=== PATIENT | female | born 1935 | race African-American/Black ===

== ENCOUNTER → 2017-01-04 | Outpatient (CLI) | payer OTHER, MEDICAID ==
[2016-11-17 16:02] VITALS: BP 180/97
--- NOTE | 2017-01-04 16:57 | VAS ---
HISTORY: Bilateral ulcers, peripheral vascular disease Study: Arterial ultrasound of the bilateral lower extremities Comparison: 03/27/2014 Technique: Multiple gaines scale and color flow Doppler images of the right and left lower extremity a rterial system were obtained. Interrogation of the common femoral artery, superficial femoral arter y, popliteal artery, and tibial arteries was performed. Findings: Biphasic waveforms are seen throughout the right and left lower extremity from the common femoral ar terial system to the calf vessels. There is diffuse calcified plaque throughout the femoral, poplite al, and tibial arteries. There is no evidence of acute vascular occlusion. Ankle-brachial indices we re not calculated. IMPRESSION: 1. Diffuse calcified plaque throughout the bilateral lower extremity arterial circulation. All vess els remain patent without evidence of occlusion. Reported By:
== END | disposition home or self-care (01) ==
LOC: RAD 13:54
PROVIDERS: ATTEND Internal Medicine
DX: L97.529 Non-pressure chronic ulcer of other part of left foot with unspecified severity (principal); L97.519 Non-pressure chronic ulcer of other part of right foot with unspecified severity; I73.89 Other specified peripheral vascular diseases
CPT/HCPCS: 93925

== ENCOUNTER → 2017-01-26 | Outpatient (CLI) | payer OTHER, MEDICAID ==
[2016-11-17 16:02] VITALS: BP 180/97
--- NOTE | 2017-01-26 13:22 | RAD ---
HISTORY: Cough Study: Single-view of the chest Comparison: 07/23/2016 Findings: Stable right subclavian port catheter terminating in the region of the distal SVC. Lung volumes are reduced. No gross airspace disease, pneumothorax or pleural effusion identified. Stable cardiac and mediastinal contours with mild cardiomegaly noted. There are chronic degenerative changes of the bon y thorax. IMPRESSION: 1. Stable chest without acute abnormality. Reported By:
== END ==
LOC: RAD 12:31
PROVIDERS: ATTEND Internal Medicine
DX: R05 Cough (principal)
CPT/HCPCS: 71010

== ENCOUNTER 2017-09-24 14:23 | Observation (INO) | payer OTHER, MEDICAID ==
[2017-09-24 16:10] LABS: BASOPHILS # (AUTO) 0.1 X10^3/uL (0.0-0.1); BASOPHILS % (AUTO) 0.7 % (0.2-1.0); EOSINOPHILS # (AUTO) 0.2 x10^3/uL (0.0-0.2); EOSINOPHILS % (AUTO) 2.8 % (0.9-2.9); HEMATOCRIT 44.2 % (36.0-47.0); HEMOGLOBIN 15.3 g/dL (12.0-16.0); LYMPHOCYTES % (AUTO) 42.3 % (21.0-51.0); MEAN CORPUSCULAR HEMOGLOBIN 31.5 pg (27.0-34.0); MEAN CORPUSCULAR HGB CONC 34.5 g/dL (33.0-35.0); MEAN CORPUSCULAR VOLUME 91.4 fL (80.0-100.0); MEAN PLATELET VOLUME 8.4 fL (7.4-11.0); MONOCYTES # (AUTO) 0.7 x10^3/uL (0.3-0.8); MONOCYTES % (AUTO) 10.3 % (0.0-13.0); NEUTROPHILS # (AUTO) 3.1 x10^3/uL (2.2-4.8); NEUTROPHILS % (AUTO) 43.9 % (42.0-75.0); PLATELET COUNT 206 X10^3/uL (150.0-450.0); RED BLOOD COUNT 4.84 X10^6/uL (3.5-5.4); RED CELL DISTRIBUTION WIDTH 14.4 % (11.6-16.5); WHITE BLOOD COUNT 7.1 X10^3/uL (3.6-10.0)
[2017-09-24 16:26] LABS: ALANINE AMINOTRANSFERASE 18 Units/L (12-78); ALBUMIN 2.8 g/dL (3.4-5.0); ALKALINE PHOSPHATASE 100 Units/L (46-116); ASPARTATE AMINO TRANSFERASE 18 Units/L (15-37); BLOOD UREA NITROGEN 20 mg/dL (7-18); CALCIUM 9.5 mg/dL (8.5-10.1); CARBON DIOXIDE 23.5 mmol/L (21-32); CHLORIDE 104 mmol/L (98-107); COR CA(FOR HYPOALB) 10.5 mg/dL (8.5-10.1); CREATININE 0.65 mg/dL (0.55-1.02); SODIUM 138 mmol/L (136-145); eGFR BLACK RACES > 60 (>60); eGFR NON BLACK RACES > 60 (>60)
[2017-09-24] MEDS: PROTONIX INJ 40 MG VIAL IVP SCH ×2 (16:29→22:55)
--- NOTE | 2017-09-24 16:57 | RAD ---
Examination: Abdomen series with AP chest History: Vomiting blood AP chest: The heart is normal in size, the aortic arch atheromatous and the lungs clear. A right subc lavian injection port terminates in the right atrium. There is no evidence for free air under the mariah phragm although there is no marker on this image to indicate that it was obtained with the patient er ect. In the abdomen, frontal views demonstrate mild fecal distention of the colon. The appearance does not suggest distal obstruction. There is no evidence for mass, urinary calcification or ascites. There i s evidence for previous L1 vertebroplasty. Impression: No acute chest or abdominal process identified. Correlate clinically for constipation. Reported By:
[2017-09-24 17:04] LABS: APPEARANCE,URINE HAZY (CLEAR); BLOOD/HEMOGLOBIN,URINE NEGATIVE (NEGATIVE); COLOR,URINE YELLOW (YELLOW); GLUCOSE, URINE NEGATIVE (NEGATIVE); KETONES,URINE NEGATIVE (NEGATIVE); NITRITES,URINE POSITIVE (NEGATIVE); PROTEIN,URINE NEGATIVE (NEGATIVE)
[2017-09-24 17:05] LABS: BACTERIA,URINE 3+ /HPF (NEGATIVE); BILIRUBIN,URINE NEGATIVE (NEGATIVE); LEUKOCYTE ESTERASE ,URINE NEGATIVE (NEGATIVE); RBC,URINE 0-2 /HPF (NEGATIVE); SQUAMOUS EPITHELIAL CELL,UR NEGATIVE /HPF (NEGATIVE); UROBILINOGEN,URINE NORMAL (NORMAL)
[2017-09-24 17:32] VITALS: BMI 27.1
[2017-09-24] MEDS ORDERED: ROCEPHIN VIAL 1 GM ONE (18:40)
[2017-09-24] MEDS ORDERED: NS 1000 ML 1,000 ML ONE (18:40)
[2017-09-24] MEDS ORDERED: NS 50 ML IV 50 ML IV ONE (18:41)
[2017-09-24] MEDS: ROCEPHIN VIAL 1 GM 1 GM in NS 50 ML IV + SPIKE MINIBAG* 50 ML IV SCH (18:49)
[2017-09-24] MEDS ORDERED: DIPRIVAN VIAL 20 ML ONE (19:12)
[2017-09-25 05:59] LABS: BASOPHILS % (AUTO) 0.5 % (0.2-1.0); EOSINOPHILS # (AUTO) 0.1 x10^3/uL (0.0-0.2); EOSINOPHILS % (AUTO) 2.5 % (0.9-2.9); HEMATOCRIT 40.4 % (36.0-47.0); LYMPHOCYTES # (AUTO) 2.4 X10^3/uL (1.3-2.9); LYMPHOCYTES % (AUTO) 42.6 % (21.0-51.0); MEAN CORPUSCULAR HEMOGLOBIN 31.7 pg (27.0-34.0); MEAN CORPUSCULAR HGB CONC 34.6 g/dL (33.0-35.0); MEAN CORPUSCULAR VOLUME 91.5 fL (80.0-100.0); MEAN PLATELET VOLUME 8.5 fL (7.4-11.0); MONOCYTES # (AUTO) 0.5 x10^3/uL (0.3-0.8); MONOCYTES % (AUTO) 9.6 % (0.0-13.0); NEUTROPHILS # (AUTO) 2.5 x10^3/uL (2.2-4.8); NEUTROPHILS % (AUTO) 44.8 % (42.0-75.0); PLATELET COUNT 189 X10^3/uL (150.0-450.0); RED BLOOD COUNT 4.42 X10^6/uL (3.5-5.4); RED CELL DISTRIBUTION WIDTH 14.1 % (11.6-16.5); WHITE BLOOD COUNT 5.7 X10^3/uL (3.6-10.0)
[2017-09-25 06:42] LABS: ALANINE AMINOTRANSFERASE 17 Units/L (12-78); ALBUMIN 2.7 g/dL (3.4-5.0); ALKALINE PHOSPHATASE 95 Units/L (46-116); ASPARTATE AMINO TRANSFERASE 15 Units/L (15-37); BLOOD UREA NITROGEN 19 mg/dL (7-18); CALCIUM 9.3 mg/dL (8.5-10.1); CARBON DIOXIDE 24.9 mmol/L (21-32); CHLORIDE 104 mmol/L (98-107); COR CA(FOR HYPOALB) 10.3 mg/dL (8.5-10.1); CREATININE 0.66 mg/dL (0.55-1.02); SODIUM 143 mmol/L (136-145); TOTAL PROTEIN 6.7 g/dL (6.4-8.2); eGFR BLACK RACES > 60 (>60); eGFR NON BLACK RACES > 60 (>60)
[2017-09-25] MEDS ORDERED: POTASSIUM CHL 60 MEQ/NS 0.45% 500 ML IV PRN (07:24)
[2017-09-25] MEDS ORDERED: POTASSIUM CHL 40 MEQ/NS 0.45% 500 ML IV PRN (07:24)
[2017-09-25] MEDS ORDERED: POTASSIUM CHLORIDE LIQ 20 MEQ UDC PO PRN (07:24)
[2017-09-25] MEDS ORDERED: MAG-OX TAB PO PRN (07:24)
[2017-09-25] MEDS ORDERED: K-RIDER 10 MEQ/NS 100 ML 10 MEQ/100 ML BAG IV PRN (07:24)
[2017-09-25] MEDS ORDERED: K-LYTE EFFERVESCENT PO PRN (07:24)
--- NOTE | 2017-09-25 08:20 | DR.H&P ---
H&P - History & Physical for Day of: H&P Date: 09/24/17 - Chief Complaint Chief Complaint: GI BLEED - Allergies Allergies/Adverse Reactions: Allergies Allergy/AdvReac Type Severity Reaction Status Date / Time No Known Drug Allergies Allergy Verified 09/24/17 15:23 - Past Medical History Past Medical History: Anemia, Angina, Anxiety, Arthritis, Coronary Artery Disease, CVA, Dementia, Depression, Dyslipidemia, GERD, Hypertension, Hypothyroidism Additional Medical History: Constipation, Tinnitus, Spinal Cord Infarction, Restless Leg Syndrome, Peripheral Vascular Disease, Paraplegic, Right-sided paralysis, Gastrointestinal Ulcer, UTI's, Muscle Weakness, Osteoarthritis, Previous Blood Transfusion - Past Surgical History Surgical History: Abdominal Surgery, Hysterectomy, Other - Family History Family Medical History: Diabetes Mellitus - Social History Does patient currently use any type of tobacco product: No Have you used tobacco products in the last 12 months: No Type of Tobacco Use: None Does any household member use tobacco: No Alcohol Use: None Drug Use: None - Medications Home Medications: Atorvastatin Calcium [LIPITOR Tab 40 mg *] 1 tab PO HS 09/24/17 [History Confirmed 09/24/17] - Physical Exam Vital Signs: Temperature 98.0 F Pulse Rate [Left Brachial] 80 Respiratory Rate 24 Blood Pressure [Left Arm] 127/76 Blood Pressure [Right Arm] 110/60 Blood Pressure 180/97 O2 Sat by Pulse Oximetry 100
[2017-09-25] MEDS ORDERED: ROCEPHIN VIAL 1 GM ONE (09:26)
[2017-09-25] MEDS ORDERED: NS 50 ML IV 50 ML IV ONE (09:27)
[2017-09-25] MEDS: ROCEPHIN VIAL 1 GM 1 GM in NS 50 ML IV + SPIKE MINIBAG* 50 ML IV SCH (09:43)
[2017-09-25] MEDS: PROTONIX INJ 40 MG VIAL IVP SCH ×2 (09:43→21:09)
[2017-09-25] MEDS: HALDOL INJ IVP PRN ×2 (10:06→14:57)
[2017-09-25] MEDS: MAGNESIUM SULFATE 1 GM/100 mL PREMIX 1 GM/100 ML BAG IV PRN ×2 (10:21→11:59)
[2017-09-25] MEDS ORDERED: METHENAMINE HIPPURATE PO SCH (10:45)
[2017-09-25] MEDS ORDERED: PATIENT'S HOME MEDICATION (Hydrocodone-Acetaminophen [Norco] 1 TAB) PO SCH (10:45)
[2017-09-25] MEDS ORDERED: NUTRITIONAL SUPPLEMENTS PO SCH (10:45)
[2017-09-25] MEDS ORDERED: PATIENT'S HOME MEDICATION PO SCH (11:00)
--- NOTE | 2017-09-25 11:10 | PCM.PROG ---
Progress Note - Progress Note for Day of Date: 09/25/17 - Subjective Subjective: WAS ADMITTED FOR AN UPPER GI BLEED. SHE WAS TAKEN DOWN FOR AN EGD BY YESTERDAY. FINDINGS FROM EGD INCLUDE A HIATAL HERNIA, DISTAL ESOPHAGEAL STRICTURES, DISTAL ESOPHAGITIS, DIFFUSE EROSIVE GASTRITIS, MULTIPLE GASTRIC ULCERS, AND DUODENITIS. SHE WAS STARTED ON PROTONIX 40MG IV Q12H. TODAY, SHE IS LYING IN BED WITH EYES OPEN ON MORNING ROUNDS. PATIENT RESPONDS BY MUMBLING WHEN SPOKEN TO. SHE APPEARS TO BE ANXIOUS AND AGITATED THIS MORNING. PATIENTS DAUGHTER IS AT BEDSIDE. ON EXAMINATION, HEARTRATE IS RAPID. LUNGS ARE CLEAR TO AUSCULTATION. ABDOMEN IS ROUND, SOFT, AND NOTED WITH DIFFUSE TENDERNESS TO PALPATION. NORMAL BOWEL SOUNDS ARE NOTED IN ALL QUADRANTS. SHE HAS FULL RANGE OF MOTION IN ALL EXTREMITIES. SHE IS NOTED TO BE ON THE INSTRUCTOR BALLROOM DANCING. HEART RATE IS NOTED TO BE IN THE 130S ON THE MONITOR. SINUS TACHYCARDIA NOTED. RESPIRATIONS ARE IN THE 30S. PATIENT IS CURRENTLY UTILIZING OXYGEN VIA NASAL CANNULA AT 2L/MIN. HER VITAL SIGNS THIS MORNING ARE 98.6-293-04-100%-110/60. ABNORMAL LAB VALUES INCLUDE THE FOLLOWING: POTASSIUM 3.3, BUN 19, ALBUMIN 2.7. A URINE CULTURE IS PENDING. PRELIMINARY RESULTS REPORT GROWTH OF GRAM NEGATIVE RODS. SHE IS CURRENTLY RECEIVING ROCEPHIN 1GM DAILY FOR A UTI. TODAY, WE WILL OBTAIN AN EKG. WE WILL START HALDOL 1-2MG IV Q4H PRN FOR AGITATION. OTHERWISE, WE PLAN TO FOLLOW UP WITH AM LABS AND CONTINUE TO MONITOR PATIENT. WE WILL CONTINUE TO MONITOR H&H Q6H. - Past Medical Family Social History Past Med/Fam/Surg Hx: No changes since H&P Allergies: Allergies No Known Drug Allergies Allergy (Verified 09/24/17 15:23) - Review of Systems ROS: No change since H&P - Vital Signs and I&O's Vital Signs: Temperature 98.9 F Pulse Rate [Left Brachial] 133 Respiratory Rate 56 Blood Pressure [Left Arm] 127/76 Blood Pressure [Right Arm] 100/75 Blood Pressure 180/97 O2 Sat by Pulse Oximetry 98 Intake and Output: Intake & Output 09/22/17 09/23/17 09/24/17 09/25/17 11:59 11:59 11:59 11:59 Intake Total 30 Balance 30 - Physical Exam Oriented: Person, Place Eyes: Normal. negative: Blurred Vision, Diplopia, Discharge, Pain, Redness, Photophobia, Other Ear: Normal. negative: Right, Left, Swelling, Ecchymosis, Hemotypanum, Abrasion , Laceration Nose: Normal. negative: Injected, Discharge, Blood, Other Throat: Normal. negative: Tonsillar Hypertrophy, Red, Exudate, Dry, Other Respiratory: Normal. negative: Right, Left, Generalized, Superior, Inferior, Diminished, Wheezes, Rales, Rhonchi, OTHER Cardiovascular: Tachycardia. negative: Murmur, Edema : Normal Auscultation: Bowel Sounds: Normal Palpation: Normal Tenderness: Diffuse. negative: Rebound, Guarding, Rigidity Skin: Normal Musculoskeletal: Normal Psychiatric: Anxiety, Agitation Mood Description: Anxious Affect: Anxious Speech Pattern: Unclear, Inappropriate - Laboratory and Diagnostics Result Diagrams: 09/25/17 05:26 09/25/17 05:26 Labs: 09/24/17 16:45 Urine,Catheterized Urine Culture - Preliminary Laboratory WBC 5.7 X10^3/uL (3.6-10.0) 09/25/17 05:26 RBC 4.42 X10^6/uL (3.5-5.4) 09/25/17 05:26 Hgb 14.0 g/dL (12.0-16.0) 09/25/17 05:26 Hct 40.4 % (36.0-47.0) 09/25/17 05:26 MCV 91.5 fL (80.0-100.0) 09/25/17 05:26 MCH 31.7 pg (27.0-34.0) 09/25/17 05:26 MCHC 34.6 g/dL (33.0-35.0) 09/25/17 05:26 RDW 14.1 % (11.6-16.5) 09/25/17 05:26 Plt Count 189 X10^3/uL (150.0-450.0) 09/25/17 05:26 MPV 8.5 fL (7.4-11.0) 09/25/17 05:26 Neut % 44.8 % (42.0-75.0) 09/25/17 05:26 Lymph % 42.6 % (21.0-51.0) 09/25/17 05:26 [place]man % 9.6 % (0.0-13.0) 09/25/17 05:26 Eos % 2.5 % (0.9-2.9) 09/25/17 05:26 Baso % 0.5 % (0.2-1.0) 09/25/17 05:26 Neut # 2.5 x10^3/uL (2.2-4.8) 09/25/17 05:26 Lymph # 2.4 X10^3/uL (1.3-2.9) 09/25/17 05:26 [place] # 0.5 x10^3/uL (0.3-0.8) 09/25/17 05:26 Eos # 0.1 x10^3/uL (0.0-0.2) 09/25/17 05:26 Baso # 0.0 X10^3/uL (0.0-0.1) 09/25/17 05:26 Absolute Nucleated RBC 0.1 /100WBC 09/25/17 05:26 Sodium 143 mmol/L (136-145) 09/25/17 05:26 Corrected Sodium TNP 09/25/17 05:26 Potassium 3.3 mmol/L (3.5-5.1) L 09/25/17 05:26 Chloride 104 mmol/L (98-107) 09/25/17 05:26 Carbon Dioxide 24.9 mmol/L (21-32) 09/25/17 05:26 BUN 19 mg/dL (7-18) H 09/25/17 05:26 Creatinine 0.66 mg/dL (0.55-1.02) 09/25/17 05:26 Est GFR (MDRD) Af Amer > 60 (>60) 09/25/17 05:26 Est GFR (MDRD) Non-Af > 60 (>60) 09/25/17 05:26 Glucose 85 mg/dL (65-99) 09/25/17 05:26 Calcium 9.3 mg/dL (8.5-10.1) 09/25/17 05:26 Corrected Calcium 10.3 mg/dL (8.5-10.1) H 09/25/17 05:26 Magnesium 1.7 mg/dL (1.7-2.9) 09/25/17 05:26 Total Bilirubin 0.50 mg/dL (0.2-1.0) 09/25/17 05:26 AST 15 Units/L (15-37) 09/25/17 05:26 ALT 17 Units/L (12-78) 09/25/17 05:26 Alkaline Phosphatase 95 Units/L (46-116) 09/25/17 05:26 Total Protein 6.7 g/dL (6.4-8.2) 09/25/17 05:26 Albumin 2.7 g/dL (3.4-5.0) L 09/25/17 05:26 Globulin 4.0 g/dL (2.5-4.5) 09/25/17 05:26 Albumin/Globulin Ratio 0.7 Ratio (1.1-2.1) L 09/25/17 05:26 Specimen Type Catherized urine 09/24/17 16:45 Urine Color Yellow (YELLOW) 09/24/17 16:45 Urine Appearance Hazy (CLEAR) 09/24/17 16:45 Urine pH 5.0 (5.0 - 8.0) 09/24/17 16:45 Ur Specific [place] 1.010 (1.000-1.030) 09/24/17 16:45 Urine Protein Negative (NEGATIVE) 09/24/17 16:45 Urine Glucose (UA) Negative (NEGATIVE) 09/24/17 16:45 Urine Ketones Negative (NEGATIVE) 09/24/17 16:45 Urine Occult Blood Negative (NEGATIVE) 09/24/17 16:45 Urine Nitrite Positive (NEGATIVE) 09/24/17 16:45 Urine Bilirubin Negative (NEGATIVE) 09/24/17 16:45 Urine Urobilinogen Normal (NORMAL) 09/24/17 16:45 Ur Leukocyte Esterase Negative (NEGATIVE) 09/24/17 16:45 Urine RBC 0-2 /HPF (NEGATIVE) 09/24/17 16:45 Urine WBC 3-5 /HPF (NEGATIVE) 09/24/17 16:45 Ur Squamous Epith Cells Negative /HPF (NEGATIVE) 09/24/17 16:45 Urine Bacteria 3+ /HPF (NEGATIVE) 09/24/17 16:45 Ur Culture Indicated? Yes/culture set up 09/24/17 16:45 - Plan (1) Upper gastrointestinal bleed Status: Acute Plan: PROTONIX 40MG IV BID, MONITOR H&H Q6H, CONTINUE TO MONITOR PATIENT.
[2017-09-25] MEDS: TAB-A-VITE PO SCH (11:45)
[2017-09-25] MEDS: ZINC SULFATE PO SCH (11:45)
[2017-09-25] MEDS: VITAMIN C PO SCH ×2 (11:45→21:24)
[2017-09-25] MEDS: EFFEXOR XR 75 MG CAP PO SCH (11:45)
[2017-09-25] MEDS: COLACE CAP 100 MG PO SCH ×2 (11:45→21:23)
[2017-09-25 12:41] LABS: HEMATOCRIT 44.4 % (36.0-47.0); HEMOGLOBIN 15.1 g/dL (12.0-16.0)
[2017-09-25 18:11] LABS: HEMATOCRIT 42.6 % (36.0-47.0); HEMOGLOBIN 14.7 g/dL (12.0-16.0)
[2017-09-25] MEDS ORDERED: REQUIP PO SCH (21:00)
[2017-09-25] MEDS ORDERED: LIPITOR TAB 40 MG PO SCH (21:00)
[2017-09-25] MEDS: HIPREX PO SCH (21:23)
[2017-09-25] MEDS: NORCO 5/325 MG TAB PO SCH (21:23)
[2017-09-26 00:35] LABS: HEMATOCRIT 40.2 % (36.0-47.0); HEMOGLOBIN 13.9 g/dL (12.0-16.0)
[2017-09-26 05:49] LABS: BASOPHILS % (AUTO) 0.6 % (0.2-1.0); EOSINOPHILS # (AUTO) 0.2 x10^3/uL (0.0-0.2); EOSINOPHILS % (AUTO) 3.1 % (0.9-2.9); HEMATOCRIT 42.2 % (36.0-47.0); HEMOGLOBIN 14.3 g/dL (12.0-16.0); LYMPHOCYTES # (AUTO) 2.2 X10^3/uL (1.3-2.9); LYMPHOCYTES % (AUTO) 38.6 % (21.0-51.0); MEAN CORPUSCULAR HEMOGLOBIN 31.1 pg (27.0-34.0); MEAN CORPUSCULAR HGB CONC 33.9 g/dL (33.0-35.0); MEAN CORPUSCULAR VOLUME 91.7 fL (80.0-100.0); MEAN PLATELET VOLUME 8.7 fL (7.4-11.0); MONOCYTES # (AUTO) 0.6 x10^3/uL (0.3-0.8); MONOCYTES % (AUTO) 11.3 % (0.0-13.0); NEUTROPHILS # (AUTO) 2.6 x10^3/uL (2.2-4.8); NEUTROPHILS % (AUTO) 46.4 % (42.0-75.0); PLATELET COUNT 191 X10^3/uL (150.0-450.0); RED CELL DISTRIBUTION WIDTH 14.5 % (11.6-16.5); WHITE BLOOD COUNT 5.6 X10^3/uL (3.6-10.0)
[2017-09-26 05:57] LABS: ALANINE AMINOTRANSFERASE 21 Units/L (12-78); ALBUMIN 2.6 g/dL (3.4-5.0); ALKALINE PHOSPHATASE 93 Units/L (46-116); ASPARTATE AMINO TRANSFERASE 19 Units/L (15-37); BLOOD UREA NITROGEN 15 mg/dL (7-18); CALCIUM 9.2 mg/dL (8.5-10.1); CARBON DIOXIDE 23.3 mmol/L (21-32); CHLORIDE 108 mmol/L (98-107); COR CA(FOR HYPOALB) 10.3 mg/dL (8.5-10.1); SODIUM 140 mmol/L (136-145); TOTAL PROTEIN 6.5 g/dL (6.4-8.2); eGFR BLACK RACES > 60 (>60); eGFR NON BLACK RACES > 60 (>60)
[2017-09-26] MEDS: POTASSIUM CHLORIDE LIQ 20 MEQ UDC PO SCH ×2 (07:49→09:49)
[2017-09-26] MEDS ORDERED: ROCEPHIN VIAL 1 GM 1 GM in D5W 50 ML IV 50 ML IV SCH (09:00)
[2017-09-26] MEDS: ZINC SULFATE PO SCH (09:46)
[2017-09-26] MEDS: PROTONIX INJ 40 MG VIAL IVP SCH (09:46)
[2017-09-26] MEDS: TAB-A-VITE PO SCH (09:46)
[2017-09-26] MEDS: COLACE CAP 100 MG PO SCH (09:47)
[2017-09-26] MEDS: NORCO 5/325 MG TAB PO SCH (09:47)
[2017-09-26] MEDS: EFFEXOR XR 75 MG CAP PO SCH (09:47)
[2017-09-26] MEDS: VITAMIN C PO SCH (09:47)
[2017-09-26] MEDS: HIPREX PO SCH (09:48)
[2017-09-26 15:26] VITALS: BP 129/77
[2017-09-26] MEDS ORDERED: LEVSIN/MAALOX/LIDOC VISC ONE (22:20)
[2017-09-26] MEDS ORDERED: CIPRO TAB 500 MG PO ONE (22:29)
== END 2017-09-26 13:00 | DRG 378 ==
LOC: OBS 14:23 → UNDOADMOB 14:23 → OBS 15:44 → ICU 20:17
PROVIDERS: ADMIT Internal Medicine; ATTEND Internal Medicine
PROC: 0DJ08ZZ Inspection of Upper Intestinal Tract, Via Natural or Artificial Opening Endoscopic (ICD-10-PCS; principal; 2017-09-24 19:00)
DX: K92.0 Hematemesis (principal); N39.0 Urinary tract infection, site not specified; K29.80 Duodenitis without bleeding; K44.9 Diaphragmatic hernia without obstruction or gangrene; L89.152 Pressure ulcer of sacral region, stage 2; K22.2 Esophageal obstruction; K25.9 Gastric ulcer, unspecified as acute or chronic, without hemorrhage or perforation; B96.29 Other Escherichia coli [E. coli] as the cause of diseases classified elsewhere; I25.10 Atherosclerotic heart disease of native coronary artery without angina pectoris; E78.2 Mixed hyperlipidemia; K21.9 Gastro-esophageal reflux disease without esophagitis; I10 Essential (primary) hypertension; E03.8 Other specified hypothyroidism; E11.65 Type 2 diabetes mellitus with hyperglycemia; F41.8 Other specified anxiety disorders; R00.0 Tachycardia, unspecified
CPT/HCPCS: 36415; 74022; 80053; 81001; 83735; 84132; 85014; 85018; 85025; 87086; 87088; 87186; 93005; 99100; A4222; C9113; A4217; G0378; J0696; J1630; J3490

== ENCOUNTER 2017-10-27 16:48 | Inpatient (IN) | payer OTHER, MEDICAID ==
[2017-10-27] MEDS: D5W 1000 ML IV 1,000 ML IV SCH (21:28)
[2017-10-28 05:22] LABS: BASOPHILS % (AUTO) 0.4 % (0.2-1.0); EOSINOPHILS # (AUTO) 0.1 x10^3/uL (0.0-0.2); EOSINOPHILS % (AUTO) 2.3 % (0.9-2.9); HEMATOCRIT 35.9 % (36.0-47.0); HEMOGLOBIN 11.7 g/dL (12.0-16.0); LYMPHOCYTES % (AUTO) 48.2 % (21.0-51.0); MEAN CORPUSCULAR HEMOGLOBIN 30.8 pg (27.0-34.0); MEAN CORPUSCULAR HGB CONC 32.7 g/dL (33.0-35.0); MEAN PLATELET VOLUME 8.9 fL (7.4-11.0); MONOCYTES # (AUTO) 0.6 x10^3/uL (0.3-0.8); MONOCYTES % (AUTO) 10.2 % (0.0-13.0); NEUTROPHILS # (AUTO) 2.4 x10^3/uL (2.2-4.8); NEUTROPHILS % (AUTO) 38.9 % (42.0-75.0); PLATELET COUNT 190 X10^3/uL (150.0-450.0); RED BLOOD COUNT 3.82 X10^6/uL (3.5-5.4); RED CELL DISTRIBUTION WIDTH 15.3 % (11.6-16.5); WHITE BLOOD COUNT 6.1 X10^3/uL (3.6-10.0)
[2017-10-28 05:35] LABS: ALANINE AMINOTRANSFERASE 60 Units/L (12-78); ALBUMIN 1.6 g/dL (3.4-5.0); ALKALINE PHOSPHATASE 83 Units/L (46-116); ASPARTATE AMINO TRANSFERASE 42 Units/L (15-37); BLOOD UREA NITROGEN 35 mg/dL (7-18); CALCIUM 9.1 mg/dL (8.5-10.1); CARBON DIOXIDE 30.4 mmol/L (21-32); COR NA(FOR HYPERGLY) 159 mmol/L (136-145); CREATININE 0.93 mg/dL (0.55-1.02); TOTAL PROTEIN 6.9 g/dL (6.4-8.2); eGFR BLACK RACES > 60 (>60); eGFR NON BLACK RACES > 60 (>60)
[2017-10-28 05:38] LABS: BAND NEUTROPHILS % 2 % (0-10); PLATELET MORPHOLOGY COMMENT NORMAL (NORMAL)
[2017-10-28 05:44] LABS: CHLORIDE 119 mmol/L (98-107); SODIUM 158 mmol/L (136-145)
[2017-10-28] MEDS ORDERED: K-LYTE EFFERVESCENT PO PRN (05:50)
[2017-10-28] MEDS ORDERED: MAGNESIUM SULFATE 1 GM/100 mL PREMIX 1 GM/100 ML BAG IV PRN (05:50)
[2017-10-28] MEDS ORDERED: MAG-OX TAB PO PRN (05:50)
[2017-10-28] MEDS ORDERED: K-RIDER 10 MEQ/NS 100 ML 10 MEQ/100 ML BAG IV PRN (05:50)
[2017-10-28] MEDS ORDERED: POTASSIUM CHLORIDE LIQ 20 MEQ UDC PO PRN (05:50)
[2017-10-28] MEDS ORDERED: POTASSIUM CHL 40 MEQ/NS 0.45% 500 ML IV PRN (05:50)
[2017-10-28] MEDS: POTASSIUM CHL 60 MEQ/NS 0.45% 500 ML IV PRN (06:27)
[2017-10-28] MEDS ORDERED: PHARMACY CONSULT - TPN XX SCH (10:00)
[2017-10-28] MEDS: D5W 1000 ML IV 1,000 ML IV SCH ×2 (10:15→22:14)
[2017-10-28] MEDS: LEVAQUIN PREMIX IV 500 MG 500 MG/100 ML BAG IV SCH (10:15)
[2017-10-28] MEDS: CLINIMIX 4.25 %/10 % 1,000 ML with MVI INJ (ADULT) 10 ML, POTASSIUM CHLORIDE INJ 20 MEQ... IV SCH ×5 (12:34)
[2017-10-28] MEDS ORDERED: ZOFRAN INJ 4 MG VIAL IVP PRN (13:06)
[2017-10-28 20:31] LABS: CRYPTOSPORIDIUM PARVUM ANTIGEN NEGATIVE (NEGATIVE); GIARDIA LAMBLIA ANTIGEN NEGATIVE (NEGATIVE); STOOL FOR WBC NEGATIVE (NEGATIVE)
[2017-10-28] MEDS ORDERED: PATIENT'S HOME MEDICATION (Famotidine [Pepcid] 40 MG) PO SCH (21:00)
[2017-10-28] MEDS ORDERED: PATIENT'S HOME MEDICATION PO SCH (21:00)
[2017-10-28] MEDS ORDERED: METHENAMINE HIPPURATE PO SCH (21:00)
[2017-10-28] MEDS ORDERED: PATIENT'S HOME MEDICATION (Hydrocodone-Acetaminophen [Norco] 1 TAB) PO SCH (21:00)
[2017-10-28] MEDS: PATIENT'S HOME MEDICATION (Amino Acids/Protein Hydrolys [Pro-Stat Awc Liquid Packet] 30 ML PO SCH (22:13)
[2017-10-28] MEDS: VITAMIN C PO SCH (22:13)
[2017-10-28] MEDS: PROTONIX TAB 40 MG PO SCH (22:13)
[2017-10-28] MEDS: TOPROL XL PO SCH (22:13)
[2017-10-28] MEDS: NUTRITIONAL SUPPLEMENTS PO SCH (22:14)
[2017-10-28] MEDS: REQUIP PO SCH (22:14)
[2017-10-28] MEDS: PEPCID TAB 20 MG PO SCH (22:15)
[2017-10-28] MEDS: COLACE CAP 100 MG PO SCH (22:16)
[2017-10-28] MEDS: LIPITOR TAB 40 MG PO SCH (22:16)
[2017-10-28] MEDS: NORCO 5/325 MG TAB PO SCH (22:16)
[2017-10-29] MEDS: CLINIMIX 4.25 %/10 % 1,000 ML with MVI INJ (ADULT) 10 ML, POTASSIUM CHLORIDE INJ 20 MEQ... IV SCH ×15 (04:48→15:51)
[2017-10-29 05:32] LABS: BASOPHILS % (AUTO) 0.7 % (0.2-1.0); EOSINOPHILS # (AUTO) 0.1 x10^3/uL (0.0-0.2); HEMATOCRIT 39.5 % (36.0-47.0); HEMOGLOBIN 12.7 g/dL (12.0-16.0); LYMPHOCYTES # (AUTO) 3.5 X10^3/uL (1.3-2.9); LYMPHOCYTES % (AUTO) 48.3 % (21.0-51.0); MEAN CORPUSCULAR HGB CONC 32.1 g/dL (33.0-35.0); MEAN CORPUSCULAR VOLUME 96.5 fL (80.0-100.0); MEAN PLATELET VOLUME 9.2 fL (7.4-11.0); MONOCYTES # (AUTO) 0.5 x10^3/uL (0.3-0.8); MONOCYTES % (AUTO) 7.4 % (0.0-13.0); NEUTROPHILS # (AUTO) 3.1 x10^3/uL (2.2-4.8); NEUTROPHILS % (AUTO) 42.6 % (42.0-75.0); PLATELET COUNT 150 X10^3/uL (150.0-450.0); RED BLOOD COUNT 4.09 X10^6/uL (3.5-5.4); RED CELL DISTRIBUTION WIDTH 15.4 % (11.6-16.5); WHITE BLOOD COUNT 7.2 X10^3/uL (3.6-10.0)
[2017-10-29] MEDS: NUTRITIONAL SUPPLEMENTS PO SCH ×3 (05:41→21:51)
[2017-10-29 06:29] LABS: ALANINE AMINOTRANSFERASE 46 Units/L (12-78); ALBUMIN 1.5 g/dL (3.4-5.0); ALKALINE PHOSPHATASE 82 Units/L (46-116); BLOOD UREA NITROGEN 24 mg/dL (7-18); CALCIUM 8.6 mg/dL (8.5-10.1); CARBON DIOXIDE 26.9 mmol/L (21-32); CHLORIDE 112 mmol/L (98-107); COR CA(FOR HYPOALB) 10.6 mg/dL (8.5-10.1); COR NA(FOR HYPERGLY) 149 mmol/L (136-145); CREATININE 0.78 mg/dL (0.55-1.02); SODIUM 148 mmol/L (136-145); TOTAL PROTEIN 6.8 g/dL (6.4-8.2); eGFR BLACK RACES > 60 (>60); eGFR NON BLACK RACES > 60 (>60)
[2017-10-29 06:34] LABS: ASPARTATE AMINO TRANSFERASE 37 Units/L (15-37)
--- NOTE | 2017-10-29 08:07 | RAD ---
Examination: Portable AP chest History: SOB Comparison 10/27/2017 Findings: Continued normal heart size with arteriosclerotic dilatation of the aorta. The lungs remain grossly clear. Stable position of right subclavian injection port terminating in the right atrium. Impression: No interval change or developing acute abnormality noted compared to 10/27/2017. Reported By:
[2017-10-29] MEDS: COLACE CAP 100 MG PO SCH ×2 (10:04→21:49)
[2017-10-29] MEDS: EFFEXOR XR 75 MG CAP PO SCH (10:04)
[2017-10-29] MEDS: MIRALAX POWDER (1 DOSE 17GM) PO SCH (10:05)
[2017-10-29] MEDS: HYDROCHLOROTHIAZIDE 12.5 MG CAP PO SCH (10:05)
[2017-10-29] MEDS: HIPREX PO SCH ×2 (10:05→21:50)
[2017-10-29] MEDS: VITAMIN C PO SCH ×2 (10:06→21:49)
[2017-10-29] MEDS: ZINC SULFATE PO SCH (10:06)
[2017-10-29] MEDS: NORCO 5/325 MG TAB PO SCH ×2 (10:06→21:50)
[2017-10-29] MEDS: PEPCID TAB 20 MG PO SCH ×2 (10:06→21:50)
[2017-10-29] MEDS: TAB-A-VITE PO SCH (10:07)
[2017-10-29] MEDS: TOPROL XL PO SCH (10:07)
[2017-10-29] MEDS: PROTONIX TAB 40 MG PO SCH ×2 (10:07→21:49)
[2017-10-29] MEDS: POTASSIUM CHLORIDE LIQ 20 MEQ UDC PO SCH (10:08)
[2017-10-29] MEDS: D5W 1000 ML IV 1,000 ML IV SCH (10:26)
[2017-10-29] MEDS: LEVAQUIN PREMIX IV 500 MG 500 MG/100 ML BAG IV SCH (10:26)
[2017-10-29] MEDS: ALBUMIN HUMAN 25%- 100ML 100 ML IV SCH (11:58)
[2017-10-29] MEDS ORDERED: DIPRIVAN VIAL 20 ML ONE (11:59)
--- NOTE | 2017-10-29 12:03 | DR.H&P ---
H&P - History & Physical for Day of: H&P Date: 10/27/17 - Chief Complaint Chief Complaint: hypernatremia - Allergies Allergies/Adverse Reactions: Allergies Allergy/AdvReac Type Severity Reaction Status Date / Time No Known Drug Allergies Allergy Verified 09/24/17 15:23 - History of Present Illness History of Present Illness: is a 82 year old resident of [facility] who was admitted to the hospital as a direct admit with hypernatremia. Outpatient labs that were obtained earlier today revealed a sodium level of 160. A critical chloride level of 121 was also reported. Potassium is slightly low at 3.1 as well as albumin at 1.7. Prior to admission today, , general surgeon, took patient to the OR for excisional debridement of decubitus ulcer to the sacrum. Ulcer is noted to measure 9x6cm. Bone, as well as muscles were exposed during debridement. A wound culture was collected and results are pending. Patients medical history includes the following: tinnitus, CVA, paralysis, right sided paralysis, CAD, hyperlipidemia , hypertension, GERD, GI ulcer, constipation, urinary tract infections, muscle weakness, arthritis, hypothyroidism, anemia, and anxiety. We plan to admit patient to the hospital for further treatment and evaluation. Patient will be started on IV fluids in an attempt to help decreased sodium level. We will also start her on a broad spectrum antibiotic to cover infection in the wound until an official wound culture is back. We will order for wound care of decubitus ulcer. She is scheduled for a peg tube placement next week due to inadequate nutritional intake. Patient's family reports that patient has had a decreased appetite for sometime and is unable to effectively swallow without choking. We will consult with and discuss placing peg tube while patient is in the hospital. Otherwise, we will follow up with am labs and continue to monitor patient. - Past Medical History Past Medical History: Anemia, Angina, Anxiety, Arthritis, Coronary Artery Disease, CVA, Dementia, Depression, Dyslipidemia, GERD, Hypertension, Hypothyroidism Additional Medical History: Constipation, Tinnitus, Spinal Cord Infarction, Restless Leg Syndrome, Peripheral Vascular Disease, Paraplegic, Right-sided paralysis, Gastrointestinal Ulcer, UTI's, Muscle Weakness, Osteoarthritis, Previous Blood Transfusion - Past Surgical History Surgical History: Abdominal Surgery, Hysterectomy, Other - Family History Family Medical History: Diabetes Mellitus - Social History Alcohol Use: None Drug Use: None - Medications Home Medications: Amino Acids/Protein Hydrolys [Pro-Stat [facility] Liquid Packet] 30 ml PO HS 10/28/17 [ History Confirmed 10/28/17] - Review of Systems Constitutional: See HPI, Weakness Eyes: No Symptoms Reported. denies: See HPI, Pain, Vision Change, Conjunctivae Inflammation, Eyelid Inflammation, Redness, Other ENT: No Symptoms Reported. denies: See HPI, Ear Pain, Ear Discharge, Nose Pain , Nose Discharge, Nose Congestion, Mouth Pain, Mouth Swelling, Throat Pain, Throat Swelling, Other Respiratory: Cough Cardiovascular: No Symptoms Reported. denies: Chest Pain, See HPI, Palpitations , Orthopnea, Paroxysmal Noc. Dyspnea, Edema, Light Headedness, Other Gastrointestinal: Nausea, Vomiting Genitourinary: No Symptoms Reported Musculoskeletal: No Symptoms Reported Skin: Wound (stage 3 decubitus ulcer ) Neurological: Weakness - Physical Exam Vital Signs: Temperature 99.6 F Pulse Rate [Left Brachial] 82 Respiratory Rate 20 Blood Pressure [Left Arm] 125/90 Blood Pressure [Right Arm] 99/64 Blood Pressure 111/69 O2 Sat by Pulse Oximetry 99 Oriented: Unable to test Eyes: Normal Ear: Normal Nose: Normal Throat: Normal Respiratory: Rhonchi Throughout Cardiovascular: Normal : Normal Auscultation: Bowel Sounds: Increased Palpation: Normal Tenderness: Normal Skin: Wound (stage 3 decubitus ulcer to sacrum ) Musculoskeletal: Motor Deficit (right sided paralysis ) Psychiatric: Normal Mood Description: Calm Affect: Normal Speech Pattern: Aphasic - Assessment/Plan (1) Hypernatremia Status: Acute Plan: d5w at 80ml/hr, continue to monitor (2) Decubitus ulcer of sacral region, stage 3 Status: Acute Plan: wound care, levaquin 500mg iv daily, continue to monitor
[2017-10-29] MEDS ORDERED: NS 500 ML IV 500 ML IV ONE (12:19)
[2017-10-29] MEDS: FORTAZ or TAZICEF INJ 2 GM in NS 100 ML IV + SPIKE MINIBAG* 100 ML IV SCH ×3 (13:45→21:34)
--- NOTE | 2017-10-29 15:57 | RAD ---
Examination: KUB History: Tube placement Comparison reference 09/24/2017 Findings: Frontal views of the abdomen demonstrate moderate gas distention of small and large bowel. Detail is limited by portable technique and respiratory artifact. Contrast has apparently been inject ed through the G-tube, accumulating within the stomach. There is no evidence for a gastric distention , contrast extravasation or other abnormality. Impression: 1. Intestinal distention consistent with nonobstructing ileus. 2. Injected contrast material accumulates within the gastric lumen. No extravasation is seen. Reported By:
[2017-10-29] MEDS: PATIENT'S HOME MEDICATION (Amino Acids/Protein Hydrolys [Pro-Stat Awc Liquid Packet] 30 ML PO SCH (21:49)
[2017-10-29] MEDS: REQUIP PO SCH (21:49)
[2017-10-29] MEDS: LIPITOR TAB 40 MG PO SCH (21:50)
--- NOTE | 2017-10-29 22:42 | PCM.PROG ---
Progress Note - Progress Note for Day of Date: 10/28/17 - Subjective Subjective: WAS ADMITTED FOR HYPERNATREMIA AND A DECUBITUS ULCER TO THE SACRUM. DEBRIDEMENT TO WOUND WAS DONE ON 10/27/[address] DESOUZA. TODAY, SHE IS LYING IN BED WITH EYES CLOSED ON MORNING ROUNDS. SHE AWAKENS TO VERBAL STIMULI. STAFF REPORTS THAT PATIENT CONTINUES WITH NAUSEA AND VOMITING AND IS UNABLE TO TOLERATE PO MEDICATIONS AT THIS TIME. WOUND TO SACRUM IS COVERED BY A DRESSING. DRESSING IS DRY AND INTACT. HER VITAL SIGNS THIS MORNING ARE 99.4-76- 18-97%-126/60. TODAY, PATIENTS SODIUM IS NOTED TO BE SLIGHTLY DECREASED TO 158. POTASSIUM IS CRITICALLY LOW THIS MORNING AT 2.8. CRITICAL LOW CHLORIDE WAS ALSO REPORTED AT 119. ALBUMIN IS MARKEDLY LOW AT 1.6. WOUND CULTURES ARE PENDING AT THIS TIME. PRELIMINARY RESULTS INDICATE GROWTH OF GRAM NEGATIVE RODS. TODAY, WE PLAN TO START PERIPHERAL TPN AND ALBUMIN 25% IV DAILY. WE WILL REVIEW HOME MEDICATIONS. OTHERWISE, WE WILL CONTINUE CURRENT PLAN OF CARE. WE PLAN TO FOLLOW UP WITH AM LABS AND CONTINUE TO MONITOR PATIENT. - Past Medical Family Social History Past Med/Fam/Surg Hx: No changes since H&P Allergies: Allergies No Known Drug Allergies Allergy (Verified 09/24/17 15:23) - Review of Systems ROS: No change since H&P - Vital Signs and I&O's Vital Signs: Temperature 98.1 F Pulse Rate [Left Brachial] 77 Respiratory Rate 18 Blood Pressure [Left Arm] 133/66 Blood Pressure [Right Arm] 99/64 Blood Pressure 111/69 O2 Sat by Pulse Oximetry 98 Intake and Output: Intake & Output 10/27/17 10/28/17 10/29/17 10/30/17 11:59 11:59 11:59 11:59 Intake Total 885 2185 929 Balance 885 2185 929 - Physical Exam Oriented: Unable to test Eyes: Normal Ear: Normal Nose: Normal Throat: Normal Respiratory: Normal Cardiovascular: Normal : Normal Auscultation: Bowel Sounds: Increased Palpation: Normal Tenderness: Normal Skin: Wound (stage 3 decubitus ulcer to sacrum ) Musculoskeletal: Motor Deficit (right sided paralysis ) Psychiatric: Normal Mood Description: Calm Affect: Normal Speech Pattern: Unclear - Laboratory and Diagnostics Result Diagrams: 10/29/17 04:55 10/29/17 04:55 Labs: 10/28/17 19:00 Stool - Final Laboratory WBC 7.2 X10^3/uL (3.6-10.0) 10/29/17 04:55 RBC 4.09 X10^6/uL (3.5-5.4) 10/29/17 04:55 Hgb 12.7 g/dL (12.0-16.0) 10/29/17 04:55 Hct 39.5 % (36.0-47.0) 10/29/17 04:55 MCV 96.5 fL (80.0-100.0) 10/29/17 04:55 MCH 31.0 pg (27.0-34.0) 10/29/17 04:55 MCHC 32.1 g/dL (33.0-35.0) L 10/29/17 04:55 RDW 15.4 % (11.6-16.5) 10/29/17 04:55 Plt Count 150 X10^3/uL (150.0-450.0) 10/29/17 04:55 Plt Count Comment Adequate (ADEQUATE) 10/28/17 04:30 MPV 9.2 fL (7.4-11.0) 10/29/17 04:55 Neut % 42.6 % (42.0-75.0) 10/29/17 04:55 Lymph % 48.3 % (21.0-51.0) 10/29/17 04:55 [place] % 7.4 % (0.0-13.0) 10/29/17 04:55 Eos % 1.0 % (0.9-2.9) 10/29/17 04:55 Baso % 0.7 % (0.2-1.0) 10/29/17 04:55 Neut # 3.1 x10^3/uL (2.2-4.8) 10/29/17 04:55 Lymph # 3.5 X10^3/uL (1.3-2.9) H 10/29/17 04:55 [place] # 0.5 x10^3/uL (0.3-0.8) 10/29/17 04:55 Eos # 0.1 x10^3/uL (0.0-0.2) 10/29/17 04:55 Baso # 0.0 X10^3/uL (0.0-0.1) 10/29/17 04:55 Absolute Nucleated RBC 0.5 /100WBC 10/29/17 04:55 Total Counted 100 10/28/17 04:30 Neutrophils % (Manual) 44 % (39-76) 10/28/17 04:30 Band Neutrophils % 2 % (0-10) 10/28/17 04:30 Lymphocytes % (Manual) 43 % (13-43) 10/28/17 04:30 Monocytes % (Manual) 9 % (4-9) 10/28/17 04:30 Eosinophils % (Manual) 2 % (0-6) 10/28/17 04:30 Plt Morphology Comment Normal (NORMAL) 10/28/17 04:30 RBC Morphology Normal (NORMAL) 10/28/17 04:30 Sodium 148 mmol/L (136-145) H 10/29/17 04:55 Corrected Sodium 149 mmol/L (136-145) H 10/29/17 04:55 Potassium 4.4 mmol/L (3.5-5.1) 10/29/17 04:55 Chloride 112 mmol/L (98-107) H 10/29/17 04:55 Carbon Dioxide 26.9 mmol/L (21-32) 10/29/17 04:55 BUN 24 mg/dL (7-18) H 10/29/17 04:55 Creatinine 0.78 mg/dL (0.55-1.02) 10/29/17 04:55 Est GFR (MDRD) Af Amer > 60 (>60) 10/29/17 04:55 Est GFR (MDRD) Non-Af > 60 (>60) 10/29/17 04:55 Glucose 162 mg/dL (65-99) H 10/29/17 04:55 POC Glucose (mg/dL) 171 mg/dL (65-99) H 10/29/17 22:14 Calcium 8.6 mg/dL (8.5-10.1) 10/29/17 04:55 Corrected Calcium 10.6 mg/dL (8.5-10.1) H 10/29/17 04:55 Magnesium 2.5 mg/dL (1.7-2.9) 10/28/17 04:30 Total Bilirubin 0.40 mg/dL (0.2-1.0) 10/29/17 04:55 AST 37 Units/L (15-37) 10/29/17 04:55 ALT 46 Units/L (12-78) 10/29/17 04:55 Alkaline Phosphatase 82 Units/L (46-116) 10/29/17 04:55 Total Protein 6.8 g/dL (6.4-8.2) 10/29/17 04:55 Albumin 1.5 g/dL (3.4-5.0) L 10/29/17 04:55 Globulin 5.3 g/dL (2.5-4.5) H 10/29/17 04:55 Albumin/Globulin Ratio 0.3 Ratio (1.1-2.1) L 10/29/17 04:55 Stool Description 5 g brown/unformed 10/28/17 19:00 Stl Occult Blood (IFOB) Negative (NEGATIVE) 10/28/17 19:00 Stool for White Cells Negative (NEGATIVE) 10/28/17 19:00 Stl C. diff Tox B Gene Negative (NEGATIVE) 10/28/17 19:00 Stl C. diff [id number] Negative (NEGATIVE) 10/28/17 19:00 Cryptosporid parvum Ag Negative (NEGATIVE) 10/28/17 19:00 E. histolytica Antigen Negative (NEGATIVE) 10/28/17 19:00 Giardia lamblia Ag Negative (NEGATIVE) 10/28/17 19:00 - Plan (1) Hypernatremia Status: Acute Plan: d5w at 80ml/hr, continue to monitor (2) Decubitus ulcer of sacral region, stage 3 Status: Acute Plan: wound care, levaquin 500mg iv daily, continue to monitor (3) Hypoalbuminemia Status: Acute Plan: PERIPHERAL TPN, ALBUMIN 25% IV DAILY, CONTINUE TO MONITOR
--- NOTE | 2017-10-29 22:49 | PCM.PROG ---
Progress Note - Progress Note for Day of Date: 10/29/17 - Subjective Subjective: WAS ADMITTED FOR HYPERNATREMIA AND A DECUBITUS ULCER TO THE SACRUM. DEBRIDEMENT TO WOUND WAS DONE ON 10/27/[address] DESOUZA. TODAY, SHE IS LYING IN BED WITH EYES CLOSED ON MORNING ROUNDS. SHE AWAKENS TO VERBAL STIMULI. ACCORDING TO STAFF, PATIENT CONTINUES WITH NAUSEA AND VOMITING. WOUND TO SACRUM IS COVERED BY A DRESSING. DRESSING IS DRY AND INTACT. HER VITAL SIGNS THIS MORNING ARE 99.6-90-20-98%-148/68. TODAY, PATIENTS SODIUM HAS DECREASED TO 148. ALBUMIN CONTINUES TO BE LOW AT 1.5. WOUND CULTURES REPORT GROWTH OF PROTEUS MIRABILIS. IT IS RESISTENT TO THE LEVAQUIN THAT SHE IS CURRENTLY ON. WE WILL DISCONTINUE LEVAQUIN AND START FORTAZ 2GM IV Q8H. PATIENT WAS SCHEDULED FOR PLACEMENT OF A PEG TUBE TOMORROW. CONSULTED WITH PATIENT AND FAMILY TODAY AND PLANS TO TAKE PATIENT TO THE OR THIS AFTERNOON FOR PLACEMENT OF PEG TUBE. WE ARE IN AGREEMENT WITH PLAN. WE WILL HOLD PATIENT NPO UNTIL AFTER PROCEDURE. OTHERWISE, WE PLAN TO FOLLOW UP WITH AM LABS AND CONTINUE TO MONITOR PATIENT. - Past Medical Family Social History Past Med/Fam/Surg Hx: No changes since H&P Allergies: Allergies No Known Drug Allergies Allergy (Verified 09/24/17 15:23) - Review of Systems ROS: No change since H&P - Vital Signs and I&O's Vital Signs: Temperature 98.1 F Pulse Rate [Left Brachial] 77 Respiratory Rate 18 Blood Pressure [Left Arm] 133/66 Blood Pressure [Right Arm] 99/64 Blood Pressure 111/69 O2 Sat by Pulse Oximetry 98 Intake and Output: Intake & Output 10/27/17 10/28/17 10/29/17 10/30/17 11:59 11:59 11:59 11:59 Intake Total 885 2185 929 Balance 885 2185 929 - Physical Exam Oriented: Unable to test Eyes: Normal Ear: Normal Nose: Normal Throat: Normal Respiratory: Normal Cardiovascular: Normal : Normal Auscultation: Bowel Sounds: Increased Palpation: Normal Tenderness: Normal Skin: Wound (stage 3 decubitus ulcer to sacrum ) Musculoskeletal: Motor Deficit (right sided paralysis ) Psychiatric: Normal Mood Description: Calm Affect: Normal Speech Pattern: Unclear - Laboratory and Diagnostics Result Diagrams: 10/29/17 04:55 10/29/17 04:55 Labs: 10/28/17 19:00 Stool - Final Laboratory WBC 7.2 X10^3/uL (3.6-10.0) 10/29/17 04:55 RBC 4.09 X10^6/uL (3.5-5.4) 10/29/17 04:55 Hgb 12.7 g/dL (12.0-16.0) 10/29/17 04:55 Hct 39.5 % (36.0-47.0) 10/29/17 04:55 MCV 96.5 fL (80.0-100.0) 10/29/17 04:55 MCH 31.0 pg (27.0-34.0) 10/29/17 04:55 MCHC 32.1 g/dL (33.0-35.0) L 10/29/17 04:55 RDW 15.4 % (11.6-16.5) 10/29/17 04:55 Plt Count 150 X10^3/uL (150.0-450.0) 10/29/17 04:55 Plt Count Comment Adequate (ADEQUATE) 10/28/17 04:30 MPV 9.2 fL (7.4-11.0) 10/29/17 04:55 Neut % 42.6 % (42.0-75.0) 10/29/17 04:55 Lymph % 48.3 % (21.0-51.0) 10/29/17 04:55 [place] % 7.4 % (0.0-13.0) 10/29/17 04:55 Eos % 1.0 % (0.9-2.9) 10/29/17 04:55 Baso % 0.7 % (0.2-1.0) 10/29/17 04:55 Neut # 3.1 x10^3/uL (2.2-4.8) 10/29/17 04:55 Lymph # 3.5 X10^3/uL (1.3-2.9) H 10/29/17 04:55 [place] # 0.5 x10^3/uL (0.3-0.8) 10/29/17 04:55 Eos # 0.1 x10^3/uL (0.0-0.2) 10/29/17 04:55 Baso # 0.0 X10^3/uL (0.0-0.1) 10/29/17 04:55 Absolute Nucleated RBC 0.5 /100WBC 10/29/17 04:55 Total Counted 100 10/28/17 04:30 Neutrophils % (Manual) 44 % (39-76) 10/28/17 04:30 Band Neutrophils % 2 % (0-10) 10/28/17 04:30 Lymphocytes % (Manual) 43 % (13-43) 10/28/17 04:30 Monocytes % (Manual) 9 % (4-9) 10/28/17 04:30 Eosinophils % (Manual) 2 % (0-6) 10/28/17 04:30 Plt Morphology Comment Normal (NORMAL) 10/28/17 04:30 RBC Morphology Normal (NORMAL) 10/28/17 04:30 Sodium 148 mmol/L (136-145) H 10/29/17 04:55 Corrected Sodium 149 mmol/L (136-145) H 10/29/17 04:55 Potassium 4.4 mmol/L (3.5-5.1) 10/29/17 04:55 Chloride 112 mmol/L (98-107) H 10/29/17 04:55 Carbon Dioxide 26.9 mmol/L (21-32) 10/29/17 04:55 BUN 24 mg/dL (7-18) H 10/29/17 04:55 Creatinine 0.78 mg/dL (0.55-1.02) 10/29/17 04:55 Est GFR (MDRD) Af Amer > 60 (>60) 10/29/17 04:55 Est GFR (MDRD) Non-Af > 60 (>60) 10/29/17 04:55 Glucose 162 mg/dL (65-99) H 10/29/17 04:55 POC Glucose (mg/dL) 171 mg/dL (65-99) H 10/29/17 22:14 Calcium 8.6 mg/dL (8.5-10.1) 10/29/17 04:55 Corrected Calcium 10.6 mg/dL (8.5-10.1) H 10/29/17 04:55 Magnesium 2.5 mg/dL (1.7-2.9) 10/28/17 04:30 Total Bilirubin 0.40 mg/dL (0.2-1.0) 10/29/17 04:55 AST 37 Units/L (15-37) 10/29/17 04:55 ALT 46 Units/L (12-78) 10/29/17 04:55 Alkaline Phosphatase 82 Units/L (46-116) 10/29/17 04:55 Total Protein 6.8 g/dL (6.4-8.2) 10/29/17 04:55 Albumin 1.5 g/dL (3.4-5.0) L 10/29/17 04:55 Globulin 5.3 g/dL (2.5-4.5) H 10/29/17 04:55 Albumin/Globulin Ratio 0.3 Ratio (1.1-2.1) L 10/29/17 04:55 Stool Description 5 g brown/unformed 10/28/17 19:00 Stl Occult Blood (IFOB) Negative (NEGATIVE) 10/28/17 19:00 Stool for White Cells Negative (NEGATIVE) 10/28/17 19:00 Stl C. diff Tox B Gene Negative (NEGATIVE) 10/28/17 19:00 Stl C. diff 027-NAP1-BI Negative (NEGATIVE) 10/28/17 19:00 Cryptosporid parvum Ag Negative (NEGATIVE) 10/28/17 19:00 E. histolytica Antigen Negative (NEGATIVE) 10/28/17 19:00 Giardia lamblia Ag Negative (NEGATIVE) 10/28/17 19:00 - Plan (1) Hypernatremia Status: Acute Plan: d5w at 80ml/hr, continue to monitor (2) Decubitus ulcer of sacral region, stage 3 Status: Acute Plan: wound care, fortaz 2gm iv q8h, continue to monitor (3) Hypoalbuminemia Status: Acute Plan: PERIPHERAL TPN, ALBUMIN 25% IV DAILY, CONTINUE TO MONITOR
[2017-10-30] MEDS: CLINIMIX 4.25 %/10 % 1,000 ML with MVI INJ (ADULT) 10 ML, POTASSIUM CHLORIDE INJ 20 MEQ... IV SCH ×15 (00:07→17:45)
[2017-10-30 05:40] LABS: BASOPHILS % (AUTO) 0.2 % (0.2-1.0); EOSINOPHILS # (AUTO) 0.1 x10^3/uL (0.0-0.2); EOSINOPHILS % (AUTO) 1.3 % (0.9-2.9); HEMATOCRIT 35.6 % (36.0-47.0); HEMOGLOBIN 11.8 g/dL (12.0-16.0); LYMPHOCYTES # (AUTO) 2.7 X10^3/uL (1.3-2.9); LYMPHOCYTES % (AUTO) 41.4 % (21.0-51.0); MEAN CORPUSCULAR HEMOGLOBIN 30.9 pg (27.0-34.0); MEAN CORPUSCULAR HGB CONC 33.2 g/dL (33.0-35.0); MEAN CORPUSCULAR VOLUME 93.3 fL (80.0-100.0); MEAN PLATELET VOLUME 8.8 fL (7.4-11.0); MONOCYTES # (AUTO) 0.5 x10^3/uL (0.3-0.8); MONOCYTES % (AUTO) 7.1 % (0.0-13.0); NEUTROPHILS # (AUTO) 3.3 x10^3/uL (2.2-4.8); PLATELET COUNT 153 X10^3/uL (150.0-450.0); RED BLOOD COUNT 3.81 X10^6/uL (3.5-5.4); RED CELL DISTRIBUTION WIDTH 15.1 % (11.6-16.5); WHITE BLOOD COUNT 6.6 X10^3/uL (3.6-10.0)
[2017-10-30] MEDS: D5W 1000 ML IV 1,000 ML IV SCH (05:41)
[2017-10-30] MEDS: NUTRITIONAL SUPPLEMENTS PO SCH ×3 (05:41→21:39)
[2017-10-30 05:52] LABS: ALANINE AMINOTRANSFERASE 35 Units/L (12-78); ALKALINE PHOSPHATASE 72 Units/L (46-116); ASPARTATE AMINO TRANSFERASE 22 Units/L (15-37); BLOOD UREA NITROGEN 22 mg/dL (7-18); CALCIUM 8.8 mg/dL (8.5-10.1); CARBON DIOXIDE 25.2 mmol/L (21-32); CHLORIDE 110 mmol/L (98-107); COR CA(FOR HYPOALB) 10.4 mg/dL (8.5-10.1); COR NA(FOR HYPERGLY) 145 mmol/L (136-145); CREATININE 0.66 mg/dL (0.55-1.02); SODIUM 143 mmol/L (136-145); TOTAL PROTEIN 6.9 g/dL (6.4-8.2); eGFR BLACK RACES > 60 (>60); eGFR NON BLACK RACES > 60 (>60)
[2017-10-30] MEDS: FORTAZ or TAZICEF INJ 2 GM in NS 100 ML IV + SPIKE MINIBAG* 100 ML IV SCH ×3 (06:28→21:23)
[2017-10-30] MEDS: ALBUMIN HUMAN 25%- 100ML 100 ML IV SCH (09:35)
[2017-10-30] MEDS: PEPCID TAB 20 MG PO SCH ×2 (09:37→21:25)
[2017-10-30] MEDS: ZINC SULFATE PO SCH (09:37)
[2017-10-30] MEDS: COLACE CAP 100 MG PO SCH ×2 (09:37→21:26)
[2017-10-30] MEDS: VITAMIN C PO SCH ×2 (09:37→21:26)
[2017-10-30] MEDS: TAB-A-VITE PO SCH (09:37)
[2017-10-30] MEDS: PROTONIX TAB 40 MG PO SCH ×2 (09:38→21:26)
[2017-10-30] MEDS: MIRALAX POWDER (1 DOSE 17GM) PO SCH (09:43)
[2017-10-30] MEDS: HYDROCHLOROTHIAZIDE 12.5 MG CAP PO SCH (09:45)
[2017-10-30] MEDS: NORCO 5/325 MG TAB PO SCH ×2 (09:45→21:27)
[2017-10-30] MEDS: EFFEXOR XR 75 MG CAP PO SCH (09:45)
[2017-10-30] MEDS: TOPROL XL PO SCH (09:45)
[2017-10-30] MEDS: POTASSIUM CHLORIDE LIQ 20 MEQ UDC PO SCH (09:46)
[2017-10-30] MEDS: HIPREX PO SCH ×2 (09:53→21:25)
[2017-10-30] MEDS: LIPITOR TAB 40 MG PO SCH (21:26)
[2017-10-30] MEDS: REQUIP PO SCH (21:26)
[2017-10-31] MEDS: D5W 1000 ML IV 1,000 ML IV SCH (02:00)
[2017-10-31] MEDS: PATIENT'S HOME MEDICATION (Amino Acids/Protein Hydrolys [Pro-Stat Awc Liquid Packet] 30 ML PO SCH (03:31)
[2017-10-31 04:18] LABS: BASOPHILS % (AUTO) 0.2 % (0.2-1.0); EOSINOPHILS % (AUTO) 0.6 % (0.9-2.9); HEMATOCRIT 36.8 % (36.0-47.0); HEMOGLOBIN 12.2 g/dL (12.0-16.0); LYMPHOCYTES # (AUTO) 1.1 X10^3/uL (1.3-2.9); LYMPHOCYTES % (AUTO) 18.9 % (21.0-51.0); MEAN CORPUSCULAR HGB CONC 33.1 g/dL (33.0-35.0); MEAN CORPUSCULAR VOLUME 93.7 fL (80.0-100.0); MONOCYTES # (AUTO) 0.2 x10^3/uL (0.3-0.8); MONOCYTES % (AUTO) 4.2 % (0.0-13.0); NEUTROPHILS # (AUTO) 4.5 x10^3/uL (2.2-4.8); NEUTROPHILS % (AUTO) 76.1 % (42.0-75.0); PLATELET COUNT 150 X10^3/uL (150.0-450.0); RED BLOOD COUNT 3.93 X10^6/uL (3.5-5.4); RED CELL DISTRIBUTION WIDTH 15.3 % (11.6-16.5); WHITE BLOOD COUNT 5.9 X10^3/uL (3.6-10.0)
[2017-10-31] MEDS: TYLENOL SUPP 650 MG PR PRN ×2 (04:19→08:40)
[2017-10-31 04:29] LABS: ALANINE AMINOTRANSFERASE 32 Units/L (12-78); ALBUMIN 2.3 g/dL (3.4-5.0); ALKALINE PHOSPHATASE 87 Units/L (46-116); ASPARTATE AMINO TRANSFERASE 25 Units/L (15-37); BLOOD UREA NITROGEN 22 mg/dL (7-18); CALCIUM 8.7 mg/dL (8.5-10.1); CARBON DIOXIDE 26.5 mmol/L (21-32); CHLORIDE 105 mmol/L (98-107); COR CA(FOR HYPOALB) 10.1 mg/dL (8.5-10.1); COR NA(FOR HYPERGLY) 143 mmol/L (136-145); CREATININE 0.94 mg/dL (0.55-1.02); SODIUM 138 mmol/L (136-145); TOTAL PROTEIN 7.2 g/dL (6.4-8.2); eGFR BLACK RACES > 60 (>60); eGFR NON BLACK RACES > 60 (>60)
[2017-10-31] MEDS: FORTAZ or TAZICEF INJ 2 GM in NS 100 ML IV + SPIKE MINIBAG* 100 ML IV SCH ×3 (05:48→22:55)
[2017-10-31] MEDS: NUTRITIONAL SUPPLEMENTS PO SCH (05:49)
[2017-10-31] MEDS: ALBUMIN HUMAN 25%- 100ML 100 ML IV SCH (08:39)
[2017-10-31] MEDS: ZINC SULFATE PO SCH (08:42)
[2017-10-31] MEDS: POTASSIUM CHLORIDE LIQ 20 MEQ UDC PO SCH (08:42)
[2017-10-31] MEDS: VITAMIN C PO SCH ×2 (08:42→20:51)
[2017-10-31] MEDS: PEPCID TAB 20 MG PO SCH ×2 (08:42→20:51)
[2017-10-31] MEDS: EFFEXOR XR 75 MG CAP PO SCH (08:43)
[2017-10-31] MEDS: TAB-A-VITE PO SCH (08:43)
[2017-10-31] MEDS: NORCO 5/325 MG TAB PO SCH ×2 (08:43→20:51)
[2017-10-31] MEDS: TOPROL XL PO SCH (08:43)
[2017-10-31] MEDS: COLACE CAP 100 MG PO SCH ×2 (08:43→20:52)
[2017-10-31] MEDS: PROTONIX TAB 40 MG PO SCH ×2 (08:43→20:51)
[2017-10-31] MEDS: HYDROCHLOROTHIAZIDE 12.5 MG CAP PO SCH (08:45)
[2017-10-31] MEDS: HIPREX PO SCH ×2 (08:45→20:52)
[2017-10-31] MEDS: MIRALAX POWDER (1 DOSE 17GM) PO SCH (08:46)
--- NOTE | 2017-10-31 09:50 | PCM.PROG ---
Progress Note - Progress Note for Day of Date: 10/31/17 - Subjective Subjective: WAS ADMITTED FOR HYPERNATREMIA AND A DECUBITUS ULCER TO THE SACRUM. DEBRIDEMENT TO WOUND WAS DONE ON 10/27/[address] DESOUZA. TODAY, SHE IS LYING IN BED WITH EYES CLOSED ON MORNING ROUNDS. SHE AWAKENS TO VERBAL STIMULI. ACCORDING TO STAFF, PATIENT CONTINUES WITH NAUSEA AND VOMITING. WOUND TO SACRUM IS COVERED BY A DRESSING. DRESSING IS DRY AND INTACT. HER VITAL SIGNS THIS MORNING ARE 99.6-90-20-98%-148/68. TODAY, PATIENTS SODIUM HAS DECREASED TO 148. ALBUMIN CONTINUES TO BE LOW AT 1.5. WOUND CULTURES REPORT GROWTH OF PROTEUS MIRABILIS. IT IS RESISTENT TO THE LEVAQUIN THAT SHE IS CURRENTLY ON. WE WILL DISCONTINUE LEVAQUIN AND START FORTAZ 2GM IV Q8H. PATIENT WAS SCHEDULED FOR PLACEMENT OF A PEG TUBE TOMORROW. CONSULTED WITH PATIENT AND FAMILY TODAY AND PLANS TO TAKE PATIENT TO THE OR THIS AFTERNOON FOR PLACEMENT OF PEG TUBE. WE ARE IN AGREEMENT WITH PLAN. WE WILL HOLD PATIENT NPO UNTIL AFTER PROCEDURE. OTHERWISE, WE PLAN TO FOLLOW UP WITH AM LABS AND CONTINUE TO MONITOR PATIENT. s/p placement of PEG feeding tube .. tolerating diet well .. no abdominal pain , no vomiting - Past Medical Family Social History Past Med/Fam/Surg Hx: No changes since H&P Changes in Past Med/Fam/Surg Hx: s/p PEG insertion and debridement of sacral ulcer,, tolerating feeding well Allergies: Allergies No Known Drug Allergies Allergy (Verified 09/24/17 15:23) - Review of Systems ROS: No change since H&P - Vital Signs and I&O's Vital Signs: Temperature 102 F Pulse Rate [Right Brachial] 117 Pulse Rate [Left Brachial] 82 Respiratory Rate 18 Blood Pressure [Left Arm] 143/75 Blood Pressure [Right Arm] 145/63 Blood Pressure 111/69 O2 Sat by Pulse Oximetry 99 Intake and Output: Intake & Output 10/28/17 10/29/17 10/30/17 10/31/17 11:59 11:59 11:59 11:59 Intake Total 885 2185 1229 500 Balance 885 2185 1229 500 - Physical Exam Oriented: Unable to test Eyes: Normal Ear: Normal Nose: Normal Throat: Normal Respiratory: Normal Cardiovascular: Normal : Normal Auscultation: Bowel Sounds: Normal, Increased Palpation: Normal Tenderness: Normal, Epigastric (mild epigastric tenderness , BS +.. no leak around the PEG tube ) Skin: Wound (stage 3 decubitus ulcer to sacrum ..still having large sacral ulcer with tunneling and exposed bone ) Musculoskeletal: Motor Deficit (right sided paralysis ) Psychiatric: Normal Mood Description: Calm Affect: Normal Speech Pattern: Inappropriate - Laboratory and Diagnostics Result Diagrams: 10/31/17 04:05 10/31/17 04:05 Labs: 10/28/17 19:00 Stool Stool Culture - Final 10/28/17 19:00 Stool - Final Laboratory WBC 5.9 X10^3/uL (3.6-10.0) 10/31/17 04:05 RBC 3.93 X10^6/uL (3.5-5.4) 10/31/17 04:05 Hgb 12.2 g/dL (12.0-16.0) 10/31/17 04:05 Hct 36.8 % (36.0-47.0) 10/31/17 04:05 MCV 93.7 fL (80.0-100.0) 10/31/17 04:05 MCH 31.0 pg (27.0-34.0) 10/31/17 04:05 MCHC 33.1 g/dL (33.0-35.0) 10/31/17 04:05 RDW 15.3 % (11.6-16.5) 10/31/17 04:05 Plt Count 150 X10^3/uL (150.0-450.0) 10/31/17 04:05 Plt Count Comment Adequate (ADEQUATE) 10/28/17 04:30 MPV 9.0 fL (7.4-11.0) 10/31/17 04:05 Neut % 76.1 % (42.0-75.0) H 10/31/17 04:05 Lymph % 18.9 % (21.0-51.0) L 10/31/17 04:05 [place] % 4.2 % (0.0-13.0) 10/31/17 04:05 Eos % 0.6 % (0.9-2.9) L 10/31/17 04:05 Baso % 0.2 % (0.2-1.0) 10/31/17 04:05 Neut # 4.5 x10^3/uL (2.2-4.8) 10/31/17 04:05 Lymph # 1.1 X10^3/uL (1.3-2.9) L 10/31/17 04:05 [place] # 0.2 x10^3/uL (0.3-0.8) L 10/31/17 04:05 Eos # 0.0 x10^3/uL (0.0-0.2) 10/31/17 04:05 Baso # 0.0 X10^3/uL (0.0-0.1) 10/31/17 04:05 Absolute Nucleated RBC 0.1 /100WBC 10/31/17 04:05 Total Counted 100 10/28/17 04:30 Neutrophils % (Manual) 44 % (39-76) 10/28/17 04:30 Band Neutrophils % 2 % (0-10) 10/28/17 04:30 Lymphocytes % (Manual) 43 % (13-43) 10/28/17 04:30 Monocytes % (Manual) 9 % (4-9) 10/28/17 04:30 Eosinophils % (Manual) 2 % (0-6) 10/28/17 04:30 Plt Morphology Comment Normal (NORMAL) 10/28/17 04:30 RBC Morphology Normal (NORMAL) 10/28/17 04:30 Sodium 138 mmol/L (136-145) 10/31/17 04:05 Corrected Sodium 143 mmol/L (136-145) 10/31/17 04:05 Potassium 4.4 mmol/L (3.5-5.1) 10/31/17 04:05 Chloride 105 mmol/L (98-107) 10/31/17 04:05 Carbon Dioxide 26.5 mmol/L (21-32) 10/31/17 04:05 BUN 22 mg/dL (7-18) H 10/31/17 04:05 Creatinine 0.94 mg/dL (0.55-1.02) 10/31/17 04:05 Est GFR (MDRD) Af Amer > 60 (>60) 10/31/17 04:05 Est GFR (MDRD) Non-Af > 60 (>60) 10/31/17 04:05 Glucose 325 mg/dL (65-99) H 10/31/17 04:05 POC Glucose (mg/dL) 306 mg/dL (65-99) H 10/31/17 09:29 Calcium 8.7 mg/dL (8.5-10.1) 10/31/17 04:05 Corrected Calcium 10.1 mg/dL (8.5-10.1) 10/31/17 04:05 Magnesium 2.5 mg/dL (1.7-2.9) 10/28/17 04:30 Total Bilirubin 0.40 mg/dL (0.2-1.0) 10/31/17 04:05 AST 25 Units/L (15-37) 10/31/17 04:05 ALT 32 Units/L (12-78) 10/31/17 04:05 Alkaline Phosphatase 87 Units/L (46-116) 10/31/17 04:05 Total Protein 7.2 g/dL (6.4-8.2) 10/31/17 04:05 Albumin 2.3 g/dL (3.4-5.0) L 10/31/17 04:05 Globulin 4.9 g/dL (2.5-4.5) H 10/31/17 04:05 Albumin/Globulin Ratio 0.5 Ratio (1.1-2.1) L 10/31/17 04:05 Stool Description 5 g brown/unformed 10/28/17 19:00 Stl Occult Blood (IFOB) Negative (NEGATIVE) 10/28/17 19:00 Stool for White Cells Negative (NEGATIVE) 10/28/17 19:00 Stl C. diff Tox B Gene Negative (NEGATIVE) 10/28/17 19:00 Stl C. diff 027-NAP1-BI Negative (NEGATIVE) 10/28/17 19:00 Cryptosporid parvum Ag Negative (NEGATIVE) 10/28/17 19:00 E. histolytica Antigen Negative (NEGATIVE) 10/28/17 19:00 Giardia lamblia Ag Negative (NEGATIVE) 10/28/17 19:00 Additional Notes Additional Notes: dressing was changed as well as the packing . no necrosis or abscess formation . same local care , nutritional support and IV ATB as ordered.
[2017-10-31] MEDS: REQUIP PO SCH (20:51)
[2017-10-31] MEDS: LIPITOR TAB 40 MG PO SCH (20:52)
[2017-10-31] MEDS: TYLENOL 325 MG TAB PO PRN (22:15)
[2017-11-01] MEDS: D5W 1000 ML IV 1,000 ML IV SCH ×2 (04:36→14:10)
[2017-11-01] MEDS: FORTAZ or TAZICEF INJ 2 GM in NS 100 ML IV + SPIKE MINIBAG* 100 ML IV SCH (05:29)
[2017-11-01 05:38] LABS: BASOPHILS % (AUTO) 0.2 % (0.2-1.0); EOSINOPHILS % (AUTO) 0.3 % (0.9-2.9); HEMATOCRIT 33.6 % (36.0-47.0); HEMOGLOBIN 11.3 g/dL (12.0-16.0); LYMPHOCYTES # (AUTO) 1.2 X10^3/uL (1.3-2.9); LYMPHOCYTES % (AUTO) 13.4 % (21.0-51.0); MEAN CORPUSCULAR HGB CONC 33.8 g/dL (33.0-35.0); MEAN PLATELET VOLUME 9.1 fL (7.4-11.0); MONOCYTES # (AUTO) 0.4 x10^3/uL (0.3-0.8); MONOCYTES % (AUTO) 4.7 % (0.0-13.0); NEUTROPHILS % (AUTO) 81.4 % (42.0-75.0); PLATELET COUNT 134 X10^3/uL (150.0-450.0); RED BLOOD COUNT 3.65 X10^6/uL (3.5-5.4); RED CELL DISTRIBUTION WIDTH 15.6 % (11.6-16.5); WHITE BLOOD COUNT 8.6 X10^3/uL (3.6-10.0)
[2017-11-01 05:45] LABS: ALANINE AMINOTRANSFERASE 39 Units/L (12-78); ALBUMIN 2.5 g/dL (3.4-5.0); ALKALINE PHOSPHATASE 83 Units/L (46-116); ASPARTATE AMINO TRANSFERASE 44 Units/L (15-37); BLOOD UREA NITROGEN 18 mg/dL (7-18); CALCIUM 8.9 mg/dL (8.5-10.1); CARBON DIOXIDE 26.3 mmol/L (21-32); CHLORIDE 102 mmol/L (98-107); COR CA(FOR HYPOALB) 10.1 mg/dL (8.5-10.1); COR NA(FOR HYPERGLY) 139 mmol/L (136-145); CREATININE 0.93 mg/dL (0.55-1.02); SODIUM 138 mmol/L (136-145); TOTAL PROTEIN 7.2 g/dL (6.4-8.2); eGFR BLACK RACES > 60 (>60); eGFR NON BLACK RACES > 60 (>60)
[2017-11-01 07:44] VITALS: BMI 21.6
[2017-11-01] MEDS: TYLENOL SUPP 650 MG PR PRN ×3 (08:11→19:13)
[2017-11-01] MEDS: ALBUMIN HUMAN 25%- 100ML 100 ML IV SCH (08:17)
[2017-11-01] MEDS: NORCO 5/325 MG TAB PO SCH ×2 (08:17→21:25)
[2017-11-01] MEDS: COLACE CAP 100 MG PO SCH ×2 (08:17→21:26)
[2017-11-01] MEDS: PROTONIX TAB 40 MG PO SCH ×2 (08:17→21:26)
[2017-11-01] MEDS: VITAMIN C PO SCH ×2 (08:17→21:25)
[2017-11-01] MEDS: TAB-A-VITE PO SCH (08:18)
[2017-11-01] MEDS: HYDROCHLOROTHIAZIDE 12.5 MG CAP PO SCH (08:18)
[2017-11-01] MEDS: POTASSIUM CHLORIDE LIQ 20 MEQ UDC PO SCH (08:18)
[2017-11-01] MEDS: PEPCID TAB 20 MG PO SCH ×2 (08:18→21:26)
[2017-11-01] MEDS: ZINC SULFATE PO SCH (08:18)
[2017-11-01] MEDS: EFFEXOR XR 75 MG CAP PO SCH (08:18)
[2017-11-01] MEDS: TOPROL XL PO SCH (08:18)
[2017-11-01] MEDS: HIPREX PO SCH ×2 (08:21→21:25)
[2017-11-01] MEDS: MIRALAX POWDER (1 DOSE 17GM) PO SCH (10:27)
[2017-11-01 11:12] LABS: BILIRUBIN,URINE NEGATIVE (NEGATIVE); BLOOD/HEMOGLOBIN,URINE 4+ (NEGATIVE); GLUCOSE, URINE NEGATIVE (NEGATIVE); KETONES,URINE NEGATIVE (NEGATIVE); LEUKOCYTE ESTERASE ,URINE NEGATIVE (NEGATIVE); NITRITES,URINE NEGATIVE (NEGATIVE); PROTEIN,URINE 2+ (NEGATIVE); UROBILINOGEN,URINE NORMAL (NORMAL)
[2017-11-01 11:35] LABS: AMORPHOUS SEDIMENT,UR 1+ /HPF (NEGATIVE); APPEARANCE,URINE SLIGHTLY HAZY (CLEAR); BACTERIA,URINE TRACE /HPF (NEGATIVE); COLOR,URINE YELLOW (YELLOW); SQUAMOUS EPITHELIAL CELL,UR FEW /HPF (NEGATIVE)
--- NOTE | 2017-11-01 12:12 | RAD ---
History: Cough and congestion Study: Portable AP chest Comparison: October 29, 2017 Findings: There is no significant change. The heart size is normal with a tortuous descending thoraci c aorta. There is a right subclavian Port-A-Cath unchanged. The lungs are grossly clear. There is no edema or effusion. Impression: No acute cardiopulmonary disease demonstrated. Reported By:
[2017-11-01] MEDS: NS IV SCH ×2 (15:01→21:27)
[2017-11-01] MEDS: FORTAZ OR TAZICEF IV SCH ×2 (15:01→21:27)
[2017-11-01] MEDS: DUONEB 0.5 MG/3 MG NEB SCH ×2 (17:35→17:55)
[2017-11-01] MEDS: LEVAQUIN PREMIX IV 500 MG 500 MG/100 ML BAG IV SCH (19:11)
[2017-11-01] MEDS: REQUIP PO SCH (21:26)
[2017-11-01] MEDS: LIPITOR TAB 40 MG PO SCH (21:26)
--- NOTE | 2017-11-01 21:34 | PCM.PROG ---
Progress Note - Progress Note for Day of Date: 11/01/17 - Subjective Subjective: WAS ADMITTED FOR HYPERNATREMIA AND A DECUBITUS ULCER TO THE SACRUM. DEBRIDEMENT TO WOUND WAS DONE ON 10/27/[address] DESOUZA. TODAY, SHE IS LYING IN BED WITH EYES CLOSED ON MORNING ROUNDS. SHE AWAKENS TO VERBAL STIMULI. ACCORDING TO STAFF, PATIENT CONTINUES WITH NAUSEA AND VOMITING. WOUND TO SACRUM IS COVERED BY A DRESSING. DRESSING IS DRY AND INTACT. HER VITAL SIGNS THIS MORNING ARE 99.6-90-20-98%-148/68. TODAY, PATIENTS SODIUM HAS DECREASED TO 148. ALBUMIN CONTINUES TO BE LOW AT 1.5. WOUND CULTURES REPORT GROWTH OF PROTEUS MIRABILIS. IT IS RESISTENT TO THE LEVAQUIN THAT SHE IS CURRENTLY ON. WE WILL DISCONTINUE LEVAQUIN AND START FORTAZ 2GM IV Q8H. PATIENT WAS SCHEDULED FOR PLACEMENT OF A PEG TUBE TOMORROW. CONSULTED WITH PATIENT AND FAMILY TODAY AND PLANS TO TAKE PATIENT TO THE OR THIS AFTERNOON FOR PLACEMENT OF PEG TUBE. WE ARE IN AGREEMENT WITH PLAN. WE WILL HOLD PATIENT NPO UNTIL AFTER PROCEDURE. OTHERWISE, WE PLAN TO FOLLOW UP WITH AM LABS AND CONTINUE TO MONITOR PATIENT. - Past Medical Family Social History Past Med/Fam/Surg Hx: No changes since H&P Allergies: Allergies No Known Drug Allergies Allergy (Verified 09/24/17 15:23) - Review of Systems ROS: No change since H&P - Vital Signs and I&O's Vital Signs: Temperature 101.4 F Pulse Rate [Right Brachial] 83 Pulse Rate [Left Brachial] 103 Pulse Rate 85 Respiratory Rate 18 Blood Pressure [Left Arm] 127/60 Blood Pressure [Right Arm] 118/53 Blood Pressure 111/69 O2 Sat by Pulse Oximetry 96 Intake and Output: Intake & Output 10/30/17 10/31/17 11/01/17 11/02/17 11:59 11:59 11:59 11:59 Intake Total 1229 500 540 0 Output Total 500 Balance 1229 500 540 -500 - Physical Exam Oriented: Unable to test Eyes: Normal Ear: Normal Nose: Normal Throat: Normal Respiratory: Normal Cardiovascular: Normal : Normal Auscultation: Bowel Sounds: Normal, Increased Palpation: Normal Tenderness: Normal, Epigastric (mild epigastric tenderness , BS +.. no leak around the PEG tube ) Skin: Wound (stage 3 decubitus ulcer to sacrum ..still having large sacral ulcer with tunneling and exposed bone ) Musculoskeletal: Motor Deficit (right sided paralysis ) Psychiatric: Normal Mood Description: Calm Affect: Normal Speech Pattern: Aphasic - Laboratory and Diagnostics Result Diagrams: 11/02/17 05:25 11/02/17 05:25 Labs: 10/28/17 19:00 Stool Stool Culture - Final 10/28/17 19:00 Stool - Final Laboratory WBC 8.6 X10^3/uL (3.6-10.0) 11/01/17 05:00 RBC 3.65 X10^6/uL (3.5-5.4) 11/01/17 05:00 Hgb 11.3 g/dL (12.0-16.0) L 11/01/17 05:00 Hct 33.6 % (36.0-47.0) L 11/01/17 05:00 MCV 92.0 fL (80.0-100.0) 11/01/17 05:00 MCH 31.0 pg (27.0-34.0) 11/01/17 05:00 MCHC 33.8 g/dL (33.0-35.0) 11/01/17 05:00 RDW 15.6 % (11.6-16.5) 11/01/17 05:00 Plt Count 134 X10^3/uL (150.0-450.0) L 11/01/17 05:00 Plt Count Comment Adequate (ADEQUATE) 10/28/17 04:30 MPV 9.1 fL (7.4-11.0) 11/01/17 05:00 Neut % 81.4 % (42.0-75.0) H 11/01/17 05:00 Lymph % 13.4 % (21.0-51.0) L 11/01/17 05:00 [place] % 4.7 % (0.0-13.0) 11/01/17 05:00 Eos % 0.3 % (0.9-2.9) L 11/01/17 05:00 Baso % 0.2 % (0.2-1.0) 11/01/17 05:00 Neut # 7.0 x10^3/uL (2.2-4.8) H 11/01/17 05:00 Lymph # 1.2 X10^3/uL (1.3-2.9) L 11/01/17 05:00 [place] # 0.4 x10^3/uL (0.3-0.8) 11/01/17 05:00 Eos # 0.0 x10^3/uL (0.0-0.2) 11/01/17 05:00 Baso # 0.0 X10^3/uL (0.0-0.1) 11/01/17 05:00 Absolute Nucleated RBC 0.1 /100WBC 11/01/17 05:00 Total Counted 100 10/28/17 04:30 Neutrophils % (Manual) 44 % (39-76) 10/28/17 04:30 Band Neutrophils % 2 % (0-10) 10/28/17 04:30 Lymphocytes % (Manual) 43 % (13-43) 10/28/17 04:30 Monocytes % (Manual) 9 % (4-9) 10/28/17 04:30 Eosinophils % (Manual) 2 % (0-6) 10/28/17 04:30 Plt Morphology Comment Normal (NORMAL) 10/28/17 04:30 RBC Morphology Normal (NORMAL) 10/28/17 04:30 Sodium 138 mmol/L (136-145) 11/01/17 05:00 Corrected Sodium 139 mmol/L (136-145) 11/01/17 05:00 Potassium 4.0 mmol/L (3.5-5.1) 11/01/17 05:00 Chloride 102 mmol/L (98-107) 11/01/17 05:00 Carbon Dioxide 26.3 mmol/L (21-32) 11/01/17 05:00 BUN 18 mg/dL (7-18) 11/01/17 05:00 Creatinine 0.93 mg/dL (0.55-1.02) 11/01/17 05:00 Est GFR (MDRD) Af Amer > 60 (>60) 11/01/17 05:00 Est GFR (MDRD) Non-Af > 60 (>60) 11/01/17 05:00 Glucose 136 mg/dL (65-99) H 11/01/17 05:00 POC Glucose (mg/dL) 129 mg/dL (65-99) H 11/01/17 10:37 Lactic Acid 3.6 mmol/L (0.4-2.0) H 11/01/17 11:42 Calcium 8.9 mg/dL (8.5-10.1) 11/01/17 05:00 Corrected Calcium 10.1 mg/dL (8.5-10.1) 11/01/17 05:00 Magnesium 2.5 mg/dL (1.7-2.9) 10/28/17 04:30 Total Bilirubin 0.50 mg/dL (0.2-1.0) 11/01/17 05:00 AST 44 Units/L (15-37) H 11/01/17 05:00 ALT 39 Units/L (12-78) 11/01/17 05:00 Alkaline Phosphatase 83 Units/L (46-116) 11/01/17 05:00 Total Protein 7.2 g/dL (6.4-8.2) 11/01/17 05:00 Albumin 2.5 g/dL (3.4-5.0) L 11/01/17 05:00 Globulin 4.7 g/dL (2.5-4.5) H 11/01/17 05:00 Albumin/Globulin Ratio 0.5 Ratio (1.1-2.1) L 11/01/17 05:00 Specimen Type Clean catch urine 11/01/17 11:00 Urine Color Yellow (YELLOW) 11/01/17 11:00 Urine Appearance Slightly hazy (CLEAR) 11/01/17 11:00 Urine pH 5.0 (5.0 - 8.0) 11/01/17 11:00 Ur Specific [place] 1.005 (1.000-1.030) 11/01/17 11:00 Urine Protein 2+ (NEGATIVE) 11/01/17 11:00 Urine Glucose (UA) Negative (NEGATIVE) 11/01/17 11:00 Urine Ketones Negative (NEGATIVE) 11/01/17 11:00 Urine Occult Blood 4+ (NEGATIVE) 11/01/17 11:00 Urine Nitrite Negative (NEGATIVE) 11/01/17 11:00 Urine Bilirubin Negative (NEGATIVE) 11/01/17 11:00 Urine Urobilinogen Normal (NORMAL) 11/01/17 11:00 Ur Leukocyte Esterase Negative (NEGATIVE) 11/01/17 11:00 Urine RBC 2-5 /HPF (NEGATIVE) 11/01/17 11:00 Urine WBC 0-3 /HPF (NEGATIVE) 11/01/17 11:00 Ur Squamous Epith Cells Few /HPF (NEGATIVE) 11/01/17 11:00 Amorphous Sediment 1+ /HPF (NEGATIVE) 11/01/17 11:00 Urine Bacteria Trace /HPF (NEGATIVE) 11/01/17 11:00 Ur Culture Indicated? No/not indicated 11/01/17 11:00 Stool Description 5 g brown/unformed 10/28/17 19:00 Stl Occult Blood (IFOB) Negative (NEGATIVE) 10/28/17 19:00 Stool for White Cells Negative (NEGATIVE) 10/28/17 19:00 Stl C. diff Tox B Gene Negative (NEGATIVE) 11/01/17 19:36 Stl C. diff 027-NAP1-BI Negative (NEGATIVE) 11/01/17 19:36 Cryptosporid parvum Ag Negative (NEGATIVE) 10/28/17 19:00 E. histolytica Antigen Negative (NEGATIVE) 10/28/17 19:00 Giardia lamblia Ag Negative (NEGATIVE) 10/28/17 19:00 - Plan (1) Decubitus ulcer of sacral region, stage 3 Status: Acute Plan: wound care, fortaz 2gm iv q8h, continue to monitor (2) Proteus mirabilis infection Status: Acute Plan: CONTINUE FORTAZ 2GM IV Q8H, CONTINUE TO MONITOR (3) Hypoalbuminemia Status: Inactive Plan: PERIPHERAL TPN, ALBUMIN 25% IV DAILY, CONTINUE TO MONITOR
[2017-11-02] MEDS: DUONEB 0.5 MG/3 MG NEB SCH ×4 (01:50→17:04)
[2017-11-02] MEDS: TYLENOL 325 MG TAB PO PRN (05:16)
[2017-11-02] MEDS: D5W 1000 ML IV 1,000 ML IV SCH ×3 (05:52→20:58)
[2017-11-02] MEDS: NS IV SCH ×3 (05:52→21:00)
[2017-11-02] MEDS: FORTAZ OR TAZICEF IV SCH ×3 (05:52→21:00)
[2017-11-02 06:25] LABS: BASOPHILS % (AUTO) 0.4 % (0.2-1.0); EOSINOPHILS # (AUTO) 0.1 x10^3/uL (0.0-0.2); EOSINOPHILS % (AUTO) 1.1 % (0.9-2.9); HEMATOCRIT 33.4 % (36.0-47.0); HEMOGLOBIN 11.4 g/dL (12.0-16.0); LYMPHOCYTES # (AUTO) 1.4 X10^3/uL (1.3-2.9); LYMPHOCYTES % (AUTO) 17.4 % (21.0-51.0); MEAN CORPUSCULAR HEMOGLOBIN 31.1 pg (27.0-34.0); MEAN CORPUSCULAR HGB CONC 34.1 g/dL (33.0-35.0); MEAN CORPUSCULAR VOLUME 91.1 fL (80.0-100.0); MEAN PLATELET VOLUME 9.2 fL (7.4-11.0); MONOCYTES # (AUTO) 0.5 x10^3/uL (0.3-0.8); MONOCYTES % (AUTO) 5.7 % (0.0-13.0); NEUTROPHILS % (AUTO) 75.4 % (42.0-75.0); PLATELET COUNT 129 X10^3/uL (150.0-450.0); RED BLOOD COUNT 3.66 X10^6/uL (3.5-5.4); RED CELL DISTRIBUTION WIDTH 15.6 % (11.6-16.5); WHITE BLOOD COUNT 7.9 X10^3/uL (3.6-10.0)
[2017-11-02 06:27] LABS: LACTIC ACID 2.3 mmol/L (0.4-2.0)
[2017-11-02 06:33] LABS: ALANINE AMINOTRANSFERASE 38 Units/L (12-78); ALBUMIN 2.7 g/dL (3.4-5.0); ALKALINE PHOSPHATASE 81 Units/L (46-116); ASPARTATE AMINO TRANSFERASE 47 Units/L (15-37); BLOOD UREA NITROGEN 17 mg/dL (7-18); CALCIUM 8.6 mg/dL (8.5-10.1); CARBON DIOXIDE 24.1 mmol/L (21-32); CHLORIDE 104 mmol/L (98-107); COR CA(FOR HYPOALB) 9.6 mg/dL (8.5-10.1); CREATININE 0.93 mg/dL (0.55-1.02); SODIUM 139 mmol/L (136-145); TOTAL PROTEIN 7.4 g/dL (6.4-8.2); eGFR BLACK RACES > 60 (>60); eGFR NON BLACK RACES > 60 (>60)
[2017-11-02] MEDS: ALBUMIN HUMAN 25%- 100ML 100 ML IV SCH (08:58)
[2017-11-02] MEDS: POTASSIUM CHLORIDE LIQ 20 MEQ UDC PO SCH ×2 (08:59→11:21)
[2017-11-02] MEDS: HIPREX PO SCH ×3 (08:59→21:30)
[2017-11-02] MEDS: VITAMIN C PO SCH ×3 (09:00→21:29)
[2017-11-02] MEDS: EFFEXOR XR 75 MG CAP PO SCH ×2 (09:00→11:22)
[2017-11-02] MEDS: MIRALAX POWDER (1 DOSE 17GM) PO SCH ×2 (09:00→11:22)
[2017-11-02] MEDS: PEPCID TAB 20 MG PO SCH ×2 (09:00→11:21)
[2017-11-02] MEDS: PROTONIX TAB 40 MG PO SCH ×2 (09:00→11:21)
[2017-11-02] MEDS: COLACE CAP 100 MG PO SCH ×3 (09:00→21:29)
[2017-11-02] MEDS: HYDROCHLOROTHIAZIDE 12.5 MG CAP PO SCH ×2 (09:01→11:22)
[2017-11-02] MEDS: TOPROL XL PO SCH ×2 (09:01→11:20)
[2017-11-02] MEDS: NORCO 5/325 MG TAB PO SCH ×2 (09:01→11:23)
[2017-11-02] MEDS: ZINC SULFATE PO SCH ×2 (09:01→11:19)
[2017-11-02] MEDS: TAB-A-VITE PO SCH ×2 (09:01→11:20)
[2017-11-02] MEDS: LEVAQUIN PREMIX IV 500 MG 500 MG/100 ML BAG IV SCH (09:02)
[2017-11-02 12:01] LABS: STOOL FOR WBC POSITIVE (NEGATIVE)
[2017-11-02] MEDS ORDERED: PHARMACY CONSULT - VANCOMYCIN XX SCH (13:00)
[2017-11-02] MEDS: VANCOMYCIN HCL 1 GM VIAL 1 GM in NS 250 ML IV 250 ML IV SCH (13:25)
[2017-11-02] MEDS: OFIRMEV IV 1000 MG VIAL 1,000 MG/100 ML VIAL IV SCH ×2 (13:26→21:00)
[2017-11-02] MEDS: TORADOL 30 MG VIAL IVP PRN (17:04)
--- NOTE | 2017-11-02 18:23 | PCM.PROG ---
Progress Note - Progress Note for Day of Date: 11/02/17 - Subjective Subjective: WAS ADMITTED FOR HYPERNATREMIA AND A DECUBITUS ULCER TO THE SACRUM. DEBRIDEMENT TO WOUND WAS DONE ON 10/27/[address] DESOUZA. TODAY, SHE IS LYING IN BED WITH EYES CLOSED ON MORNING ROUNDS. SHE AWAKENS TO VERBAL STIMULI. ACCORDING TO STAFF, PATIENT CONTINUES WITH NAUSEA AND VOMITING. WOUND TO SACRUM IS COVERED BY A DRESSING. DRESSING IS DRY AND INTACT. HER VITAL SIGNS THIS MORNING ARE 99.6-90-20-98%-148/68. TODAY, PATIENTS SODIUM HAS DECREASED TO 148. ALBUMIN CONTINUES TO BE LOW AT 1.5. WOUND CULTURES REPORT GROWTH OF PROTEUS MIRABILIS. IT IS RESISTENT TO THE LEVAQUIN THAT SHE IS CURRENTLY ON. WE WILL DISCONTINUE LEVAQUIN AND START FORTAZ 2GM IV Q8H. PATIENT WAS SCHEDULED FOR PLACEMENT OF A PEG TUBE TOMORROW. CONSULTED WITH PATIENT AND FAMILY TODAY AND PLANS TO TAKE PATIENT TO THE OR THIS AFTERNOON FOR PLACEMENT OF PEG TUBE. WE ARE IN AGREEMENT WITH PLAN. WE WILL HOLD PATIENT NPO UNTIL AFTER PROCEDURE. OTHERWISE, WE PLAN TO FOLLOW UP WITH AM LABS AND CONTINUE TO MONITOR PATIENT. s/p placement of PEG feeding tube .. tolerating diet well .. no abdominal pain , no vomiting ... Pt was seen today . Still having temp up to 101. Not as alert and no oral intake. she is tolerating tube feeding , no vomiting , but still having loose stool negative for C Diff. Chest xray and U/ A are ok - Past Medical Family Social History Past Med/Fam/Surg Hx: No changes since H&P Allergies: Allergies No Known Drug Allergies Allergy (Verified 09/24/17 15:23) - Review of Systems ROS: No change since H&P - Vital Signs and I&O's Vital Signs: Temperature 98.8 F Pulse Rate [Right Brachial] 130 Pulse Rate [Left Brachial] 103 Pulse Rate 101 Respiratory Rate 28 Blood Pressure [Left Arm] 125/78 Blood Pressure [Right Arm] 96/52 Blood Pressure 111/69 O2 Sat by Pulse Oximetry 93 Intake and Output: Intake & Output 10/31/17 11/01/17 11/02/17 11/03/17 11:59 11:59 11:59 11:59 Intake Total 500 540 260 420 Output Total 1525 1250 Balance 500 540 -1265 -830 - Physical Exam Oriented: Not Oriented, Unable to test Eyes: Normal Ear: Normal Nose: Normal Throat: Normal Respiratory: Normal Cardiovascular: Normal, Tachycardia (sinus) : Normal, Other (incontinent to urine and stool) Auscultation: Bowel Sounds: Normal, Increased Tenderness: Normal, Epigastric (mild epigastric tenderness , BS +.. no leak around the PEG tube ) Skin: Wound (stage 3 decubitus ulcer to sacrum ..still having large sacral ulcer with tunneling and exposed bone ), Other (large sacral decubitus 9 x 6 cm down to the sacrum , no necrosis but the bone is involved now) Musculoskeletal: Motor Deficit (right sided paralysis ) Psychiatric: Normal Mood Description: Calm Affect: Normal Speech Pattern: Aphasic - Laboratory and Diagnostics Result Diagrams: 11/02/17 05:25 11/02/17 05:25 Labs: 11/02/17 10:51 Stool - Final 10/31/17 04:05 Blood Blood Culture - Preliminary 10/31/17 03:50 Blood Blood Culture - Preliminary 10/28/17 19:00 Stool Stool Culture - Final 10/28/17 19:00 Stool - Final Laboratory WBC 7.9 X10^3/uL (3.6-10.0) 11/02/17 05:25 RBC 3.66 X10^6/uL (3.5-5.4) 11/02/17 05:25 Hgb 11.4 g/dL (12.0-16.0) L 11/02/17 05:25 Hct 33.4 % (36.0-47.0) L 11/02/17 05:25 MCV 91.1 fL (80.0-100.0) 11/02/17 05:25 MCH 31.1 pg (27.0-34.0) 11/02/17 05:25 MCHC 34.1 g/dL (33.0-35.0) 11/02/17 05:25 RDW 15.6 % (11.6-16.5) 11/02/17 05:25 Plt Count 129 X10^3/uL (150.0-450.0) L 11/02/17 05:25 Plt Count Comment Adequate (ADEQUATE) 10/28/17 04:30 MPV 9.2 fL (7.4-11.0) 11/02/17 05:25 Neut % 75.4 % (42.0-75.0) H 11/02/17 05:25 Lymph % 17.4 % (21.0-51.0) L 11/02/17 05:25 [place] % 5.7 % (0.0-13.0) 11/02/17 05:25 Eos % 1.1 % (0.9-2.9) 11/02/17 05:25 Baso % 0.4 % (0.2-1.0) 11/02/17 05:25 Neut # 6.0 x10^3/uL (2.2-4.8) H 11/02/17 05:25 Lymph # 1.4 X10^3/uL (1.3-2.9) 11/02/17 05:25 [place] # 0.5 x10^3/uL (0.3-0.8) 11/02/17 05:25 Eos # 0.1 x10^3/uL (0.0-0.2) 11/02/17 05:25 Baso # 0.0 X10^3/uL (0.0-0.1) 11/02/17 05:25 Absolute Nucleated RBC 0.0 /100WBC 11/02/17 05:25 Total Counted 100 10/28/17 04:30 Neutrophils % (Manual) 44 % (39-76) 10/28/17 04:30 Band Neutrophils % 2 % (0-10) 10/28/17 04:30 Lymphocytes % (Manual) 43 % (13-43) 10/28/17 04:30 Monocytes % (Manual) 9 % (4-9) 10/28/17 04:30 Eosinophils % (Manual) 2 % (0-6) 10/28/17 04:30 Plt Morphology Comment Normal (NORMAL) 10/28/17 04:30 RBC Morphology Normal (NORMAL) 10/28/17 04:30 Sodium 139 mmol/L (136-145) 11/02/17 05:25 Corrected Sodium TNP 11/02/17 05:25 Potassium 3.7 mmol/L (3.5-5.1) 11/02/17 05:25 Chloride 104 mmol/L (98-107) 11/02/17 05:25 Carbon Dioxide 24.1 mmol/L (21-32) 11/02/17 05:25 BUN 17 mg/dL (7-18) 11/02/17 05:25 Creatinine 0.93 mg/dL (0.55-1.02) 11/02/17 05:25 Est GFR (MDRD) Af Amer > 60 (>60) 11/02/17 05:25 Est GFR (MDRD) Non-Af > 60 (>60) 11/02/17 05:25 Glucose 79 mg/dL (65-99) 11/02/17 05:25 POC Glucose (mg/dL) 82 mg/dL (65-99) 11/02/17 12:34 Lactic Acid 2.3 mmol/L (0.4-2.0) H 11/02/17 05:25 Calcium 8.6 mg/dL (8.5-10.1) 11/02/17 05:25 Corrected Calcium 9.6 mg/dL (8.5-10.1) 11/02/17 05:25 Magnesium 2.5 mg/dL (1.7-2.9) 10/28/17 04:30 Total Bilirubin 0.50 mg/dL (0.2-1.0) 11/02/17 05:25 AST 47 Units/L (15-37) H 11/02/17 05:25 ALT 38 Units/L (12-78) 11/02/17 05:25 Alkaline Phosphatase 81 Units/L (46-116) 11/02/17 05:25 Total Protein 7.4 g/dL (6.4-8.2) 11/02/17 05:25 Albumin 2.7 g/dL (3.4-5.0) L 11/02/17 05:25 Globulin 4.7 g/dL (2.5-4.5) H 11/02/17 05:25 Albumin/Globulin Ratio 0.6 Ratio (1.1-2.1) L 11/02/17 05:25 Specimen Type Clean catch urine 11/01/17 11:00 Urine Color Yellow (YELLOW) 11/01/17 11:00 Urine Appearance Slightly hazy (CLEAR) 11/01/17 11:00 Urine pH 5.0 (5.0 - 8.0) 11/01/17 11:00 Ur Specific [place] 1.005 (1.000-1.030) 11/01/17 11:00 Urine Protein 2+ (NEGATIVE) 11/01/17 11:00 Urine Glucose (UA) Negative (NEGATIVE) 11/01/17 11:00 Urine Ketones Negative (NEGATIVE) 11/01/17 11:00 Urine Occult Blood 4+ (NEGATIVE) 11/01/17 11:00 Urine Nitrite Negative (NEGATIVE) 11/01/17 11:00 Urine Bilirubin Negative (NEGATIVE) 11/01/17 11:00 Urine Urobilinogen Normal (NORMAL) 11/01/17 11:00 Ur Leukocyte Esterase Negative (NEGATIVE) 11/01/17 11:00 Urine RBC 2-5 /HPF (NEGATIVE) 11/01/17 11:00 Urine WBC 0-3 /HPF (NEGATIVE) 11/01/17 11:00 Ur Squamous Epith Cells Few /HPF (NEGATIVE) 11/01/17 11:00 Amorphous Sediment 1+ /HPF (NEGATIVE) 11/01/17 11:00 Urine Bacteria Trace /HPF (NEGATIVE) 11/01/17 11:00 Ur Culture Indicated? No/not indicated 11/01/17 11:00 Stool Description 5 g brown/unformed 10/28/17 19:00 Stl Occult Blood (IFOB) Negative (NEGATIVE) 10/28/17 19:00 Stool for White Cells Positive (NEGATIVE) A 11/02/17 10:51 Stl C. diff Tox B Gene Negative (NEGATIVE) 11/02/17 10:51 Stl C. diff [id number] Negative (NEGATIVE) 11/02/17 10:51 Cryptosporid parvum Ag Negative (NEGATIVE) 10/28/17 19:00 E. histolytica Antigen Negative (NEGATIVE) 10/28/17 19:00 Giardia lamblia Ag Negative (NEGATIVE) 10/28/17 19:00 - Plan (1) Decubitus ulcer of sacral region, stage 3 Status: Acute Plan: wound care, fortaz 2gm iv q8h, continue to monitor (2) Confined to bed Status: Chronic (3) History of CVA (cerebrovascular accident) Status: Chronic (4) Proteus mirabilis infection Status: Acute Plan: CONTINUE FORTAZ 2GM IV Q8H, CONTINUE TO MONITOR (5) Fever and other physiologic disturbances of temperature regulation Status: Acute (6) Essential hypertension Status: Chronic (7) GERD (gastroesophageal reflux disease) Status: Chronic Qualifiers: Esophagitis presence: esophagitis presence not specified Qualified Code(s) : K21.9 - Gastro-esophageal reflux disease without esophagitis (8) History of cardiac arrhythmia Status: Chronic (9) Hyperlipidemia Status: Chronic
[2017-11-02] MEDS: PEPCID 20 MG IV PREMIX* 20 MG/50 ML BAG IV SCH (20:59)
[2017-11-02] MEDS: LIPITOR TAB 40 MG PO SCH (21:30)
[2017-11-02] MEDS: REQUIP PO SCH (21:30)
[2017-11-03] MEDS: DUONEB 0.5 MG/3 MG NEB SCH ×4 (00:54→17:16)
--- NOTE | 2017-11-03 01:29 | PCM.PROG ---
Progress Note - Progress Note for Day of Date: 11/02/17 - Subjective Subjective: WAS ADMITTED FOR HYPERNATREMIA AND A DECUBITUS ULCER TO THE SACRUM. A PEG TUBE WAS PLACED SINCE ADMISSION. TODAY, SHE IS LYING IN BED WITH EYES CLOSED ON MORNING ROUNDS. FAMILY REPORTS THAT PATIENT HAS BEEN DROWSY AND SLEEPING MOST OF THE DAY YESTERDAY AND THROUGHOUT THE NIGHT. THEY REPORT THAT SHE DOES CONTINUE WITH COUGH AND CONGESTION AND APPEARS TO BE SHORT OF BREATH AT TIMES. WOUND TO SACRUM IS COVERED BY A DRESSING. DRESSING IS DRY AND INTACT. SHE CONTINUES TO RUN A FEVER. HER VITAL SIGNS THIS MORNING ARE 101.9-131 -20-96%-129/89. SHE REMAINS HEMODYNAMICALLY STABLE TODAY WITH THE EXCEPTION OF STOOLS BEING POSITIVE FOR WBC AND PRELIMINARY BLOOD CULTURES REPORTING GROWTH OF COAGULASE NEGATIVE STAPH. A LACTIC ACID WAS OBTAINED YESTERDAY AND WAS NOTED TO BE SLIGHTLY ELEVATED AT 3.6. WE RECHECKED IT THIS MORNING AND IT WAS NOTED TO BE DECREASED TO 2.3. SHE IS CURRENTLY RECEIVING BOLUS FEEDINGS THROUGH THE PEG TUBE. SHE IS TOLERATING WELL AT THIS TIME. TODAY, WE PLAN TO DISCONTINUE THE LEVAQUIN AND START VANCOMYCIN IV PER PHARMACY DOSING. WE WILL RECULTURE THE SACRAL WOUND. OTHERWISE, WE PLAN TO FOLLOW UP WITH AM LABS AND CONTINUE TO MONITOR PATIENT. - Past Medical Family Social History Past Med/Fam/Surg Hx: No changes since H&P Allergies: Allergies No Known Drug Allergies Allergy (Verified 09/24/17 15:23) - Review of Systems ROS: No change since H&P - Vital Signs and I&O's Vital Signs: Temperature 99.2 F Pulse Rate [Right Brachial] 87 Pulse Rate [Left Brachial] 103 Pulse Rate 96 Respiratory Rate 20 Blood Pressure [Left Arm] 118/63 Blood Pressure [Right Arm] 96/52 Blood Pressure 111/69 O2 Sat by Pulse Oximetry 99 Intake and Output: Intake & Output 10/31/17 11/01/17 11/02/17 11/03/17 11:59 11:59 11:59 11:59 Intake Total 500 540 260 580 Output Total 1525 1250 Balance 500 883 -8515 -346 - Physical Exam Oriented: Unable to test Eyes: Normal Ear: Normal Nose: Normal Throat: Normal Respiratory: Normal Cardiovascular: Normal : Normal Auscultation: Bowel Sounds: Normal, Increased Palpation: Normal Tenderness: Normal, Epigastric (mild epigastric tenderness , BS +.. no leak around the PEG tube ) Skin: Wound (stage 3 decubitus ulcer to sacrum ..still having large sacral ulcer with tunneling and exposed bone ) Musculoskeletal: Motor Deficit (right sided paralysis ) Psychiatric: Normal Mood Description: Calm Affect: Normal Speech Pattern: Aphasic - Laboratory and Diagnostics Result Diagrams: 11/06/17 05:00 11/06/17 14:25 Labs: 11/02/17 10:51 Stool - Final 10/31/17 04:05 Blood Blood Culture - Preliminary 10/31/17 03:50 Blood Blood Culture - Preliminary 10/28/17 19:00 Stool Stool Culture - Final 10/28/17 19:00 Stool - Final Laboratory WBC 7.9 X10^3/uL (3.6-10.0) 11/02/17 05:25 RBC 3.66 X10^6/uL (3.5-5.4) 11/02/17 05:25 Hgb 11.4 g/dL (12.0-16.0) L 11/02/17 05:25 Hct 33.4 % (36.0-47.0) L 11/02/17 05:25 MCV 91.1 fL (80.0-100.0) 11/02/17 05:25 MCH 31.1 pg (27.0-34.0) 11/02/17 05:25 MCHC 34.1 g/dL (33.0-35.0) 11/02/17 05:25 RDW 15.6 % (11.6-16.5) 11/02/17 05:25 Plt Count 129 X10^3/uL (150.0-450.0) L 11/02/17 05:25 Plt Count Comment Adequate (ADEQUATE) 10/28/17 04:30 MPV 9.2 fL (7.4-11.0) 11/02/17 05:25 Neut % 75.4 % (42.0-75.0) H 11/02/17 05:25 Lymph % 17.4 % (21.0-51.0) L 11/02/17 05:25 [place] % 5.7 % (0.0-13.0) 11/02/17 05:25 Eos % 1.1 % (0.9-2.9) 11/02/17 05:25 Baso % 0.4 % (0.2-1.0) 11/02/17 05:25 Neut # 6.0 x10^3/uL (2.2-4.8) H 11/02/17 05:25 Lymph # 1.4 X10^3/uL (1.3-2.9) 11/02/17 05:25 [place] # 0.5 x10^3/uL (0.3-0.8) 11/02/17 05:25 Eos # 0.1 x10^3/uL (0.0-0.2) 11/02/17 05:25 Baso # 0.0 X10^3/uL (0.0-0.1) 11/02/17 05:25 Absolute Nucleated RBC 0.0 /100WBC 11/02/17 05:25 Total Counted 100 10/28/17 04:30 Neutrophils % (Manual) 44 % (39-76) 10/28/17 04:30 Band Neutrophils % 2 % (0-10) 10/28/17 04:30 Lymphocytes % (Manual) 43 % (13-43) 10/28/17 04:30 Monocytes % (Manual) 9 % (4-9) 10/28/17 04:30 Eosinophils % (Manual) 2 % (0-6) 10/28/17 04:30 Plt Morphology Comment Normal (NORMAL) 10/28/17 04:30 RBC Morphology Normal (NORMAL) 10/28/17 04:30 Sodium 139 mmol/L (136-145) 11/02/17 05:25 Corrected Sodium TNP 11/02/17 05:25 Potassium 3.7 mmol/L (3.5-5.1) 11/02/17 05:25 Chloride 104 mmol/L (98-107) 11/02/17 05:25 Carbon Dioxide 24.1 mmol/L (21-32) 11/02/17 05:25 BUN 17 mg/dL (7-18) 11/02/17 05:25 Creatinine 0.93 mg/dL (0.55-1.02) 11/02/17 05:25 Est GFR (MDRD) Af Amer > 60 (>60) 11/02/17 05:25 Est GFR (MDRD) Non-Af > 60 (>60) 11/02/17 05:25 Glucose 79 mg/dL (65-99) 11/02/17 05:25 POC Glucose (mg/dL) 81 mg/dL (65-99) 11/02/17 19:52 Lactic Acid 2.3 mmol/L (0.4-2.0) H 11/02/17 05:25 Calcium 8.6 mg/dL (8.5-10.1) 11/02/17 05:25 Corrected Calcium 9.6 mg/dL (8.5-10.1) 11/02/17 05:25 Magnesium 2.5 mg/dL (1.7-2.9) 10/28/17 04:30 Total Bilirubin 0.50 mg/dL (0.2-1.0) 11/02/17 05:25 AST 47 Units/L (15-37) H 11/02/17 05:25 ALT 38 Units/L (12-78) 11/02/17 05:25 Alkaline Phosphatase 81 Units/L (46-116) 11/02/17 05:25 Total Protein 7.4 g/dL (6.4-8.2) 11/02/17 05:25 Albumin 2.7 g/dL (3.4-5.0) L 11/02/17 05:25 Globulin 4.7 g/dL (2.5-4.5) H 11/02/17 05:25 Albumin/Globulin Ratio 0.6 Ratio (1.1-2.1) L 11/02/17 05:25 Specimen Type Clean catch urine 11/01/17 11:00 Urine Color Yellow (YELLOW) 11/01/17 11:00 Urine Appearance Slightly hazy (CLEAR) 11/01/17 11:00 Urine pH 5.0 (5.0 - 8.0) 11/01/17 11:00 Ur Specific [place] 1.005 (1.000-1.030) 11/01/17 11:00 Urine Protein 2+ (NEGATIVE) 11/01/17 11:00 Urine Glucose (UA) Negative (NEGATIVE) 11/01/17 11:00 Urine Ketones Negative (NEGATIVE) 11/01/17 11:00 Urine Occult Blood 4+ (NEGATIVE) 11/01/17 11:00 Urine Nitrite Negative (NEGATIVE) 11/01/17 11:00 Urine Bilirubin Negative (NEGATIVE) 11/01/17 11:00 Urine Urobilinogen Normal (NORMAL) 11/01/17 11:00 Ur Leukocyte Esterase Negative (NEGATIVE) 11/01/17 11:00 Urine RBC 2-5 /HPF (NEGATIVE) 11/01/17 11:00 Urine WBC 0-3 /HPF (NEGATIVE) 11/01/17 11:00 Ur Squamous Epith Cells Few /HPF (NEGATIVE) 11/01/17 11:00 Amorphous Sediment 1+ /HPF (NEGATIVE) 11/01/17 11:00 Urine Bacteria Trace /HPF (NEGATIVE) 11/01/17 11:00 Ur Culture Indicated? No/not indicated 11/01/17 11:00 Stool Description 5 g brown/unformed 10/28/17 19:00 Stl Occult Blood (IFOB) Negative (NEGATIVE) 10/28/17 19:00 Stool for White Cells Positive (NEGATIVE) A 11/02/17 10:51 Stl C. diff Tox B Gene Negative (NEGATIVE) 11/02/17 10:51 Stl C. diff [id number] Negative (NEGATIVE) 11/02/17 10:51 Cryptosporid parvum Ag Negative (NEGATIVE) 10/28/17 19:00 E. histolytica Antigen Negative (NEGATIVE) 10/28/17 19:00 Giardia lamblia Ag Negative (NEGATIVE) 10/28/17 19:00 - Plan (1) Decubitus ulcer of sacral region, stage 3 Status: Acute Plan: wound care, fortaz 2gm iv q8h, vancomycin 1gm iv daily, continue to monitor (2) Proteus mirabilis infection Status: Acute Plan: CONTINUE FORTAZ 2GM IV Q8H, VANCOMYCIN 1GM IV DAILY, CONTINUE TO MONITOR (3) Hypoalbuminemia Status: Inactive Plan: PERIPHERAL TPN, ALBUMIN 25% IV DAILY, CONTINUE TO MONITOR
[2017-11-03] MEDS: OFIRMEV IV 1000 MG VIAL 1,000 MG/100 ML VIAL IV SCH ×4 (04:12→21:28)
[2017-11-03 05:21] LABS: ALANINE AMINOTRANSFERASE 27 Units/L (12-78); ALBUMIN 2.3 g/dL (3.4-5.0); ALKALINE PHOSPHATASE 67 Units/L (46-116); ASPARTATE AMINO TRANSFERASE 36 Units/L (15-37); BLOOD UREA NITROGEN 16 mg/dL (7-18); CALCIUM 7.9 mg/dL (8.5-10.1); CARBON DIOXIDE 22.7 mmol/L (21-32); CHLORIDE 105 mmol/L (98-107); COR CA(FOR HYPOALB) 9.3 mg/dL (8.5-10.1); COR NA(FOR HYPERGLY) 139 mmol/L (136-145); CREATININE 0.93 mg/dL (0.55-1.02); SODIUM 139 mmol/L (136-145); TOTAL PROTEIN 6.3 g/dL (6.4-8.2); eGFR BLACK RACES > 60 (>60); eGFR NON BLACK RACES > 60 (>60)
[2017-11-03 06:17] LABS: BASOPHILS % (AUTO) 0.4 % (0.2-1.0); EOSINOPHILS # (AUTO) 0.1 x10^3/uL (0.0-0.2); EOSINOPHILS % (AUTO) 1.7 % (0.9-2.9); HEMATOCRIT 26.2 % (36.0-47.0); LYMPHOCYTES # (AUTO) 1.7 X10^3/uL (1.3-2.9); LYMPHOCYTES % (AUTO) 26.7 % (21.0-51.0); MEAN CORPUSCULAR HEMOGLOBIN 31.1 pg (27.0-34.0); MEAN CORPUSCULAR HGB CONC 34.5 g/dL (33.0-35.0); MEAN CORPUSCULAR VOLUME 90.1 fL (80.0-100.0); MEAN PLATELET VOLUME 9.3 fL (7.4-11.0); MONOCYTES # (AUTO) 0.5 x10^3/uL (0.3-0.8); MONOCYTES % (AUTO) 8.5 % (0.0-13.0); NEUTROPHILS # (AUTO) 3.9 x10^3/uL (2.2-4.8); NEUTROPHILS % (AUTO) 62.7 % (42.0-75.0); PLATELET COUNT 114 X10^3/uL (150.0-450.0); RED BLOOD COUNT 2.91 X10^6/uL (3.5-5.4); RED CELL DISTRIBUTION WIDTH 15.4 % (11.6-16.5); WHITE BLOOD COUNT 6.3 X10^3/uL (3.6-10.0)
[2017-11-03] MEDS: FORTAZ OR TAZICEF IV SCH ×3 (06:23→21:42)
[2017-11-03] MEDS: NS IV SCH ×3 (06:23→21:42)
[2017-11-03] MEDS: PEPCID 20 MG IV PREMIX* 20 MG/50 ML BAG IV SCH ×2 (09:09→21:48)
[2017-11-03] MEDS: ALBUMIN HUMAN 25%- 100ML 100 ML IV SCH (09:09)
[2017-11-03] MEDS: TOPROL XL PO SCH (09:10)
[2017-11-03] MEDS: MIRALAX POWDER (1 DOSE 17GM) PO SCH (09:10)
[2017-11-03] MEDS: TAB-A-VITE PO SCH (09:10)
[2017-11-03] MEDS: ZINC SULFATE PO SCH (09:10)
[2017-11-03] MEDS: POTASSIUM CHLORIDE LIQ 20 MEQ UDC PO SCH (09:10)
[2017-11-03] MEDS: EFFEXOR XR 75 MG CAP PO SCH (09:10)
[2017-11-03] MEDS: VITAMIN C PO SCH ×2 (09:11→21:48)
[2017-11-03] MEDS: HYDROCHLOROTHIAZIDE 12.5 MG CAP PO SCH (09:11)
[2017-11-03] MEDS: COLACE CAP 100 MG PO SCH ×2 (09:11→21:50)
[2017-11-03] MEDS: HIPREX PO SCH ×2 (09:11→22:10)
[2017-11-03] MEDS: D5W 1000 ML IV 1,000 ML IV SCH ×2 (09:47→21:27)
[2017-11-03] MEDS: TORADOL 30 MG VIAL IVP PRN (12:42)
[2017-11-03] MEDS: VANCOMYCIN HCL 1 GM VIAL 1 GM in NS 250 ML IV 250 ML IV SCH (14:20)
--- NOTE | 2017-11-03 21:42 | PCM.PROG ---
Progress Note - Progress Note for Day of Date: 11/03/17 - Subjective Subjective: WAS ADMITTED FOR HYPERNATREMIA AND A DECUBITUS ULCER TO THE SACRUM. A PEG TUBE HAS BEEN PLACED SINCE ADMISSION. TODAY, SHE IS LYING IN BED WITH EYES CLOSED ON MORNING ROUNDS. PATIENT IS MORE RESPONSIVE THAN SHE WAS YESTERDAY. FAMILY REPORTS THAT COUGH AND SHORTNESS OF BREATH SEEM TO HAVE IMPROVED. WOUND TO SACRUM IS COVERED BY A DRESSING. DRESSING IS DRY AND INTACT. DRESSING TO PEG TUBE IS DRY AND INTACT WITH NO DRAINAGE NOTED. SHE HAS CONTINUED WITH FEVER THROUGHOUT THE NIGHT. HER VITAL SIGNS THIS MORNING ARE 99.3-122-26-97%-138/68. SHE IS NOTED WITH A DROP IN HGB TO 9.0 FROM 11.4 YESTERDAY. HER POTASSIUM THIS MORNING IS NOTED TO BE 2.3. OTHERWISE, SHE IS HEMODYNAMICALLY STABLE. LACTIC ACID HAS DECREASED TO 2.7 THIS MORNING. BLOOD, SPUTUM, AND WOUND CULTURES ARE PENDING. PRELIMINARY BLOOD AND WOUND CULTURES REPORT GROWTH OF COAGULASE NEGATIVE STAPH. SHE WILL CONTINUE ON FORTAZ AND VANCOMYCIN IV. AFTER DISCHARGE, PATIENT WILL NEED AN ADDITIONAL TWO WEEKS OF COVERAGE FOR INFECTION. STAFF REPORTS THAT PATIENT HAS HAD APPROXIMATELY 100ML RESIDUAL AFTER BOLUS FEEDINGS. FEEDINGS WILL BE HELD AT THIS TIME UNTIL RESIDUAL LESS THAN 60ML IS NOTED. SHE IS TOLERATING WELL AT THIS TIME. WE PLAN TO CONTINUE WITH CURRENT PLAN OF CARE TODAY. WE WILL FOLLOW UP WITH AM LABS AND CONTINUE TO MONITOR PATIENT. - Past Medical Family Social History Past Med/Fam/Surg Hx: No changes since H&P Allergies: Allergies No Known Drug Allergies Allergy (Verified 09/24/17 15:23) - Review of Systems ROS: No change since H&P - Vital Signs and I&O's Vital Signs: Temperature 99.9 F Pulse Rate [Right Brachial] 90 Pulse Rate [Left Brachial] 103 Pulse Rate 99 Respiratory Rate 24 Blood Pressure [Left Arm] 91/53 Blood Pressure [Right Arm] 96/52 Blood Pressure 111/69 O2 Sat by Pulse Oximetry 96 Intake and Output: Intake & Output 11/01/17 11/02/17 11/03/17 11/04/17 11:59 11:59 11:59 11:59 Intake Total 540 260 580 0 Output Total 1522 7854 750 Balance 540 -9283 -8175 -642 - Physical Exam Oriented: Unable to test Eyes: Normal Ear: Normal Nose: Normal Throat: Normal Respiratory: Normal Cardiovascular: Normal : Normal Auscultation: Bowel Sounds: Normal, Increased Palpation: Normal Tenderness: Normal, Epigastric (mild epigastric tenderness , BS +.. no leak around the PEG tube ) Skin: Wound (stage 3 decubitus ulcer to sacrum ..still having large sacral ulcer with tunneling and exposed bone ) Musculoskeletal: Motor Deficit (right sided paralysis ) Psychiatric: Normal Mood Description: Calm Affect: Normal Speech Pattern: Aphasic - Laboratory and Diagnostics Result Diagrams: 11/06/17 05:00 11/06/17 14:25 Labs: 11/02/17 10:52 Sacral Wound Culture - Preliminary 11/02/17 10:51 Stool Stool Culture - Preliminary 11/02/17 10:51 Stool - Final 10/31/17 04:05 Blood Blood Culture - Preliminary 10/31/17 03:50 Blood Blood Culture - Preliminary 10/28/17 19:00 Stool Stool Culture - Final 10/28/17 19:00 Stool - Final Laboratory WBC 6.3 X10^3/uL (3.6-10.0) 11/03/17 06:00 RBC 2.91 X10^6/uL (3.5-5.4) L 11/03/17 06:00 Hgb 9.0 g/dL (12.0-16.0) L D 11/03/17 06:00 Hct 26.2 % (36.0-47.0) L 11/03/17 06:00 MCV 90.1 fL (80.0-100.0) 11/03/17 06:00 MCH 31.1 pg (27.0-34.0) 11/03/17 06:00 MCHC 34.5 g/dL (33.0-35.0) 11/03/17 06:00 RDW 15.4 % (11.6-16.5) 11/03/17 06:00 Plt Count 114 X10^3/uL (150.0-450.0) L 11/03/17 06:00 Plt Count Comment Adequate (ADEQUATE) 10/28/17 04:30 MPV 9.3 fL (7.4-11.0) 11/03/17 06:00 Neut % 62.7 % (42.0-75.0) 11/03/17 06:00 Lymph % 26.7 % (21.0-51.0) 11/03/17 06:00 [place] % 8.5 % (0.0-13.0) 11/03/17 06:00 Eos % 1.7 % (0.9-2.9) 11/03/17 06:00 Baso % 0.4 % (0.2-1.0) 11/03/17 06:00 Neut # 3.9 x10^3/uL (2.2-4.8) 11/03/17 06:00 Lymph # 1.7 X10^3/uL (1.3-2.9) 11/03/17 06:00 [place] # 0.5 x10^3/uL (0.3-0.8) 11/03/17 06:00 Eos # 0.1 x10^3/uL (0.0-0.2) 11/03/17 06:00 Baso # 0.0 X10^3/uL (0.0-0.1) 11/03/17 06:00 Absolute Nucleated RBC 0.0 /100WBC 11/03/17 06:00 Total Counted 100 10/28/17 04:30 Neutrophils % (Manual) 44 % (39-76) 10/28/17 04:30 Band Neutrophils % 2 % (0-10) 10/28/17 04:30 Lymphocytes % (Manual) 43 % (13-43) 10/28/17 04:30 Monocytes % (Manual) 9 % (4-9) 10/28/17 04:30 Eosinophils % (Manual) 2 % (0-6) 10/28/17 04:30 Plt Morphology Comment Normal (NORMAL) 10/28/17 04:30 RBC Morphology Normal (NORMAL) 10/28/17 04:30 Sodium 139 mmol/L (136-145) 11/03/17 06:00 Corrected Sodium 139 mmol/L (136-145) 11/03/17 06:00 Potassium 2.8 mmol/L (3.5-5.1) L* 11/03/17 16:58 Chloride 105 mmol/L (98-107) 11/03/17 06:00 Carbon Dioxide 22.7 mmol/L (21-32) 11/03/17 06:00 BUN 16 mg/dL (7-18) 11/03/17 06:00 Creatinine 0.93 mg/dL (0.55-1.02) 11/03/17 06:00 Est GFR (MDRD) Af Amer > 60 (>60) 11/03/17 06:00 Est GFR (MDRD) Non-Af > 60 (>60) 11/03/17 06:00 Glucose 111 mg/dL (65-99) H 11/03/17 06:00 POC Glucose (mg/dL) 168 mg/dL (65-99) H 11/03/17 20:32 Lactic Acid 2.3 mmol/L (0.4-2.0) H 11/02/17 05:25 Calcium 7.9 mg/dL (8.5-10.1) L 11/03/17 06:00 Corrected Calcium 9.3 mg/dL (8.5-10.1) 11/03/17 06:00 Magnesium 2.7 mg/dL (1.7-2.9) 11/03/17 16:58 Total Bilirubin 0.60 mg/dL (0.2-1.0) 11/03/17 06:00 AST 36 Units/L (15-37) 11/03/17 06:00 ALT 27 Units/L (12-78) 11/03/17 06:00 Alkaline Phosphatase 67 Units/L (46-116) 11/03/17 06:00 Total Protein 6.3 g/dL (6.4-8.2) L 11/03/17 06:00 Albumin 2.3 g/dL (3.4-5.0) L 11/03/17 06:00 Globulin 4.0 g/dL (2.5-4.5) 11/03/17 06:00 Albumin/Globulin Ratio 0.6 Ratio (1.1-2.1) L 11/03/17 06:00 Specimen Type Clean catch urine 11/01/17 11:00 Urine Color Yellow (YELLOW) 11/01/17 11:00 Urine Appearance Slightly hazy (CLEAR) 11/01/17 11:00 Urine pH 5.0 (5.0 - 8.0) 11/01/17 11:00 Ur Specific Harris 1.005 (1.000-1.030) 11/01/17 11:00 Urine Protein 2+ (NEGATIVE) 11/01/17 11:00 Urine Glucose (UA) Negative (NEGATIVE) 11/01/17 11:00 Urine Ketones Negative (NEGATIVE) 11/01/17 11:00 Urine Occult Blood 4+ (NEGATIVE) 11/01/17 11:00 Urine Nitrite Negative (NEGATIVE) 11/01/17 11:00 Urine Bilirubin Negative (NEGATIVE) 11/01/17 11:00 Urine Urobilinogen Normal (NORMAL) 11/01/17 11:00 Ur Leukocyte Esterase Negative (NEGATIVE) 11/01/17 11:00 Urine RBC 2-5 /HPF (NEGATIVE) 11/01/17 11:00 Urine WBC 0-3 /HPF (NEGATIVE) 11/01/17 11:00 Ur Squamous Epith Cells Few /HPF (NEGATIVE) 11/01/17 11:00 Amorphous Sediment 1+ /HPF (NEGATIVE) 11/01/17 11:00 Urine Bacteria Trace /HPF (NEGATIVE) 11/01/17 11:00 Ur Culture Indicated? No/not indicated 11/01/17 11:00 Stool Description 5 g brown/unformed 10/28/17 19:00 Stl Occult Blood (IFOB) Negative (NEGATIVE) 10/28/17 19:00 Stool for White Cells Positive (NEGATIVE) A 11/02/17 10:51 Stl C. diff Tox B Gene Negative (NEGATIVE) 11/02/17 10:51 Stl C. diff [id number] Negative (NEGATIVE) 11/02/17 10:51 Cryptosporid parvum Ag Negative (NEGATIVE) 10/28/17 19:00 E. histolytica Antigen Negative (NEGATIVE) 10/28/17 19:00 Giardia lamblia Ag Negative (NEGATIVE) 10/28/17 19:00 - Plan (1) Decubitus ulcer of sacral region, stage 3 Status: Acute Plan: wound care, fortaz 2gm iv q8h, vancomycin 1gm iv daily, continue to monitor (2) Proteus mirabilis infection Status: Acute Plan: CONTINUE FORTAZ 2GM IV Q8H, VANCOMYCIN 1GM IV DAILY, CONTINUE TO MONITOR (3) Hypoalbuminemia Status: Inactive Plan: PERIPHERAL TPN, ALBUMIN 25% IV DAILY, CONTINUE TO MONITOR (4) Hyperlipidemia Status: Chronic Qualifiers: Hyperlipidemia type: mixed hyperlipidemia Qualified Code(s): E78.2 - Mixed hyperlipidemia Plan: CONTINUE LIPITOR, CONTINUE TO MONITOR (5) Hypertension Status: Chronic Qualifiers: Hypertension type: essential hypertension Qualified Code(s): I10 - Essential (primary) hypertension Plan: CONTINUE TOPROL XL, CONTINUE TO MONITOR
[2017-11-03] MEDS: REQUIP PO SCH (21:48)
[2017-11-03] MEDS: LIPITOR TAB 40 MG PO SCH (21:58)
[2017-11-04] MEDS: DUONEB 0.5 MG/3 MG NEB SCH ×5 (00:25→17:29)
[2017-11-04] MEDS ORDERED: TYLENOL 500 MG TAB EXTRA STRENGTH PO ONE (04:41)
[2017-11-04] MEDS: OFIRMEV IV 1000 MG VIAL 1,000 MG/100 ML VIAL IV SCH ×4 (04:43→21:27)
[2017-11-04 06:13] LABS: BASOPHILS % (AUTO) 0.3 % (0.2-1.0); EOSINOPHILS # (AUTO) 0.1 x10^3/uL (0.0-0.2); EOSINOPHILS % (AUTO) 1.5 % (0.9-2.9); HEMATOCRIT 24.5 % (36.0-47.0); HEMOGLOBIN 8.4 g/dL (12.0-16.0); LYMPHOCYTES # (AUTO) 2.1 X10^3/uL (1.3-2.9); LYMPHOCYTES % (AUTO) 23.1 % (21.0-51.0); MEAN CORPUSCULAR HEMOGLOBIN 31.1 pg (27.0-34.0); MEAN CORPUSCULAR HGB CONC 34.4 g/dL (33.0-35.0); MEAN CORPUSCULAR VOLUME 90.6 fL (80.0-100.0); MONOCYTES # (AUTO) 0.7 x10^3/uL (0.3-0.8); MONOCYTES % (AUTO) 8.1 % (0.0-13.0); NEUTROPHILS # (AUTO) 6.1 x10^3/uL (2.2-4.8); PLATELET COUNT 137 X10^3/uL (150.0-450.0); RED BLOOD COUNT 2.71 X10^6/uL (3.5-5.4); RED CELL DISTRIBUTION WIDTH 15.6 % (11.6-16.5); WHITE BLOOD COUNT 9.1 X10^3/uL (3.6-10.0)
[2017-11-04 06:24] LABS: ALBUMIN 2.5 g/dL (3.4-5.0); BLOOD UREA NITROGEN 16 mg/dL (7-18); CHLORIDE 106 mmol/L (98-107); SODIUM 140 mmol/L (136-145); TOTAL PROTEIN 6.6 g/dL (6.4-8.2); eGFR BLACK RACES > 60 (>60)
[2017-11-04] MEDS: NS IV SCH ×3 (06:42→22:30)
[2017-11-04] MEDS: FORTAZ OR TAZICEF IV SCH ×3 (06:42→22:30)
[2017-11-04 07:10] LABS: PLATELET MORPHOLOGY COMMENT NORMAL (NORMAL)
[2017-11-04 07:11] LABS: HYPOCHROMASIA 1+; MICROCYTOSIS 1+
[2017-11-04 07:19] LABS: ALANINE AMINOTRANSFERASE 26 Units/L (12-78); ALKALINE PHOSPHATASE 84 Units/L (46-116); ASPARTATE AMINO TRANSFERASE 33 Units/L (15-37); CALCIUM 8.1 mg/dL (8.5-10.1); CARBON DIOXIDE 22.9 mmol/L (21-32); COR CA(FOR HYPOALB) 9.3 mg/dL (8.5-10.1); COR NA(FOR HYPERGLY) 141 mmol/L (136-145); CREATININE 0.99 mg/dL (0.55-1.02); eGFR NON BLACK RACES 57 (>60)
[2017-11-04] MEDS: POTASSIUM CHL 60 MEQ/NS 0.45% 500 ML IV PRN (09:17)
[2017-11-04] MEDS: ALBUMIN HUMAN 25%- 100ML 100 ML IV SCH (09:21)
[2017-11-04] MEDS: PEPCID 20 MG IV PREMIX* 20 MG/50 ML BAG IV SCH ×2 (09:26→21:28)
[2017-11-04] MEDS: TAB-A-VITE PO SCH (09:27)
[2017-11-04] MEDS: MIRALAX POWDER (1 DOSE 17GM) PO SCH (09:27)
[2017-11-04] MEDS: VITAMIN C PO SCH ×2 (09:27→21:28)
[2017-11-04] MEDS: HYDROCHLOROTHIAZIDE 12.5 MG CAP PO SCH (09:27)
[2017-11-04] MEDS: ZINC SULFATE PO SCH (09:27)
[2017-11-04] MEDS: EFFEXOR XR 75 MG CAP PO SCH (09:27)
[2017-11-04] MEDS: TOPROL XL PO SCH (09:27)
[2017-11-04] MEDS: POTASSIUM CHLORIDE LIQ 20 MEQ UDC PO SCH (09:28)
[2017-11-04] MEDS: COLACE CAP 100 MG PO SCH ×2 (09:28→21:28)
[2017-11-04] MEDS: HIPREX PO SCH ×2 (09:29→21:29)
[2017-11-04] MEDS: DIFLUCAN 200 MG IV PREMIX* 200 MG/100 ML BAG IV SCH (12:22)
[2017-11-04] MEDS: NYSTATIN SUSP MT SCH ×4 (12:22→22:30)
[2017-11-04] MEDS: VANCOMYCIN HCL 1 GM VIAL 1 GM in NS 250 ML IV 250 ML IV SCH (14:21)
[2017-11-04] MEDS: LIPITOR TAB 40 MG PO SCH (21:28)
[2017-11-04] MEDS: REQUIP PO SCH (21:28)
[2017-11-04] MEDS ORDERED: NS 100 ML IV 100 ML IV ONE (22:09)
[2017-11-04] MEDS: D5W 1000 ML IV 1,000 ML IV SCH (22:30)
[2017-11-05] MEDS: DUONEB 0.5 MG/3 MG NEB SCH ×4 (01:05→17:19)
[2017-11-05] MEDS: OFIRMEV IV 1000 MG VIAL 1,000 MG/100 ML VIAL IV SCH ×3 (02:57→15:01)
[2017-11-05] MEDS: D5W 1000 ML IV 1,000 ML IV SCH ×3 (03:06→22:57)
[2017-11-05] MEDS: FORTAZ OR TAZICEF IV SCH ×3 (06:09→21:10)
[2017-11-05] MEDS: NS IV SCH ×3 (06:09→21:10)
[2017-11-05 06:32] LABS: BASOPHILS % (AUTO) 0.2 % (0.2-1.0); EOSINOPHILS # (AUTO) 0.2 x10^3/uL (0.0-0.2); EOSINOPHILS % (AUTO) 1.3 % (0.9-2.9); HEMOGLOBIN 8.7 g/dL (12.0-16.0); LYMPHOCYTES # (AUTO) 2.4 X10^3/uL (1.3-2.9); LYMPHOCYTES % (AUTO) 20.2 % (21.0-51.0); MEAN CORPUSCULAR HEMOGLOBIN 30.7 pg (27.0-34.0); MEAN CORPUSCULAR HGB CONC 33.6 g/dL (33.0-35.0); MEAN CORPUSCULAR VOLUME 91.3 fL (80.0-100.0); MEAN PLATELET VOLUME 9.8 fL (7.4-11.0); MONOCYTES # (AUTO) 0.8 x10^3/uL (0.3-0.8); MONOCYTES % (AUTO) 6.9 % (0.0-13.0); NEUTROPHILS # (AUTO) 8.4 x10^3/uL (2.2-4.8); NEUTROPHILS % (AUTO) 71.4 % (42.0-75.0); PLATELET COUNT 161 X10^3/uL (150.0-450.0); RED BLOOD COUNT 2.84 X10^6/uL (3.5-5.4); RED CELL DISTRIBUTION WIDTH 15.8 % (11.6-16.5); WHITE BLOOD COUNT 11.8 X10^3/uL (3.6-10.0)
[2017-11-05 06:49] LABS: ALANINE AMINOTRANSFERASE 26 Units/L (12-78); ALBUMIN 2.4 g/dL (3.4-5.0); ALKALINE PHOSPHATASE 103 Units/L (46-116); ASPARTATE AMINO TRANSFERASE 27 Units/L (15-37); BLOOD UREA NITROGEN 18 mg/dL (7-18); CALCIUM 8.3 mg/dL (8.5-10.1); CARBON DIOXIDE 24.1 mmol/L (21-32); CHLORIDE 108 mmol/L (98-107); COR CA(FOR HYPOALB) 9.6 mg/dL (8.5-10.1); COR NA(FOR HYPERGLY) 142 mmol/L (136-145); CREATININE 0.93 mg/dL (0.55-1.02); SODIUM 141 mmol/L (136-145); TOTAL PROTEIN 6.7 g/dL (6.4-8.2); eGFR BLACK RACES > 60 (>60); eGFR NON BLACK RACES > 60 (>60)
[2017-11-05] MEDS: ALBUMIN HUMAN 25%- 100ML 100 ML IV SCH (09:27)
[2017-11-05] MEDS: POTASSIUM CHLORIDE LIQ 20 MEQ UDC PO SCH (09:29)
[2017-11-05] MEDS: TAB-A-VITE PO SCH (09:29)
[2017-11-05] MEDS: DIFLUCAN 200 MG IV PREMIX* 200 MG/100 ML BAG IV SCH (09:29)
[2017-11-05] MEDS: EFFEXOR XR 75 MG CAP PO SCH (09:29)
[2017-11-05] MEDS: NYSTATIN SUSP MT SCH ×4 (09:29→21:14)
[2017-11-05] MEDS: TOPROL XL PO SCH (09:29)
[2017-11-05] MEDS: VITAMIN C PO SCH ×2 (09:29→21:19)
[2017-11-05] MEDS: PEPCID 20 MG IV PREMIX* 20 MG/50 ML BAG IV SCH ×2 (09:30→21:10)
[2017-11-05] MEDS: HYDROCHLOROTHIAZIDE 12.5 MG CAP PO SCH (09:30)
[2017-11-05] MEDS: MIRALAX POWDER (1 DOSE 17GM) PO SCH (09:31)
[2017-11-05] MEDS: HIPREX PO SCH ×2 (09:31→21:16)
[2017-11-05] MEDS: COLACE CAP 100 MG PO SCH ×2 (09:40→21:15)
[2017-11-05] MEDS: ZINC SULFATE PO SCH (13:53)
[2017-11-05 14:32] LABS: CREATININE 0.9 mg/dL (0.55-1.02); VANCOMYCIN,TROUGH 15.2 ug/mL (15-20)
[2017-11-05] MEDS: TORADOL 30 MG VIAL IVP PRN (15:00)
[2017-11-05] MEDS: VANCOMYCIN HCL 1 GM VIAL 1 GM in NS 250 ML IV 250 ML IV SCH (15:01)
--- NOTE | 2017-11-05 21:10 | PCM.PROG ---
Progress Note - Subjective Subjective: WAS ADMITTED FOR HYPERNATREMIA AND A DECUBITUS ULCER TO THE SACRUM. A PEG TUBE HAS BEEN PLACED SINCE ADMISSION. TODAY, SHE IS LYING IN BED WITH EYES CLOSED ON MORNING ROUNDS. PATIENTS MOUTH AND TONGUE IS NOTED WITH YEAST. WOUND TO SACRUM IS COVERED BY A DRESSING. DRESSING IS DRY AND INTACT. DRESSING TO PEG TUBE IS DRY AND INTACT WITH NO DRAINAGE NOTED. SHE HAS CONTINUED WITH A LOW GRADE FEVER THROUGHOUT THE NIGHT. HER VITAL SIGNS THIS MORNING ARE 99.3-94-20-97%-124/69. HGB HAS DECREASED TO 8.4 TODAY. POTASSIUM IS CRITICALLY LOW AT 2.8. BLOOD, SPUTUM, AND WOUND CULTURES ARE PENDING. PRELIMINARY BLOOD AND WOUND CULTURES REPORT GROWTH OF COAGULASE NEGATIVE STAPH. SHE WILL CONTINUE ON FORTAZ AND VANCOMYCIN IV. WE SHOULD HAVE A FINAL WOUND CULTURE AND SENSITIVITY BACK TOMORROW. NO RESIDUAL HAS BEEN NOTED IN PEG TUBE THROUGHOUT THE NIGHT. HER BOLUS FEEDINGS HAVE BEEN RESUMED. SHE IS TOLERATING WELL AT THIS TIME. TODAY, WE WILL START DIFULCAN 200MG IV BID AND ORAL NYSTATIN. WE WILL ALSO REPLACE POTASSIUM PER POTASSIUM PROTOCOL. OTHERWISE, WE PLAN TO FOLLOW UP WITH AM LABS AND CONTINUE TO MONITOR PATIENT. - Past Medical Family Social History Past Med/Fam/Surg Hx: No changes since H&P Allergies: Allergies No Known Drug Allergies Allergy (Verified 09/24/17 15:23) - Review of Systems ROS: No change since H&P - Vital Signs and I&O's Vital Signs: Temperature 97.7 F Pulse Rate [Right Brachial] 75 Pulse Rate [Left Brachial] 83 Pulse Rate 73 Respiratory Rate 20 Blood Pressure [Left Arm] 115/47 Blood Pressure [Right Arm] 128/58 Blood Pressure 111/69 O2 Sat by Pulse Oximetry 97 Intake and Output: Intake & Output 11/03/17 11/04/17 11/05/17 11/06/17 11:59 11:59 11:59 11:59 Intake Total 580 0 840 240 Output Total 1775 1675 2950 900 Balance -7745 -3505 -2110 -660 - Physical Exam Oriented: Unable to test Eyes: Normal Ear: Normal Nose: Normal Throat: Normal Respiratory: Normal Cardiovascular: Normal : Normal Auscultation: Bowel Sounds: Normal, Increased Palpation: Normal Tenderness: Normal Skin: Wound (stage 3 decubitus ulcer to sacrum ..still having large sacral ulcer with tunneling and exposed bone ) Musculoskeletal: Motor Deficit (right sided paralysis ) Psychiatric: Normal Mood Description: Calm Affect: Normal Speech Pattern: Aphasic - Laboratory and Diagnostics Result Diagrams: 11/05/17 05:47 11/05/17 13:33 Labs: 10/31/17 03:50 Blood Blood Culture - Preliminary 10/31/17 04:05 Blood Blood Culture - Preliminary 11/02/17 10:52 Sacral Wound Culture - Final Staph Auricularis 11/02/17 10:51 Stool Stool Culture - Final 11/02/17 10:51 Stool - Final 10/28/17 19:00 Stool Stool Culture - Final 10/28/17 19:00 Stool - Final Laboratory WBC 11.8 X10^3/uL (3.6-10.0) H 11/05/17 05:47 RBC 2.84 X10^6/uL (3.5-5.4) L 11/05/17 05:47 Hgb 8.7 g/dL (12.0-16.0) L 11/05/17 05:47 Hct 26.0 % (36.0-47.0) L 11/05/17 05:47 MCV 91.3 fL (80.0-100.0) 11/05/17 05:47 MCH 30.7 pg (27.0-34.0) 11/05/17 05:47 MCHC 33.6 g/dL (33.0-35.0) 11/05/17 05:47 RDW 15.8 % (11.6-16.5) 11/05/17 05:47 Plt Count 161 X10^3/uL (150.0-450.0) 11/05/17 05:47 Plt Count Comment Adequate (ADEQUATE) 11/04/17 05:10 MPV 9.8 fL (7.4-11.0) 11/05/17 05:47 Neut % 71.4 % (42.0-75.0) 11/05/17 05:47 Lymph % 20.2 % (21.0-51.0) L 11/05/17 05:47 [place] % 6.9 % (0.0-13.0) 11/05/17 05:47 Eos % 1.3 % (0.9-2.9) 11/05/17 05:47 Baso % 0.2 % (0.2-1.0) 11/05/17 05:47 Neut # 8.4 x10^3/uL (2.2-4.8) H 11/05/17 05:47 Lymph # 2.4 X10^3/uL (1.3-2.9) 11/05/17 05:47 [place] # 0.8 x10^3/uL (0.3-0.8) 11/05/17 05:47 Eos # 0.2 x10^3/uL (0.0-0.2) 11/05/17 05:47 Baso # 0.0 X10^3/uL (0.0-0.1) 11/05/17 05:47 Absolute Nucleated RBC 0.0 /100WBC 11/05/17 05:47 Total Counted 100 11/04/17 05:10 Neutrophils % (Manual) 78 % (39-76) H 11/04/17 05:10 Band Neutrophils % 2 % (0-10) 10/28/17 04:30 Lymphocytes % (Manual) 20 % (13-43) 11/04/17 05:10 Monocytes % (Manual) 2 % (4-9) L 11/04/17 05:10 Eosinophils % (Manual) 2 % (0-6) 10/28/17 04:30 Plt Morphology Comment Normal (NORMAL) 11/04/17 05:10 RBC Morphology Abnormal (NORMAL) A 11/04/17 05:10 Hypochromasia 1+ A 11/04/17 05:10 Microcytosis 1+ A 11/04/17 05:10 Sodium 141 mmol/L (136-145) 11/05/17 05:47 Corrected Sodium 142 mmol/L (136-145) 11/05/17 05:47 Potassium 3.6 mmol/L (3.5-5.1) 11/05/17 05:47 Chloride 108 mmol/L (98-107) H 11/05/17 05:47 Carbon Dioxide 24.1 mmol/L (21-32) 11/05/17 05:47 BUN 18 mg/dL (7-18) 11/05/17 05:47 Creatinine 0.90 mg/dL (0.55-1.02) 11/05/17 13:33 Est GFR (MDRD) Af Amer > 60 (>60) 11/05/17 05:47 Est GFR (MDRD) Non-Af > 60 (>60) 11/05/17 05:47 Glucose 162 mg/dL (65-99) H 11/05/17 05:47 POC Glucose (mg/dL) 191 mg/dL (65-99) H 11/05/17 20:33 Lactic Acid 2.3 mmol/L (0.4-2.0) H 11/02/17 05:25 Calcium 8.3 mg/dL (8.5-10.1) L 11/05/17 05:47 Corrected Calcium 9.6 mg/dL (8.5-10.1) 11/05/17 05:47 Magnesium 2.7 mg/dL (1.7-2.9) 11/04/17 05:10 Total Bilirubin 0.60 mg/dL (0.2-1.0) 11/05/17 05:47 AST 27 Units/L (15-37) 11/05/17 05:47 ALT 26 Units/L (12-78) 11/05/17 05:47 Alkaline Phosphatase 103 Units/L (46-116) 11/05/17 05:47 Total Protein 6.7 g/dL (6.4-8.2) 11/05/17 05:47 Albumin 2.4 g/dL (3.4-5.0) L 11/05/17 05:47 Globulin 4.3 g/dL (2.5-4.5) 11/05/17 05:47 Albumin/Globulin Ratio 0.6 Ratio (1.1-2.1) L 11/05/17 05:47 Specimen Type Clean catch urine 11/01/17 11:00 Urine Color Yellow (YELLOW) 11/01/17 11:00 Urine Appearance Slightly hazy (CLEAR) 11/01/17 11:00 Urine pH 5.0 (5.0 - 8.0) 11/01/17 11:00 Ur Specific [place] 1.005 (1.000-1.030) 11/01/17 11:00 Urine Protein 2+ (NEGATIVE) 11/01/17 11:00 Urine Glucose (UA) Negative (NEGATIVE) 11/01/17 11:00 Urine Ketones Negative (NEGATIVE) 11/01/17 11:00 Urine Occult Blood 4+ (NEGATIVE) 11/01/17 11:00 Urine Nitrite Negative (NEGATIVE) 11/01/17 11:00 Urine Bilirubin Negative (NEGATIVE) 11/01/17 11:00 Urine Urobilinogen Normal (NORMAL) 11/01/17 11:00 Ur Leukocyte Esterase Negative (NEGATIVE) 11/01/17 11:00 Urine RBC 2-5 /HPF (NEGATIVE) 11/01/17 11:00 Urine WBC 0-3 /HPF (NEGATIVE) 11/01/17 11:00 Ur Squamous Epith Cells Few /HPF (NEGATIVE) 11/01/17 11:00 Amorphous Sediment 1+ /HPF (NEGATIVE) 11/01/17 11:00 Urine Bacteria Trace /HPF (NEGATIVE) 11/01/17 11:00 Ur Culture Indicated? No/not indicated 11/01/17 11:00 Stool Description 5 g brown/unformed 10/28/17 19:00 Stl Occult Blood (IFOB) Negative (NEGATIVE) 10/28/17 19:00 Stool for White Cells Positive (NEGATIVE) A 11/02/17 10:51 Stl C. diff Tox B Gene Negative (NEGATIVE) 11/02/17 10:51 Stl C. diff 027-NAP1-BI Negative (NEGATIVE) 11/02/17 10:51 Vancomycin Trough 15.2 ug/mL (15-20) 11/05/17 13:33 Cryptosporid parvum Ag Negative (NEGATIVE) 10/28/17 19:00 E. histolytica Antigen Negative (NEGATIVE) 10/28/17 19:00 Giardia lamblia Ag Negative (NEGATIVE) 10/28/17 19:00 - Plan (1) Decubitus ulcer of sacral region, stage 3 Status: Acute Plan: wound care, fortaz 2gm iv q8h, continue to monitor (2) Proteus mirabilis infection Status: Acute Plan: CONTINUE FORTAZ 2GM IV Q8H, CONTINUE TO MONITOR (3) Hypoalbuminemia Status: Inactive Plan: PERIPHERAL TPN, ALBUMIN 25% IV DAILY, CONTINUE TO MONITOR (4) Oral candidiasis Status: Acute Plan: DIFLUCAN 200MG IV DAILY, NYSTATIN 5ML PO QID, CONTINUE TO MONITOR (5) Hyperlipidemia Status: Chronic Qualifiers: Hyperlipidemia type: mixed hyperlipidemia Qualified Code(s): E78.2 - Mixed hyperlipidemia Plan: CONTINUE LIPITOR, CONTINUE TO MONITOR (6) Hypertension Status: Chronic Qualifiers: Hypertension type: essential hypertension Qualified Code(s): I10 - Essential (primary) hypertension Plan: CONTINUE TOPROL XL, CONTINUE TO MONITOR
[2017-11-05] MEDS: TYLENOL ELIXIR 325 MG UDC PO SCH (21:14)
[2017-11-05] MEDS: LIPITOR TAB 40 MG PO SCH (21:15)
[2017-11-05] MEDS: REQUIP PO SCH (21:16)
[2017-11-06] MEDS: DUONEB 0.5 MG/3 MG NEB SCH ×3 (00:58→11:32)
[2017-11-06] MEDS: D5W 1000 ML IV 1,000 ML IV SCH ×2 (02:27→14:06)
[2017-11-06] MEDS: TYLENOL ELIXIR 325 MG UDC PO SCH ×3 (03:00→15:15)
[2017-11-06 05:43] LABS: BASOPHILS % (AUTO) 0.4 % (0.2-1.0); EOSINOPHILS # (AUTO) 0.2 x10^3/uL (0.0-0.2); EOSINOPHILS % (AUTO) 1.8 % (0.9-2.9); HEMATOCRIT 23.3 % (36.0-47.0); HEMOGLOBIN 7.7 g/dL (12.0-16.0); LYMPHOCYTES # (AUTO) 1.9 X10^3/uL (1.3-2.9); LYMPHOCYTES % (AUTO) 16.3 % (21.0-51.0); MEAN CORPUSCULAR HEMOGLOBIN 30.1 pg (27.0-34.0); MEAN CORPUSCULAR HGB CONC 32.8 g/dL (33.0-35.0); MEAN CORPUSCULAR VOLUME 91.7 fL (80.0-100.0); MONOCYTES # (AUTO) 0.9 x10^3/uL (0.3-0.8); MONOCYTES % (AUTO) 7.9 % (0.0-13.0); NEUTROPHILS # (AUTO) 8.5 x10^3/uL (2.2-4.8); NEUTROPHILS % (AUTO) 73.6 % (42.0-75.0); PLATELET COUNT 187 X10^3/uL (150.0-450.0); RED BLOOD COUNT 2.55 X10^6/uL (3.5-5.4); RED CELL DISTRIBUTION WIDTH 15.8 % (11.6-16.5); WHITE BLOOD COUNT 11.5 X10^3/uL (3.6-10.0)
[2017-11-06 05:48] LABS: ALANINE AMINOTRANSFERASE 22 Units/L (12-78); ALBUMIN 2.3 g/dL (3.4-5.0); ALKALINE PHOSPHATASE 92 Units/L (46-116); ASPARTATE AMINO TRANSFERASE 21 Units/L (15-37); BLOOD UREA NITROGEN 22 mg/dL (7-18); CALCIUM 8.2 mg/dL (8.5-10.1); CARBON DIOXIDE 25.4 mmol/L (21-32); CHLORIDE 110 mmol/L (98-107); COR CA(FOR HYPOALB) 9.6 mg/dL (8.5-10.1); COR NA(FOR HYPERGLY) 146 mmol/L (136-145); CREATININE 0.82 mg/dL (0.55-1.02); SODIUM 145 mmol/L (136-145); TOTAL PROTEIN 6.5 g/dL (6.4-8.2); eGFR BLACK RACES > 60 (>60); eGFR NON BLACK RACES > 60 (>60)
[2017-11-06] MEDS: NS IV SCH ×2 (05:58→16:13)
[2017-11-06] MEDS: FORTAZ OR TAZICEF IV SCH ×2 (05:58→16:13)
[2017-11-06] MEDS: POTASSIUM CHL 60 MEQ/NS 0.45% 500 ML IV PRN (06:33)
[2017-11-06 07:05] LABS: HYPOCHROMASIA SLIGHT; PLATELET MORPHOLOGY COMMENT NORMAL (NORMAL)
[2017-11-06 07:06] LABS: MICROCYTOSIS SLIGHT
[2017-11-06] MEDS: COLACE CAP 100 MG PO SCH (09:26)
[2017-11-06] MEDS: MIRALAX POWDER (1 DOSE 17GM) PO SCH (09:26)
[2017-11-06] MEDS: NYSTATIN SUSP MT SCH ×4 (09:51→17:28)
[2017-11-06] MEDS: HYDROCHLOROTHIAZIDE 12.5 MG CAP PO SCH (09:51)
[2017-11-06] MEDS: TAB-A-VITE PO SCH (09:51)
[2017-11-06] MEDS: POTASSIUM CHLORIDE LIQ 20 MEQ UDC PO SCH (09:51)
[2017-11-06] MEDS: VITAMIN C PO SCH (09:51)
[2017-11-06] MEDS: PEPCID 20 MG IV PREMIX* 20 MG/50 ML BAG IV SCH (10:10)
[2017-11-06] MEDS: ALBUMIN HUMAN 25%- 100ML 100 ML IV SCH (10:11)
[2017-11-06] MEDS: DIFLUCAN 200 MG IV PREMIX* 200 MG/100 ML BAG IV SCH (10:11)
[2017-11-06] MEDS: TORADOL 30 MG VIAL IVP PRN (10:11)
[2017-11-06] MEDS: EFFEXOR XR 75 MG CAP PO SCH (10:36)
[2017-11-06] MEDS: TOPROL XL PO SCH (10:36)
[2017-11-06] MEDS: ZINC SULFATE PO SCH (11:21)
[2017-11-06] MEDS: HIPREX PO SCH (11:21)
[2017-11-06] MEDS: VANCOMYCIN HCL 1 GM VIAL 1 GM in NS 250 ML IV 250 ML IV SCH (14:09)
[2017-11-06 17:03] VITALS: BP 115/64
--- NOTE | 2017-11-06 17:36 | PCM.PROG ---
Progress Note - Progress Note for Day of Date: 11/05/17 - Subjective Subjective: IS BEING TREATED FOR AN INFECTED DECUBITUS ULCER TO HER SACRUM WELL PROTEIN DEFICIENCY. TODAY, SHE IS LYING IN BED WITH EYES OPEN. SHE DOES NOT AWAKEN WHEN SPOKEN TO, BUT RESPONDS TO PAINFUL STIMULI. SHE CONTINUES WITH ORAL CANDIDIASIS. SHE HAS REMAINED AFEBRILE THROUGHOUT THE NIGHT. STAGE 3 DECUBITUS TO SACRUM CONTINUES WITH TUNNELING AND EXPOSED BONE. HER VITAL SIGNS THIS MORNING ARE 99.2-87-20-96%-127/64. LABS WERE OBTAINED TODAY. ABNORMAL LAB VALUES INCLUDE THE FOLLOWING: WBC 11.8, RBC 2.84, HGB 8.7, HCT 26.0, CHLORIDE 108, GLUCOSE 162, CALCIUM 8.3, ALBUMIN 2.4. WOUND CULTURE AND SENSITIVITY REPORTS GROWTH OF STAPH AURICULARIS. IT IS SENSITIVE TO THE VANCOMYCIN THAT WE STARTED HER ON MONDAY. BLOOD CULTURES ARE PENDING FINAL RESULTS. SHE CONTINUES TO RECEIVE BOLUS FEEDINGS OF [place] 1.5 FOUR TIMES A DAY. SHE IS TOLERATING FEEDINGS WELL. TODAY, WE WILL START DIFULCAN 200MG IV BID AND ORAL NYSTATIN. WE WILL ALSO REPLACE POTASSIUM PER POTASSIUM PROTOCOL. OTHERWISE, WE PLAN TO FOLLOW UP WITH AM LABS AND CONTINUE TO MONITOR PATIENT. - Past Medical Family Social History Past Med/Fam/Surg Hx: No changes since H&P Allergies: Allergies No Known Drug Allergies Allergy (Verified 09/24/17 15:23) - Review of Systems ROS: No change since H&P - Vital Signs and I&O's Vital Signs: Temperature 98.8 F Pulse Rate [Right Brachial] 77 Pulse Rate [Left Brachial] 108 Pulse Rate 102 Respiratory Rate 22 Blood Pressure [Left Arm] 115/64 Blood Pressure [Right Arm] 128/58 Blood Pressure 111/69 O2 Sat by Pulse Oximetry 97 Intake and Output: Intake & Output 11/04/17 11/05/17 11/06/17 11/07/17 11:59 11:59 11:59 11:59 Intake Total 0 325 104 3291 Output Total 1675 2950 1725 400 Balance -6135 -7937 -1006 1000 - Physical Exam Oriented: Unable to test Eyes: Normal Ear: Normal Nose: Normal Throat: Normal Respiratory: Normal Cardiovascular: Normal : Normal Auscultation: Bowel Sounds: Normal, Increased Palpation: Normal Tenderness: Normal Skin: Wound (stage 3 decubitus ulcer to sacrum ..still having large sacral ulcer with tunneling and exposed bone ) Musculoskeletal: Motor Deficit (right sided paralysis ) Psychiatric: Normal Mood Description: Calm Affect: Normal Speech Pattern: Aphasic - Laboratory and Diagnostics Result Diagrams: 11/06/17 05:00 11/06/17 14:25 Labs: 10/31/17 04:05 Blood Blood Culture - Final Staphylococcus Cohnii 10/31/17 03:50 Blood Blood Culture - Final Staphylococcus Cohnii 11/02/17 10:52 Sacral Wound Culture - Final Staph Auricularis 11/02/17 10:51 Stool Stool Culture - Final 11/02/17 10:51 Stool - Final 10/28/17 19:00 Stool Stool Culture - Final 10/28/17 19:00 Stool - Final Laboratory WBC 11.5 X10^3/uL (3.6-10.0) H 11/06/17 05:00 RBC 2.55 X10^6/uL (3.5-5.4) L 11/06/17 05:00 Hgb 7.7 g/dL (12.0-16.0) L 11/06/17 05:00 Hct 23.3 % (36.0-47.0) L 11/06/17 05:00 MCV 91.7 fL (80.0-100.0) 11/06/17 05:00 MCH 30.1 pg (27.0-34.0) 11/06/17 05:00 MCHC 32.8 g/dL (33.0-35.0) L 11/06/17 05:00 RDW 15.8 % (11.6-16.5) 11/06/17 05:00 Plt Count 187 X10^3/uL (150.0-450.0) 11/06/17 05:00 Plt Count Comment Adequate (ADEQUATE) 11/06/17 05:00 MPV 10.0 fL (7.4-11.0) 11/06/17 05:00 Neut % 73.6 % (42.0-75.0) 11/06/17 05:00 Lymph % 16.3 % (21.0-51.0) L 11/06/17 05:00 [place] % 7.9 % (0.0-13.0) 11/06/17 05:00 Eos % 1.8 % (0.9-2.9) 11/06/17 05:00 Baso % 0.4 % (0.2-1.0) 11/06/17 05:00 Neut # 8.5 x10^3/uL (2.2-4.8) H 11/06/17 05:00 Lymph # 1.9 X10^3/uL (1.3-2.9) 11/06/17 05:00 [place] # 0.9 x10^3/uL (0.3-0.8) H 11/06/17 05:00 Eos # 0.2 x10^3/uL (0.0-0.2) 11/06/17 05:00 Baso # 0.0 X10^3/uL (0.0-0.1) 11/06/17 05:00 Absolute Nucleated RBC 0.0 /100WBC 11/06/17 05:00 Total Counted 100 11/04/17 05:10 Neutrophils % (Manual) 78 % (39-76) H 11/04/17 05:10 Band Neutrophils % 2 % (0-10) 10/28/17 04:30 Lymphocytes % (Manual) 20 % (13-43) 11/04/17 05:10 Monocytes % (Manual) 2 % (4-9) L 11/04/17 05:10 Eosinophils % (Manual) 2 % (0-6) 10/28/17 04:30 Plt Morphology Comment Normal (NORMAL) 11/06/17 05:00 RBC Morphology Abnormal (NORMAL) A 11/06/17 05:00 Hypochromasia Slight A 11/06/17 05:00 Microcytosis Slight A 11/06/17 05:00 Sodium 145 mmol/L (136-145) 11/06/17 05:00 Corrected Sodium 146 mmol/L (136-145) H 11/06/17 05:00 Potassium 3.8 mmol/L (3.5-5.1) 11/06/17 14:25 Chloride 110 mmol/L (98-107) H 11/06/17 05:00 Carbon Dioxide 25.4 mmol/L (21-32) 11/06/17 05:00 BUN 22 mg/dL (7-18) H 11/06/17 05:00 Creatinine 0.82 mg/dL (0.55-1.02) 11/06/17 05:00 Est GFR (MDRD) Af Amer > 60 (>60) 11/06/17 05:00 Est GFR (MDRD) Non-Af > 60 (>60) 11/06/17 05:00 Glucose 154 mg/dL (65-99) H 11/06/17 05:00 POC Glucose (mg/dL) 119 mg/dL (65-99) H 11/06/17 08:02 Lactic Acid 2.3 mmol/L (0.4-2.0) H 11/02/17 05:25 Calcium 8.2 mg/dL (8.5-10.1) L 11/06/17 05:00 Corrected Calcium 9.6 mg/dL (8.5-10.1) 11/06/17 05:00 Magnesium 2.7 mg/dL (1.7-2.9) 11/04/17 05:10 Total Bilirubin 0.50 mg/dL (0.2-1.0) 11/06/17 05:00 AST 21 Units/L (15-37) 11/06/17 05:00 ALT 22 Units/L (12-78) 11/06/17 05:00 Alkaline Phosphatase 92 Units/L (46-116) 11/06/17 05:00 Total Protein 6.5 g/dL (6.4-8.2) 11/06/17 05:00 Albumin 2.3 g/dL (3.4-5.0) L 11/06/17 05:00 Globulin 4.2 g/dL (2.5-4.5) 11/06/17 05:00 Albumin/Globulin Ratio 0.5 Ratio (1.1-2.1) L 11/06/17 05:00 Specimen Type Clean catch urine 11/01/17 11:00 Urine Color Yellow (YELLOW) 11/01/17 11:00 Urine Appearance Slightly hazy (CLEAR) 11/01/17 11:00 Urine pH 5.0 (5.0 - 8.0) 11/01/17 11:00 Ur Specific [place] 1.005 (1.000-1.030) 11/01/17 11:00 Urine Protein 2+ (NEGATIVE) 11/01/17 11:00 Urine Glucose (UA) Negative (NEGATIVE) 11/01/17 11:00 Urine Ketones Negative (NEGATIVE) 11/01/17 11:00 Urine Occult Blood 4+ (NEGATIVE) 11/01/17 11:00 Urine Nitrite Negative (NEGATIVE) 11/01/17 11:00 Urine Bilirubin Negative (NEGATIVE) 11/01/17 11:00 Urine Urobilinogen Normal (NORMAL) 11/01/17 11:00 Ur Leukocyte Esterase Negative (NEGATIVE) 11/01/17 11:00 Urine RBC 2-5 /HPF (NEGATIVE) 11/01/17 11:00 Urine WBC 0-3 /HPF (NEGATIVE) 11/01/17 11:00 Ur Squamous Epith Cells Few /HPF (NEGATIVE) 11/01/17 11:00 Amorphous Sediment 1+ /HPF (NEGATIVE) 11/01/17 11:00 Urine Bacteria Trace /HPF (NEGATIVE) 11/01/17 11:00 Ur Culture Indicated? No/not indicated 11/01/17 11:00 Stool Description 5 g brown/unformed 10/28/17 19:00 Stl Occult Blood (IFOB) Negative (NEGATIVE) 10/28/17 19:00 Stool for White Cells Positive (NEGATIVE) A 11/02/17 10:51 Stl C. diff Tox B Gene Negative (NEGATIVE) 11/02/17 10:51 Stl C. diff 027-NAP1-BI Negative (NEGATIVE) 11/02/17 10:51 Vancomycin Trough 15.2 ug/mL (15-20) 11/05/17 13:33 Cryptosporid parvum Ag Negative (NEGATIVE) 10/28/17 19:00 E. histolytica Antigen Negative (NEGATIVE) 10/28/17 19:00 Giardia lamblia Ag Negative (NEGATIVE) 10/28/17 19:00 - Plan (1) Decubitus ulcer of sacral region, stage 3 Status: Acute Plan: wound care, vancomycin 1gm iv daily, continue to monitor (2) Proteus mirabilis infection Status: Acute Plan: CONTINUE VANCOMYCIN 1GM IV DAILY, CONTINUE TO MONITOR (3) Hypoalbuminemia Status: Inactive Plan: PERIPHERAL TPN, ALBUMIN 25% IV DAILY, CONTINUE TO MONITOR (4) Oral candidiasis Status: Acute Plan: DIFLUCAN 200MG IV DAILY, NYSTATIN 5ML PO QID, CONTINUE TO MONITOR (5) Hyperlipidemia Status: Chronic Qualifiers: Hyperlipidemia type: mixed hyperlipidemia Qualified Code(s): E78.2 - Mixed hyperlipidemia Plan: CONTINUE LIPITOR, CONTINUE TO MONITOR (6) Hypertension Status: Chronic Qualifiers: Hypertension type: essential hypertension Qualified Code(s): I10 - Essential (primary) hypertension Plan: CONTINUE TOPROL XL, CONTINUE TO MONITOR
== END 2017-11-06 17:35 | DRG 640 ==
LOC: MED/SURG 16:48
PROVIDERS: ADMIT Internal Medicine; ATTEND Internal Medicine
PROC: 0DH63UZ Insertion of Feeding Device into Stomach, Percutaneous Approach (ICD-10-PCS; principal; 2017-10-29 12:30)
DX: E87.0 Hyperosmolality and hypernatremia (principal); L89.153 Pressure ulcer of sacral region, stage 3; I25.10 Atherosclerotic heart disease of native coronary artery without angina pectoris; E78.2 Mixed hyperlipidemia; I10 Essential (primary) hypertension; K21.9 Gastro-esophageal reflux disease without esophagitis; E03.8 Other specified hypothyroidism; F41.8 Other specified anxiety disorders; G82.20 Paraplegia, unspecified; K44.9 Diaphragmatic hernia without obstruction or gangrene; B96.4 Proteus (mirabilis) (morganii) as the cause of diseases classified elsewhere; B37.0 Candidal stomatitis
CPT/HCPCS: 36415; 71045; 74018; 80053; 80202; 81001; 82270; 82565; 83605; 83630; 83735; 84132; 84295; 85025; 87040; 87045; 87070; 87075; 87077; 87186; 87328; 87329; 87336; 87427; 87493; 87899; 94640; 94760; 99100; A4216; A4222; B4189; P9047; S0028; A4217; J0713; J1450; J1885; J1956; J2405; J3370; J3480; J3490; J7620

== ENCOUNTER 2017-11-30 09:45 | Inpatient (IN) | payer OTHER, MEDICAID ==
[2017-11-30] MEDS ORDERED: PHARMACY CONSULT - VANCOMYCIN XX SCH (11:00)
[2017-11-30] MEDS ORDERED: PHARMACY CONSULT - DOSE _____ XX SCH (11:00)
[2017-11-30 12:31] LABS: BASOPHILS % (AUTO) 0.7 % (0.2-1.0); EOSINOPHILS # (AUTO) 0.3 x10^3/uL (0.0-0.2); EOSINOPHILS % (AUTO) 3.7 % (0.9-2.9); HEMATOCRIT 27.7 % (36.0-47.0); HEMOGLOBIN 9.2 g/dL (12.0-16.0); LYMPHOCYTES % (AUTO) 27.1 % (21.0-51.0); MEAN CORPUSCULAR HEMOGLOBIN 30.9 pg (27.0-34.0); MEAN CORPUSCULAR HGB CONC 33.2 g/dL (33.0-35.0); MEAN CORPUSCULAR VOLUME 93.2 fL (80.0-100.0); MEAN PLATELET VOLUME 8.1 fL (7.4-11.0); MONOCYTES # (AUTO) 0.8 x10^3/uL (0.3-0.8); MONOCYTES % (AUTO) 10.7 % (0.0-13.0); NEUTROPHILS # (AUTO) 4.3 x10^3/uL (2.2-4.8); NEUTROPHILS % (AUTO) 57.8 % (42.0-75.0); PLATELET COUNT 319 X10^3/uL (150.0-450.0); RED BLOOD COUNT 2.97 X10^6/uL (3.5-5.4); RED CELL DISTRIBUTION WIDTH 17.5 % (11.6-16.5); WHITE BLOOD COUNT 7.4 X10^3/uL (3.6-10.0)
[2017-11-30 12:49] LABS: ALANINE AMINOTRANSFERASE 12 Units/L (12-78); ALKALINE PHOSPHATASE 90 Units/L (46-116); ASPARTATE AMINO TRANSFERASE 14 Units/L (15-37); BLOOD UREA NITROGEN 24 mg/dL (7-18); CALCIUM 9.6 mg/dL (8.5-10.1); CHLORIDE 101 mmol/L (98-107); COR CA(FOR HYPOALB) 11.2 mg/dL (8.5-10.1); COR NA(FOR HYPERGLY) 139 mmol/L (136-145); CREATININE 0.68 mg/dL (0.55-1.02); SODIUM 138 mmol/L (136-145); eGFR BLACK RACES > 60 (>60); eGFR NON BLACK RACES > 60 (>60)
[2017-11-30] MEDS ORDERED: NS 100 ML IV + SPIKE MINIBAG* 100 ML IV ONE (14:28)
[2017-11-30] MEDS: VANCOMYCIN HCL 1 GM VIAL 1 GM in NS 250 ML IV 250 ML IV SCH (15:08)
[2017-11-30] MEDS: NS 1000 ML 1,000 ML IV SCH (15:08)
[2017-11-30] MEDS: ZOSYN VIAL 2.25 GM 2.25 GM in NS 100 ML IV 100 ML IV SCH ×2 (15:15→22:12)
[2017-11-30 15:17] VITALS: BMI 26.6
[2017-11-30] MEDS ORDERED: TOPROL XL PO ONE (16:10)
[2017-11-30 17:51] LABS: BILIRUBIN,URINE NEGATIVE (NEGATIVE); BLOOD/HEMOGLOBIN,URINE 5+ (NEGATIVE); GLUCOSE, URINE NEGATIVE (NEGATIVE); KETONES,URINE NEGATIVE (NEGATIVE); LEUKOCYTE ESTERASE ,URINE 2+ (NEGATIVE); NITRITES,URINE NEGATIVE (NEGATIVE); PROTEIN,URINE 2+ (NEGATIVE); UROBILINOGEN,URINE NORMAL (NORMAL)
[2017-11-30 17:58] LABS: APPEARANCE,URINE SLIGHTLY HAZY (CLEAR); COLOR,URINE YELLOW (YELLOW)
[2017-11-30 17:59] LABS: BACTERIA,URINE TRACE /HPF (NEGATIVE); RENAL EPITHELIAL CELLS,URINE RARE /HPF (NEGATIVE); SQUAMOUS EPITHELIAL CELL,UR FEW /HPF (NEGATIVE); YEAST,URINE FEW /HPF (NEGATIVE)
[2017-11-30] MEDS ORDERED: TYLENOL 325 MG TAB PO PRN (18:54)
[2017-11-30] MEDS ORDERED: PATIENT'S HOME MEDICATION (Hydrocodone-Acetaminophen [Norco] 1 TAB) PO SCH (21:00)
[2017-11-30] MEDS ORDERED: PATIENT'S HOME MEDICATION (Famotidine [Pepcid] 40 MG) PO SCH (21:00)
[2017-11-30] MEDS ORDERED: METHENAMINE HIPPURATE PO SCH (21:00)
[2017-11-30] MEDS: NORCO 5/325 MG TAB PO SCH (22:13)
[2017-11-30] MEDS: TobraDEX OPHTH SUSP LEFTEYE SCH (22:13)
[2017-11-30] MEDS: LIPITOR TAB 40 MG PO SCH (22:14)
[2017-11-30] MEDS: PATIENT'S HOME MEDICATION (Amino Acids/Protein Hydrolys [Pro-Stat Awc Liquid Packet] 30 ML PO SCH (22:14)
[2017-11-30] MEDS: VITAMIN C PO SCH (22:14)
[2017-11-30] MEDS: REQUIP PO SCH (22:14)
[2017-11-30] MEDS: PEPCID TAB 20 MG PO SCH (22:14)
[2017-11-30] MEDS: HIPREX PO SCH (22:15)
[2017-11-30] MEDS: PATIENT'S HOME MEDICATION PO SCH (22:15)
[2017-12-01] MEDS ORDERED: NS 100 ML IV + SPIKE MINIBAG* 100 ML IV ONE ×3 (05:31→20:37)
[2017-12-01] MEDS: ZOSYN VIAL 2.25 GM 2.25 GM in NS 100 ML IV 100 ML IV SCH ×3 (05:56→22:05)
[2017-12-01 06:26] LABS: BASOPHILS % (AUTO) 0.5 % (0.2-1.0); EOSINOPHILS # (AUTO) 0.2 x10^3/uL (0.0-0.2); EOSINOPHILS % (AUTO) 2.6 % (0.9-2.9); HEMATOCRIT 26.8 % (36.0-47.0); LYMPHOCYTES # (AUTO) 2.3 X10^3/uL (1.3-2.9); LYMPHOCYTES % (AUTO) 28.8 % (21.0-51.0); MEAN CORPUSCULAR HEMOGLOBIN 31.5 pg (27.0-34.0); MEAN CORPUSCULAR HGB CONC 33.5 g/dL (33.0-35.0); MEAN PLATELET VOLUME 8.2 fL (7.4-11.0); MONOCYTES # (AUTO) 0.8 x10^3/uL (0.3-0.8); MONOCYTES % (AUTO) 9.8 % (0.0-13.0); NEUTROPHILS # (AUTO) 4.6 x10^3/uL (2.2-4.8); NEUTROPHILS % (AUTO) 58.3 % (42.0-75.0); PLATELET COUNT 324 X10^3/uL (150.0-450.0); RED BLOOD COUNT 2.85 X10^6/uL (3.5-5.4); RED CELL DISTRIBUTION WIDTH 17.7 % (11.6-16.5)
[2017-12-01 06:29] LABS: ALANINE AMINOTRANSFERASE 12 Units/L (12-78); ALBUMIN 1.9 g/dL (3.4-5.0); ALKALINE PHOSPHATASE 77 Units/L (46-116); ASPARTATE AMINO TRANSFERASE 14 Units/L (15-37); BLOOD UREA NITROGEN 25 mg/dL (7-18); CALCIUM 9.2 mg/dL (8.5-10.1); CARBON DIOXIDE 28.4 mmol/L (21-32); CHLORIDE 105 mmol/L (98-107); COR CA(FOR HYPOALB) 10.9 mg/dL (8.5-10.1); COR NA(FOR HYPERGLY) 143 mmol/L (136-145); CREATININE 0.63 mg/dL (0.55-1.02); SODIUM 141 mmol/L (136-145); TOTAL PROTEIN 7.9 g/dL (6.4-8.2); eGFR BLACK RACES > 60 (>60); eGFR NON BLACK RACES > 60 (>60)
[2017-12-01] MEDS: ARTIFICIAL TEARS DROPS LEFTEYE SCH ×2 (08:08→09:24)
[2017-12-01] MEDS ORDERED: POTASSIUM CHLORIDE LIQ 20 MEQ UDC PO ONE (08:50)
[2017-12-01] MEDS ORDERED: TAB-A-VITE PO SCH (09:00)
[2017-12-01] MEDS: POTASSIUM CHLORIDE LIQ 20 MEQ UDC PO SCH (09:24)
[2017-12-01] MEDS: TobraDEX OPHTH SUSP LEFTEYE SCH ×2 (09:24→20:48)
[2017-12-01] MEDS: HIPREX PO SCH ×2 (09:25→20:46)
[2017-12-01] MEDS: PEPCID TAB 20 MG PO SCH ×2 (09:25→20:47)
[2017-12-01] MEDS: ZINC SULFATE PO SCH (09:25)
[2017-12-01] MEDS: TAB-A-VITE PO SCH (09:26)
[2017-12-01] MEDS: VITAMIN C PO SCH ×2 (09:26→20:47)
[2017-12-01] MEDS: HYDROCHLOROTHIAZIDE 12.5 MG CAP PO SCH (09:26)
[2017-12-01] MEDS: HEMOCYTE-PLUS PO SCH (09:26)
[2017-12-01] MEDS: TOPROL XL PO SCH (09:26)
[2017-12-01] MEDS: VANCOMYCIN HCL 1 GM VIAL 1 GM in NS 250 ML IV 250 ML IV SCH (09:27)
[2017-12-01] MEDS: NORCO 5/325 MG TAB PO SCH ×2 (09:27→20:46)
[2017-12-01] MEDS: PATIENT'S HOME MEDICATION PO SCH ×2 (09:32→20:48)
[2017-12-01] MEDS: EFFEXOR XR 75 MG CAP PO SCH (10:05)
--- NOTE | 2017-12-01 11:49 | DR.H&P ---
H&P - History & Physical for Day of: H&P Date: 11/30/17 - Chief Complaint Chief Complaint: STAGE 4 NON-HEALING DECUBITUS ULCER - Allergies Allergies/Adverse Reactions: Allergies Allergy/AdvReac Type Severity Reaction Status Date / Time No Known Drug Allergies Allergy Verified 09/24/17 15:23 - History of Present Illness History of Present Illness: IS A 82 YEAR OLD PATIENT OF OURS WHO IS A RESIDENT OF [facility]. SHE PRESENTED WITH A STAGE 4, NON-HEALING DECUBITUS ULCER TO THE SACRUM. WOUND HAS RECENTLY BEEN DEBRIDED BY . DESPITE AGGRESSIVE WOUND CARE AND DEBRIDEMENT, FAMILY FEELS THOUGH WOUND IS NOT IMPROVING. ON EXAMINATION, HEART IS REGULAR IN RATE AND RHYTHM. BILATERAL LUNGS ARE NOTED WITH DIMINISHED LUNG SOUNDS THROUGHOUT. ABDOMEN IS ROUND, SOFT, AND NON-TENDER WITH NORMAL BOWEL SOUNDS NOTED IN ALL QUADRANTS. A HIGGINS IS NOTED TO BEDSIDE DRAINAGE DUE TO NON-HEALING WOUND. WOUND TO SACRUM IS NOTED WITH APPROXIMATLY 90% RED/GRANULATION AND APPROXIMATLY 10% YELLOW SLOUGH. IT MEASURES APPROXIMATLY 65CM X 50CM. MEDICAL HISTORY INCLUDES: TINNITUS, CVA WITH PARALYSIS, CAD, HYPERLIPIDEMIA, HTN, GERD, PUD, CONSTIPATION, UTIs, ARTHRITIS, HYPOTHYROIDISM, AND ANEMIA. ON ARRIVAL, VITALS WERE 99.1, 93, 17, 93% 2L NC, 207 /94. LABS WERE OBTAINED. ABNORMAL LAB VALUES INCLUDE THE FOLLOWING: RBC 2.97, Hgb 9.3, Hct 27.7, RDW 17.5, BUN 24, Glucose 137, Corrected Calcium 11.2, AST 14 , Albumin 2.0, Globulin 6.0, A/G RAtio 0.3. Urinalysis: Catherized, Hazy, Protein 2+, Occult Blood 5+, Leuk Est 2+, RBC 7-10, WBC 2-3, Bacteria Trace, Yeast Few. Blood Cultures x2 Pending. SHE WAS STARTED ON ZOSYN 2.25GM IV TID AND VANCOMYCIN 1GM IV DAILY. WE WILL ORDER FOR AGGRESSIVE WOUND CARE. OTHERWISE , WE WILL CONTINUE TO MONITOR PATIENT AND FOLLOW UP WITH AM LABS. - Past Medical History Past Medical History: Anemia, Angina, Anxiety, Arthritis, Coronary Artery Disease, CVA, Dementia, Depression, Dyslipidemia, GERD, Hypertension, Hypothyroidism Additional Medical History: Constipation, Tinnitus, Spinal Cord Infarction, Restless Leg Syndrome, Peripheral Vascular Disease, Paraplegic, Right-sided paralysis, Gastrointestinal Ulcer, UTI's, Muscle Weakness, Osteoarthritis, Previous Blood Transfusion - Past Surgical History Surgical History: Abdominal Surgery, Hysterectomy, Other - Family History Family Medical History: Diabetes Mellitus - Social History Does patient currently use any type of tobacco product: No Have you used tobacco products in the last 12 months: No Type of Tobacco Use: None Does any household member use tobacco: No Alcohol Use: None Drug Use: None - Medications Home Medications: Acetaminophen [TYLENOL 325 MG TAB *] 2 tab PO Q4H PRN 11/30/17 [History Confirmed 11/30/17] Hypromellose [Pure & Gentle Eye Drops] 1 drop LEFTEYE DAILY 11/30/17 [History Confirmed 11/30/17] Iron Fum/Folic Acid/Mv,Min 15 [Hemocyte Plus Capsule] 1 tab PO DAILY 11/30/17 [ History Confirmed 11/30/17] Multivitamin [Multivitamins] 1 tab PO DAILY 11/30/17 [History Confirmed 11/30/17 ] Tobramycin/Dexamethasone [Tobradex Eye Drops] 1 drop LEFTEYE BID 11/30/17 [ History Confirmed 11/30/17] - Review of Systems Constitutional: No Symptoms Reported Eyes: No Symptoms Reported. denies: See HPI, Pain, Vision Change, Conjunctivae Inflammation, Eyelid Inflammation, Redness, Other ENT: No Symptoms Reported. denies: See HPI, Ear Pain, Ear Discharge, Nose Pain , Nose Discharge, Nose Congestion, Mouth Pain, Mouth Swelling, Throat Pain, Throat Swelling, Other Respiratory: No Symptoms Reported. denies: See HPI, Cough, Dry, Shortness of Breath, Hemoptysis, SOB with Excertion, Pleuritic Pain, Sputum, Wheezing, Other Cardiovascular: No Symptoms Reported. denies: Chest Pain, See HPI, Palpitations , Orthopnea, Paroxysmal Noc. Dyspnea, Edema, Light Headedness, Other Gastrointestinal: No Symptoms Reported. denies: See HPI, Nausea, Vomiting, Abdominal Pain, Diarrhea, Constipation, Melena, Hematochezia, Other Genitourinary: No Symptoms Reported. denies: See HPI, Dysuria, Frequency, Incontinence, Hematuria, Retention, Other Musculoskeletal: No Symptoms Reported. denies: See HPI, Shoulder Pain, Arm Pain , Back Pain, Hand Pain, Leg Pain, Foot Pain, Neck Pain, Other Skin: Wound (STAGE FOUR DECUBITUS ULCER TO SACRUM, NON-HEALING ) Neurological: Other (APHASIC AND PARALYSIS DUE TO OLD CVA ) - Physical Exam Vital Signs: Temperature 99.4 F Pulse Rate [Apical] 84 Respiratory Rate 26 Blood Pressure [Left Arm] 161/73 Blood Pressure [Right Arm] 128/58 Blood Pressure 115/64 O2 Sat by Pulse Oximetry 100 Oriented: Unable to test Eyes: Normal. negative: Blurred Vision, Diplopia, Discharge, Pain, Redness, Photophobia, Other Ear: Normal. negative: Right, Left, Swelling, Ecchymosis, Hemotypanum, Abrasion , Laceration Nose: Normal. negative: Injected, Discharge, Blood, Other Throat: Normal. negative: Tonsillar Hypertrophy, Red, Exudate, Dry, Other Respiratory: Diminished Throughout Cardiovascular: Normal. negative: S3, S4, Murmur : Normal Auscultation: Bowel Sounds: Normal Palpation: Normal Tenderness: Normal Skin: Wound (STAGE 4 DECUBITUS ULCER, NON-HEALING ) Musculoskeletal: Normal Psychiatric: Normal Mood Description: Calm Affect: Normal Speech Pattern: Aphasic - Assessment/Plan (1) Decubitus ulcer of sacral region, stage 4 Status: Acute Plan: AGGRESSIVE WOUND CARE, IV ANTIBIOTICS, CONTINUE TO MONITOR
[2017-12-01] MEDS: NS 1000 ML 1,000 ML IV SCH ×2 (14:22)
[2017-12-01 18:26] LABS: STOOL FOR WBC NEGATIVE (NEGATIVE)
[2017-12-01 18:58] LABS: CRYPTOSPORIDIUM PARVUM ANTIGEN NEGATIVE (NEGATIVE); GIARDIA LAMBLIA ANTIGEN NEGATIVE (NEGATIVE)
[2017-12-01] MEDS: REQUIP PO SCH (20:47)
[2017-12-01] MEDS: LIPITOR TAB 40 MG PO SCH (20:47)
[2017-12-01] MEDS: PATIENT'S HOME MEDICATION (Amino Acids/Protein Hydrolys [Pro-Stat Awc Liquid Packet] 30 ML PO SCH (20:48)
[2017-12-02] MEDS: NS 1000 ML 1,000 ML IV SCH ×2 (02:00→11:00)
[2017-12-02] MEDS ORDERED: NS 100 ML IV + SPIKE MINIBAG* 100 ML IV ONE ×2 (05:36→20:22)
[2017-12-02] MEDS: ZOSYN VIAL 2.25 GM 2.25 GM in NS 100 ML IV 100 ML IV SCH ×3 (05:39→21:41)
[2017-12-02 06:32] LABS: BASOPHILS # (AUTO) 0.1 X10^3/uL (0.0-0.1); BASOPHILS % (AUTO) 0.7 % (0.2-1.0); EOSINOPHILS # (AUTO) 0.3 x10^3/uL (0.0-0.2); EOSINOPHILS % (AUTO) 3.6 % (0.9-2.9); HEMATOCRIT 25.2 % (36.0-47.0); HEMOGLOBIN 8.5 g/dL (12.0-16.0); LYMPHOCYTES # (AUTO) 2.5 X10^3/uL (1.3-2.9); LYMPHOCYTES % (AUTO) 28.2 % (21.0-51.0); MEAN CORPUSCULAR HEMOGLOBIN 31.8 pg (27.0-34.0); MEAN CORPUSCULAR HGB CONC 33.5 g/dL (33.0-35.0); MEAN CORPUSCULAR VOLUME 94.7 fL (80.0-100.0); MEAN PLATELET VOLUME 7.9 fL (7.4-11.0); MONOCYTES # (AUTO) 0.9 x10^3/uL (0.3-0.8); MONOCYTES % (AUTO) 9.6 % (0.0-13.0); NEUTROPHILS # (AUTO) 5.1 x10^3/uL (2.2-4.8); NEUTROPHILS % (AUTO) 57.9 % (42.0-75.0); PLATELET COUNT 306 X10^3/uL (150.0-450.0); RED BLOOD COUNT 2.66 X10^6/uL (3.5-5.4); RED CELL DISTRIBUTION WIDTH 17.3 % (11.6-16.5); WHITE BLOOD COUNT 8.9 X10^3/uL (3.6-10.0)
[2017-12-02 06:46] LABS: ALANINE AMINOTRANSFERASE 11 Units/L (12-78); ALBUMIN 1.9 g/dL (3.4-5.0); ALKALINE PHOSPHATASE 71 Units/L (46-116); ASPARTATE AMINO TRANSFERASE 14 Units/L (15-37); BLOOD UREA NITROGEN 22 mg/dL (7-18); CARBON DIOXIDE 27.9 mmol/L (21-32); CHLORIDE 111 mmol/L (98-107); COR CA(FOR HYPOALB) 10.7 mg/dL (8.5-10.1); COR NA(FOR HYPERGLY) 146 mmol/L (136-145); CREATININE 0.61 mg/dL (0.55-1.02); SODIUM 145 mmol/L (136-145); TOTAL PROTEIN 7.9 g/dL (6.4-8.2); eGFR BLACK RACES > 60 (>60); eGFR NON BLACK RACES > 60 (>60)
[2017-12-02] MEDS: POTASSIUM CHLORIDE LIQ 20 MEQ UDC PO SCH (09:36)
[2017-12-02] MEDS: VITAMIN C PO SCH ×2 (09:36→20:59)
[2017-12-02] MEDS: EFFEXOR XR 75 MG CAP PO SCH (09:37)
[2017-12-02] MEDS: PEPCID TAB 20 MG PO SCH ×2 (09:37→20:59)
[2017-12-02] MEDS: HYDROCHLOROTHIAZIDE 12.5 MG CAP PO SCH (09:37)
[2017-12-02] MEDS: TOPROL XL PO SCH (09:37)
[2017-12-02] MEDS: HEMOCYTE-PLUS PO SCH (09:37)
[2017-12-02] MEDS: NORCO 5/325 MG TAB PO SCH ×2 (09:37→20:59)
[2017-12-02] MEDS: TAB-A-VITE PO SCH (09:37)
[2017-12-02] MEDS: ZINC SULFATE PO SCH (09:37)
[2017-12-02] MEDS: PATIENT'S HOME MEDICATION PO SCH ×2 (09:38→21:00)
[2017-12-02] MEDS: TobraDEX OPHTH SUSP LEFTEYE SCH ×2 (09:39→20:57)
[2017-12-02] MEDS: ARTIFICIAL TEARS DROPS LEFTEYE SCH (09:40)
[2017-12-02] MEDS: VANCOMYCIN HCL 1 GM VIAL 1 GM in NS 250 ML IV 250 ML IV SCH (09:41)
[2017-12-02] MEDS: HIPREX PO SCH ×2 (13:33→20:58)
[2017-12-02] MEDS: ALBUMIN HUMAN 25%- 100ML 200 ML IV SCH (17:04)
[2017-12-02] MEDS: REQUIP PO SCH (20:58)
[2017-12-02] MEDS: LIPITOR TAB 40 MG PO SCH (20:59)
[2017-12-02] MEDS: PATIENT'S HOME MEDICATION (Amino Acids/Protein Hydrolys [Pro-Stat Awc Liquid Packet] 30 ML PO SCH (20:59)
[2017-12-03] MEDS: NS 1000 ML 1,000 ML IV SCH ×2 (04:34→09:48)
[2017-12-03] MEDS ORDERED: NS 100 ML IV + SPIKE MINIBAG* 100 ML IV ONE ×2 (05:12→20:14)
[2017-12-03] MEDS: ZOSYN VIAL 2.25 GM 2.25 GM in NS 100 ML IV 100 ML IV SCH ×3 (06:15→21:47)
[2017-12-03 09:03] LABS: BASOPHILS % (AUTO) 0.4 % (0.2-1.0); EOSINOPHILS # (AUTO) 0.2 x10^3/uL (0.0-0.2); EOSINOPHILS % (AUTO) 2.9 % (0.9-2.9); HEMOGLOBIN 8.1 g/dL (12.0-16.0); LYMPHOCYTES # (AUTO) 2.3 X10^3/uL (1.3-2.9); LYMPHOCYTES % (AUTO) 28.6 % (21.0-51.0); MEAN CORPUSCULAR HEMOGLOBIN 31.9 pg (27.0-34.0); MEAN CORPUSCULAR HGB CONC 33.7 g/dL (33.0-35.0); MEAN CORPUSCULAR VOLUME 94.5 fL (80.0-100.0); MEAN PLATELET VOLUME 7.9 fL (7.4-11.0); MONOCYTES # (AUTO) 0.6 x10^3/uL (0.3-0.8); MONOCYTES % (AUTO) 7.7 % (0.0-13.0); NEUTROPHILS # (AUTO) 4.8 x10^3/uL (2.2-4.8); NEUTROPHILS % (AUTO) 60.4 % (42.0-75.0); PLATELET COUNT 261 X10^3/uL (150.0-450.0); RED BLOOD COUNT 2.54 X10^6/uL (3.5-5.4); RED CELL DISTRIBUTION WIDTH 17.6 % (11.6-16.5); WHITE BLOOD COUNT 7.9 X10^3/uL (3.6-10.0)
[2017-12-03 09:16] LABS: ALANINE AMINOTRANSFERASE 14 Units/L (12-78); ALBUMIN 2.8 g/dL (3.4-5.0); ALKALINE PHOSPHATASE 73 Units/L (46-116); ASPARTATE AMINO TRANSFERASE 17 Units/L (15-37); BLOOD UREA NITROGEN 20 mg/dL (7-18); CALCIUM 9.1 mg/dL (8.5-10.1); CARBON DIOXIDE 27.7 mmol/L (21-32); CHLORIDE 109 mmol/L (98-107); COR CA(FOR HYPOALB) 10.1 mg/dL (8.5-10.1); COR NA(FOR HYPERGLY) 148 mmol/L (136-145); CREATININE 0.65 mg/dL (0.55-1.02); SODIUM 145 mmol/L (136-145); eGFR BLACK RACES > 60 (>60); eGFR NON BLACK RACES > 60 (>60)
[2017-12-03] MEDS: ALBUMIN HUMAN 25%- 100ML 200 ML IV SCH (09:46)
[2017-12-03] MEDS: HIPREX PO SCH ×2 (09:49→20:18)
[2017-12-03] MEDS: NORCO 5/325 MG TAB PO SCH ×2 (09:49→20:19)
[2017-12-03] MEDS: POTASSIUM CHLORIDE LIQ 20 MEQ UDC PO SCH (09:49)
[2017-12-03] MEDS: EFFEXOR XR 75 MG CAP PO SCH (09:50)
[2017-12-03] MEDS: PEPCID TAB 20 MG PO SCH ×2 (09:50→20:20)
[2017-12-03] MEDS: ZINC SULFATE PO SCH (09:50)
[2017-12-03] MEDS: VITAMIN C PO SCH ×2 (09:50→20:19)
[2017-12-03] MEDS: HEMOCYTE-PLUS PO SCH (09:50)
[2017-12-03] MEDS: TAB-A-VITE PO SCH (09:50)
[2017-12-03] MEDS: HYDROCHLOROTHIAZIDE 12.5 MG CAP PO SCH (09:50)
[2017-12-03] MEDS: TOPROL XL PO SCH (09:50)
[2017-12-03] MEDS: TobraDEX OPHTH SUSP LEFTEYE SCH ×2 (09:51→20:18)
[2017-12-03] MEDS: ARTIFICIAL TEARS DROPS LEFTEYE SCH (09:51)
[2017-12-03] MEDS: PATIENT'S HOME MEDICATION PO SCH ×2 (09:51→20:20)
[2017-12-03] MEDS ORDERED: MAGNESIUM SULFATE 1 GM/100 mL PREMIX 1 GM/100 ML BAG IV PRN (11:10)
[2017-12-03] MEDS ORDERED: MAG-OX TAB PO PRN (11:10)
[2017-12-03] MEDS ORDERED: POTASSIUM CHLORIDE LIQ 20 MEQ UDC PO PRN (11:10)
[2017-12-03] MEDS ORDERED: K-RIDER 10 MEQ/NS 100 ML 10 MEQ/100 ML BAG IV PRN (11:10)
[2017-12-03] MEDS ORDERED: K-LYTE EFFERVESCENT PO PRN (11:10)
[2017-12-03] MEDS ORDERED: POTASSIUM CHL 40 MEQ/NS 0.45% 500 ML IV PRN (11:10)
[2017-12-03] MEDS: VANCOMYCIN HCL 1 GM VIAL 1 GM in NS 250 ML IV 250 ML IV SCH (12:14)
[2017-12-03] MEDS: POTASSIUM CHL 60 MEQ/NS 0.45% 500 ML IV PRN (16:40)
[2017-12-03] MEDS: REQUIP PO SCH (20:19)
[2017-12-03] MEDS: LIPITOR TAB 40 MG PO SCH (20:19)
[2017-12-03] MEDS: PATIENT'S HOME MEDICATION (Amino Acids/Protein Hydrolys [Pro-Stat Awc Liquid Packet] 30 ML PO SCH (20:20)
[2017-12-03] MEDS: NORMODYNE INJ 20 MG VIAL IV PRN (21:20)
[2017-12-04] MEDS: NORMODYNE INJ 20 MG VIAL IV PRN ×3 (04:20→23:10)
[2017-12-04] MEDS ORDERED: NS 100 ML IV + SPIKE MINIBAG* 100 ML IV ONE ×2 (04:53→20:38)
[2017-12-04] MEDS: ZOSYN VIAL 2.25 GM 2.25 GM in NS 100 ML IV 100 ML IV SCH ×3 (05:43→21:58)
[2017-12-04 06:28] LABS: BASOPHILS % (AUTO) 0.4 % (0.2-1.0); EOSINOPHILS # (AUTO) 0.2 x10^3/uL (0.0-0.2); EOSINOPHILS % (AUTO) 2.4 % (0.9-2.9); HEMATOCRIT 25.8 % (36.0-47.0); HEMOGLOBIN 8.7 g/dL (12.0-16.0); LYMPHOCYTES # (AUTO) 2.3 X10^3/uL (1.3-2.9); LYMPHOCYTES % (AUTO) 25.5 % (21.0-51.0); MEAN CORPUSCULAR HEMOGLOBIN 31.8 pg (27.0-34.0); MEAN CORPUSCULAR HGB CONC 33.7 g/dL (33.0-35.0); MEAN CORPUSCULAR VOLUME 94.5 fL (80.0-100.0); MEAN PLATELET VOLUME 8.4 fL (7.4-11.0); MONOCYTES # (AUTO) 0.5 x10^3/uL (0.3-0.8); NEUTROPHILS % (AUTO) 66.7 % (42.0-75.0); PLATELET COUNT 267 X10^3/uL (150.0-450.0); RED BLOOD COUNT 2.73 X10^6/uL (3.5-5.4); RED CELL DISTRIBUTION WIDTH 17.6 % (11.6-16.5)
[2017-12-04 06:38] LABS: ALANINE AMINOTRANSFERASE 14 Units/L (12-78); ALBUMIN 3.2 g/dL (3.4-5.0); ALKALINE PHOSPHATASE 60 Units/L (46-116); ASPARTATE AMINO TRANSFERASE 15 Units/L (15-37); BLOOD UREA NITROGEN 19 mg/dL (7-18); CALCIUM 9.3 mg/dL (8.5-10.1); CHLORIDE 110 mmol/L (98-107); COR CA(FOR HYPOALB) 9.9 mg/dL (8.5-10.1); COR NA(FOR HYPERGLY) 148 mmol/L (136-145); CREATININE 0.62 mg/dL (0.55-1.02); SODIUM 146 mmol/L (136-145); TOTAL PROTEIN 8.1 g/dL (6.4-8.2); eGFR BLACK RACES > 60 (>60); eGFR NON BLACK RACES > 60 (>60)
[2017-12-04] MEDS: NS 1000 ML 1,000 ML IV SCH ×2 (08:55→19:00)
[2017-12-04] MEDS: ALBUMIN HUMAN 25%- 100ML 200 ML IV SCH (08:55)
[2017-12-04] MEDS: HIPREX PO SCH ×2 (08:56→20:48)
[2017-12-04] MEDS: TobraDEX OPHTH SUSP LEFTEYE SCH ×2 (08:57→20:48)
[2017-12-04] MEDS: ARTIFICIAL TEARS DROPS LEFTEYE SCH (08:57)
[2017-12-04] MEDS: POTASSIUM CHLORIDE LIQ 20 MEQ UDC PO SCH (08:58)
[2017-12-04] MEDS: EFFEXOR XR 75 MG CAP PO SCH (09:03)
[2017-12-04] MEDS: HYDROCHLOROTHIAZIDE 12.5 MG CAP PO SCH (09:04)
[2017-12-04] MEDS: PEPCID TAB 20 MG PO SCH ×2 (09:04→20:47)
[2017-12-04] MEDS: NORCO 5/325 MG TAB PO SCH ×2 (09:05→20:47)
[2017-12-04] MEDS: TAB-A-VITE PO SCH (09:05)
[2017-12-04] MEDS: ZINC SULFATE PO SCH (09:05)
[2017-12-04] MEDS: HEMOCYTE-PLUS PO SCH (09:05)
[2017-12-04] MEDS: VITAMIN C PO SCH ×2 (09:05→20:47)
[2017-12-04] MEDS: TOPROL XL PO SCH (09:05)
[2017-12-04] MEDS: PATIENT'S HOME MEDICATION PO SCH ×2 (09:06→20:49)
[2017-12-04] MEDS ORDERED: CATAPRES-TTS-2 TD SCH (10:00)
[2017-12-04] MEDS: VANCOMYCIN HCL 1 GM VIAL 1 GM in NS 250 ML IV 250 ML IV SCH (11:05)
--- NOTE | 2017-12-04 11:12 | PCM.PROG ---
Progress Note - Progress Note for Day of Date: 12/01/17 - Subjective Subjective: WAS ADMITTED FOR A STAGE 4, NON-HEALING DECUBITUS ULCER TO THE SACRUM. TODAY, SHE IS LYING IN BED WITH EYES CLOSED ON MORNING ROUNDS. SHE AWAKENS TO VERBAL STIMULI. PATIENTS DAUGHTER IS AT BEDSIDE. PATIENTS DAUGHTER REPORTS THAT PATIENT HAS HAD DIARRHEA THROUGHOUT THE NIGHT. ON EXAMINATION, HEART IS REGULAR IN RATE AND RHYTHM. BILATERAL LUNGS ARE NOTED WITH DIMINISHED LUNG SOUNDS THROUGHOUT. ABDOMEN IS ROUND, SOFT, AND NON-TENDER WITH HYPERACTIVE BOWEL SOUNDS NOTED IN ALL QUADRANTS. THERE IS A STAGE 4 ULCER NOTED TO SACRUM. MINIMAL AMOUNT OF BLOODY DRAINAGE NOTED AT THIS TIME. HER VITALS THIS MORNING ARE 99.4-87-27-99%-160/73. LABS WERE OBTAINED. ABNORMAL LAB VALUES INCLUDE THE FOLLOWING: RBC 2.85, HGB 9.0, HCT 26.8, POTASSIUM 3.3, BUN 25 , GLUCOSE 181, AST 14, ALBUMIN 1.9. WOUND CULTURES WELL BLOOD CULTURES ARE PENDING. TODAY, WE WILL OBTAIN STOOL STUDIES. OTHERWISE, WE WILL CONTINUE WITH AGGRESSIVE WOUND CARE. WE PLAN TO FOLLOW UP WITH AM LABS AND CONTINUE TO MONITOR PATIENT. - Past Medical Family Social History Past Med/Fam/Surg Hx: No changes since H&P Allergies: Allergies No Known Drug Allergies Allergy (Verified 09/24/17 15:23) - Review of Systems ROS: No change since H&P - Vital Signs and I&O's Vital Signs: Temperature 99.7 F Pulse Rate [Apical] 78 Respiratory Rate 25 Blood Pressure [Left Arm] 170/79 Blood Pressure [Right Arm] 189/83 Blood Pressure 115/64 O2 Sat by Pulse Oximetry 100 Intake and Output: Intake & Output 12/01/17 12/02/17 12/03/17 12/04/17 11:59 11:59 11:59 11:59 Intake Total 1751 3324 4139 3403 Output Total 700 1750 2250 1650 Balance 1051 1574 1889 1753 - Physical Exam Oriented: Unable to test Eyes: Normal. negative: Blurred Vision, Diplopia, Discharge, Pain, Redness, Photophobia, Other Ear: Normal. negative: Right, Left, Swelling, Ecchymosis, Hemotypanum, Abrasion , Laceration Nose: Normal. negative: Injected, Discharge, Blood, Other Throat: Normal. negative: Tonsillar Hypertrophy, Red, Exudate, Dry, Other Respiratory: Normal Cardiovascular: Normal. negative: S3, S4, Murmur : Normal Auscultation: Bowel Sounds: Normal Palpation: Normal Tenderness: Normal Skin: Wound (STAGE 4 DECUBITUS ULCER, NON-HEALING ) Musculoskeletal: Normal Psychiatric: Normal Mood Description: Calm Affect: Normal Speech Pattern: Aphasic - Laboratory and Diagnostics Result Diagrams: 12/04/17 05:49 12/04/17 05:49 Labs: 12/01/17 01:31 Sacral Gram Stain - Final 12/01/17 01:31 Sacral Wound Culture - Preliminary 12/01/17 17:22 Stool Stool Culture - Final 12/01/17 17:22 Stool - Final 11/30/17 12:15 Blood Blood Culture - Preliminary 11/30/17 12:06 Blood Blood Culture - Preliminary Laboratory WBC 9.0 X10^3/uL (3.6-10.0) 12/04/17 05:49 RBC 2.73 X10^6/uL (3.5-5.4) L 12/04/17 05:49 Hgb 8.7 g/dL (12.0-16.0) L 12/04/17 05:49 Hct 25.8 % (36.0-47.0) L 12/04/17 05:49 MCV 94.5 fL (80.0-100.0) 12/04/17 05:49 MCH 31.8 pg (27.0-34.0) 12/04/17 05:49 MCHC 33.7 g/dL (33.0-35.0) 12/04/17 05:49 RDW 17.6 % (11.6-16.5) H 12/04/17 05:49 Plt Count 267 X10^3/uL (150.0-450.0) 12/04/17 05:49 MPV 8.4 fL (7.4-11.0) 12/04/17 05:49 Neut % 66.7 % (42.0-75.0) 12/04/17 05:49 Lymph % 25.5 % (21.0-51.0) 12/04/17 05:49 [place] % 5.0 % (0.0-13.0) 12/04/17 05:49 Eos % 2.4 % (0.9-2.9) 12/04/17 05:49 Baso % 0.4 % (0.2-1.0) 12/04/17 05:49 Neut # 6.0 x10^3/uL (2.2-4.8) H 12/04/17 05:49 Lymph # 2.3 X10^3/uL (1.3-2.9) 12/04/17 05:49 [place] # 0.5 x10^3/uL (0.3-0.8) 12/04/17 05:49 Eos # 0.2 x10^3/uL (0.0-0.2) 12/04/17 05:49 Baso # 0.0 X10^3/uL (0.0-0.1) 12/04/17 05:49 Absolute Nucleated RBC 0.0 /100WBC 12/04/17 05:49 Sodium 146 mmol/L (136-145) H 12/04/17 05:49 Corrected Sodium 148 mmol/L (136-145) H 12/04/17 05:49 Potassium 3.4 mmol/L (3.5-5.1) L 12/04/17 05:49 Chloride 110 mmol/L (98-107) H 12/04/17 05:49 Carbon Dioxide 26.0 mmol/L (21-32) 12/04/17 05:49 BUN 19 mg/dL (7-18) H 12/04/17 05:49 Creatinine 0.62 mg/dL (0.55-1.02) 12/04/17 05:49 Est GFR (MDRD) Af Amer > 60 (>60) 12/04/17 05:49 Est GFR (MDRD) Non-Af > 60 (>60) 12/04/17 05:49 Glucose 182 mg/dL (65-99) H 12/04/17 05:49 Calcium 9.3 mg/dL (8.5-10.1) 12/04/17 05:49 Corrected Calcium 9.9 mg/dL (8.5-10.1) 12/04/17 05:49 Magnesium 2.4 mg/dL (1.7-2.9) 12/03/17 08:50 Total Bilirubin 0.20 mg/dL (0.2-1.0) 12/04/17 05:49 AST 15 Units/L (15-37) 12/04/17 05:49 ALT 14 Units/L (12-78) 12/04/17 05:49 Alkaline Phosphatase 60 Units/L (46-116) 12/04/17 05:49 Total Protein 8.1 g/dL (6.4-8.2) 12/04/17 05:49 Albumin 3.2 g/dL (3.4-5.0) L 12/04/17 05:49 Globulin 4.9 g/dL (2.5-4.5) H 12/04/17 05:49 Albumin/Globulin Ratio 0.7 Ratio (1.1-2.1) L 12/04/17 05:49 Specimen Type Catherized urine 11/30/17 17:35 Urine Color Yellow (YELLOW) 11/30/17 17:35 Urine Appearance Slightly hazy (CLEAR) 11/30/17 17:35 Urine pH 7.0 (5.0 - 8.0) 11/30/17 17:35 Ur Specific [place] 1.010 (1.000-1.030) 11/30/17 17:35 Urine Protein 2+ (NEGATIVE) 11/30/17 17:35 Urine Glucose (UA) Negative (NEGATIVE) 11/30/17 17:35 Urine Ketones Negative (NEGATIVE) 11/30/17 17:35 Urine Occult Blood 5+ (NEGATIVE) 11/30/17 17:35 Urine Nitrite Negative (NEGATIVE) 11/30/17 17:35 Urine Bilirubin Negative (NEGATIVE) 11/30/17 17:35 Urine Urobilinogen Normal (NORMAL) 11/30/17 17:35 Ur Leukocyte Esterase 2+ (NEGATIVE) 11/30/17 17:35 Urine RBC 7-10 /HPF (NEGATIVE) 11/30/17 17:35 Urine WBC 2-3 /HPF (NEGATIVE) 11/30/17 17:35 Ur Squamous Epith Cells Few /HPF (NEGATIVE) 11/30/17 17:35 Ur Renal Epithelial Cell Rare /HPF (NEGATIVE) 11/30/17 17:35 Urine Bacteria Trace /HPF (NEGATIVE) 11/30/17 17:35 Urine Yeast Few /HPF (NEGATIVE) 11/30/17 17:35 Ur Culture Indicated? No/not indicated 11/30/17 17:35 Stool Description 4g,unformed,[place] 12/01/17 17:22 Stl Occult Blood (IFOB) Negative (NEGATIVE) 12/01/17 17:22 Stool for White Cells Negative (NEGATIVE) 12/01/17 17:22 Stl C. diff Tox B Gene Negative (NEGATIVE) 12/01/17 17:22 Stl C. diff 027-NAP1-BI Negative (NEGATIVE) 12/01/17 17:22 Random Vancomycin 10.6 ug/mL 12/03/17 08:50 Cryptosporid parvum Ag Negative (NEGATIVE) 12/01/17 17:22 E. histolytica Antigen Negative (NEGATIVE) 12/01/17 17:22 Giardia lamblia Ag Negative (NEGATIVE) 12/01/17 17:22 - Plan (1) Decubitus ulcer of sacral region, stage 4 Status: Acute Plan: AGGRESSIVE WOUND CARE, IV ANTIBIOTICS, CONTINUE TO MONITOR (2) Essential hypertension Status: Chronic Plan: CONTINUE HCTZ, CONTINUE TOPROL XL, CONTINUE TO MONITOR (3) GERD (gastroesophageal reflux disease) Status: Chronic Qualifiers: Esophagitis presence: esophagitis presence not specified Qualified Code(s) : K21.9 - Gastro-esophageal reflux disease without esophagitis Plan: CONTINUE PEPCID, CONTINUE TO MONITOR (4) Hyperlipidemia Status: Chronic Qualifiers: Hyperlipidemia type: mixed hyperlipidemia Qualified Code(s): E78.2 - Mixed hyperlipidemia Plan: CONTINUE LIPITOR, CONTINUE TO MONITOR (5) History of anemia Status: Acute Plan: CONTINUE HEMOCYTE PLUS, CONTINUE TO MONITOR (6) Depression Status: Chronic Qualifiers: Depression Type: major depressive disorder Major depression recurrence: recurrent Active/Remission status: remission status unspecified Qualified Code(s): F33.9 - Major depressive disorder, recurrent, unspecified Plan: CONTINUE EFFEXOR, CONTINUE TO MONITOR
--- NOTE | 2017-12-04 12:21 | PCM.PROG ---
Progress Note - Progress Note for Day of Date: 12/02/17 - Subjective Subjective: WAS ADMITTED FOR A STAGE 4, NON-HEALING DECUBITUS ULCER TO THE SACRUM. TODAY, SHE IS LYING IN BED WITH EYES CLOSED ON MORNING ROUNDS. SHE AWAKENS TO VERBAL STIMULI. PATIENTS DAUGHTER IS AT BEDSIDE. PATIENTS DAUGHTER REPORTS THAT DIARRHEA HAS SLOWED SOME SINCE YESTERDAY. ON EXAMINATION, HEART IS REGULAR IN RATE AND RHYTHM. BILATERAL LUNGS ARE NOTED WITH DIMINISHED LUNG SOUNDS THROUGHOUT. ABDOMEN IS ROUND, SOFT, AND NON-TENDER WITH HYPERACTIVE BOWEL SOUNDS NOTED IN ALL QUADRANTS. THERE IS A PEG TUBE NOTED TO ABDOMEN. DRESSING IS DRY AND INTACT WITH NO DRAINAGE NOTED. STAGE 4 ULCER NOTED TO SACRUM WITH MINIMAL AMOUNT OF BLOODY DRAINAGE NOTED AT THIS TIME. HER VITALS THIS MORNING ARE 98.4-87-28-99%-162/81. LABS WERE OBTAINED. ABNORMAL LAB VALUES INCLUDE THE FOLLOWING: RBC 2.66, HGB 8.5, HCT 25.2, CHLORIDE 111, BUN 22, GLUCOSE 144, AST 14, ALT 11, ALBUMIN 1.9. WOUND CULTURES ARE PENDING. GRAM STAIN REPORTS MODERATE WBC. PRELIMINARY BLOOD CULTURES REPORT NO GROWTH. STOOL STUDIES THAT WERE OBTAINED YESTERDAY ARE NEGATIVE. TODAY, WE WILL START ALBUMIN 25% IV DAILY. OTHERWISE, WE WILL CONTINUE WITH AGGRESSIVE WOUND CARE AND IV ANTIBIOTICS. WE PLAN TO FOLLOW UP WITH AM LABS AND CONTINUE TO MONITOR PATIENT. - Past Medical Family Social History Past Med/Fam/Surg Hx: No changes since H&P Allergies: Allergies No Known Drug Allergies Allergy (Verified 09/24/17 15:23) - Review of Systems ROS: No change since H&P - Vital Signs and I&O's Vital Signs: Temperature 99.7 F Pulse Rate [Apical] 78 Respiratory Rate 25 Blood Pressure [Left Arm] 170/79 Blood Pressure [Right Arm] 189/83 Blood Pressure 115/64 O2 Sat by Pulse Oximetry 100 Intake and Output: Intake & Output 12/02/17 12/03/17 12/04/17 12/05/17 11:59 11:59 11:59 11:59 Intake Total 3324 4139 3403 Output Total 1750 2250 1650 Balance 1574 1889 1753 - Physical Exam Oriented: Unable to test Eyes: Normal. negative: Blurred Vision, Diplopia, Discharge, Pain, Redness, Photophobia, Other Ear: Normal. negative: Right, Left, Swelling, Ecchymosis, Hemotypanum, Abrasion , Laceration Nose: Normal. negative: Injected, Discharge, Blood, Other Throat: Normal. negative: Tonsillar Hypertrophy, Red, Exudate, Dry, Other Respiratory: Normal Cardiovascular: Normal. negative: S3, S4, Murmur : Normal Auscultation: Bowel Sounds: Normal Palpation: Normal Tenderness: Normal Skin: Wound (STAGE 4 DECUBITUS ULCER, NON-HEALING ) Musculoskeletal: Normal Psychiatric: Normal Mood Description: Calm Affect: Normal Speech Pattern: Aphasic - Laboratory and Diagnostics Result Diagrams: 12/04/17 05:49 12/04/17 05:49 Labs: 12/01/17 01:31 Sacral Gram Stain - Final 12/01/17 01:31 Sacral Wound Culture - Preliminary 12/01/17 17:22 Stool Stool Culture - Final 12/01/17 17:22 Stool - Final 11/30/17 12:15 Blood Blood Culture - Preliminary 11/30/17 12:06 Blood Blood Culture - Preliminary Laboratory WBC 9.0 X10^3/uL (3.6-10.0) 12/04/17 05:49 RBC 2.73 X10^6/uL (3.5-5.4) L 12/04/17 05:49 Hgb 8.7 g/dL (12.0-16.0) L 12/04/17 05:49 Hct 25.8 % (36.0-47.0) L 12/04/17 05:49 MCV 94.5 fL (80.0-100.0) 12/04/17 05:49 MCH 31.8 pg (27.0-34.0) 12/04/17 05:49 MCHC 33.7 g/dL (33.0-35.0) 12/04/17 05:49 RDW 17.6 % (11.6-16.5) H 12/04/17 05:49 Plt Count 267 X10^3/uL (150.0-450.0) 12/04/17 05:49 MPV 8.4 fL (7.4-11.0) 12/04/17 05:49 Neut % 66.7 % (42.0-75.0) 12/04/17 05:49 Lymph % 25.5 % (21.0-51.0) 12/04/17 05:49 [place] % 5.0 % (0.0-13.0) 12/04/17 05:49 Eos % 2.4 % (0.9-2.9) 12/04/17 05:49 Baso % 0.4 % (0.2-1.0) 12/04/17 05:49 Neut # 6.0 x10^3/uL (2.2-4.8) H 12/04/17 05:49 Lymph # 2.3 X10^3/uL (1.3-2.9) 12/04/17 05:49 [place] # 0.5 x10^3/uL (0.3-0.8) 12/04/17 05:49 Eos # 0.2 x10^3/uL (0.0-0.2) 12/04/17 05:49 Baso # 0.0 X10^3/uL (0.0-0.1) 12/04/17 05:49 Absolute Nucleated RBC 0.0 /100WBC 12/04/17 05:49 Sodium 146 mmol/L (136-145) H 12/04/17 05:49 Corrected Sodium 148 mmol/L (136-145) H 12/04/17 05:49 Potassium 3.4 mmol/L (3.5-5.1) L 12/04/17 05:49 Chloride 110 mmol/L (98-107) H 12/04/17 05:49 Carbon Dioxide 26.0 mmol/L (21-32) 12/04/17 05:49 BUN 19 mg/dL (7-18) H 12/04/17 05:49 Creatinine 0.62 mg/dL (0.55-1.02) 12/04/17 05:49 Est GFR (MDRD) Af Amer > 60 (>60) 12/04/17 05:49 Est GFR (MDRD) Non-Af > 60 (>60) 12/04/17 05:49 Glucose 182 mg/dL (65-99) H 12/04/17 05:49 Calcium 9.3 mg/dL (8.5-10.1) 12/04/17 05:49 Corrected Calcium 9.9 mg/dL (8.5-10.1) 12/04/17 05:49 Magnesium 2.4 mg/dL (1.7-2.9) 12/03/17 08:50 Total Bilirubin 0.20 mg/dL (0.2-1.0) 12/04/17 05:49 AST 15 Units/L (15-37) 12/04/17 05:49 ALT 14 Units/L (12-78) 12/04/17 05:49 Alkaline Phosphatase 60 Units/L (46-116) 12/04/17 05:49 Total Protein 8.1 g/dL (6.4-8.2) 12/04/17 05:49 Albumin 3.2 g/dL (3.4-5.0) L 12/04/17 05:49 Globulin 4.9 g/dL (2.5-4.5) H 12/04/17 05:49 Albumin/Globulin Ratio 0.7 Ratio (1.1-2.1) L 12/04/17 05:49 Specimen Type Catherized urine 11/30/17 17:35 Urine Color Yellow (YELLOW) 11/30/17 17:35 Urine Appearance Slightly hazy (CLEAR) 11/30/17 17:35 Urine pH 7.0 (5.0 - 8.0) 11/30/17 17:35 Ur Specific [place] 1.010 (1.000-1.030) 11/30/17 17:35 Urine Protein 2+ (NEGATIVE) 11/30/17 17:35 Urine Glucose (UA) Negative (NEGATIVE) 11/30/17 17:35 Urine Ketones Negative (NEGATIVE) 11/30/17 17:35 Urine Occult Blood 5+ (NEGATIVE) 11/30/17 17:35 Urine Nitrite Negative (NEGATIVE) 11/30/17 17:35 Urine Bilirubin Negative (NEGATIVE) 11/30/17 17:35 Urine Urobilinogen Normal (NORMAL) 11/30/17 17:35 Ur Leukocyte Esterase 2+ (NEGATIVE) 11/30/17 17:35 Urine RBC 7-10 /HPF (NEGATIVE) 11/30/17 17:35 Urine WBC 2-3 /HPF (NEGATIVE) 11/30/17 17:35 Ur Squamous Epith Cells Few /HPF (NEGATIVE) 11/30/17 17:35 Ur Renal Epithelial Cell Rare /HPF (NEGATIVE) 11/30/17 17:35 Urine Bacteria Trace /HPF (NEGATIVE) 11/30/17 17:35 Urine Yeast Few /HPF (NEGATIVE) 11/30/17 17:35 Ur Culture Indicated? No/not indicated 11/30/17 17:35 Stool Description 4g,unformed,[place] 12/01/17 17:22 Stl Occult Blood (IFOB) Negative (NEGATIVE) 12/01/17 17:22 Stool for White Cells Negative (NEGATIVE) 12/01/17 17:22 Stl C. diff Tox B Gene Negative (NEGATIVE) 12/01/17 17:22 Stl C. diff 027-NAP1-BI Negative (NEGATIVE) 12/01/17 17:22 Random Vancomycin 10.6 ug/mL 12/03/17 08:50 Cryptosporid parvum Ag Negative (NEGATIVE) 12/01/17 17:22 E. histolytica Antigen Negative (NEGATIVE) 12/01/17 17:22 Giardia lamblia Ag Negative (NEGATIVE) 12/01/17 17:22 - Plan (1) Decubitus ulcer of sacral region, stage 4 Status: Acute Plan: AGGRESSIVE WOUND CARE, IV ANTIBIOTICS, CONTINUE TO MONITOR (2) Hypoalbuminemia Status: Acute Plan: ALBUMIN 25% IV DAILY, CONTINUE TO MONITOR (3) Essential hypertension Status: Chronic Plan: CONTINUE HCTZ, CONTINUE TOPROL XL, CONTINUE TO MONITOR (4) GERD (gastroesophageal reflux disease) Status: Chronic Qualifiers: Esophagitis presence: esophagitis presence not specified Qualified Code(s) : K21.9 - Gastro-esophageal reflux disease without esophagitis Plan: CONTINUE PEPCID, CONTINUE TO MONITOR (5) Hyperlipidemia Status: Chronic Qualifiers: Hyperlipidemia type: mixed hyperlipidemia Qualified Code(s): E78.2 - Mixed hyperlipidemia Plan: CONTINUE LIPITOR, CONTINUE TO MONITOR (6) History of anemia Status: Acute Plan: CONTINUE HEMOCYTE PLUS, CONTINUE TO MONITOR (7) Depression Status: Chronic Qualifiers: Depression Type: major depressive disorder Major depression recurrence: recurrent Active/Remission status: remission status unspecified Qualified Code(s): F33.9 - Major depressive disorder, recurrent, unspecified Plan: CONTINUE EFFEXOR, CONTINUE TO MONITOR
--- NOTE | 2017-12-04 12:34 | PCM.PROG ---
Progress Note - Progress Note for Day of Date: 12/03/17 - Subjective Subjective: WAS ADMITTED FOR A STAGE 4, NON-HEALING DECUBITUS ULCER TO THE SACRUM. TODAY, SHE IS LYING IN BED WITH EYES CLOSED ON MORNING ROUNDS. PATIENTS DAUGHTER IS AT BEDSIDE. SHE REPORTS THAT THE DIARRHEA HAS MOSTLY RESOLVED. ON EXAMINATION, HEART IS REGULAR IN RATE AND RHYTHM. BILATERAL LUNGS ARE NOTED WITH DIMINISHED LUNG SOUNDS THROUGHOUT. ABDOMEN IS ROUND, SOFT, AND NON-TENDER WITH NORMAL BOWEL SOUNDS NOTED IN ALL QUADRANTS. THERE IS A PEG TUBE NOTED TO ABDOMEN. DRESSING IS DRY AND INTACT WITH NO DRAINAGE NOTED. STAGE 4 ULCER NOTED TO SACRUM WITH A SMALL AMOUNT OF BLOOD DRAINAGE NOTED AT THIS TIME. HER VITALS THIS MORNING ARE 98.3-69-23-100%-192/91. LABS WERE OBTAINED. ABNORMAL LAB VALUES INCLUDE THE FOLLOWING: RBC 2.54, HGB 8.1, HCT 24.0, POTASSIUM 2.9, CHLORIDE 109, BUN 20, GLUCOSE 218, ALBUMIN 2.8, GLOBULIN 5.2. WOUND CULTURES ARE PENDING. GRAM STAIN REPORTS MODERATE WBC. PRELIMINARY BLOOD CULTURES CONTINUE TO REPORT NO GROWTH. TODAY, WE WILL START LABETALOL 10MG IV Q15MIN PRN FOR INCREASED BLOOD PRESSURE. WE WILL ALSO IMPLEMENT THE POTASSIUM PROTOCOL FOR DECREASED POTASSIUM LEVELS. OTHERWISE, WE WILL CONTINUE WITH AGGRESSIVE WOUND CARE AND IV ANTIBIOTICS. WE PLAN TO FOLLOW UP WITH AM LABS AND CONTINUE TO MONITOR PATIENT. - Past Medical Family Social History Past Med/Fam/Surg Hx: No changes since H&P Allergies: Allergies No Known Drug Allergies Allergy (Verified 09/24/17 15:23) - Review of Systems ROS: No change since H&P - Vital Signs and I&O's Vital Signs: Temperature 99.7 F Pulse Rate [Apical] 78 Respiratory Rate 25 Blood Pressure [Left Arm] 170/79 Blood Pressure [Right Arm] 189/83 Blood Pressure 115/64 O2 Sat by Pulse Oximetry 100 Intake and Output: Intake & Output 12/02/17 12/03/17 12/04/17 12/05/17 11:59 11:59 11:59 11:59 Intake Total 3324 4139 3403 Output Total 1750 2250 1650 Balance 1574 1889 1753 - Physical Exam Oriented: Unable to test Eyes: Normal. negative: Blurred Vision, Diplopia, Discharge, Pain, Redness, Photophobia, Other Ear: Normal. negative: Right, Left, Swelling, Ecchymosis, Hemotypanum, Abrasion , Laceration Nose: Normal. negative: Injected, Discharge, Blood, Other Throat: Normal. negative: Tonsillar Hypertrophy, Red, Exudate, Dry, Other Respiratory: Normal Cardiovascular: Normal. negative: S3, S4, Murmur : Normal Auscultation: Bowel Sounds: Normal Palpation: Normal Tenderness: Normal Skin: Wound (STAGE 4 DECUBITUS ULCER, NON-HEALING ) Musculoskeletal: Normal Psychiatric: Normal Mood Description: Calm Affect: Normal Speech Pattern: Aphasic - Laboratory and Diagnostics Result Diagrams: 12/04/17 05:49 12/04/17 05:49 Labs: 12/01/17 01:31 Sacral Gram Stain - Final 12/01/17 01:31 Sacral Wound Culture - Preliminary 12/01/17 17:22 Stool Stool Culture - Final 12/01/17 17:22 Stool - Final 11/30/17 12:15 Blood Blood Culture - Preliminary 11/30/17 12:06 Blood Blood Culture - Preliminary Laboratory WBC 9.0 X10^3/uL (3.6-10.0) 12/04/17 05:49 RBC 2.73 X10^6/uL (3.5-5.4) L 12/04/17 05:49 Hgb 8.7 g/dL (12.0-16.0) L 12/04/17 05:49 Hct 25.8 % (36.0-47.0) L 12/04/17 05:49 MCV 94.5 fL (80.0-100.0) 12/04/17 05:49 MCH 31.8 pg (27.0-34.0) 12/04/17 05:49 MCHC 33.7 g/dL (33.0-35.0) 12/04/17 05:49 RDW 17.6 % (11.6-16.5) H 12/04/17 05:49 Plt Count 267 X10^3/uL (150.0-450.0) 12/04/17 05:49 MPV 8.4 fL (7.4-11.0) 12/04/17 05:49 Neut % 66.7 % (42.0-75.0) 12/04/17 05:49 Lymph % 25.5 % (21.0-51.0) 12/04/17 05:49 [place] % 5.0 % (0.0-13.0) 12/04/17 05:49 Eos % 2.4 % (0.9-2.9) 12/04/17 05:49 Baso % 0.4 % (0.2-1.0) 12/04/17 05:49 Neut # 6.0 x10^3/uL (2.2-4.8) H 12/04/17 05:49 Lymph # 2.3 X10^3/uL (1.3-2.9) 12/04/17 05:49 [place] # 0.5 x10^3/uL (0.3-0.8) 12/04/17 05:49 Eos # 0.2 x10^3/uL (0.0-0.2) 12/04/17 05:49 Baso # 0.0 X10^3/uL (0.0-0.1) 12/04/17 05:49 Absolute Nucleated RBC 0.0 /100WBC 12/04/17 05:49 Sodium 146 mmol/L (136-145) H 12/04/17 05:49 Corrected Sodium 148 mmol/L (136-145) H 12/04/17 05:49 Potassium 3.4 mmol/L (3.5-5.1) L 12/04/17 05:49 Chloride 110 mmol/L (98-107) H 12/04/17 05:49 Carbon Dioxide 26.0 mmol/L (21-32) 12/04/17 05:49 BUN 19 mg/dL (7-18) H 12/04/17 05:49 Creatinine 0.62 mg/dL (0.55-1.02) 12/04/17 05:49 Est GFR (MDRD) Af Amer > 60 (>60) 12/04/17 05:49 Est GFR (MDRD) Non-Af > 60 (>60) 12/04/17 05:49 Glucose 182 mg/dL (65-99) H 12/04/17 05:49 Calcium 9.3 mg/dL (8.5-10.1) 12/04/17 05:49 Corrected Calcium 9.9 mg/dL (8.5-10.1) 12/04/17 05:49 Magnesium 2.4 mg/dL (1.7-2.9) 12/03/17 08:50 Total Bilirubin 0.20 mg/dL (0.2-1.0) 12/04/17 05:49 AST 15 Units/L (15-37) 12/04/17 05:49 ALT 14 Units/L (12-78) 12/04/17 05:49 Alkaline Phosphatase 60 Units/L (46-116) 12/04/17 05:49 Total Protein 8.1 g/dL (6.4-8.2) 12/04/17 05:49 Albumin 3.2 g/dL (3.4-5.0) L 12/04/17 05:49 Globulin 4.9 g/dL (2.5-4.5) H 12/04/17 05:49 Albumin/Globulin Ratio 0.7 Ratio (1.1-2.1) L 12/04/17 05:49 Specimen Type Catherized urine 11/30/17 17:35 Urine Color Yellow (YELLOW) 11/30/17 17:35 Urine Appearance Slightly hazy (CLEAR) 11/30/17 17:35 Urine pH 7.0 (5.0 - 8.0) 11/30/17 17:35 Ur Specific [place] 1.010 (1.000-1.030) 11/30/17 17:35 Urine Protein 2+ (NEGATIVE) 11/30/17 17:35 Urine Glucose (UA) Negative (NEGATIVE) 11/30/17 17:35 Urine Ketones Negative (NEGATIVE) 11/30/17 17:35 Urine Occult Blood 5+ (NEGATIVE) 11/30/17 17:35 Urine Nitrite Negative (NEGATIVE) 11/30/17 17:35 Urine Bilirubin Negative (NEGATIVE) 11/30/17 17:35 Urine Urobilinogen Normal (NORMAL) 11/30/17 17:35 Ur Leukocyte Esterase 2+ (NEGATIVE) 11/30/17 17:35 Urine RBC 7-10 /HPF (NEGATIVE) 11/30/17 17:35 Urine WBC 2-3 /HPF (NEGATIVE) 11/30/17 17:35 Ur Squamous Epith Cells Few /HPF (NEGATIVE) 11/30/17 17:35 Ur Renal Epithelial Cell Rare /HPF (NEGATIVE) 11/30/17 17:35 Urine Bacteria Trace /HPF (NEGATIVE) 11/30/17 17:35 Urine Yeast Few /HPF (NEGATIVE) 11/30/17 17:35 Ur Culture Indicated? No/not indicated 11/30/17 17:35 Stool Description 4g,unformed,[place] 12/01/17 17:22 Stl Occult Blood (IFOB) Negative (NEGATIVE) 12/01/17 17:22 Stool for White Cells Negative (NEGATIVE) 12/01/17 17:22 Stl C. diff Tox B Gene Negative (NEGATIVE) 12/01/17 17:22 Stl C. diff [id number] Negative (NEGATIVE) 12/01/17 17:22 Random Vancomycin 10.6 ug/mL 12/03/17 08:50 Cryptosporid parvum Ag Negative (NEGATIVE) 12/01/17 17:22 E. histolytica Antigen Negative (NEGATIVE) 12/01/17 17:22 Giardia lamblia Ag Negative (NEGATIVE) 12/01/17 17:22 - Plan (1) Decubitus ulcer of sacral region, stage 4 Status: Acute Plan: AGGRESSIVE WOUND CARE, IV ANTIBIOTICS, CONTINUE TO MONITOR (2) Hypoalbuminemia Status: Acute Plan: ALBUMIN 25% IV DAILY, CONTINUE TO MONITOR (3) Essential hypertension Status: Chronic Plan: CONTINUE HCTZ, CONTINUE TOPROL XL, LABETALOL PROTOCOL, CONTINUE TO MONITOR (4) GERD (gastroesophageal reflux disease) Status: Chronic Qualifiers: Esophagitis presence: esophagitis presence not specified Qualified Code(s) : K21.9 - Gastro-esophageal reflux disease without esophagitis Plan: CONTINUE PEPCID, CONTINUE TO MONITOR (5) Hyperlipidemia Status: Chronic Qualifiers: Hyperlipidemia type: mixed hyperlipidemia Qualified Code(s): E78.2 - Mixed hyperlipidemia Plan: CONTINUE LIPITOR, CONTINUE TO MONITOR (6) History of anemia Status: Acute Plan: CONTINUE HEMOCYTE PLUS, CONTINUE TO MONITOR (7) Depression Status: Chronic Qualifiers: Depression Type: major depressive disorder Major depression recurrence: recurrent Active/Remission status: remission status unspecified Qualified Code(s): F33.9 - Major depressive disorder, recurrent, unspecified Plan: CONTINUE EFFEXOR, CONTINUE TO MONITOR (8) Hypokalemia Status: Acute Plan: POTASSIUM PROTOCOL, CONTINUE TO MONITOR
--- NOTE | 2017-12-04 12:50 | PCM.PROG ---
Progress Note - Progress Note for Day of Date: 12/04/17 - Subjective Subjective: WAS ADMITTED FOR A STAGE 4, NON-HEALING DECUBITUS ULCER TO THE SACRUM. TODAY, SHE IS LYING IN BED WITH EYES CLOSED ON MORNING ROUNDS. PATIENTS DAUGHTER IS AT BEDSIDE. ON EXAMINATION, HEART IS REGULAR IN RATE AND RHYTHM. BILATERAL LUNGS CONTINUE WITH DIMINISHED LUNG SOUNDS THROUGHOUT. ABDOMEN IS ROUND, SOFT, AND NON-TENDER WITH NORMAL BOWEL SOUNDS NOTED IN ALL QUADRANTS. THERE IS A PEG TUBE NOTED TO ABDOMEN. DRESSING IS DRY AND INTACT WITH NO DRAINAGE NOTED. STAGE 4 ULCER NOTED TO SACRUM WITH A SMALL AMOUNT OF BLOOD DRAINAGE NOTED AT THIS TIME. NO IMPROVEMENT IN WOUND SINCE ADMISSION. HER VITALS THIS MORNING ARE 99.7-78-25-100%-189/83. LABS WERE OBTAINED. ABNORMAL LAB VALUES INCLUDE THE FOLLOWING: RBC 2.73, HGB 8.7, HCT 25.8, SODIUM 146, POTASSIUM 3.4, CHLORIDE 110, BUN 19, GLUCOSE 182, ALBUMIN 3.2, GLOBULIN 4.9. PRELIMINARY WOUND CULTURES REPORT GROWTH OF COAGULASE POSITIVE STAPH. PRELIMINARY BLOOD CULTURES CONTINUE TO REPORT NO GROWTH. TODAY, WE WILL START CATAPRES 0.2MG TRANSDERMAL PATCH FOR ELEVATED BLOOD PRESSURE. WE WILL ALSO CONSULT WITH [facility] IN [place], [place] FOR EXTENDED STAY FOR AGGRESSIVE WOUND WOUND CARE DUE TO NON-HEALING ULCER. STAFF REPORTS CONTINUED PERIODS OF TACHYCARDIA AND INCREASED BLOOD PRESSURE. THEY REPORT THAT THE LABETALOL SEEMS TO BE EFFECTIVE WHEN PATIENT HAS THESE EPISODES. WE WILL COTINUE WITH LABETALOL TODAY. OTHERWISE, WE WILL CONTINUE WITH AGGRESSIVE WOUND CARE AND IV ANTIBIOTICS. WE PLAN TO FOLLOW UP WITH AM LABS AND CONTINUE TO MONITOR PATIENT. - Past Medical Family Social History Past Med/Fam/Surg Hx: No changes since H&P Allergies: Allergies No Known Drug Allergies Allergy (Verified 09/24/17 15:23) - Review of Systems ROS: No change since H&P - Vital Signs and I&O's Vital Signs: Temperature 99.7 F Pulse Rate [Apical] 78 Respiratory Rate 25 Blood Pressure [Left Arm] 170/79 Blood Pressure [Right Arm] 189/83 Blood Pressure 115/64 O2 Sat by Pulse Oximetry 100 Intake and Output: Intake & Output 12/02/17 12/03/17 12/04/17 12/05/17 11:59 11:59 11:59 11:59 Intake Total 3324 4139 3403 Output Total 1750 2250 1650 Balance 1574 6189 1753 - Physical Exam Oriented: Unable to test Eyes: Normal. negative: Blurred Vision, Diplopia, Discharge, Pain, Redness, Photophobia, Other Ear: Normal. negative: Right, Left, Swelling, Ecchymosis, Hemotypanum, Abrasion , Laceration Nose: Normal. negative: Injected, Discharge, Blood, Other Throat: Normal. negative: Tonsillar Hypertrophy, Red, Exudate, Dry, Other Respiratory: Normal Cardiovascular: Normal. negative: S3, S4, Murmur : Normal Auscultation: Bowel Sounds: Normal Palpation: Normal Tenderness: Normal Skin: Wound (STAGE 4 DECUBITUS ULCER, NON-HEALING ) Musculoskeletal: Normal Psychiatric: Normal Mood Description: Calm Affect: Normal Speech Pattern: Aphasic - Laboratory and Diagnostics Result Diagrams: 12/04/17 05:49 12/04/17 05:49 Labs: 12/01/17 01:31 Sacral Gram Stain - Final 12/01/17 01:31 Sacral Wound Culture - Preliminary 12/01/17 17:22 Stool Stool Culture - Final 12/01/17 17:22 Stool - Final 11/30/17 12:15 Blood Blood Culture - Preliminary 11/30/17 12:06 Blood Blood Culture - Preliminary Laboratory WBC 9.0 X10^3/uL (3.6-10.0) 12/04/17 05:49 RBC 2.73 X10^6/uL (3.5-5.4) L 12/04/17 05:49 Hgb 8.7 g/dL (12.0-16.0) L 12/04/17 05:49 Hct 25.8 % (36.0-47.0) L 12/04/17 05:49 MCV 94.5 fL (80.0-100.0) 12/04/17 05:49 MCH 31.8 pg (27.0-34.0) 12/04/17 05:49 MCHC 33.7 g/dL (33.0-35.0) 12/04/17 05:49 RDW 17.6 % (11.6-16.5) H 12/04/17 05:49 Plt Count 267 X10^3/uL (150.0-450.0) 12/04/17 05:49 MPV 8.4 fL (7.4-11.0) 12/04/17 05:49 Neut % 66.7 % (42.0-75.0) 12/04/17 05:49 Lymph % 25.5 % (21.0-51.0) 12/04/17 05:49 [place] % 5.0 % (0.0-13.0) 12/04/17 05:49 Eos % 2.4 % (0.9-2.9) 12/04/17 05:49 Baso % 0.4 % (0.2-1.0) 12/04/17 05:49 Neut # 6.0 x10^3/uL (2.2-4.8) H 12/04/17 05:49 Lymph # 2.3 X10^3/uL (1.3-2.9) 12/04/17 05:49 [place] # 0.5 x10^3/uL (0.3-0.8) 12/04/17 05:49 Eos # 0.2 x10^3/uL (0.0-0.2) 12/04/17 05:49 Baso # 0.0 X10^3/uL (0.0-0.1) 12/04/17 05:49 Absolute Nucleated RBC 0.0 /100WBC 12/04/17 05:49 Sodium 146 mmol/L (136-145) H 12/04/17 05:49 Corrected Sodium 148 mmol/L (136-145) H 12/04/17 05:49 Potassium 3.4 mmol/L (3.5-5.1) L 12/04/17 05:49 Chloride 110 mmol/L (98-107) H 12/04/17 05:49 Carbon Dioxide 26.0 mmol/L (21-32) 12/04/17 05:49 BUN 19 mg/dL (7-18) H 12/04/17 05:49 Creatinine 0.62 mg/dL (0.55-1.02) 12/04/17 05:49 Est GFR (MDRD) Af Amer > 60 (>60) 12/04/17 05:49 Est GFR (MDRD) Non-Af > 60 (>60) 12/04/17 05:49 Glucose 182 mg/dL (65-99) H 12/04/17 05:49 Calcium 9.3 mg/dL (8.5-10.1) 12/04/17 05:49 Corrected Calcium 9.9 mg/dL (8.5-10.1) 12/04/17 05:49 Magnesium 2.4 mg/dL (1.7-2.9) 12/03/17 08:50 Total Bilirubin 0.20 mg/dL (0.2-1.0) 12/04/17 05:49 AST 15 Units/L (15-37) 12/04/17 05:49 ALT 14 Units/L (12-78) 12/04/17 05:49 Alkaline Phosphatase 60 Units/L (46-116) 12/04/17 05:49 Total Protein 8.1 g/dL (6.4-8.2) 12/04/17 05:49 Albumin 3.2 g/dL (3.4-5.0) L 12/04/17 05:49 Globulin 4.9 g/dL (2.5-4.5) H 12/04/17 05:49 Albumin/Globulin Ratio 0.7 Ratio (1.1-2.1) L 12/04/17 05:49 Specimen Type Catherized urine 11/30/17 17:35 Urine Color Yellow (YELLOW) 11/30/17 17:35 Urine Appearance Slightly hazy (CLEAR) 11/30/17 17:35 Urine pH 7.0 (5.0 - 8.0) 11/30/17 17:35 Ur Specific [place] 1.010 (1.000-1.030) 11/30/17 17:35 Urine Protein 2+ (NEGATIVE) 11/30/17 17:35 Urine Glucose (UA) Negative (NEGATIVE) 11/30/17 17:35 Urine Ketones Negative (NEGATIVE) 11/30/17 17:35 Urine Occult Blood 5+ (NEGATIVE) 11/30/17 17:35 Urine Nitrite Negative (NEGATIVE) 11/30/17 17:35 Urine Bilirubin Negative (NEGATIVE) 11/30/17 17:35 Urine Urobilinogen Normal (NORMAL) 11/30/17 17:35 Ur Leukocyte Esterase 2+ (NEGATIVE) 11/30/17 17:35 Urine RBC 7-10 /HPF (NEGATIVE) 11/30/17 17:35 Urine WBC 2-3 /HPF (NEGATIVE) 11/30/17 17:35 Ur Squamous Epith Cells Few /HPF (NEGATIVE) 11/30/17 17:35 Ur Renal Epithelial Cell Rare /HPF (NEGATIVE) 11/30/17 17:35 Urine Bacteria Trace /HPF (NEGATIVE) 11/30/17 17:35 Urine Yeast Few /HPF (NEGATIVE) 11/30/17 17:35 Ur Culture Indicated? No/not indicated 11/30/17 17:35 Stool Description 4g,unformed,[place] 12/01/17 17:22 Stl Occult Blood (IFOB) Negative (NEGATIVE) 12/01/17 17:22 Stool for White Cells Negative (NEGATIVE) 12/01/17 17:22 Stl C. diff Tox B Gene Negative (NEGATIVE) 12/01/17 17:22 Stl C. diff [id number] Negative (NEGATIVE) 12/01/17 17:22 Random Vancomycin 10.6 ug/mL 12/03/17 08:50 Cryptosporid parvum Ag Negative (NEGATIVE) 12/01/17 17:22 E. histolytica Antigen Negative (NEGATIVE) 12/01/17 17:22 Giardia lamblia Ag Negative (NEGATIVE) 12/01/17 17:22 - Plan (1) Decubitus ulcer of sacral region, stage 4 Status: Acute Plan: AGGRESSIVE WOUND CARE, IV ANTIBIOTICS, CONTINUE TO MONITOR (2) Hypoalbuminemia Status: Acute Plan: ALBUMIN 25% IV DAILY, CONTINUE TO MONITOR (3) Essential hypertension Status: Chronic Plan: CONTINUE HCTZ, CONTINUE TOPROL XL, LABETALOL PROTOCOL, CONTINUE TO MONITOR (4) GERD (gastroesophageal reflux disease) Status: Chronic Qualifiers: Esophagitis presence: esophagitis presence not specified Qualified Code(s) : K21.9 - Gastro-esophageal reflux disease without esophagitis Plan: CONTINUE PEPCID, CONTINUE TO MONITOR (5) Hyperlipidemia Status: Chronic Qualifiers: Hyperlipidemia type: mixed hyperlipidemia Qualified Code(s): E78.2 - Mixed hyperlipidemia Plan: CONTINUE LIPITOR, CONTINUE TO MONITOR (6) History of anemia Status: Acute Plan: CONTINUE HEMOCYTE PLUS, CONTINUE TO MONITOR (7) Depression Status: Chronic Qualifiers: Depression Type: major depressive disorder Major depression recurrence: recurrent Active/Remission status: remission status unspecified Qualified Code(s): F33.9 - Major depressive disorder, recurrent, unspecified Plan: CONTINUE EFFEXOR, CONTINUE TO MONITOR (8) Hypokalemia Status: Acute Plan: POTASSIUM PROTOCOL, CONTINUE TO MONITOR
[2017-12-04] MEDS ORDERED: NS 250 ML IV 250 ML IV ONE (15:25)
[2017-12-04] MEDS: LIPITOR TAB 40 MG PO SCH (20:47)
[2017-12-04] MEDS: REQUIP PO SCH (20:47)
[2017-12-04] MEDS: PATIENT'S HOME MEDICATION (Amino Acids/Protein Hydrolys [Pro-Stat Awc Liquid Packet] 30 ML PO SCH (20:49)
[2017-12-04] MEDS: CHECK PATCH XX SCH (20:49)
[2017-12-05] MEDS ORDERED: NS 100 ML IV + SPIKE MINIBAG* 100 ML IV ONE (05:49)
[2017-12-05 06:19] LABS: BASOPHILS % (AUTO) 0.4 % (0.2-1.0); EOSINOPHILS # (AUTO) 0.3 x10^3/uL (0.0-0.2); EOSINOPHILS % (AUTO) 3.3 % (0.9-2.9); HEMATOCRIT 21.9 % (36.0-47.0); HEMOGLOBIN 7.3 g/dL (12.0-16.0); LYMPHOCYTES # (AUTO) 2.1 X10^3/uL (1.3-2.9); LYMPHOCYTES % (AUTO) 25.8 % (21.0-51.0); MEAN CORPUSCULAR HEMOGLOBIN 31.8 pg (27.0-34.0); MEAN CORPUSCULAR HGB CONC 33.5 g/dL (33.0-35.0); MEAN CORPUSCULAR VOLUME 94.8 fL (80.0-100.0); MEAN PLATELET VOLUME 8.4 fL (7.4-11.0); MONOCYTES # (AUTO) 0.4 x10^3/uL (0.3-0.8); MONOCYTES % (AUTO) 4.5 % (0.0-13.0); NEUTROPHILS # (AUTO) 5.3 x10^3/uL (2.2-4.8); PLATELET COUNT 228 X10^3/uL (150.0-450.0); RED BLOOD COUNT 2.31 X10^6/uL (3.5-5.4); RED CELL DISTRIBUTION WIDTH 17.6 % (11.6-16.5)
[2017-12-05] MEDS: ZOSYN VIAL 2.25 GM 2.25 GM in NS 100 ML IV 100 ML IV SCH (06:35)
[2017-12-05 06:41] LABS: ANISOCYTOSIS SLIGHT; HYPOCHROMASIA SLIGHT; PLATELET MORPHOLOGY COMMENT NORMAL (NORMAL)
[2017-12-05 06:42] LABS: ALANINE AMINOTRANSFERASE 14 Units/L (12-78); ALBUMIN 3.1 g/dL (3.4-5.0); ALKALINE PHOSPHATASE 49 Units/L (46-116); ASPARTATE AMINO TRANSFERASE 15 Units/L (15-37); BLOOD UREA NITROGEN 22 mg/dL (7-18); CARBON DIOXIDE 27.6 mmol/L (21-32); CHLORIDE 112 mmol/L (98-107); COR CA(FOR HYPOALB) 9.7 mg/dL (8.5-10.1); COR NA(FOR HYPERGLY) 150 mmol/L (136-145); CREATININE 0.61 mg/dL (0.55-1.02); SODIUM 148 mmol/L (136-145); TOTAL PROTEIN 7.4 g/dL (6.4-8.2); eGFR BLACK RACES > 60 (>60); eGFR NON BLACK RACES > 60 (>60)
[2017-12-05] MEDS: POTASSIUM CHL 60 MEQ/NS 0.45% 500 ML IV PRN (06:54)
[2017-12-05] MEDS ORDERED: BENADRYL INJ 50 MG VIAL IVP PRN (09:12)
[2017-12-05] MEDS ORDERED: NS 500 ML IV 500 ML IV ONE (09:12)
[2017-12-05] MEDS: TobraDEX OPHTH SUSP LEFTEYE SCH (09:16)
[2017-12-05] MEDS: ARTIFICIAL TEARS DROPS LEFTEYE SCH (09:16)
--- NOTE | 2017-12-05 09:16 | RAD ---
HISTORY: Shortness of breath Study: Single-view chest, done portably and upright. Comparison: 11/02/2017. Findings: Cardiac monitoring electrodes are noted on chest. Right-sided Port-A-Cath is again seen with tip in t he right atrium. The trachea is midline. There is cardiomegaly with aortic uncoiling and pulmonary va scular congestion. There are signs of CHF with bilateral, predominantly bibasilar edema or infiltrate . Small bilateral pleural effusions are suspected. Degenerative changes are present involving the gle nohumeral joints bilaterally. No acute osseous changes are seen. IMPRESSION: Findings most compatible with cardiac decompensation. There is cardiomegaly with pulmonary vascular c ongestion and signs of CHF with bilateral, predominantly basilar edema or infiltrate. Small bilateral pleural effusions are suspected. Reported By:
[2017-12-05] MEDS: HIPREX PO SCH (09:17)
[2017-12-05] MEDS: TAB-A-VITE PO SCH (09:18)
[2017-12-05] MEDS: TOPROL XL PO SCH (09:18)
[2017-12-05] MEDS: HEMOCYTE-PLUS PO SCH (09:18)
[2017-12-05] MEDS: EFFEXOR XR 75 MG CAP PO SCH (09:18)
[2017-12-05] MEDS: PEPCID TAB 20 MG PO SCH (09:18)
[2017-12-05] MEDS: VITAMIN C PO SCH (09:18)
[2017-12-05] MEDS: POTASSIUM CHLORIDE LIQ 20 MEQ UDC PO SCH (09:18)
[2017-12-05] MEDS: NORCO 5/325 MG TAB PO SCH (09:19)
[2017-12-05] MEDS: ZINC SULFATE PO SCH (09:19)
[2017-12-05] MEDS: HYDROCHLOROTHIAZIDE 12.5 MG CAP PO SCH (09:19)
[2017-12-05] MEDS: CHECK PATCH XX SCH (09:19)
[2017-12-05] MEDS: PATIENT'S HOME MEDICATION PO SCH (09:20)
[2017-12-05] MEDS: ALBUMIN HUMAN 25%- 100ML 200 ML IV SCH (10:01)
[2017-12-05] MEDS: VANCOMYCIN HCL 1 GM VIAL 1 GM in NS 250 ML IV 250 ML IV SCH (11:31)
[2017-12-05 12:49] VITALS: BP 128/58
== END 2017-12-05 13:15 | DRG 592 ==
LOC: ICU 09:45
PROVIDERS: ADMIT Internal Medicine; ATTEND Internal Medicine
DX: L89.154 Pressure ulcer of sacral region, stage 4 (principal); F33.8 Other recurrent depressive disorders; I25.10 Atherosclerotic heart disease of native coronary artery without angina pectoris; E78.2 Mixed hyperlipidemia; I10 Essential (primary) hypertension; K21.9 Gastro-esophageal reflux disease without esophagitis; K59.09 Other constipation; E03.8 Other specified hypothyroidism; E87.6 Hypokalemia; R19.7 Diarrhea, unspecified; D64.89 Other specified anemias; B95.7 Other staphylococcus as the cause of diseases classified elsewhere
CPT/HCPCS: 36415; 71045; 80053; 80202; 81001; 82270; 83630; 83735; 85025; 86850; 86900; 86901; 86922; 87040; 87045; 87070; 87075; 87077; 87186; 87205; 87328; 87329; 87336; 87427; 87493; 87899; 93005; A4222; P9047; J2543; J3370; J3490

== ENCOUNTER 2018-01-12 09:34 | Inpatient (IN) | payer OTHER, MEDICAID ==
[2018-01-12] MEDS ORDERED: LR 1000 ML IV 1,000 ML IV ONE (09:53)
[2018-01-12] MEDS ORDERED: ANCEF 1 GM IV PREMIX* 1 GM/50 ML BAG IV ONE (09:53)
[2018-01-12] MEDS ORDERED: NEOSTIGMINE INJ ONE (10:00)
[2018-01-12] MEDS ORDERED: FENTANYL INJ 100 mcg ONE (10:03)
[2018-01-12] MEDS ORDERED: KETALAR ONE (10:08)
--- NOTE | 2018-01-12 10:28 | RAD ---
HISTORY: Preop for colostomy Study: AP portable chest Comparison: 12/05/2017 Findings: There appears be mild interstitial scarring. Borderline cardiomegaly is present. A right-sided Port -A-Cath is present and its tip is in the right atrium. Degenerative change of a iroc-hq-[id number] deg ree is noted in the shoulders. Moderate tortuosity of the aorta is present. IMPRESSION: 1. Borderline cardiomegaly without evidence of failure. 2. The findings of congestive heart failure on the prior examination have resolved. Reported By:
[2018-01-12] MEDS ORDERED: MARCAINE 0.25% INJ ONE (10:33)
[2018-01-12 10:49] VITALS: BMI 29.0
[2018-01-12] MEDS ORDERED: PHENERGAN INJ 25 MG IVP PRN (12:13)
[2018-01-12] MEDS ORDERED: BENADRYL INJ 50 MG VIAL IVP PRN (12:13)
[2018-01-12] MEDS ORDERED: ZOFRAN INJ 4 MG VIAL IVP PRN (12:13)
[2018-01-12] MEDS ORDERED: DILAUDID INJ IVP PRN (12:13)
[2018-01-12] MEDS ORDERED: REGLAN INJ 10 MG VIAL IVP PRN (12:13)
[2018-01-12] MEDS ORDERED: VERSED ONE (13:36)
[2018-01-12] MEDS ORDERED: EPHEDRINE SULFATE INJ ONE (13:36)
[2018-01-12] MEDS ORDERED: XYLOCAINE 2 % (PLAIN) ONE (13:36)
[2018-01-12] MEDS ORDERED: DIPRIVAN VIAL ONE (13:36)
[2018-01-12] MEDS: D5 1/2 NS 1000 ML 1,000 ML IV SCH ×2 (15:08→22:04)
[2018-01-12] MEDS: ANCEF VIAL 1 GM 1 GM in NS 100 ML IV + SPIKE MINIBAG* 100 ML IV SCH ×2 (15:09→22:00)
[2018-01-13] MEDS: D5 1/2 NS 1000 ML 1,000 ML IV SCH ×3 (04:47→21:25)
[2018-01-13] MEDS: ANCEF VIAL 1 GM 1 GM in NS 100 ML IV + SPIKE MINIBAG* 100 ML IV SCH ×3 (05:53→21:26)
[2018-01-13 08:52] LABS: BASOPHILS % (AUTO) 0.5 % (0.2-1.0); EOSINOPHILS # (AUTO) 0.2 x10^3/uL (0.0-0.2); HEMATOCRIT 27.9 % (36.0-47.0); HEMOGLOBIN 9.3 g/dL (12.0-16.0); LYMPHOCYTES # (AUTO) 1.6 X10^3/uL (1.3-2.9); LYMPHOCYTES % (AUTO) 22.5 % (21.0-51.0); MEAN CORPUSCULAR HEMOGLOBIN 30.7 pg (27.0-34.0); MEAN CORPUSCULAR HGB CONC 33.4 g/dL (33.0-35.0); MEAN CORPUSCULAR VOLUME 91.9 fL (80.0-100.0); MEAN PLATELET VOLUME 8.5 fL (7.4-11.0); MONOCYTES # (AUTO) 0.6 x10^3/uL (0.3-0.8); MONOCYTES % (AUTO) 8.6 % (0.0-13.0); NEUTROPHILS # (AUTO) 4.8 x10^3/uL (2.2-4.8); NEUTROPHILS % (AUTO) 65.4 % (42.0-75.0); PLATELET COUNT 219 X10^3/uL (150.0-450.0); RED BLOOD COUNT 3.04 X10^6/uL (3.5-5.4); RED CELL DISTRIBUTION WIDTH 16.9 % (11.6-16.5); WHITE BLOOD COUNT 7.3 X10^3/uL (3.6-10.0)
[2018-01-13 09:18] LABS: ALANINE AMINOTRANSFERASE 23 Units/L (12-78); ALKALINE PHOSPHATASE 114 Units/L (46-116); ASPARTATE AMINO TRANSFERASE 20 Units/L (15-37); BLOOD UREA NITROGEN 21 mg/dL (7-18); CALCIUM 8.6 mg/dL (8.5-10.1); CHLORIDE 108 mmol/L (98-107); COR CA(FOR HYPOALB) 10.2 mg/dL (8.5-10.1); COR NA(FOR HYPERGLY) 145 mmol/L (136-145); CREATININE 0.79 mg/dL (0.55-1.02); SODIUM 144 mmol/L (136-145); eGFR BLACK RACES > 60 (>60); eGFR NON BLACK RACES > 60 (>60)
[2018-01-13] MEDS ORDERED: MORPHINE SULFATE JET NEB NEB ONE (10:25)
[2018-01-13] MEDS: MORPHINE SULFATE INJ 2 MG INJ IVP PRN ×2 (10:31→21:42)
[2018-01-13] MEDS ORDERED: OFIRMEV IV 1000 MG VIAL 1,000 MG/100 ML VIAL IV PRN (12:56)
[2018-01-13] MEDS: LOPRESSOR INJ 5 MG AMP IVP SCH ×2 (14:55→21:29)
--- NOTE | 2018-01-13 22:07 | DR.PROGNOT ---
Hospital Progress Notes - Progress Note for Day of: Progress Note Date: 01/13/18 (post operative diverting colostomy for infected large decubitus ulcer ..doing very well ,colostomy is functioning now , no nausea or vomiting and tolerating mild oral intake via PEG tube ) - Past Medical Family Social History Allergies: Allergies No Known Drug Allergies Allergy (Verified 09/24/17 15:23) - Vital Signs Vital Signs: Temperature 98.6 F Pulse Rate [Left Radial] 72 Pulse Rate 74 Respiratory Rate 17 Blood Pressure [Left Arm] 119/58 Blood Pressure [Right Arm] 128/58 Blood Pressure 116/70 O2 Sat by Pulse Oximetry 100 - Physical Exam Oriented: Other (no changes) Eyes: Blurred Vision, Diplopia. negative: Normal Ear: Normal Nose: negative: Normal Throat: Normal Respiratory: Normal Cardiovascular: Normal : Other (catheter in place) GI:Auscultation: Normal GI: Tenderness: Other (mild epigastric tenderness , colostomy is functioning today.) - Laboratory and Diagnostics Result Diagrams: 01/13/18 08:30 01/13/18 08:35 Labs: Laboratory WBC 7.3 X10^3/uL (3.6-10.0) 01/13/18 08:30 RBC 3.04 X10^6/uL (3.5-5.4) L 01/13/18 08:30 Hgb 9.3 g/dL (12.0-16.0) L 01/13/18 08:30 Hct 27.9 % (36.0-47.0) L 01/13/18 08:30 MCV 91.9 fL (80.0-100.0) 01/13/18 08:30 MCH 30.7 pg (27.0-34.0) 01/13/18 08:30 MCHC 33.4 g/dL (33.0-35.0) 01/13/18 08:30 RDW 16.9 % (11.6-16.5) H 01/13/18 08:30 Plt Count 219 X10^3/uL (150.0-450.0) 01/13/18 08:30 MPV 8.5 fL (7.4-11.0) 01/13/18 08:30 Neut % (Auto) 65.4 % (42.0-75.0) 01/13/18 08:30 Lymph % (Auto) 22.5 % (21.0-51.0) 01/13/18 08:30 [place] % (Auto) 8.6 % (0.0-13.0) 01/13/18 08:30 Eos % (Auto) 3.0 % (0.9-2.9) H 01/13/18 08:30 Baso % (Auto) 0.5 % (0.2-1.0) 01/13/18 08:30 Neut # (Auto) 4.8 x10^3/uL (2.2-4.8) 01/13/18 08:30 Lymph # (Auto) 1.6 X10^3/uL (1.3-2.9) 01/13/18 08:30 [place] # (Auto) 0.6 x10^3/uL (0.3-0.8) 01/13/18 08:30 Eos # (Auto) 0.2 x10^3/uL (0.0-0.2) 01/13/18 08:30 Baso # (Auto) 0.0 X10^3/uL (0.0-0.1) 01/13/18 08:30 Absolute Nucleated RBC 0.0 /100WBC 01/13/18 08:30 Sodium 144 mmol/L (136-145) 01/13/18 08:35 Corrected Sodium 145 mmol/L (136-145) 01/13/18 08:35 Potassium 3.2 mmol/L (3.5-5.1) L 01/13/18 08:35 Chloride 108 mmol/L (98-107) H 01/13/18 08:35 Carbon Dioxide 26.0 mmol/L (21-32) 01/13/18 08:35 BUN 21 mg/dL (7-18) H 01/13/18 08:35 Creatinine 0.79 mg/dL (0.55-1.02) 01/13/18 08:35 Est GFR (MDRD) Af Amer > 60 (>60) 01/13/18 08:35 Est GFR (MDRD) Non-Af > 60 (>60) 01/13/18 08:35 Glucose 145 mg/dL (65-99) H 01/13/18 08:35 Calcium 8.6 mg/dL (8.5-10.1) 01/13/18 08:35 Corrected Calcium 10.2 mg/dL (8.5-10.1) H 01/13/18 08:35 Total Bilirubin 0.20 mg/dL (0.2-1.0) 01/13/18 08:35 AST 20 Units/L (15-37) 01/13/18 08:35 ALT 23 Units/L (12-78) 01/13/18 08:35 Alkaline Phosphatase 114 Units/L (46-116) 01/13/18 08:35 Total Protein 8.0 g/dL (6.4-8.2) 01/13/18 08:35 Albumin 2.0 g/dL (3.4-5.0) L 01/13/18 08:35 Globulin 6.0 g/dL (2.5-4.5) H 01/13/18 08:35 Albumin/Globulin Ratio 0.3 Ratio (1.1-2.1) L 01/13/18 08:35 - Assessment and Plan 1: S/P diverting colostomy for large recurrent infected sacral decubitus ulcer. large sacral decubitus. stool incontenence. bed ridden. CVA. to start feeding via PEG tube and discharge to [place] in AM . [facility] and check the decubitus ulcer.
[2018-01-14] MEDS: LOPRESSOR INJ 5 MG AMP IVP SCH ×3 (03:05→08:35)
[2018-01-14] MEDS: ANCEF VIAL 1 GM 1 GM in NS 100 ML IV + SPIKE MINIBAG* 100 ML IV SCH (05:36)
[2018-01-14] MEDS: D5 1/2 NS 1000 ML 1,000 ML IV SCH (05:36)
[2018-01-14 05:52] LABS: BASOPHILS # (AUTO) 0.2 X10^3/uL (0.0-0.1); BASOPHILS % (AUTO) 2.1 % (0.2-1.0); EOSINOPHILS # (AUTO) 0.1 x10^3/uL (0.0-0.2); HEMATOCRIT 26.6 % (36.0-47.0); HEMOGLOBIN 8.8 g/dL (12.0-16.0); LYMPHOCYTES # (AUTO) 1.4 X10^3/uL (1.3-2.9); LYMPHOCYTES % (AUTO) 19.7 % (21.0-51.0); MEAN CORPUSCULAR HEMOGLOBIN 30.7 pg (27.0-34.0); MEAN CORPUSCULAR VOLUME 92.9 fL (80.0-100.0); MEAN PLATELET VOLUME 8.9 fL (7.4-11.0); MONOCYTES # (AUTO) 0.5 x10^3/uL (0.3-0.8); MONOCYTES % (AUTO) 7.3 % (0.0-13.0); NEUTROPHILS % (AUTO) 68.9 % (42.0-75.0); PLATELET COUNT 234 X10^3/uL (150.0-450.0); RED BLOOD COUNT 2.86 X10^6/uL (3.5-5.4); WHITE BLOOD COUNT 7.2 X10^3/uL (3.6-10.0)
[2018-01-14 06:14] LABS: ALANINE AMINOTRANSFERASE 19 Units/L (12-78); ALKALINE PHOSPHATASE 106 Units/L (46-116); ASPARTATE AMINO TRANSFERASE 19 Units/L (15-37); BLOOD UREA NITROGEN 19 mg/dL (7-18); CALCIUM 8.7 mg/dL (8.5-10.1); CARBON DIOXIDE 27.1 mmol/L (21-32); CHLORIDE 111 mmol/L (98-107); COR CA(FOR HYPOALB) 10.3 mg/dL (8.5-10.1); COR NA(FOR HYPERGLY) 147 mmol/L (136-145); CREATININE 0.74 mg/dL (0.55-1.02); SODIUM 146 mmol/L (136-145); eGFR BLACK RACES > 60 (>60); eGFR NON BLACK RACES > 60 (>60)
[2018-01-14 08:12] VITALS: BP 159/74
[2018-01-14] MEDS: MORPHINE SULFATE INJ 2 MG INJ IVP PRN (08:36)
[2018-01-14] MEDS ORDERED: LORTAB ELIX 7.5/325 MG (15 ML) ONE (14:41)
== END 2018-01-14 11:35 | DRG 981 ==
LOC: MED/SURG 09:34 → ICU 13:49
PROVIDERS: ADMIT Surgery; ATTEND Surgery
PROC: 0D1L0Z4 Bypass Transverse Colon to Cutaneous, Open Approach (ICD-10-PCS; principal; 2018-01-12 10:30)
DX: L89.154 Pressure ulcer of sacral region, stage 4 (principal); R15.9 Full incontinence of feces; D64.89 Other specified anemias; Z86.73 Personal history of transient ischemic attack (TIA), and cerebral infarction without residual deficits; I50.9 Heart failure, unspecified; I10 Essential (primary) hypertension; R53.1 Weakness; R13.11 Dysphagia, oral phase; Z93.1 Gastrostomy status
CPT/HCPCS: 36415; 71045; 80053; 85025; 93005; 99100; A4222; S0020; J0690; J2001; J2250; J2270; J2710; J3010; J3490; J7042; J7120

== ENCOUNTER 2019-05-20 00:34 | Inpatient (IN) ==
[2019-05-20] MEDS ORDERED: CIPRO TAB 500 MG PO ONE (00:44)
[2019-05-20] MEDS ORDERED: TORADOL TAB PO ONE (00:44)
--- NOTE | 2019-05-20 00:46 | DR.GENAD ---
HPI Time Seen Time Seen by Provider: 05/20/19 00:43 HPI Comment HPI Comment: PATIENT IS 83YR OLD FEMALE THAT RESIDE IN THE LONGTERM IS BROUGHT TO ED BECAUSE HER NORMAL STATE OF ALERTNESS HAVE DECREASE AND SHE IS HAVING INCREASING PERIODS OF APNEA. PATIENT IS IN THE LONGTERM A TOTAL CARE PATIENT. SHE IS DOES NOT TALK OR RESPOND TO COMMANDS. FAMILY SAID SHE USES HER EYES TO COMMUNICATE WITH THEM. SINCE YESTERDAY, SHE IS NOT EVEN DOING THAT. TODAY, SHE IS CONGESTED AND NOT BRATHING HER USUAL WAY. SHE IS DNR BUT FAMILY WANT HER EVALUATED IN THE ED. SHE IS RUNNING LOW GRADE TEMPERATURE. Complaint/Symptoms Chief Complaint Doctors Comments: CHANGE OF REGULAR STATE OF ALERTNESS AND INCREASE PERIODS OF APNEA. Chief Complaint:: INCREASING APNEA AND SOB. Nurses notes reviewed Nurses Notes Review: Yes Source History Provided: Family Member and Shelter Mode of Arrival Mode of Arrival: Stretcher Timing Came on: Suddenly Duration Duration: Constant Duration: Hours Severity Severity: Moderate PMH PMH Past Surgical History: Yes Family History Family Medical History: Diabetes Mellitus, Cancer, [place], Coronary Artery Disease, Sudden Cardiac and Hypertension Social History Do you use any recreational Drugs:: No ROS Review of Systems Constitutional: No Symptoms Reported, See HPI, Fever and Weakness Eyes: No Symptoms Reported and See HPI; negative Tearing and Discharge ENTM: No Symptoms Reported, See HPI and Nose Congestion Respiratoy: No Symptoms Reported, Moist Cough, Short of Breath and Wheezing Cardiovascular: No Symptoms Reported, See HPI and Edema (TRACE.) Gastrointestinal/Abdominal: No Symptoms Reported and See HPI; negative Diarrhea and Vomiting Genitourinary: See HPI; negative Dysuria and Hematuria Neurological: See HPI and Weakness Musculoskeletal: See HPI and Joint Swelling Integumentary: See HPI and Change in Color; negative Juandice Hematologic/Lymphatic: See HPI and Easy Bruising; negative Swollen Glands Endocrine: See HPI Psychiatric: See HPI All Other Systems: Reviewed and Negative Unable to Obtain Due To: Altered mental status PE Vital Signs Vitals: Temperature 100.1 F Pulse Rate [Apical] 93 Pulse Rate 94 Respiratory Rate 26 Blood Pressure [Left Arm] 121/64 Blood Pressure [Right Arm] 128/58 Blood Pressure 138/86 O2 Sat by Pulse Oximetry 94 General Limitations: Altered Mental Status General Appearance: In Distress and Other (UNRESPONSIVE.) Head Head Exam: Normal Inspection and Atraumatic Eyes Eye exam: Normal Appearance and PERRL; negative Scleral Icterus and Conjunctival Injection ENT ENT Exam: Normal Exam and Other (HISTORY DYSPHAGIA.) External Ear Exam: Normal External Inspection TM/Canal Exam: Bilateral: Normal Nose Exam: negative Nasal Deviation and Septal Hematoma Mouth Exam: Normal Inspection; negative Lip Swelling and Tongue Swelling Throat Exam: negative Tonsillar Erythema, Tonsillomegaly and Tonsillar Exudate Neck Neck Exam: Normal Inspection and Trachea Midline; negative Tenderness Chest Chest Inspection: Normal Inspection and Symmetric Chest Wall Rise; negative Tenderness Respiratory Respiratory Exam: Normal Lung Sounds Bilat; negative Accessory Muscle Use, Chest Wall Tenderness and Respiratory Distress Respiratory Exam: Bilateral: Clear to Auscultation and Bilateral: Rhonchi and Lower: Rhonchi Cardiovascular Cardiovascular Exam: Regular Rate, Normal Rhythm and Normal Heart Sounds; negative Systolic Murmur and Diastolic Murmur Abdominal Exam Abdominal Exam: Normal Inspection, Normal Bowel Sounds and Soft; negative Tenderness Extremities Extremities Exam: Normal Inspection, Normal Capillary Refill and Edema; negative Tenderness and Calf Tenderness Back Back Exam: Normal Inspection and Paraspinal Tenderness Psychiatric Psychiatric Exam: Normal Affect and Normal Mood Skin Skin Exam: Warm, Dry, Intact and Normal Color MDM Additional Information Additional Information Obtained From: Family Differential Diagnosis Differential Diagnosis: UNRESPONSIVE, HYPERGLYCEMIA, UTI. COURSE Treatment Treatment: SEE ORDERS. Consultation Consultation Comments: DISCUSS PATIENT WITH DR. IRBY. HE WILL ADMIT PATIENT. ADMIT ORDERS DONE. Education/Counseling Education/Counseling: Family Educated On: Diagnosis ROR Labs Reviewed Laboratory Results Reviewed?: Yes Result Diagrams: 05/20/19 01:22 05/20/19 04:17 Laboratory: 05/20/19 01:08 Sputum - Endotracheal Wash - Final WBC 7.4 X10^3/uL (3.6-10.0) 05/20/19 01:22 RBC 4.41 X10^6/uL (3.5-5.4) 05/20/19 01:22 Hgb 13.5 g/dL (12.0-16.0) 05/20/19 01:22 Hct 41.6 % (36.0-47.0) 05/20/19 01:22 MCV 94.3 fL (80.0-100.0) 05/20/19 01:22 MCH 30.8 pg (27.0-34.0) 05/20/19 01:22 MCHC 32.6 g/dL (33.0-35.0) L 05/20/19 01:22 RDW 16.2 % (11.6-16.5) 05/20/19 01:22 Plt Count 164 X10^3/uL (150.0-450.0) 05/20/19 01:22 MPV 9.6 fL (7.4-11.0) 05/20/19 01:22 Neut % (Auto) 66.0 % (42.0-75.0) 05/20/19 01:22 Lymph % (Auto) 24.3 % (21.0-51.0) 05/20/19 01:22 [place] % (Auto) 6.9 % (0.0-13.0) 05/20/19 01:22 Eos % (Auto) 1.6 % (0.9-2.9) 05/20/19 01:22 Baso % (Auto) 1.2 % (0.2-1.0) H 05/20/19 01:22 Neut # (Auto) 4.9 x10^3/uL (2.2-4.8) H 05/20/19 01:22 Lymph # (Auto) 1.8 X10^3/uL (1.3-2.9) 05/20/19 01:22 [place] # (Auto) 0.5 x10^3/uL (0.3-0.8) 05/20/19 01:22 Eos # (Auto) 0.1 x10^3/uL (0.0-0.2) 05/20/19 01:22 Baso # (Auto) 0.1 X10^3/uL (0.0-0.1) 05/20/19 01:22 Absolute Nucleated RBC 0.0 /100WBC 05/20/19 01:22 Sodium 140 mmol/L (136-145) 05/20/19 01:22 Corrected Sodium 154 mmol/L (136-145) H 05/20/19 01:22 Potassium 4.2 mmol/L (3.5-5.1) 05/20/19 01:22 Chloride 103 mmol/L (98-107) 05/20/19 01:22 Carbon Dioxide 25.0 mmol/L (21-32) 05/20/19 01:22 BUN 42 mg/dL (7-18) H 05/20/19 01:22 Creatinine 1.16 mg/dL (0.55-1.02) H 05/20/19 01:22 Est GFR (MDRD) Af Amer 58 (>60) L 05/20/19 01:22 Est GFR (MDRD) Non-Af 48 (>60) L 05/20/19 01:22 Glucose 636 mg/dL (65-99) H* 05/20/19 04:17 Hemoglobin A1c 10.2 % 05/20/19 01:22 Calcium 10.0 mg/dL (8.5-10.1) 05/20/19 01:22 Corrected Calcium 11.2 mg/dL (8.5-10.1) H 05/20/19 01:22 Total Bilirubin 0.30 mg/dL (0.2-1.0) 05/20/19 01:22 AST 26 Units/L (15-37) 05/20/19 01:22 ALT 27 Units/L (12-78) 05/20/19 01:22 Alkaline Phosphatase 198 Units/L (46-116) H 05/20/19 01:22 Total Protein 9.4 g/dL (6.4-8.2) H 05/20/19 01:22 Albumin 2.5 g/dL (3.4-5.0) L 05/20/19 01:22 Globulin 6.9 g/dL (2.5-4.5) H 05/20/19 01:22 Albumin/Globulin Ratio 0.4 Ratio (1.1-2.1) L 05/20/19 01:22 Specimen Type Catherized urine 05/20/19 02:03 Urine Color Pale yellow (YELLOW) 05/20/19 02:03 Urine Appearance Cloudy (CLEAR) 05/20/19 02:03 Urine pH 5.0 (5.0 - 8.0) 05/20/19 02:03 Ur Specific [place] 1.015 (1.000-1.030) 05/20/19 02:03 Urine Protein 2+ (NEGATIVE) 05/20/19 02:03 Urine Glucose (UA) 4+ (NEGATIVE) 05/20/19 02:03 Urine Ketones Negative (NEGATIVE) 05/20/19 02:03 Urine Occult Blood 4+ (NEGATIVE) 05/20/19 02:03 Urine Nitrite Negative (NEGATIVE) 05/20/19 02:03 Urine Bilirubin Negative (NEGATIVE) 05/20/19 02:03 Urine Urobilinogen Normal (NORMAL) 05/20/19 02:03 Ur Leukocyte Esterase 3+ (NEGATIVE) 05/20/19 02:03 Urine RBC 3-5 /HPF (NONE SEEN) 05/20/19 02:03 Urine WBC None seen /HPF (NONE SEEN) 05/20/19 02:03 Ur Squamous Epith Cells Negative /HPF (NEGATIVE) 05/20/19 02:03 Urine Bacteria 2+ /HPF (NEGATIVE) 05/20/19 02:03 Ur Culture Indicated? Yes/culture set up 05/20/19 02:03 XRAY XRAY Interpreted by: Radiologist XRAY Findings: REPORT NOTED AND DISCUSS WITH PATIENT. EKG Rate: 94 [place]: Normal Rhythm: NSR Block: LBBB Hypertrophy: None ST: Normal Opioid Opioid Risk Tool Age (Kvng box if 16-45): No Total: 0 Total Score Risk Category: Low Risk Copyright: Danny GÓMEZ predicting aberrant behaviors Diagnosis Discharge Problem: Unresponsive, Hyperglycemia, Acute UTI
[2019-05-20] MEDS ORDERED: DUONEB 0.5 MG/3 MG ONE (00:54)
[2019-05-20] MEDS ORDERED: DUONEB 0.5 MG/3 MG NEB ONE (01:04)
[2019-05-20 01:11] VITALS: BMI 27.8
[2019-05-20 01:31] LABS: BASOPHILS # (AUTO) 0.1 X10^3/uL (0.0-0.1); BASOPHILS % (AUTO) 1.2 % (0.2-1.0); EOSINOPHILS # (AUTO) 0.1 x10^3/uL (0.0-0.2); EOSINOPHILS % (AUTO) 1.6 % (0.9-2.9); HEMATOCRIT 41.6 % (36.0-47.0); HEMOGLOBIN 13.5 g/dL (12.0-16.0); LYMPHOCYTES # (AUTO) 1.8 X10^3/uL (1.3-2.9); LYMPHOCYTES % (AUTO) 24.3 % (21.0-51.0); MEAN CORPUSCULAR HEMOGLOBIN 30.8 pg (27.0-34.0); MEAN CORPUSCULAR HGB CONC 32.6 g/dL (33.0-35.0); MEAN CORPUSCULAR VOLUME 94.3 fL (80.0-100.0); MEAN PLATELET VOLUME 9.6 fL (7.4-11.0); MONOCYTES # (AUTO) 0.5 x10^3/uL (0.3-0.8); MONOCYTES % (AUTO) 6.9 % (0.0-13.0); NEUTROPHILS # (AUTO) 4.9 x10^3/uL (2.2-4.8); PLATELET COUNT 164 X10^3/uL (150.0-450.0); RED BLOOD COUNT 4.41 X10^6/uL (3.5-5.4); RED CELL DISTRIBUTION WIDTH 16.2 % (11.6-16.5); WHITE BLOOD COUNT 7.4 X10^3/uL (3.6-10.0)
[2019-05-20 01:41] LABS: ALBUMIN 2.5 g/dL (3.4-5.0); COR CA(FOR HYPOALB) 11.2 mg/dL (8.5-10.1); CREATININE 1.16 mg/dL (0.55-1.02); TOTAL PROTEIN 9.4 g/dL (6.4-8.2)
[2019-05-20] MEDS ORDERED: NS 1000 ML 1,000 ML IV ONE ×2 (02:00→06:59)
[2019-05-20 02:10] LABS: BILIRUBIN,URINE NEGATIVE (NEGATIVE); BLOOD/HEMOGLOBIN,URINE 4+ (NEGATIVE); GLUCOSE, URINE 4+ (NEGATIVE); KETONES,URINE NEGATIVE (NEGATIVE); LEUKOCYTE ESTERASE ,URINE 3+ (NEGATIVE); NITRITES,URINE NEGATIVE (NEGATIVE); PROTEIN,URINE 2+ (NEGATIVE); UROBILINOGEN,URINE NORMAL (NORMAL)
[2019-05-20 02:22] LABS: COLOR,URINE PALE YELLOW (YELLOW)
[2019-05-20 02:23] LABS: APPEARANCE,URINE CLOUDY (CLEAR); BACTERIA,URINE 2+ /HPF (NEGATIVE); SQUAMOUS EPITHELIAL CELL,UR NEGATIVE /HPF (NEGATIVE)
[2019-05-20] MEDS ORDERED: ROCEPHIN VIAL 1 GRAM IVP ONE (02:56)
[2019-05-20] MEDS ORDERED: ROCEPHIN VIAL 1 GRAM ONE (03:20)
[2019-05-20] MEDS ORDERED: HumuLIN R IV ONE (04:44)
[2019-05-20] MEDS ORDERED: HumuLIN R ONE (04:48)
[2019-05-20] MEDS ORDERED: HumuLIN R SC PRN (05:05)
[2019-05-20] MEDS ORDERED: ARTIFICIAL TEARS OP SCH (06:00)
[2019-05-20] MEDS: REGLAN TAB 10 MG PO SCH ×4 (07:05→23:06)
[2019-05-20] MEDS: APRESOLINE TAB 25 MG GT SCH ×3 (07:06→21:24)
[2019-05-20] MEDS: NS 1000 ML 1,000 ML IV SCH ×5 (07:06→23:06)
[2019-05-20] MEDS ORDERED: NORVASC TAB 2.5 MG ONE ×2 (08:15→20:06)
[2019-05-20] MEDS: HIPREX PEG SCH ×2 (08:30→21:19)
[2019-05-20] MEDS: POTASSIUM CHLORIDE LIQ 20 MEQ UDC PEG SCH ×2 (08:30→21:23)
[2019-05-20] MEDS: LOPRESSOR TAB 50 MG GT SCH ×2 (08:31→21:23)
[2019-05-20] MEDS: VITAMIN C PEG SCH ×2 (08:31→21:24)
[2019-05-20] MEDS: REQUIP PO SCH ×2 (08:31→21:23)
[2019-05-20] MEDS: NYSTATIN SUSP PO SCH ×4 (08:31→21:23)
[2019-05-20] MEDS: HEMOCYTE-PLUS PO SCH (08:31)
[2019-05-20] MEDS: NORVASC TAB 2.5 MG PEG SCH ×2 (08:31→21:24)
[2019-05-20] MEDS: TAB-A-VITE PO SCH (08:31)
[2019-05-20] MEDS: ZINC SULFATE PO SCH (08:32)
[2019-05-20] MEDS: ZANTAC PO SCH (08:32)
[2019-05-20] MEDS ORDERED: PATIENT'S HOME MEDICATION (Amino Acids-Protein Hydrolys [Pro-Stat Awc] 30 ML) PO SCH (09:00)
[2019-05-20] MEDS: ARTIFICIAL TEARS DROPS AFFEYE SCH ×3 (09:30→21:25)
--- NOTE | 2019-05-20 10:36 | DR.H&P ---
H&P - History & Physical for Day of: H&P Date: 05/20/19 - Chief Complaint Chief Complaint: altered mental status, wheezing, apnea - History of Present Illness History of Present Illness: IS A 83 YEAR OLD PATIENT OF OURS WHO IS A RESIDENT OF [facility]. CUSTODIAL STAFF TRANSPORTED PATIENT TO THE ER DUE TO DECREASED ALERTNESS WELL PERIODS OF APNEA. PATIENT IS TOTAL CARE AND IS ASPHASIC. THIS IS HER BASELINE. ON ARRIVAL TO THE ER, SHE IS NOTED WITH SCATTERED WHEEZING. VITALS WERE 100.1-94-11-96%-138/86. LABS WERE OBTAINED. ABNORMAL LAB VALUES INCLUDE THE FOLLOWING: BUN 42, CREATININE 1.16, GLUCOSE 679, ALK PHOS 198, TOTAL PROTEIN 9.4, ALBUMIN 2.5, GLOBULIN 6.9. A URINALYSIS WAS OBTAINED AND REVEALED: RBC 3-5, WBC NONE SEEN, LEUKOCYTES 3+, BACTERIA 2+, OCCULT BLOOD 4+. URINE AND SPUTUM CULTURES OBTAINED. SHE WAS GIVEN HUMULIN R 5 UNITS, ROCEPHIN 1G IV, A DUONEB, AND STARTED ON NORMAL SALINE AT 250ML/HR IN THE ER. SHE ADMITTED FOR FURTHER EVALUATION AND TREATMENT OF AMS, UTI, BRONCHITIS, AND HYPERGLYCEMIA. WE WILL CONTINUE IV FLUIDS AND ROCEPHIN 1G IV DAILY. WE WILL START HUMULIN R SLIDING SCALE. OTHERWISE, WE WILL RESUME HOME MEDS AND FOLLOW UP WITH AM LABS AND CHEST XRAY. - Past Medical History Past Medical History: Anemia, Angina, Anxiety, Arthritis, Coronary Artery Disease, CVA, Dementia, Depression, Dyslipidemia, GERD, Hypertension, Hypothyroidism Additional Medical History: Constipation, Tinnitus, Spinal Cord Infarction, Restless Leg Syndrome, Peripheral Vascular Disease, Paraplegic, Right-sided paralysis, Gastrointestinal Ulcer, UTI's, Muscle Weakness, Osteoarthritis, Previous Blood Transfusion - Past Surgical History Surgical History: Hysterectomy, Other - Family History Family Medical History: Diabetes Mellitus, Cancer, [place], Coronary Artery Disease, Sudden Cardiac , Hypertension - Social History Does patient currently use any type of tobacco product: No Have you used tobacco products in the last 12 months: No Type of Tobacco Use: None Does any household member use tobacco: No Alcohol Use: None Drug Use: None Prescription drug monitoring program results: PDMP reviewed and no concerns identified - Medications Home Medications: No Known Drug Allergies Allergy (Verified 09/24/17 15:23) CONTINUE taking the following medications amlodipine 2.5 mg FEEDING TUBE BID 05/20/19 [History] artificial tears(hypromellose) 1 drp OPHTHALMIC (EYE) TID 05/20/19 [History] hydrocodone-acetaminophen 7.5 ml FEEDING TUBE HS 05/20/19 [History] metoclopramide HCl 10 mg FEEDING TUBE Q6H 05/20/19 [History] nystatin 1 applic PO QID 05/20/19 [History] ranitidine HCl 300 mg FEEDING TUBE BID 05/20/19 [History] - Review of Systems Constitutional: Fever, Weakness Eyes: No Symptoms Reported ENT: No Symptoms Reported Respiratory: See HPI, Shortness of Breath, Wheezing Cardiovascular: No Symptoms Reported Gastrointestinal: No Symptoms Reported Genitourinary: No Symptoms Reported Musculoskeletal: No Symptoms Reported Skin: No Symptoms Reported Neurological: See HPI (increased drowsiness ), Weakness - Physical Exam Vital Signs: Temperature 98.0 F Pulse Rate [Apical] 91 Pulse Rate 94 Respiratory Rate 18 Blood Pressure [Left Arm] 143/85 Blood Pressure [Right Arm] 128/58 Blood Pressure 138/86 O2 Sat by Pulse Oximetry 99 Oriented: Normal Eyes: Normal Ear: Normal Nose: Normal Throat: Normal Respiratory: Wheezes Throughout Cardiovascular: Normal. negative: S3, S4, Murmur : Normal Auscultation: Bowel Sounds: Normal Palpation: Normal Tenderness: Normal Skin: Normal Musculoskeletal: Normal Psychiatric: Normal Mood Description: Calm Affect: Flat Speech Pattern: Aphasic - Assessment/Plan (1) Acute UTI Status: Acute Plan: rocephin 1g iv daily, iv fluids (2) Hyperglycemia Status: Acute Plan: HUMULIN R SLIDING SCALE (3) Bronchitis Status: Acute Plan: ROCEPHIN 1G IV DAILY, RESPIRATORY TREATMENTS, CONTINUE TO MONITOR (4) Altered mental status Qualifiers: Altered mental status type: transient alteration of awareness Qualified Code(s): R40.4 - Transient alteration of awareness Status: Acute - Allergies Allergies/Adverse Reactions: Allergies Allergy/AdvReac Type Severity Reaction Status Date / Time No Known Drug Allergies Allergy Verified 09/24/17 15:23
[2019-05-20] MEDS: HumuLIN R IV PRN ×2 (13:33→21:20)
[2019-05-20] MEDS ORDERED: PHARMACY CONSULT - DOSE _____ XX SCH (15:00)
[2019-05-20] MEDS: LOVENOX INJ 40 MG SYR SC SCH (15:45)
[2019-05-20] MEDS ORDERED: ALBUMIN HUMAN 25%- 100 ML 100 ML IV NR (17:00)
[2019-05-20] MEDS: SNACK - Diabetic Appropriate PO SCH (19:27)
[2019-05-20] MEDS: LORTAB ELIX 7.5/325 MG (15 ML) PEG SCH (21:21)
[2019-05-21] MEDS: HumuLIN R IV PRN ×6 (01:19→22:15)
[2019-05-21] MEDS: NS 1000 ML 1,000 ML IV SCH (03:55)
[2019-05-21 05:02] LABS: BASOPHILS % (AUTO) 0.5 % (0.2-1.0); EOSINOPHILS # (AUTO) 0.1 x10^3/uL (0.0-0.2); EOSINOPHILS % (AUTO) 0.9 % (0.9-2.9); HEMATOCRIT 36.7 % (36.0-47.0); LYMPHOCYTES # (AUTO) 2.1 X10^3/uL (1.3-2.9); LYMPHOCYTES % (AUTO) 23.6 % (21.0-51.0); MEAN CORPUSCULAR HEMOGLOBIN 30.4 pg (27.0-34.0); MEAN CORPUSCULAR HGB CONC 32.6 g/dL (33.0-35.0); MEAN CORPUSCULAR VOLUME 93.3 fL (80.0-100.0); MEAN PLATELET VOLUME 9.6 fL (7.4-11.0); MONOCYTES # (AUTO) 0.5 x10^3/uL (0.3-0.8); PLATELET COUNT 163 X10^3/uL (150.0-450.0); RED BLOOD COUNT 3.93 X10^6/uL (3.5-5.4); RED CELL DISTRIBUTION WIDTH 16.5 % (11.6-16.5); WHITE BLOOD COUNT 8.7 X10^3/uL (3.6-10.0)
[2019-05-21 05:24] LABS: ALANINE AMINOTRANSFERASE 23 Units/L (12-78); ALBUMIN 2.6 g/dL (3.4-5.0); ALKALINE PHOSPHATASE 99 Units/L (46-116); ASPARTATE AMINO TRANSFERASE 20 Units/L (15-37); BLOOD UREA NITROGEN 25 mg/dL (7-18); CALCIUM 8.7 mg/dL (8.5-10.1); CARBON DIOXIDE 23.2 mmol/L (21-32); CHOL/HDL RATIO 3.4 (0.0-5.0); CHOLESTEROL 98 mg/dL (0-200); COR CA(FOR HYPOALB) 9.8 mg/dL (8.5-10.1); COR NA(FOR HYPERGLY) 152 mmol/L (136-145); CREATININE 0.72 mg/dL (0.55-1.02); HDL CHOLESTEROL 29 mg/dL (40-60); SODIUM 148 mmol/L (136-145); TOTAL PROTEIN 7.8 g/dL (6.4-8.2); TRIGLYCERIDES 313 mg/dL (0-150); eGFR NON BLACK RACES > 60 (>60)
[2019-05-21 05:29] LABS: CHLORIDE 115 mmol/L (98-107)
[2019-05-21] MEDS ORDERED: NS 1/2 1000 ML IV 1,000 ML ONE ×2 (05:42→14:16)
[2019-05-21] MEDS: NS 1/2 1000 ML IV 1,000 ML IV SCH ×3 (06:03→22:55)
[2019-05-21] MEDS: REGLAN TAB 10 MG PO SCH ×4 (06:03→22:54)
[2019-05-21] MEDS: APRESOLINE TAB 25 MG GT SCH ×3 (06:03→22:54)
[2019-05-21] MEDS: ARTIFICIAL TEARS DROPS AFFEYE SCH ×3 (06:03→22:54)
[2019-05-21] MEDS ORDERED: NORVASC TAB 2.5 MG ONE ×2 (07:55→20:20)
[2019-05-21] MEDS: ROCEPHIN VIAL 1 GRAM IVP SCH (08:03)
[2019-05-21] MEDS: POTASSIUM CHLORIDE LIQ 20 MEQ UDC PEG SCH ×2 (08:04→20:38)
[2019-05-21] MEDS: HIPREX PEG SCH ×2 (08:04→21:46)
[2019-05-21] MEDS: NYSTATIN SUSP PO SCH ×4 (08:04→20:39)
[2019-05-21] MEDS: REQUIP PO SCH ×2 (08:05→20:39)
[2019-05-21] MEDS: HEMOCYTE-PLUS PO SCH (08:05)
[2019-05-21] MEDS: ZINC SULFATE PO SCH (08:05)
[2019-05-21] MEDS: ZANTAC PO SCH (08:05)
[2019-05-21] MEDS: VITAMIN C PEG SCH ×2 (08:05→20:39)
[2019-05-21] MEDS: NORVASC TAB 2.5 MG PEG SCH ×2 (08:05→20:39)
[2019-05-21] MEDS: LOPRESSOR TAB 50 MG GT SCH ×2 (08:05→20:38)
[2019-05-21] MEDS: TAB-A-VITE PO SCH (08:05)
[2019-05-21] MEDS: LOVENOX INJ 40 MG SYR SC SCH (08:25)
[2019-05-21] MEDS: ALBUMIN HUMAN 25%- 100 ML 100 ML IV SCH (11:37)
[2019-05-21] MEDS: LORTAB ELIX 7.5/325 MG (15 ML) PEG SCH (20:38)
[2019-05-21] MEDS: SNACK - Diabetic Appropriate PO SCH (20:40)
[2019-05-22] MEDS ORDERED: NS 1/2 1000 ML IV 1,000 ML ONE ×2 (03:19→14:58)
[2019-05-22] MEDS: NS 1/2 1000 ML IV 1,000 ML IV SCH ×4 (03:35→21:36)
[2019-05-22] MEDS: HumuLIN R IV PRN ×5 (04:02→21:03)
[2019-05-22] MEDS: REGLAN TAB 10 MG PO SCH ×4 (04:20→16:27)
[2019-05-22] MEDS: ARTIFICIAL TEARS DROPS AFFEYE SCH ×3 (05:11→21:36)
[2019-05-22 05:39] LABS: BASOPHILS # (AUTO) 0.1 X10^3/uL (0.0-0.1); BASOPHILS % (AUTO) 0.6 % (0.2-1.0); EOSINOPHILS # (AUTO) 0.1 x10^3/uL (0.0-0.2); EOSINOPHILS % (AUTO) 1.1 % (0.9-2.9); HEMATOCRIT 37.2 % (36.0-47.0); LYMPHOCYTES # (AUTO) 2.4 X10^3/uL (1.3-2.9); LYMPHOCYTES % (AUTO) 28.9 % (21.0-51.0); MEAN CORPUSCULAR HEMOGLOBIN 30.6 pg (27.0-34.0); MEAN CORPUSCULAR HGB CONC 32.3 g/dL (33.0-35.0); MEAN CORPUSCULAR VOLUME 94.7 fL (80.0-100.0); MEAN PLATELET VOLUME 9.8 fL (7.4-11.0); MONOCYTES # (AUTO) 0.6 x10^3/uL (0.3-0.8); MONOCYTES % (AUTO) 7.4 % (0.0-13.0); NEUTROPHILS # (AUTO) 5.1 x10^3/uL (2.2-4.8); PLATELET COUNT 149 X10^3/uL (150.0-450.0); RED BLOOD COUNT 3.92 X10^6/uL (3.5-5.4); RED CELL DISTRIBUTION WIDTH 16.4 % (11.6-16.5); WHITE BLOOD COUNT 8.2 X10^3/uL (3.6-10.0)
[2019-05-22 05:56] LABS: ALANINE AMINOTRANSFERASE 12 Units/L (12-78); ALBUMIN 2.5 g/dL (3.4-5.0); ALKALINE PHOSPHATASE 90 Units/L (46-116); ASPARTATE AMINO TRANSFERASE 16 Units/L (15-37); BLOOD UREA NITROGEN 22 mg/dL (7-18); CALCIUM 8.5 mg/dL (8.5-10.1); CARBON DIOXIDE 22.7 mmol/L (21-32); CHLORIDE 109 mmol/L (98-107); CHOL/HDL RATIO 2.2 (0.0-5.0); CHOLESTEROL 60 mg/dL (0-200); COR CA(FOR HYPOALB) 9.7 mg/dL (8.5-10.1); COR NA(FOR HYPERGLY) 146 mmol/L (136-145); CREATININE 0.78 mg/dL (0.55-1.02); HDL CHOLESTEROL 27 mg/dL (40-60); SODIUM 140 mmol/L (136-145); TRIGLYCERIDES 127 mg/dL (0-150); eGFR NON BLACK RACES > 60 (>60)
[2019-05-22] MEDS: APRESOLINE TAB 25 MG GT SCH ×3 (05:57→21:06)
[2019-05-22] MEDS ORDERED: NORVASC TAB 2.5 MG ONE ×2 (09:26→20:12)
[2019-05-22] MEDS: ALBUMIN HUMAN 25%- 100 ML 100 ML IV SCH (09:55)
[2019-05-22] MEDS: LOVENOX INJ 40 MG SYR SC SCH (09:56)
[2019-05-22] MEDS: ROCEPHIN VIAL 1 GRAM IVP SCH (09:56)
[2019-05-22] MEDS: TAB-A-VITE PO SCH (09:56)
[2019-05-22] MEDS: POTASSIUM CHLORIDE LIQ 20 MEQ UDC PEG SCH ×2 (09:56→21:08)
[2019-05-22] MEDS: LOPRESSOR TAB 50 MG GT SCH ×2 (09:56→21:05)
[2019-05-22] MEDS: REQUIP PO SCH ×2 (09:57→21:07)
[2019-05-22] MEDS: VITAMIN C PEG SCH ×2 (09:57→21:06)
[2019-05-22] MEDS: ZANTAC PO SCH (09:57)
[2019-05-22] MEDS: NYSTATIN SUSP PO SCH ×4 (09:57→21:05)
[2019-05-22] MEDS: HEMOCYTE-PLUS PO SCH (09:57)
[2019-05-22] MEDS: ZINC SULFATE PO SCH (09:58)
[2019-05-22] MEDS: NORVASC TAB 2.5 MG PEG SCH ×2 (09:58→21:06)
[2019-05-22] MEDS: HIPREX PEG SCH ×2 (09:58→21:04)
[2019-05-22] MEDS: LEVEMIR SC SCH ×2 (11:09→21:01)
[2019-05-22] MEDS ORDERED: SNACK - Diabetic Appropriate PO SCH (20:00)
[2019-05-22] MEDS: SNACK - Diabetic Appropriate PO SCH (21:04)
[2019-05-22] MEDS: LORTAB ELIX 7.5/325 MG (15 ML) PEG SCH (21:06)
--- NOTE | 2019-05-22 22:00 | PCM.PROG ---
Progress Note - Progress Note for Day of Date of Exam: 05/21/19 - Subjective Subjective: IS BEING TREATED FOR AMS, UTI, BRONCHITIS, HYPERGLYCEMIA, AND HYPERNATREMIA. TODAY, SHE IS ALERT, LYING IN BED ON MORNING ROUNDS. FAMILY REPORTS THAT SHE CONTINUED WITH INCREASED DROWSINESS. ON EXAMINATION, HEART IS REGULAR IN RATE AND RHYTHM. BILATERAL LUNGS ARE NOTED WITH SCATTERED WHEEZING. ABDOMEN IS ROUND, SOFT, AND NON-TENDER WITH NORMAL BOWEL SOUNDS NOTED IN ALL QUADRANTS. HER VITALS THIS MORNING ARE: 99.3-109-16-98%-117/69. LABS WERE OBTAINED. ABNORMAL LAB VALUES INCLUDE THE FOLLOWING: SODIUM 148, CHLORIDE 115, BUN 25, GLUCOSE 276, ALBUMIN 2.6, GLOBULIN 5.2, TRIGLYCERIDES 313, HDL 29. URINE AND SPUTUM CULTURES ARE PENDING. SHE IS CURRENTLY RECEIVING 1/2NS AT 100ML/HR, ROCEPHIN 1G IV DAILY, HUMULIN R SLIDING SCALE, AND HOME MEDS WERE RESUMED. TODAY, WE WILL START ALBUMIN 25% IV DAILY. OTHERWISE, WE WILL CONTINUE WITH CURRENT PLAN OF CARE. WE WILL FOLLOW UP WITH AM LABS AND CONTINUE TO MONITOR. - Past Medical Family Social History Past Med/Fam/Surg Hx: No changes since H&P Allergies: Allergies No Known Drug Allergies Allergy (Verified 09/24/17 15:23) - Review of Systems ROS: No change since H&P - Vital Signs and I&O's Vital Signs: Temperature 98.7 F Pulse Rate [Apical] 103 Pulse Rate 94 Respiratory Rate 20 Blood Pressure [Left Arm] 124/59 Blood Pressure [Right Arm] 128/58 Blood Pressure 138/86 O2 Sat by Pulse Oximetry 100 Intake and Output: Intake & Output 05/20/19 05/21/19 05/22/19 05/23/19 11:59 11:59 11:59 11:59 Intake Total 250 / 250 3131 / 3131 900 / 900 0 / 0 Balance 250 / 250 3131 / 3131 900 / 900 0 / 0 - Physical Exam Oriented: Normal Eyes: Normal Ear: Normal Nose: Normal Throat: Normal Respiratory: Generalized, Diminished, Wheezes Cardiovascular: Normal. negative: S3, S4, Murmur : Normal Auscultation: Bowel Sounds: Normal Palpation: Normal Tenderness: Normal Skin: Normal Musculoskeletal: Normal Psychiatric: Normal Mood Description: Calm Affect: Flat Speech Pattern: Aphasic - Laboratory and Diagnostics Result Diagrams: 05/22/19 05:20 05/22/19 05:20 Labs: 05/20/19 01:08 Sputum - Endotracheal Wash Sputum Culture - Preliminary 05/20/19 01:08 Sputum - Endotracheal Wash - Final 05/20/19 02:03 Urine,Catheterized Urine Culture - Final Enterobacter Cloacae Laboratory WBC 8.2 X10^3/uL (3.6-10.0) 05/22/19 05:20 RBC 3.92 X10^6/uL (3.5-5.4) 05/22/19 05:20 Hgb 12.0 g/dL (12.0-16.0) 05/22/19 05:20 Hct 37.2 % (36.0-47.0) 05/22/19 05:20 MCV 94.7 fL (80.0-100.0) 05/22/19 05:20 MCH 30.6 pg (27.0-34.0) 05/22/19 05:20 MCHC 32.3 g/dL (33.0-35.0) L 05/22/19 05:20 RDW 16.4 % (11.6-16.5) 05/22/19 05:20 Plt Count 149 X10^3/uL (150.0-450.0) L 05/22/19 05:20 MPV 9.8 fL (7.4-11.0) 05/22/19 05:20 Neut % (Auto) 62.0 % (42.0-75.0) 05/22/19 05:20 Lymph % (Auto) 28.9 % (21.0-51.0) 05/22/19 05:20 [place] % (Auto) 7.4 % (0.0-13.0) 05/22/19 05:20 Eos % (Auto) 1.1 % (0.9-2.9) 05/22/19 05:20 Baso % (Auto) 0.6 % (0.2-1.0) 05/22/19 05:20 Neut # (Auto) 5.1 x10^3/uL (2.2-4.8) H 05/22/19 05:20 Lymph # (Auto) 2.4 X10^3/uL (1.3-2.9) 05/22/19 05:20 [place] # (Auto) 0.6 x10^3/uL (0.3-0.8) 05/22/19 05:20 Eos # (Auto) 0.1 x10^3/uL (0.0-0.2) 05/22/19 05:20 Baso # (Auto) 0.1 X10^3/uL (0.0-0.1) 05/22/19 05:20 Absolute Nucleated RBC 0.1 /100WBC 05/22/19 05:20 Sodium 140 mmol/L (136-145) 05/22/19 05:20 Corrected Sodium 146 mmol/L (136-145) H 05/22/19 05:20 Potassium 4.2 mmol/L (3.5-5.1) 05/22/19 05:20 Chloride 109 mmol/L (98-107) H 05/22/19 05:20 Carbon Dioxide 22.7 mmol/L (21-32) 05/22/19 05:20 BUN 22 mg/dL (7-18) H 05/22/19 05:20 Creatinine 0.78 mg/dL (0.55-1.02) 05/22/19 05:20 Est GFR (MDRD) Af Amer > 60 (>60) 05/22/19 05:20 Est GFR (MDRD) Non-Af > 60 (>60) 05/22/19 05:20 Glucose 336 mg/dL (65-99) H 05/22/19 05:20 Hemoglobin A1c 10.2 % 05/20/19 01:22 Calcium 8.5 mg/dL (8.5-10.1) 05/22/19 05:20 Corrected Calcium 9.7 mg/dL (8.5-10.1) 05/22/19 05:20 Total Bilirubin 0.40 mg/dL (0.2-1.0) 05/22/19 05:20 AST 16 Units/L (15-37) 05/22/19 05:20 ALT 12 Units/L (12-78) 05/22/19 05:20 Alkaline Phosphatase 90 Units/L (46-116) 05/22/19 05:20 Total Protein 7.0 g/dL (6.4-8.2) 05/22/19 05:20 Albumin 2.5 g/dL (3.4-5.0) L 05/22/19 05:20 Globulin 4.5 g/dL (2.5-4.5) 05/22/19 05:20 Albumin/Globulin Ratio 0.6 Ratio (1.1-2.1) L 05/22/19 05:20 Triglycerides 127 mg/dL (0-150) 05/22/19 05:20 Cholesterol 60 mg/dL (0-200) 05/22/19 05:20 LDL Cholesterol, Calc 8 mg/dL (0-100) 05/22/19 05:20 HDL Cholesterol 27 mg/dL (40-60) L 05/22/19 05:20 Cholesterol/HDL Ratio 2.2 (0.0-5.0) 05/22/19 05:20 Specimen Type Catherized urine 05/20/19 02:03 Urine Color Pale yellow (YELLOW) 05/20/19 02:03 Urine Appearance Cloudy (CLEAR) 05/20/19 02:03 Urine pH 5.0 (5.0 - 8.0) 05/20/19 02:03 Ur Specific [place] 1.015 (1.000-1.030) 05/20/19 02:03 Urine Protein 2+ (NEGATIVE) 05/20/19 02:03 Urine Glucose (UA) 4+ (NEGATIVE) 05/20/19 02:03 Urine Ketones Negative (NEGATIVE) 05/20/19 02:03 Urine Occult Blood 4+ (NEGATIVE) 05/20/19 02:03 Urine Nitrite Negative (NEGATIVE) 05/20/19 02:03 Urine Bilirubin Negative (NEGATIVE) 05/20/19 02:03 Urine Urobilinogen Normal (NORMAL) 05/20/19 02:03 Ur Leukocyte Esterase 3+ (NEGATIVE) 05/20/19 02:03 Urine RBC 3-5 /HPF (NONE SEEN) 05/20/19 02:03 Urine WBC None seen /HPF (NONE SEEN) 05/20/19 02:03 Ur Squamous Epith Cells Negative /HPF (NEGATIVE) 05/20/19 02:03 Urine Bacteria 2+ /HPF (NEGATIVE) 05/20/19 02:03 Ur Culture Indicated? Yes/culture set up 05/20/19 02:03 - Plan (1) Acute UTI Status: Acute Plan: rocephin 1g iv daily, iv fluids (2) Hyperglycemia Status: Acute Plan: HUMULIN R SLIDING SCALE (3) Bronchitis Status: Acute Plan: ROCEPHIN 1G IV DAILY, RESPIRATORY TREATMENTS, CONTINUE TO MONITOR (4) Altered mental status Status: Acute Qualifiers: Altered mental status type: transient alteration of awareness Qualified Code(s): R40.4 - Transient alteration of awareness (5) Hypernatremia Status: Acute Plan: 1/2 NS AT 100ML/HR, CONTINUE TO MONITOR
[2019-05-23] MEDS: HumuLIN R IV PRN ×4 (01:10→16:46)
[2019-05-23] MEDS: ARTIFICIAL TEARS DROPS AFFEYE SCH ×3 (05:27→22:21)
[2019-05-23] MEDS: APRESOLINE TAB 25 MG GT SCH ×3 (05:27→22:21)
[2019-05-23] MEDS: NS 1/2 1000 ML IV 1,000 ML IV SCH ×3 (05:27→22:21)
[2019-05-23] MEDS: REGLAN TAB 10 MG PO SCH ×4 (05:27→22:21)
[2019-05-23 06:00] LABS: BASOPHILS % (AUTO) 0.6 % (0.2-1.0); EOSINOPHILS # (AUTO) 0.1 x10^3/uL (0.0-0.2); EOSINOPHILS % (AUTO) 1.6 % (0.9-2.9); HEMATOCRIT 37.6 % (36.0-47.0); HEMOGLOBIN 12.4 g/dL (12.0-16.0); LYMPHOCYTES # (AUTO) 2.4 X10^3/uL (1.3-2.9); LYMPHOCYTES % (AUTO) 32.6 % (21.0-51.0); MEAN CORPUSCULAR HEMOGLOBIN 30.8 pg (27.0-34.0); MEAN CORPUSCULAR VOLUME 93.4 fL (80.0-100.0); MEAN PLATELET VOLUME 9.6 fL (7.4-11.0); MONOCYTES # (AUTO) 0.4 x10^3/uL (0.3-0.8); NEUTROPHILS # (AUTO) 4.5 x10^3/uL (2.2-4.8); NEUTROPHILS % (AUTO) 60.2 % (42.0-75.0); PLATELET COUNT 140 X10^3/uL (150.0-450.0); RED BLOOD COUNT 4.03 X10^6/uL (3.5-5.4); RED CELL DISTRIBUTION WIDTH 16.3 % (11.6-16.5); WHITE BLOOD COUNT 7.4 X10^3/uL (3.6-10.0)
[2019-05-23 06:15] LABS: ALANINE AMINOTRANSFERASE 14 Units/L (12-78); ALKALINE PHOSPHATASE 87 Units/L (46-116); ASPARTATE AMINO TRANSFERASE 15 Units/L (15-37); BLOOD UREA NITROGEN 17 mg/dL (7-18); CALCIUM 8.6 mg/dL (8.5-10.1); CARBON DIOXIDE 26.6 mmol/L (21-32); CHLORIDE 107 mmol/L (98-107); COR CA(FOR HYPOALB) 9.4 mg/dL (8.5-10.1); COR NA(FOR HYPERGLY) 145 mmol/L (136-145); CREATININE 0.66 mg/dL (0.55-1.02); SODIUM 142 mmol/L (136-145); TOTAL PROTEIN 7.5 g/dL (6.4-8.2); eGFR NON BLACK RACES > 60 (>60)
[2019-05-23] MEDS ORDERED: NORVASC TAB 2.5 MG ONE ×2 (08:10→19:19)
[2019-05-23] MEDS: ROCEPHIN VIAL 1 GRAM IVP SCH (08:43)
[2019-05-23] MEDS: LOVENOX INJ 40 MG SYR SC SCH (08:43)
[2019-05-23] MEDS: TAB-A-VITE PO SCH (08:44)
[2019-05-23] MEDS: HEMOCYTE-PLUS PO SCH (08:44)
[2019-05-23] MEDS: REQUIP PO SCH ×2 (08:44→20:25)
[2019-05-23] MEDS: LOPRESSOR TAB 50 MG GT SCH ×2 (08:44→20:18)
[2019-05-23] MEDS: ZANTAC PO SCH (08:44)
[2019-05-23] MEDS: ZINC SULFATE PO SCH (08:44)
[2019-05-23] MEDS: POTASSIUM CHLORIDE LIQ 20 MEQ UDC PEG SCH ×2 (08:44→20:22)
[2019-05-23] MEDS: NYSTATIN SUSP PO SCH ×4 (08:44→20:22)
[2019-05-23] MEDS: NORVASC TAB 2.5 MG PEG SCH ×2 (08:45→20:18)
[2019-05-23] MEDS: ALBUMIN HUMAN 25%- 100 ML 100 ML IV SCH (08:45)
[2019-05-23] MEDS: VITAMIN C PEG SCH ×2 (08:45→20:23)
[2019-05-23] MEDS: LEVEMIR SC SCH ×3 (08:46→20:24)
[2019-05-23] MEDS: HIPREX PEG SCH ×2 (08:46→20:24)
[2019-05-23] MEDS ORDERED: TYLENOL 325 MG TAB PO PRN (10:29)
[2019-05-23] MEDS ORDERED: LORTAB ELIX 7.5/325 MG (15 ML) PO NR (11:00)
--- NOTE | 2019-05-23 14:56 | PCM.PROG ---
Progress Note - Progress Note for Day of Date of Exam: 05/22/19 - Subjective Subjective: IS BEING TREATED FOR AMS, UTI, BRONCHITIS, HYPERGLYCEMIA, AND HYPERNATREMIA. TODAY, SHE IS ALERT, LYING IN BED ON MORNING ROUNDS. FAMILY REPORTS THAT SHE HAS BEEN MORE ALERT TODAY. ON EXAMINATION, HEART IS REGULAR IN RATE AND RHYTHM. BILATERAL LUNGS ARE NOTED WITH SCATTERED WHEEZI NG. ABDOMEN IS ROUND, SOFT, AND NON-TENDER WITH NORMAL BOWEL SOUNDS NOTED IN ALL QUADRANTS. HER VITALS THIS MORNING ARE: 99.1-11-75-98-123/58. LABS WERE OBTAINED. ABNORMAL LAB VALUES INCLUDE THE FOLLOWING: PLT COUNT 149, CHLORIDE 109, BUN 22, GLUCOSE 336, ALBUMIN 2.5, GLOBULIN 0.6, HDL 27. URINE AND SPUTUM CULTURES ARE PENDING. SHE IS CURRENTLY RECEIVING 1/2NS AT 100ML/HR, ROCEPHIN 1G IV DAILY, HUMULIN R SLIDING SCALE, ALBUMIN, AND HOME MEDS WERE RESUMED. TODAY, WE WILL START LEVEMIR 10 UNITS SC BID AND DECREASE FEEDINGS TO CAN GLUCERNA QID. OTHERWISE, WE WILL CONTINUE WITH CURRENT PLAN OF CARE. WE WILL FOLLOW UP WITH AM LABS AND CONTINUE TO MONITOR. - Past Medical Family Social History Past Med/Fam/Surg Hx: No changes since H&P Allergies: Allergies No Known Drug Allergies Allergy (Verified 09/24/17 15:23) - Review of Systems ROS: No change since H&P - Vital Signs and I&O's Vital Signs: Temperature 98.8 F Pulse Rate [Apical] 86 Pulse Rate 94 Respiratory Rate 22 Blood Pressure [Left Arm] 118/79 Blood Pressure [Right Arm] 128/58 Blood Pressure 138/86 O2 Sat by Pulse Oximetry 97 Intake and Output: Intake & Output 05/21/19 05/22/19 05/23/19 05/24/19 11:59 11:59 11:59 11:59 Intake Total 3131 / 3131 900 / 900 0 / 0 0 / 0 Balance 3131 / 3131 900 / 900 0 / 0 0 / 0 - Physical Exam Oriented: Normal Eyes: Normal Ear: Normal Nose: Normal Throat: Normal Respiratory: Generalized, Diminished, Wheezes Cardiovascular: Normal. negative: S3, S4, Murmur : Normal Auscultation: Bowel Sounds: Normal Palpation: Normal Tenderness: Normal Skin: Normal Musculoskeletal: Normal Psychiatric: Normal Mood Description: Calm Affect: Flat Speech Pattern: Aphasic - Laboratory and Diagnostics Result Diagrams: 05/23/19 05:21 05/23/19 05:21 Labs: 05/20/19 01:08 Sputum - Endotracheal Wash Sputum Culture - Final 05/20/19 01:08 Sputum - Endotracheal Wash - Final 05/20/19 02:03 Urine,Catheterized Urine Culture - Final Enterobacter Cloacae Laboratory WBC 7.4 X10^3/uL (3.6-10.0) 05/23/19 05:21 RBC 4.03 X10^6/uL (3.5-5.4) 05/23/19 05:21 Hgb 12.4 g/dL (12.0-16.0) 05/23/19 05:21 Hct 37.6 % (36.0-47.0) 05/23/19 05:21 MCV 93.4 fL (80.0-100.0) 05/23/19 05:21 MCH 30.8 pg (27.0-34.0) 05/23/19 05:21 MCHC 33.0 g/dL (33.0-35.0) 05/23/19 05:21 RDW 16.3 % (11.6-16.5) 05/23/19 05:21 Plt Count 140 X10^3/uL (150.0-450.0) L 05/23/19 05:21 MPV 9.6 fL (7.4-11.0) 05/23/19 05:21 Neut % (Auto) 60.2 % (42.0-75.0) 05/23/19 05:21 Lymph % (Auto) 32.6 % (21.0-51.0) 05/23/19 05:21 [place] % (Auto) 5.0 % (0.0-13.0) 05/23/19 05:21 Eos % (Auto) 1.6 % (0.9-2.9) 05/23/19 05:21 Baso % (Auto) 0.6 % (0.2-1.0) 05/23/19 05:21 Neut # (Auto) 4.5 x10^3/uL (2.2-4.8) 05/23/19 05:21 Lymph # (Auto) 2.4 X10^3/uL (1.3-2.9) 05/23/19 05:21 [place] # (Auto) 0.4 x10^3/uL (0.3-0.8) 05/23/19 05:21 Eos # (Auto) 0.1 x10^3/uL (0.0-0.2) 05/23/19 05:21 Baso # (Auto) 0.0 X10^3/uL (0.0-0.1) 05/23/19 05:21 Absolute Nucleated RBC 0.1 /100WBC 05/23/19 05:21 Sodium 142 mmol/L (136-145) 05/23/19 05:21 Corrected Sodium 145 mmol/L (136-145) 05/23/19 05:21 Potassium 4.2 mmol/L (3.5-5.1) 05/23/19 05:21 Chloride 107 mmol/L (98-107) 05/23/19 05:21 Carbon Dioxide 26.6 mmol/L (21-32) 05/23/19 05:21 BUN 17 mg/dL (7-18) 05/23/19 05:21 Creatinine 0.66 mg/dL (0.55-1.02) 05/23/19 05:21 Est GFR (MDRD) Af Amer > 60 (>60) 05/23/19 05:21 Est GFR (MDRD) Non-Af > 60 (>60) 05/23/19 05:21 Glucose 218 mg/dL (65-99) H 05/23/19 05:21 Hemoglobin A1c 10.2 % 05/20/19 01:22 Calcium 8.6 mg/dL (8.5-10.1) 05/23/19 05:21 Corrected Calcium 9.4 mg/dL (8.5-10.1) 05/23/19 05:21 Total Bilirubin 0.50 mg/dL (0.2-1.0) 05/23/19 05:21 AST 15 Units/L (15-37) 05/23/19 05:21 ALT 14 Units/L (12-78) 05/23/19 05:21 Alkaline Phosphatase 87 Units/L (46-116) 05/23/19 05:21 Total Protein 7.5 g/dL (6.4-8.2) 05/23/19 05:21 Albumin 3.0 g/dL (3.4-5.0) L 05/23/19 05:21 Globulin 4.5 g/dL (2.5-4.5) 05/23/19 05:21 Albumin/Globulin Ratio 0.7 Ratio (1.1-2.1) L 05/23/19 05:21 Triglycerides 127 mg/dL (0-150) 05/22/19 05:20 Cholesterol 60 mg/dL (0-200) 05/22/19 05:20 LDL Cholesterol, Calc 8 mg/dL (0-100) 05/22/19 05:20 HDL Cholesterol 27 mg/dL (40-60) L 05/22/19 05:20 Cholesterol/HDL Ratio 2.2 (0.0-5.0) 05/22/19 05:20 Specimen Type Catherized urine 05/20/19 02:03 Urine Color Pale yellow (YELLOW) 05/20/19 02:03 Urine Appearance Cloudy (CLEAR) 05/20/19 02:03 Urine pH 5.0 (5.0 - 8.0) 05/20/19 02:03 Ur Specific [place] 1.015 (1.000-1.030) 05/20/19 02:03 Urine Protein 2+ (NEGATIVE) 05/20/19 02:03 Urine Glucose (UA) 4+ (NEGATIVE) 05/20/19 02:03 Urine Ketones Negative (NEGATIVE) 05/20/19 02:03 Urine Occult Blood 4+ (NEGATIVE) 05/20/19 02:03 Urine Nitrite Negative (NEGATIVE) 05/20/19 02:03 Urine Bilirubin Negative (NEGATIVE) 05/20/19 02:03 Urine Urobilinogen Normal (NORMAL) 05/20/19 02:03 Ur Leukocyte Esterase 3+ (NEGATIVE) 05/20/19 02:03 Urine RBC 3-5 /HPF (NONE SEEN) 05/20/19 02:03 Urine WBC None seen /HPF (NONE SEEN) 05/20/19 02:03 Ur Squamous Epith Cells Negative /HPF (NEGATIVE) 05/20/19 02:03 Urine Bacteria 2+ /HPF (NEGATIVE) 05/20/19 02:03 Ur Culture Indicated? Yes/culture set up 05/20/19 02:03 - Plan (1) Acute UTI Status: Acute Plan: rocephin 1g iv daily, iv fluids (2) Hyperglycemia Status: Acute Plan: HUMULIN R SLIDING SCALE (3) Bronchitis Status: Acute Plan: ROCEPHIN 1G IV DAILY, RESPIRATORY TREATMENTS, CONTINUE TO MONITOR (4) Altered mental status Status: Acute Qualifiers: Altered mental status type: transient alteration of awareness Qualified Code(s): R40.4 - Transient alteration of awareness (5) Hypernatremia Status: Acute Plan: 1/2 NS AT 100ML/HR, CONTINUE TO MONITOR
[2019-05-23] MEDS: LORTAB ELIX 7.5/325 MG (15 ML) PEG SCH (20:20)
[2019-05-23] MEDS: SNACK - Diabetic Appropriate PO SCH (20:24)
[2019-05-23] MEDS: HumuLIN R SC PRN (21:00)
[2019-05-24] MEDS: HumuLIN R SC PRN ×4 (01:22→17:08)
[2019-05-24] MEDS ORDERED: NS 1/2 1000 ML IV 1,000 ML ONE (05:09)
[2019-05-24 05:15] LABS: BASOPHILS % (AUTO) 0.5 % (0.2-1.0); EOSINOPHILS # (AUTO) 0.1 x10^3/uL (0.0-0.2); EOSINOPHILS % (AUTO) 2.5 % (0.9-2.9); HEMATOCRIT 35.1 % (36.0-47.0); HEMOGLOBIN 11.7 g/dL (12.0-16.0); LYMPHOCYTES # (AUTO) 2.5 X10^3/uL (1.3-2.9); LYMPHOCYTES % (AUTO) 42.5 % (21.0-51.0); MEAN CORPUSCULAR HEMOGLOBIN 30.9 pg (27.0-34.0); MEAN CORPUSCULAR HGB CONC 33.3 g/dL (33.0-35.0); MEAN CORPUSCULAR VOLUME 92.9 fL (80.0-100.0); MEAN PLATELET VOLUME 9.5 fL (7.4-11.0); MONOCYTES # (AUTO) 0.5 x10^3/uL (0.3-0.8); MONOCYTES % (AUTO) 8.6 % (0.0-13.0); NEUTROPHILS # (AUTO) 2.7 x10^3/uL (2.2-4.8); NEUTROPHILS % (AUTO) 45.9 % (42.0-75.0); PLATELET COUNT 131 X10^3/uL (150.0-450.0); RED BLOOD COUNT 3.78 X10^6/uL (3.5-5.4); RED CELL DISTRIBUTION WIDTH 15.9 % (11.6-16.5); WHITE BLOOD COUNT 5.9 X10^3/uL (3.6-10.0)
[2019-05-24] MEDS: APRESOLINE TAB 25 MG GT SCH ×3 (05:16→21:58)
[2019-05-24] MEDS: REGLAN TAB 10 MG PO SCH ×4 (05:16→23:15)
[2019-05-24] MEDS: NS 1/2 1000 ML IV 1,000 ML IV SCH ×3 (05:16→22:01)
[2019-05-24] MEDS: ARTIFICIAL TEARS DROPS AFFEYE SCH ×3 (05:16→22:00)
[2019-05-24 05:27] LABS: ALANINE AMINOTRANSFERASE 12 Units/L (12-78); ALBUMIN 3.1 g/dL (3.4-5.0); ALKALINE PHOSPHATASE 84 Units/L (46-116); ASPARTATE AMINO TRANSFERASE 17 Units/L (15-37); BLOOD UREA NITROGEN 13 mg/dL (7-18); CALCIUM 8.6 mg/dL (8.5-10.1); CARBON DIOXIDE 27.5 mmol/L (21-32); CHLORIDE 107 mmol/L (98-107); COR CA(FOR HYPOALB) 9.3 mg/dL (8.5-10.1); COR NA(FOR HYPERGLY) 144 mmol/L (136-145); CREATININE 0.63 mg/dL (0.55-1.02); SODIUM 142 mmol/L (136-145); TOTAL PROTEIN 7.4 g/dL (6.4-8.2); eGFR NON BLACK RACES > 60 (>60)
[2019-05-24] MEDS ORDERED: NORVASC TAB 2.5 MG ONE ×2 (07:53→20:11)
[2019-05-24] MEDS: NYSTATIN SUSP PO SCH ×4 (08:50→20:56)
[2019-05-24] MEDS: POTASSIUM CHLORIDE LIQ 20 MEQ UDC PEG SCH ×2 (08:50→20:56)
[2019-05-24] MEDS: HIPREX PEG SCH ×2 (08:51→20:57)
[2019-05-24] MEDS: LOPRESSOR TAB 50 MG GT SCH ×2 (08:51→20:55)
[2019-05-24] MEDS: TAB-A-VITE PO SCH (08:51)
[2019-05-24] MEDS: NORVASC TAB 2.5 MG PEG SCH ×2 (08:52→20:55)
[2019-05-24] MEDS: HEMOCYTE-PLUS PO SCH (08:52)
[2019-05-24] MEDS: LEVEMIR SC SCH ×3 (08:52→22:00)
[2019-05-24] MEDS: ALBUMIN HUMAN 25%- 100 ML 100 ML IV SCH (08:53)
[2019-05-24] MEDS: LOVENOX INJ 40 MG SYR SC SCH (08:54)
[2019-05-24] MEDS: ZANTAC PO SCH (09:00)
[2019-05-24] MEDS: ROCEPHIN VIAL 1 GRAM IVP SCH (09:00)
[2019-05-24] MEDS: ZINC SULFATE PO SCH (09:00)
[2019-05-24] MEDS: REQUIP PO SCH ×2 (09:00→20:55)
[2019-05-24] MEDS: VITAMIN C PEG SCH ×2 (09:00→20:55)
--- NOTE | 2019-05-24 10:15 | PCM.PROG ---
Progress Note - Progress Note for Day of Date of Exam: 05/23/19 - Subjective Subjective: IS BEING TREATED FOR AMS, UTI, BRONCHITIS, HYPERGLYCEMIA, AND HYPERNATREMIA. TODAY, SHE IS ALERT, LYING IN BED ON MORNING ROUNDS. FAMILY REPORTS THAT SHE HAS BEEN MORE ALERT TODAY. ON EXAMINATION, HEART IS REGULAR IN RATE AND RHYTHM. BILATERAL LUNGS ARE NOTED WITH SCATTERED WHEEZI NG. ABDOMEN IS ROUND, SOFT, AND NON-TENDER WITH NORMAL BOWEL SOUNDS NOTED IN ALL QUADRANTS. HER VITALS THIS MORNING ARE: 99.2-82-20-97%-122/58. LABS WERE OBTAINED. ABNORMAL LAB VALUES INCLUDE THE FOLLOWING: PLT COUNT 140, GLUCOSE 218, ALBUMIN 3.0. SPUTUM CULTURES ARE PENDING. URINE CULTURE IS POSITIVE FOR ENTEROBACTER CLOACAE. SHE IS CURRENTLY RECEIVING NS AT 100ML/HR, ROCEPHIN 1G IV DAILY, HUMULIN R SLIDING SCALE, ALBUMIN, AND HOME MEDS WERE RESUMED. TODAY, WE WILL INCREASE LEVEMIR TO 12 UNITS SC BID. OTHERWISE, WE WILL CONTINUE WITH CURRENT PLAN OF CARE. WE WILL FOLLOW UP WITH AM LABS AND CONTINUE TO MONITOR. - Past Medical Family Social History Past Med/Fam/Surg Hx: No changes since H&P Allergies: Allergies No Known Drug Allergies Allergy (Verified 09/24/17 15:23) - Review of Systems ROS: No change since H&P - Vital Signs and I&O's Vital Signs: Temperature 98.7 F Pulse Rate [Apical] 78 Pulse Rate 94 Respiratory Rate 18 Blood Pressure [Left Arm] 130/62 Blood Pressure [Right Arm] 128/58 Blood Pressure 138/86 O2 Sat by Pulse Oximetry 98 Intake and Output: Intake & Output 05/21/19 05/22/19 05/23/19 05/24/19 11:59 11:59 11:59 11:59 Intake Total 3131 / 3131 900 / 900 0 / 0 0 / 0 Balance 3131 / 3131 900 / 900 0 / 0 0 / 0 - Physical Exam Oriented: Normal Eyes: Normal Ear: Normal Nose: Normal Throat: Normal Respiratory: Generalized, Diminished, Wheezes Cardiovascular: Normal. negative: S3, S4, Murmur : Normal Auscultation: Bowel Sounds: Normal Palpation: Normal Tenderness: Normal Skin: Normal Musculoskeletal: Normal Psychiatric: Normal Mood Description: Calm Affect: Flat Speech Pattern: Aphasic - Laboratory and Diagnostics Result Diagrams: 05/24/19 05:00 05/24/19 05:00 Labs: 05/20/19 01:08 Sputum - Endotracheal Wash Sputum Culture - Final 05/20/19 01:08 Sputum - Endotracheal Wash - Final 05/20/19 02:03 Urine,Catheterized Urine Culture - Final Enterobacter Cloacae Laboratory WBC 5.9 X10^3/uL (3.6-10.0) 05/24/19 05:00 RBC 3.78 X10^6/uL (3.5-5.4) 05/24/19 05:00 Hgb 11.7 g/dL (12.0-16.0) L 05/24/19 05:00 Hct 35.1 % (36.0-47.0) L 05/24/19 05:00 MCV 92.9 fL (80.0-100.0) 05/24/19 05:00 MCH 30.9 pg (27.0-34.0) 05/24/19 05:00 MCHC 33.3 g/dL (33.0-35.0) 05/24/19 05:00 RDW 15.9 % (11.6-16.5) 05/24/19 05:00 Plt Count 131 X10^3/uL (150.0-450.0) L 05/24/19 05:00 MPV 9.5 fL (7.4-11.0) 05/24/19 05:00 Neut % (Auto) 45.9 % (42.0-75.0) 05/24/19 05:00 Lymph % (Auto) 42.5 % (21.0-51.0) 05/24/19 05:00 [place] % (Auto) 8.6 % (0.0-13.0) 05/24/19 05:00 Eos % (Auto) 2.5 % (0.9-2.9) 05/24/19 05:00 Baso % (Auto) 0.5 % (0.2-1.0) 05/24/19 05:00 Neut # (Auto) 2.7 x10^3/uL (2.2-4.8) 05/24/19 05:00 Lymph # (Auto) 2.5 X10^3/uL (1.3-2.9) 05/24/19 05:00 [place] # (Auto) 0.5 x10^3/uL (0.3-0.8) 05/24/19 05:00 Eos # (Auto) 0.1 x10^3/uL (0.0-0.2) 05/24/19 05:00 Baso # (Auto) 0.0 X10^3/uL (0.0-0.1) 05/24/19 05:00 Absolute Nucleated RBC 0.1 /100WBC 05/24/19 05:00 Sodium 142 mmol/L (136-145) 05/24/19 05:00 Corrected Sodium 144 mmol/L (136-145) 05/24/19 05:00 Potassium 4.7 mmol/L (3.5-5.1) 05/24/19 05:00 Chloride 107 mmol/L (98-107) 05/24/19 05:00 Carbon Dioxide 27.5 mmol/L (21-32) 05/24/19 05:00 BUN 13 mg/dL (7-18) 05/24/19 05:00 Creatinine 0.63 mg/dL (0.55-1.02) 05/24/19 05:00 Est GFR (MDRD) Af Amer > 60 (>60) 05/24/19 05:00 Est GFR (MDRD) Non-Af > 60 (>60) 05/24/19 05:00 Glucose 184 mg/dL (65-99) H 05/24/19 05:00 Hemoglobin A1c 10.2 % 05/20/19 01:22 Calcium 8.6 mg/dL (8.5-10.1) 05/24/19 05:00 Corrected Calcium 9.3 mg/dL (8.5-10.1) 05/24/19 05:00 Total Bilirubin 0.30 mg/dL (0.2-1.0) 05/24/19 05:00 AST 17 Units/L (15-37) 05/24/19 05:00 ALT 12 Units/L (12-78) 05/24/19 05:00 Alkaline Phosphatase 84 Units/L (46-116) 05/24/19 05:00 Total Protein 7.4 g/dL (6.4-8.2) 05/24/19 05:00 Albumin 3.1 g/dL (3.4-5.0) L 05/24/19 05:00 Globulin 4.3 g/dL (2.5-4.5) 05/24/19 05:00 Albumin/Globulin Ratio 0.7 Ratio (1.1-2.1) L 05/24/19 05:00 Triglycerides 127 mg/dL (0-150) 05/22/19 05:20 Cholesterol 60 mg/dL (0-200) 05/22/19 05:20 LDL Cholesterol, Calc 8 mg/dL (0-100) 05/22/19 05:20 HDL Cholesterol 27 mg/dL (40-60) L 05/22/19 05:20 Cholesterol/HDL Ratio 2.2 (0.0-5.0) 05/22/19 05:20 Specimen Type Catherized urine 05/20/19 02:03 Urine Color Pale yellow (YELLOW) 05/20/19 02:03 Urine Appearance Cloudy (CLEAR) 05/20/19 02:03 Urine pH 5.0 (5.0 - 8.0) 05/20/19 02:03 Ur Specific [place] 1.015 (1.000-1.030) 05/20/19 02:03 Urine Protein 2+ (NEGATIVE) 05/20/19 02:03 Urine Glucose (UA) 4+ (NEGATIVE) 05/20/19 02:03 Urine Ketones Negative (NEGATIVE) 05/20/19 02:03 Urine Occult Blood 4+ (NEGATIVE) 05/20/19 02:03 Urine Nitrite Negative (NEGATIVE) 05/20/19 02:03 Urine Bilirubin Negative (NEGATIVE) 05/20/19 02:03 Urine Urobilinogen Normal (NORMAL) 05/20/19 02:03 Ur Leukocyte Esterase 3+ (NEGATIVE) 05/20/19 02:03 Urine RBC 3-5 /HPF (NONE SEEN) 05/20/19 02:03 Urine WBC None seen /HPF (NONE SEEN) 05/20/19 02:03 Ur Squamous Epith Cells Negative /HPF (NEGATIVE) 05/20/19 02:03 Urine Bacteria 2+ /HPF (NEGATIVE) 05/20/19 02:03 Ur Culture Indicated? Yes/culture set up 05/20/19 02:03 - Plan (1) Acute UTI Status: Acute Plan: rocephin 1g iv daily, iv fluids (2) Hyperglycemia Status: Acute Plan: LEVEMIR 12 UNITS, HUMULIN R SLIDING SCALE (3) Bronchitis Status: Acute Plan: ROCEPHIN 1G IV DAILY, RESPIRATORY TREATMENTS, CONTINUE TO MONITOR (4) Altered mental status Status: Acute Qualifiers: Altered mental status type: transient alteration of awareness Qualified Code(s): R40.4 - Transient alteration of awareness (5) Hypernatremia Status: Acute Plan: 1/2 NS AT 100ML/HR, CONTINUE TO MONITOR
--- NOTE | 2019-05-24 19:50 | PCM.PROG ---
Progress Note - Progress Note for Day of Date of Exam: 05/24/19 - Subjective Subjective: IS BEING TREATED FOR AMS, UTI, BRONCHITIS, HYPERGLYCEMIA, AND HYPERNATREMIA. TODAY, SHE IS ALERT, LYING IN BED ON MORNING ROUNDS. FAMILY REPORTS THAT SHE HAS BEEN MORE ALERT TODAY. ON EXAMINATION, HEART IS REGULAR IN RATE AND RHYTHM. BILATERAL LUNGS ARE NOTED WITH SCATTERED WHEEZI NG. ABDOMEN IS ROUND, SOFT, AND NON-TENDER WITH NORMAL BOWEL SOUNDS NOTED IN ALL QUADRANTS. HER VITALS THIS MORNING ARE: 97.6-87-16-100%-148/67. LABS WERE OBTAINED. ABNORMAL LAB VALUES INCLUDE THE FOLLOWING: HGB 11.7, HCT 35.1, GLUCOSE 184, ALBUMIN 3.1. SPUTUM CULTURES ARE PENDING. URINE CULTURE IS POSITIVE FOR ENTEROBACTER CLOACAE. SHE IS CURRENTLY RECEIVING NS AT 100ML/HR, ROCEPHIN 1G IV DAILY, HUMULIN R SLIDING SCALE, ALBUMIN, AND HOME MEDS WERE RESUMED. TODAY, WE WILL INCREASE LEVEMIR TO 14 UNITS SC BID. OTHERWISE, WE WILL CONTINUE WITH CURRENT PLAN OF CARE. WE WILL FOLLOW UP WITH AM LABS AND CONTINUE TO MONITOR. - Past Medical Family Social History Past Med/Fam/Surg Hx: No changes since H&P Allergies: Allergies No Known Drug Allergies Allergy (Verified 09/24/17 15:23) - Review of Systems ROS: No change since H&P - Vital Signs and I&O's Vital Signs: Temperature 99.1 F Pulse Rate [Apical] 82 Pulse Rate 94 Respiratory Rate 18 Blood Pressure [Left Arm] 133/67 Blood Pressure [Right Arm] 128/58 Blood Pressure 138/86 O2 Sat by Pulse Oximetry 99 Intake and Output: Intake & Output 05/22/19 05/23/19 05/24/19 05/25/19 11:59 11:59 11:59 11:59 Intake Total 900 / 900 0 / 0 0 / 0 997 / 997 Balance 900 / 900 0 / 0 0 / 0 997 / 997 - Physical Exam Oriented: Normal Eyes: Normal Ear: Normal Nose: Normal Throat: Normal Respiratory: Generalized, Diminished, Wheezes Cardiovascular: Normal. negative: S3, S4, Murmur : Normal Auscultation: Bowel Sounds: Normal Tenderness: Normal Skin: Normal Musculoskeletal: Normal Psychiatric: Normal Mood Description: Calm Affect: Flat Speech Pattern: Aphasic - Laboratory and Diagnostics Result Diagrams: 05/24/19 05:00 05/24/19 05:00 Labs: 05/20/19 01:08 Sputum - Endotracheal Wash Sputum Culture - Final 05/20/19 01:08 Sputum - Endotracheal Wash - Final 05/20/19 02:03 Urine,Catheterized Urine Culture - Final Enterobacter Cloacae Laboratory WBC 5.9 X10^3/uL (3.6-10.0) 05/24/19 05:00 RBC 3.78 X10^6/uL (3.5-5.4) 05/24/19 05:00 Hgb 11.7 g/dL (12.0-16.0) L 05/24/19 05:00 Hct 35.1 % (36.0-47.0) L 05/24/19 05:00 MCV 92.9 fL (80.0-100.0) 05/24/19 05:00 MCH 30.9 pg (27.0-34.0) 05/24/19 05:00 MCHC 33.3 g/dL (33.0-35.0) 05/24/19 05:00 RDW 15.9 % (11.6-16.5) 05/24/19 05:00 Plt Count 131 X10^3/uL (150.0-450.0) L 05/24/19 05:00 MPV 9.5 fL (7.4-11.0) 05/24/19 05:00 Neut % (Auto) 45.9 % (42.0-75.0) 05/24/19 05:00 Lymph % (Auto) 42.5 % (21.0-51.0) 05/24/19 05:00 [place] % (Auto) 8.6 % (0.0-13.0) 05/24/19 05:00 Eos % (Auto) 2.5 % (0.9-2.9) 05/24/19 05:00 Baso % (Auto) 0.5 % (0.2-1.0) 05/24/19 05:00 Neut # (Auto) 2.7 x10^3/uL (2.2-4.8) 05/24/19 05:00 Lymph # (Auto) 2.5 X10^3/uL (1.3-2.9) 05/24/19 05:00 [place] # (Auto) 0.5 x10^3/uL (0.3-0.8) 05/24/19 05:00 Eos # (Auto) 0.1 x10^3/uL (0.0-0.2) 05/24/19 05:00 Baso # (Auto) 0.0 X10^3/uL (0.0-0.1) 05/24/19 05:00 Absolute Nucleated RBC 0.1 /100WBC 05/24/19 05:00 Sodium 142 mmol/L (136-145) 05/24/19 05:00 Corrected Sodium 144 mmol/L (136-145) 05/24/19 05:00 Potassium 4.7 mmol/L (3.5-5.1) 05/24/19 05:00 Chloride 107 mmol/L (98-107) 05/24/19 05:00 Carbon Dioxide 27.5 mmol/L (21-32) 05/24/19 05:00 BUN 13 mg/dL (7-18) 05/24/19 05:00 Creatinine 0.63 mg/dL (0.55-1.02) 05/24/19 05:00 Est GFR (MDRD) Af Amer > 60 (>60) 05/24/19 05:00 Est GFR (MDRD) Non-Af > 60 (>60) 05/24/19 05:00 Glucose 184 mg/dL (65-99) H 05/24/19 05:00 Hemoglobin A1c 10.2 % 05/20/19 01:22 Calcium 8.6 mg/dL (8.5-10.1) 05/24/19 05:00 Corrected Calcium 9.3 mg/dL (8.5-10.1) 05/24/19 05:00 Total Bilirubin 0.30 mg/dL (0.2-1.0) 05/24/19 05:00 AST 17 Units/L (15-37) 05/24/19 05:00 ALT 12 Units/L (12-78) 05/24/19 05:00 Alkaline Phosphatase 84 Units/L (46-116) 05/24/19 05:00 Total Protein 7.4 g/dL (6.4-8.2) 05/24/19 05:00 Albumin 3.1 g/dL (3.4-5.0) L 05/24/19 05:00 Globulin 4.3 g/dL (2.5-4.5) 05/24/19 05:00 Albumin/Globulin Ratio 0.7 Ratio (1.1-2.1) L 05/24/19 05:00 Triglycerides 127 mg/dL (0-150) 05/22/19 05:20 Cholesterol 60 mg/dL (0-200) 05/22/19 05:20 LDL Cholesterol, Calc 8 mg/dL (0-100) 05/22/19 05:20 HDL Cholesterol 27 mg/dL (40-60) L 05/22/19 05:20 Cholesterol/HDL Ratio 2.2 (0.0-5.0) 05/22/19 05:20 Specimen Type Catherized urine 05/20/19 02:03 Urine Color Pale yellow (YELLOW) 05/20/19 02:03 Urine Appearance Cloudy (CLEAR) 05/20/19 02:03 Urine pH 5.0 (5.0 - 8.0) 05/20/19 02:03 Ur Specific [place] 1.015 (1.000-1.030) 05/20/19 02:03 Urine Protein 2+ (NEGATIVE) 05/20/19 02:03 Urine Glucose (UA) 4+ (NEGATIVE) 05/20/19 02:03 Urine Ketones Negative (NEGATIVE) 05/20/19 02:03 Urine Occult Blood 4+ (NEGATIVE) 05/20/19 02:03 Urine Nitrite Negative (NEGATIVE) 05/20/19 02:03 Urine Bilirubin Negative (NEGATIVE) 05/20/19 02:03 Urine Urobilinogen Normal (NORMAL) 05/20/19 02:03 Ur Leukocyte Esterase 3+ (NEGATIVE) 05/20/19 02:03 Urine RBC 3-5 /HPF (NONE SEEN) 05/20/19 02:03 Urine WBC None seen /HPF (NONE SEEN) 05/20/19 02:03 Ur Squamous Epith Cells Negative /HPF (NEGATIVE) 05/20/19 02:03 Urine Bacteria 2+ /HPF (NEGATIVE) 05/20/19 02:03 Ur Culture Indicated? Yes/culture set up 05/20/19 02:03 - Plan (1) Acute UTI Status: Acute Plan: rocephin 1g iv daily, iv fluids (2) Hyperglycemia Status: Acute Plan: LEVEMIR 14 UNITS, HUMULIN R SLIDING SCALE (3) Bronchitis Status: Acute Plan: ROCEPHIN 1G IV DAILY, RESPIRATORY TREATMENTS, CONTINUE TO MONITOR (4) Altered mental status Status: Acute Qualifiers: Altered mental status type: transient alteration of awareness Qualified Co de(s): R40.4 - Transient alteration of awareness (5) Hypernatremia Status: Acute Plan: 1/2 NS AT 100ML/HR, CONTINUE TO MONITOR
[2019-05-24] MEDS: SNACK - Diabetic Appropriate PO SCH (20:54)
[2019-05-24] MEDS: LORTAB ELIX 7.5/325 MG (15 ML) PEG SCH (20:56)
[2019-05-25] MEDS: HumuLIN R SC PRN ×2 (00:58→05:37)
[2019-05-25] MEDS: REGLAN TAB 10 MG PO SCH ×4 (05:35→22:29)
[2019-05-25] MEDS: APRESOLINE TAB 25 MG GT SCH ×3 (05:36→22:49)
[2019-05-25] MEDS: ARTIFICIAL TEARS DROPS AFFEYE SCH ×3 (05:36→22:36)
[2019-05-25 06:07] LABS: BASOPHILS # (AUTO) 0.1 X10^3/uL (0.0-0.1); BASOPHILS % (AUTO) 1.2 % (0.2-1.0); EOSINOPHILS # (AUTO) 0.1 x10^3/uL (0.0-0.2); EOSINOPHILS % (AUTO) 2.1 % (0.9-2.9); HEMATOCRIT 33.5 % (36.0-47.0); HEMOGLOBIN 11.7 g/dL (12.0-16.0); LYMPHOCYTES # (AUTO) 2.5 X10^3/uL (1.3-2.9); LYMPHOCYTES % (AUTO) 38.7 % (21.0-51.0); MEAN CORPUSCULAR HEMOGLOBIN 32.2 pg (27.0-34.0); MEAN CORPUSCULAR HGB CONC 34.8 g/dL (33.0-35.0); MEAN CORPUSCULAR VOLUME 92.7 fL (80.0-100.0); MEAN PLATELET VOLUME 10.1 fL (7.4-11.0); MONOCYTES # (AUTO) 0.5 x10^3/uL (0.3-0.8); NEUTROPHILS # (AUTO) 3.2 x10^3/uL (2.2-4.8); PLATELET COUNT 143 X10^3/uL (150.0-450.0); RED BLOOD COUNT 3.61 X10^6/uL (3.5-5.4); RED CELL DISTRIBUTION WIDTH 16.2 % (11.6-16.5); WHITE BLOOD COUNT 6.5 X10^3/uL (3.6-10.0)
[2019-05-25] MEDS: NS 1/2 1000 ML IV 1,000 ML IV SCH ×3 (06:18→22:35)
[2019-05-25] MEDS ORDERED: NS 1/2 1000 ML IV 1,000 ML ONE (06:19)
[2019-05-25 06:26] LABS: ALANINE AMINOTRANSFERASE 10 Units/L (12-78); ALBUMIN 3.3 g/dL (3.4-5.0); ALKALINE PHOSPHATASE 87 Units/L (46-116); ASPARTATE AMINO TRANSFERASE 15 Units/L (15-37); BLOOD UREA NITROGEN 9 mg/dL (7-18); CALCIUM 8.8 mg/dL (8.5-10.1); CHLORIDE 105 mmol/L (98-107); COR CA(FOR HYPOALB) 9.4 mg/dL (8.5-10.1); COR NA(FOR HYPERGLY) 142 mmol/L (136-145); CREATININE 0.53 mg/dL (0.55-1.02); SODIUM 140 mmol/L (136-145); TOTAL PROTEIN 7.3 g/dL (6.4-8.2); eGFR NON BLACK RACES > 60 (>60)
[2019-05-25] MEDS ORDERED: NORVASC TAB 2.5 MG ONE ×2 (07:26→20:48)
[2019-05-25] MEDS: ALBUMIN HUMAN 25%- 100 ML 100 ML IV SCH (08:18)
[2019-05-25] MEDS: ZINC SULFATE PO SCH (08:24)
[2019-05-25] MEDS: VITAMIN C PEG SCH ×2 (08:24→22:28)
[2019-05-25] MEDS: REQUIP PO SCH ×2 (08:24→22:28)
[2019-05-25] MEDS: LOPRESSOR TAB 50 MG GT SCH ×2 (08:24→22:29)
[2019-05-25] MEDS: ZANTAC PO SCH (08:24)
[2019-05-25] MEDS: POTASSIUM CHLORIDE LIQ 20 MEQ UDC PEG SCH ×2 (08:24→22:28)
[2019-05-25] MEDS: HEMOCYTE-PLUS PO SCH (08:24)
[2019-05-25] MEDS: TAB-A-VITE PO SCH (08:24)
[2019-05-25] MEDS: ROCEPHIN VIAL 1 GRAM IVP SCH (08:25)
[2019-05-25] MEDS: NORVASC TAB 2.5 MG PEG SCH ×2 (08:25→22:30)
[2019-05-25] MEDS: LOVENOX INJ 40 MG SYR SC SCH (08:25)
[2019-05-25] MEDS: NYSTATIN SUSP PO SCH ×4 (08:25→22:33)
[2019-05-25] MEDS: HIPREX PEG SCH ×2 (08:34→22:29)
[2019-05-25] MEDS: LEVEMIR SC SCH ×2 (09:24→22:32)
[2019-05-25] MEDS: SNACK - Diabetic Appropriate PO SCH ×3 (22:25→23:42)
[2019-05-25] MEDS: LORTAB ELIX 7.5/325 MG (15 ML) PEG SCH (22:26)
[2019-05-26] MEDS: REGLAN TAB 10 MG PO SCH ×5 (05:15→22:17)
[2019-05-26 05:20] LABS: BASOPHILS # (AUTO) 0.1 X10^3/uL (0.0-0.1); BASOPHILS % (AUTO) 0.8 % (0.2-1.0); EOSINOPHILS # (AUTO) 0.2 x10^3/uL (0.0-0.2); EOSINOPHILS % (AUTO) 2.5 % (0.9-2.9); HEMOGLOBIN 10.7 g/dL (12.0-16.0); LYMPHOCYTES % (AUTO) 44.8 % (21.0-51.0); MEAN CORPUSCULAR HEMOGLOBIN 31.2 pg (27.0-34.0); MEAN CORPUSCULAR HGB CONC 33.6 g/dL (33.0-35.0); MEAN CORPUSCULAR VOLUME 92.9 fL (80.0-100.0); MEAN PLATELET VOLUME 9.8 fL (7.4-11.0); MONOCYTES # (AUTO) 0.5 x10^3/uL (0.3-0.8); MONOCYTES % (AUTO) 7.6 % (0.0-13.0); NEUTROPHILS # (AUTO) 2.9 x10^3/uL (2.2-4.8); NEUTROPHILS % (AUTO) 44.3 % (42.0-75.0); PLATELET COUNT 163 X10^3/uL (150.0-450.0); RED BLOOD COUNT 3.44 X10^6/uL (3.5-5.4); RED CELL DISTRIBUTION WIDTH 16.1 % (11.6-16.5); WHITE BLOOD COUNT 6.6 X10^3/uL (3.6-10.0)
[2019-05-26 05:35] LABS: ALANINE AMINOTRANSFERASE 12 Units/L (12-78); ALBUMIN 3.5 g/dL (3.4-5.0); ALKALINE PHOSPHATASE 96 Units/L (46-116); ASPARTATE AMINO TRANSFERASE 15 Units/L (15-37); BLOOD UREA NITROGEN 11 mg/dL (7-18); CARBON DIOXIDE 27.9 mmol/L (21-32); CHLORIDE 102 mmol/L (98-107); COR NA(FOR HYPERGLY) 139 mmol/L (136-145); CREATININE 0.64 mg/dL (0.55-1.02); SODIUM 137 mmol/L (136-145); TOTAL PROTEIN 7.5 g/dL (6.4-8.2); eGFR NON BLACK RACES > 60 (>60)
[2019-05-26 05:55] LABS: BAND NEUTROPHILS % 2 % (0-10)
[2019-05-26 05:56] LABS: PLATELET MORPHOLOGY COMMENT NORMAL (NORMAL)
[2019-05-26] MEDS: ARTIFICIAL TEARS DROPS AFFEYE SCH ×3 (06:05→21:10)
[2019-05-26] MEDS: APRESOLINE TAB 25 MG GT SCH ×3 (06:05→21:26)
[2019-05-26] MEDS: NS 1/2 1000 ML IV 1,000 ML IV SCH ×3 (06:30→22:00)
[2019-05-26] MEDS ORDERED: NORVASC TAB 2.5 MG ONE ×2 (07:27→20:53)
[2019-05-26] MEDS: ALBUMIN HUMAN 25%- 100 ML 100 ML IV SCH (09:11)
[2019-05-26] MEDS: ROCEPHIN VIAL 1 GRAM IVP SCH (09:11)
[2019-05-26] MEDS: HEMOCYTE-PLUS PO SCH (09:12)
[2019-05-26] MEDS: ZANTAC PO SCH (09:12)
[2019-05-26] MEDS: POTASSIUM CHLORIDE LIQ 20 MEQ UDC PEG SCH ×2 (09:12→21:25)
[2019-05-26] MEDS: NYSTATIN SUSP PO SCH ×4 (09:12→21:18)
[2019-05-26] MEDS: ZINC SULFATE PO SCH (09:12)
[2019-05-26] MEDS: VITAMIN C PEG SCH ×2 (09:12→21:26)
[2019-05-26] MEDS: LOPRESSOR TAB 50 MG GT SCH ×2 (09:12→20:25)
[2019-05-26] MEDS: TAB-A-VITE PO SCH (09:12)
[2019-05-26] MEDS: REQUIP PO SCH ×2 (09:12→21:25)
[2019-05-26] MEDS: NORVASC TAB 2.5 MG PEG SCH ×2 (09:13→21:25)
[2019-05-26] MEDS: HIPREX PEG SCH ×2 (09:15→21:25)
[2019-05-26] MEDS: LOVENOX INJ 40 MG SYR SC SCH (09:37)
[2019-05-26] MEDS: LEVEMIR SC SCH ×3 (09:37→21:10)
--- NOTE | 2019-05-26 19:30 | PCM.PROG ---
Progress Note - Progress Note for Day of Date of Exam: 05/25/19 - Subjective Subjective: IS BEING TREATED FOR AMS, UTI, BRONCHITIS, HYPERGLYCEMIA, AND HYPERNATREMIA. TODAY, SHE IS ALERT, LYING IN BED ON MORNING ROUNDS. FAMILY REPORTS THAT SHE HAS BEEN MORE ALERT TODAY. ON EXAMINATION, HEART IS REGULAR IN RATE AND RHYTHM. BILATERAL LUNGS ARE NOTED WITH SCATTERED WHEEZI NG. ABDOMEN IS ROUND, SOFT, AND NON-TENDER WITH NORMAL BOWEL SOUNDS NOTED IN ALL QUADRANTS. HER VITALS THIS MORNING ARE: 99.3-87-20-99%-138/73. LABS WERE OBTAINED. ABNORMAL LAB VALUES INCLUDE THE FOLLOWING: HGB 11.7, HCT 33.5, PLT COUNT 143, CREATININE 0.53, GLUCOSE 164, ALT 10, ALBUMIN 3.3. SPUTUM CULTURES ARE PENDING. URINE CULTURE IS POSITIVE FOR ENTEROBACTER CLOACAE. SHE IS CURRENTLY RECEIVING NS AT 100ML/HR, ROCEPHIN 1G IV DAILY, HUMULIN R SLIDING SCALE, ALBUMIN, AND HOME MEDS WERE RESUMED. WE WILL CONTINUE WITH CURRENT PLAN OF CARE TODAY. OTHERWISE, WE WILL FOLLOW UP WITH AM LABS AND CONTINUE TO MONITOR. - Past Medical Family Social History Past Med/Fam/Surg Hx: No changes since H&P Allergies: Allergies No Known Drug Allergies Allergy (Verified 09/24/17 15:23) - Review of Systems ROS: No change since H&P - Vital Signs and I&O's Vital Signs: Temperature 98.9 F Pulse Rate [Right] 78 Pulse Rate [Apical] 81 Pulse Rate 94 Respiratory Rate 20 Blood Pressure [Left Arm] 139/69 Blood Pressure [Right Arm] 140/82 Blood Pressure 138/86 O2 Sat by Pulse Oximetry 99 Intake and Output: Intake & Output 05/24/19 05/25/19 05/26/19 05/27/19 11:59 11:59 11:59 11:59 Intake Total 0 / 0 1537 / 1537 600 / 600 713 / 713 Balance 0 / 0 1537 / 1537 600 / 600 713 / 713 - Physical Exam Oriented: Normal Eyes: Normal Ear: Normal Nose: Normal Throat: Normal Respiratory: Generalized, Diminished, Wheezes Cardiovascular: Normal. negative: S3, S4, Murmur : Normal Auscultation: Bowel Sounds: Normal Palpation: Normal Tenderness: Normal Skin: Normal Musculoskeletal: Normal Psychiatric: Normal Mood Description: Calm Affect: Flat Speech Pattern: Aphasic - Laboratory and Diagnostics Result Diagrams: 05/26/19 04:28 05/26/19 04:28 Labs: 05/20/19 01:08 Sputum - Endotracheal Wash Sputum Culture - Final 05/20/19 01:08 Sputum - Endotracheal Wash - Final 05/20/19 02:03 Urine,Catheterized Urine Culture - Final Enterobacter Cloacae Laboratory WBC 6.6 X10^3/uL (3.6-10.0) 05/26/19 04:28 RBC 3.44 X10^6/uL (3.5-5.4) L 05/26/19 04:28 Hgb 10.7 g/dL (12.0-16.0) L 05/26/19 04:28 Hct 32.0 % (36.0-47.0) L 05/26/19 04:28 MCV 92.9 fL (80.0-100.0) 05/26/19 04:28 MCH 31.2 pg (27.0-34.0) 05/26/19 04:28 MCHC 33.6 g/dL (33.0-35.0) 05/26/19 04:28 RDW 16.1 % (11.6-16.5) 05/26/19 04:28 Plt Count 163 X10^3/uL (150.0-450.0) 05/26/19 04:28 Plt Count Comment Adequate (ADEQUATE) 05/26/19 04:28 MPV 9.8 fL (7.4-11.0) 05/26/19 04:28 Neut % (Auto) 44.3 % (42.0-75.0) 05/26/19 04:28 Lymph % (Auto) 44.8 % (21.0-51.0) 05/26/19 04:28 [place] % (Auto) 7.6 % (0.0-13.0) 05/26/19 04:28 Eos % (Auto) 2.5 % (0.9-2.9) 05/26/19 04:28 Baso % (Auto) 0.8 % (0.2-1.0) 05/26/19 04:28 Neut # (Auto) 2.9 x10^3/uL (2.2-4.8) 05/26/19 04:28 Lymph # (Auto) 3.0 X10^3/uL (1.3-2.9) H 05/26/19 04:28 [place] # (Auto) 0.5 x10^3/uL (0.3-0.8) 05/26/19 04:28 Eos # (Auto) 0.2 x10^3/uL (0.0-0.2) 05/26/19 04:28 Baso # (Auto) 0.1 X10^3/uL (0.0-0.1) 05/26/19 04:28 Absolute Nucleated RBC 0.2 /100WBC 05/26/19 04:28 Total Counted 100 05/26/19 04:28 Neutrophils % (Manual) 50 % (39-76) 05/26/19 04:28 Band Neutrophils % 2 % (0-10) 05/26/19 04:28 Lymphocytes % (Manual) 39 % (13-43) 05/26/19 04:28 Monocytes % (Manual) 6 % (4-9) 05/26/19 04:28 Eosinophils % (Manual) 3 % (0-6) 05/26/19 04:28 Plt Morphology Comment Normal (NORMAL) 05/26/19 04:28 RBC Morphology Normal (NORMAL) 05/26/19 04:28 Sodium 137 mmol/L (136-145) 05/26/19 04:28 Corrected Sodium 139 mmol/L (136-145) 05/26/19 04:28 Potassium 4.6 mmol/L (3.5-5.1) 05/26/19 04:28 Chloride 102 mmol/L (98-107) 05/26/19 04:28 Carbon Dioxide 27.9 mmol/L (21-32) 05/26/19 04:28 BUN 11 mg/dL (7-18) 05/26/19 04:28 Creatinine 0.64 mg/dL (0.55-1.02) 05/26/19 04:28 Est GFR (MDRD) Af Amer > 60 (>60) 05/26/19 04:28 Est GFR (MDRD) Non-Af > 60 (>60) 05/26/19 04:28 Glucose 166 mg/dL (65-99) H 05/26/19 04:28 Hemoglobin A1c 10.2 % 05/20/19 01:22 Calcium 9.0 mg/dL (8.5-10.1) 05/26/19 04:28 Corrected Calcium TNP 05/26/19 04:28 Total Bilirubin 0.30 mg/dL (0.2-1.0) 05/26/19 04:28 AST 15 Units/L (15-37) 05/26/19 04:28 ALT 12 Units/L (12-78) 05/26/19 04:28 Alkaline Phosphatase 96 Units/L (46-116) 05/26/19 04:28 Total Protein 7.5 g/dL (6.4-8.2) 05/26/19 04:28 Albumin 3.5 g/dL (3.4-5.0) 05/26/19 04:28 Globulin 4.0 g/dL (2.5-4.5) 05/26/19 04:28 Albumin/Globulin Ratio 0.9 Ratio (1.1-2.1) L 05/26/19 04:28 Triglycerides 127 mg/dL (0-150) 05/22/19 05:20 Cholesterol 60 mg/dL (0-200) 05/22/19 05:20 LDL Cholesterol, Calc 8 mg/dL (0-100) 05/22/19 05:20 HDL Cholesterol 27 mg/dL (40-60) L 05/22/19 05:20 Cholesterol/HDL Ratio 2.2 (0.0-5.0) 05/22/19 05:20 Specimen Type Catherized urine 05/20/19 02:03 Urine Color Pale yellow (YELLOW) 05/20/19 02:03 Urine Appearance Cloudy (CLEAR) 05/20/19 02:03 Urine pH 5.0 (5.0 - 8.0) 05/20/19 02:03 Ur Specific [place] 1.015 (1.000-1.030) 05/20/19 02:03 Urine Protein 2+ (NEGATIVE) 05/20/19 02:03 Urine Glucose (UA) 4+ (NEGATIVE) 05/20/19 02:03 Urine Ketones Negative (NEGATIVE) 05/20/19 02:03 Urine Occult Blood 4+ (NEGATIVE) 05/20/19 02:03 Urine Nitrite Negative (NEGATIVE) 05/20/19 02:03 Urine Bilirubin Negative (NEGATIVE) 05/20/19 02:03 Urine Urobilinogen Normal (NORMAL) 05/20/19 02:03 Ur Leukocyte Esterase 3+ (NEGATIVE) 05/20/19 02:03 Urine RBC 3-5 /HPF (NONE SEEN) 05/20/19 02:03 Urine WBC None seen /HPF (NONE SEEN) 05/20/19 02:03 Ur Squamous Epith Cells Negative /HPF (NEGATIVE) 05/20/19 02:03 Urine Bacteria 2+ /HPF (NEGATIVE) 05/20/19 02:03 Ur Culture Indicated? Yes/culture set up 05/20/19 02:03 - Plan (1) Acute UTI Status: Acute Plan: rocephin 1g iv daily, iv fluids (2) Hyperglycemia Status: Acute Plan: LEVEMIR 14 UNITS, HUMULIN R SLIDING SCALE (3) Bronchitis Status: Acute Plan: ROCEPHIN 1G IV DAILY, RESPIRATORY TREATMENTS, CONTINUE TO MONITOR (4) Altered mental status Status: Acute Qualifiers: Altered mental status type: transient alteration of awareness Qualified Code(s): R40.4 - Transient alteration of awareness (5) Hypernatremia Status: Acute Plan: 1/2 NS AT 100ML/HR, CONTINUE TO MONITOR
[2019-05-26] MEDS: LORTAB ELIX 7.5/325 MG (15 ML) PEG SCH (21:25)
[2019-05-26] MEDS ORDERED: NS 1/2 1000 ML IV 1,000 ML ONE (22:06)
[2019-05-27] MEDS: SNACK - Diabetic Appropriate PO SCH (00:33)
[2019-05-27 05:16] LABS: BASOPHILS # (AUTO) 0.1 X10^3/uL (0.0-0.1); BASOPHILS % (AUTO) 1.3 % (0.2-1.0); EOSINOPHILS # (AUTO) 0.2 x10^3/uL (0.0-0.2); EOSINOPHILS % (AUTO) 2.9 % (0.9-2.9); HEMOGLOBIN 10.3 g/dL (12.0-16.0); LYMPHOCYTES # (AUTO) 2.7 X10^3/uL (1.3-2.9); LYMPHOCYTES % (AUTO) 42.2 % (21.0-51.0); MEAN CORPUSCULAR HEMOGLOBIN 30.9 pg (27.0-34.0); MEAN CORPUSCULAR HGB CONC 33.4 g/dL (33.0-35.0); MEAN CORPUSCULAR VOLUME 92.6 fL (80.0-100.0); MEAN PLATELET VOLUME 9.6 fL (7.4-11.0); MONOCYTES # (AUTO) 0.5 x10^3/uL (0.3-0.8); MONOCYTES % (AUTO) 7.6 % (0.0-13.0); NEUTROPHILS # (AUTO) 2.9 x10^3/uL (2.2-4.8); PLATELET COUNT 175 X10^3/uL (150.0-450.0); RED BLOOD COUNT 3.35 X10^6/uL (3.5-5.4); WHITE BLOOD COUNT 6.4 X10^3/uL (3.6-10.0)
[2019-05-27 05:19] LABS: ALANINE AMINOTRANSFERASE 11 Units/L (12-78); ALBUMIN 3.5 g/dL (3.4-5.0); ALKALINE PHOSPHATASE 86 Units/L (46-116); ASPARTATE AMINO TRANSFERASE 15 Units/L (15-37); BLOOD UREA NITROGEN 10 mg/dL (7-18); CALCIUM 8.9 mg/dL (8.5-10.1); CARBON DIOXIDE 29.2 mmol/L (21-32); CHLORIDE 101 mmol/L (98-107); COR NA(FOR HYPERGLY) 137 mmol/L (136-145); CREATININE 0.57 mg/dL (0.55-1.02); SODIUM 136 mmol/L (136-145); TOTAL PROTEIN 7.4 g/dL (6.4-8.2); eGFR NON BLACK RACES > 60 (>60)
[2019-05-27] MEDS: ARTIFICIAL TEARS DROPS AFFEYE SCH (06:23)
[2019-05-27] MEDS: REGLAN TAB 10 MG PO SCH (06:23)
[2019-05-27] MEDS: NS 1/2 1000 ML IV 1,000 ML IV SCH (06:23)
[2019-05-27] MEDS: APRESOLINE TAB 25 MG GT SCH (06:23)
[2019-05-27] MEDS: POTASSIUM CHLORIDE LIQ 20 MEQ UDC PEG SCH (09:40)
[2019-05-27] MEDS: ROCEPHIN VIAL 1 GRAM IVP SCH (09:40)
[2019-05-27] MEDS: HEMOCYTE-PLUS PO SCH (09:41)
[2019-05-27] MEDS: REQUIP PO SCH (09:41)
[2019-05-27] MEDS: NYSTATIN SUSP PO SCH (09:41)
[2019-05-27] MEDS: ZINC SULFATE PO SCH (09:41)
[2019-05-27] MEDS: LOPRESSOR TAB 50 MG GT SCH (09:41)
[2019-05-27] MEDS: VITAMIN C PEG SCH (09:41)
[2019-05-27] MEDS: ZANTAC PO SCH (09:41)
[2019-05-27] MEDS: TAB-A-VITE PO SCH (09:42)
[2019-05-27] MEDS: LOVENOX INJ 40 MG SYR SC SCH (09:43)
[2019-05-27] MEDS: LEVEMIR SC SCH (09:44)
[2019-05-27] MEDS ORDERED: NORVASC TAB 2.5 MG ONE (09:45)
[2019-05-27] MEDS: NORVASC TAB 2.5 MG PEG SCH (09:46)
[2019-05-27] MEDS: ALBUMIN HUMAN 25%- 100 ML 100 ML IV SCH (09:47)
[2019-05-27 12:19] VITALS: BP 124/64
== END 2019-05-27 14:15 | DRG 690 ==
LOC: MED/SURG 00:34 → ER 00:34 → OBSVTOIN 04:16 → MED/SURG 05:25
PROVIDERS: ADMIT Obstetrics & Gynecology Obstetrics; ATTEND Internal Medicine
DX: Z66 Do not resuscitate; B96.89 Other specified bacterial agents as the cause of diseases classified elsewhere; I10 Essential (primary) hypertension; R40.4 Transient alteration of awareness; E87.0 Hyperosmolality and hypernatremia; J20.8 Acute bronchitis due to other specified organisms; Z93.1 Gastrostomy status; N39.0 Urinary tract infection, site not specified; I25.10 Atherosclerotic heart disease of native coronary artery without angina pectoris; R94.31 Abnormal electrocardiogram [ECG] [EKG]; E11.65 Type 2 diabetes mellitus with hyperglycemia; L89.159 Pressure ulcer of sacral region, unspecified stage
CPT/HCPCS: 36415; 51701; 71010; 71045; 80053; 80061; 81001; 82947; 83036; 85025; 87070; 87086; 87088; 87186; 87205; 93005; 94640; 94760; 96365; 96367; 96374; 96375; 99284; A4222; P9047; J0696; J1650; J1815; J7030; J7620

== ENCOUNTER 2019-08-22 14:47 | Inpatient (IN) ==
[2019-08-22 17:48] LABS: BILIRUBIN,URINE NEGATIVE (NEGATIVE); BLOOD/HEMOGLOBIN,URINE 3+ (NEGATIVE); GLUCOSE, URINE 4+ (NEGATIVE); KETONES,URINE NEGATIVE (NEGATIVE); LEUKOCYTE ESTERASE ,URINE 1+ (NEGATIVE); NITRITES,URINE NEGATIVE (NEGATIVE); PROTEIN,URINE NEGATIVE (NEGATIVE); UROBILINOGEN,URINE NORMAL (NORMAL)
[2019-08-22] MEDS: NS 1000 ML 1,000 ML IV SCH (18:00)
[2019-08-22 18:04] LABS: AMORPHOUS SEDIMENT,UR 1+ /HPF (NEGATIVE); APPEARANCE,URINE HAZY (CLEAR); BACTERIA,URINE 1+ /HPF (NEGATIVE); COLOR,URINE YELLOW (YELLOW); SQUAMOUS EPITHELIAL CELL,UR FEW /HPF (NEGATIVE)
[2019-08-22] MEDS: HumuLIN R SC PRN ×2 (18:14→21:01)
[2019-08-22 18:27] VITALS: BMI 28.1
[2019-08-22] MEDS ORDERED: [UNRECOGNIZED DRUG - REMARK] XX SCH (19:00)
[2019-08-22] MEDS: LEVEMIR SC SCH (21:00)
[2019-08-22] MEDS: SNACK - Diabetic Appropriate PO SCH (21:00)
[2019-08-22] MEDS: ROCEPHIN VIAL 1 GRAM 1 G in NS 100 ML IV + SPIKE MINIBAG* 100 ML IV SCH (21:06)
--- NOTE | 2019-08-22 22:33 | RAD ---
HISTORY: Pain Study: Portable chest Comparison:01/12/2018 Findings: The heart is mildly enlarged but unchanged. The pulmonary vessels are prominent centrally. No consolidation or effusion is seen. There is a right Port-A-Cath in place which is unchanged. IMPRESSION: Stable mild cardiomegaly and mild central pulmonary congestion which is more apparent with no infiltrate or effusion. Right Port-A-Cath unchanged in position. Reported By:
[2019-08-23 05:23] LABS: BASOPHILS # (AUTO) 0.1 X10^3/uL (0.0-0.1); BASOPHILS % (AUTO) 1.1 % (0.2-1.0); EOSINOPHILS # (AUTO) 0.1 x10^3/uL (0.0-0.2); EOSINOPHILS % (AUTO) 1.4 % (0.9-2.9); HEMATOCRIT 38.7 % (36.0-47.0); HEMOGLOBIN 12.6 g/dL (12.0-16.0); LYMPHOCYTES # (AUTO) 3.1 X10^3/uL (1.3-2.9); LYMPHOCYTES % (AUTO) 31.4 % (21.0-51.0); MEAN CORPUSCULAR HEMOGLOBIN 30.7 pg (27.0-34.0); MEAN CORPUSCULAR HGB CONC 32.6 g/dL (33.0-35.0); MEAN CORPUSCULAR VOLUME 94.4 fL (80.0-100.0); MEAN PLATELET VOLUME 9.4 fL (7.4-11.0); MONOCYTES # (AUTO) 0.8 x10^3/uL (0.3-0.8); MONOCYTES % (AUTO) 8.1 % (0.0-13.0); NEUTROPHILS # (AUTO) 5.7 x10^3/uL (2.2-4.8); PLATELET COUNT 241 X10^3/uL (150.0-450.0); RED CELL DISTRIBUTION WIDTH 15.7 % (11.6-16.5); WHITE BLOOD COUNT 9.8 X10^3/uL (3.6-10.0)
[2019-08-23 05:32] LABS: ALANINE AMINOTRANSFERASE 40 Units/L (12-78); ALBUMIN 2.4 g/dL (3.4-5.0); ALKALINE PHOSPHATASE 125 Units/L (46-116); ASPARTATE AMINO TRANSFERASE 33 Units/L (15-37); BLOOD UREA NITROGEN 38 mg/dL (7-18); CARBON DIOXIDE 28.2 mmol/L (21-32); CHLORIDE 114 mmol/L (98-107); COR CA(FOR HYPOALB) 11.3 mg/dL (8.5-10.1); COR NA(FOR HYPERGLY) 155 mmol/L (136-145); CREATININE 0.73 mg/dL (0.55-1.02); eGFR NON BLACK RACES > 60 (>60)
[2019-08-23 05:37] LABS: SODIUM 151 mmol/L (136-145)
[2019-08-23] MEDS: HumuLIN R SC PRN (05:51)
[2019-08-23] MEDS: NS 1000 ML 1,000 ML IV SCH ×2 (08:45→21:57)
[2019-08-23] MEDS: ROCEPHIN VIAL 1 GRAM 1 G in NS 100 ML IV + SPIKE MINIBAG* 100 ML IV SCH (09:44)
[2019-08-23] MEDS: LEVEMIR SC SCH ×2 (09:45→21:58)
--- NOTE | 2019-08-23 10:26 | DR.H&P ---
H&P - History & Physical for Day of: H&P Date: 08/22/19 - Chief Complaint Chief Complaint: HYPERGLYCEMIA, UTI - History of Present Illness History of Present Illness: IS A 84 YEAR OLD PATIENT OF OURS. SHE IS A RESIDENT OF [facility]. SHE PRESENTED TO THE HOSPITAL TODAY A DIRECT ADMISSION DUE TO HYPERGLYCEMIA AND A URINARY TRACT INFECTION. SHE RECEIVES GLUCERNA FEEDINGS THROUGH THE PEG TUBE Q4H. OUTPATIENT LABS REVEALED A BLOOD GLUCOSE LEVEL OF 497 TODAY. OUTPATIENT URINALYSIS REVEALED WBC TNTC, RBC 10-20, BACTERIA TRACE, LEUKOCYTES 3+. OTHER ABNORMAL LABS INCLUDE THE FOLLOWING: HGB 11.8, BUN 52, GLUCOSE 489, ALK PHOS 159, TOTAL PROTEIN 8.6, ALBUMIN 2.3, GLOBULIN 6.3. A CHEST XRAY WAS OBTAINED ON ADMISSION AND REVEALED: Stable mild cardiomegaly and mild central pulmonary congestion which is more apparent with no infiltrate or effusion. WE STARTED PATIENT ON NORMAL SALINE, ROCEPHIN 1G IV DAILY, LEVEMIR 23 UNITS SC BID, HUMULIN R SLIDING SCALE. WE WILL MONITOR OTBS ACHS. OTHERWISE, WE WILL FOLLOW UP WITH AM LABS AND CONTINUE TO MONITOR. - Past Medical History Past Medical History: Angina, Coronary Artery Disease, Hypertension, Dyslipidemia, Dementia, Depression, Anxiety, Hypothyroidism, Anemia, CVA, GERD, Arthritis Additional Medical History: Constipation, Tinnitus, Spinal Cord Infarction, Restless Leg Syndrome, Peripheral Vascular Disease, Paraplegic, Right-sided paralysis, Gastrointestinal Ulcer, UTI's, Muscle Weakness, Osteoarthritis, Previous Blood Transfusion - Past Surgical History Surgical History: Hysterectomy, Other - Family History Family Medical History: Diabetes Mellitus, Cancer, [place], Coronary Artery Disease, Sudden Cardiac , Hypertension - Social History Does patient currently use any type of tobacco product: No Have you used tobacco products in the last 12 months: No Type of Tobacco Use: None Does any household member use tobacco: No Alcohol Use: None Drug Use: None - Medications Home Medications: No Known Drug Allergies Allergy (Verified 09/24/17 15:23) CONTINUE taking the following medications [id number] HMB [Richard] 1 ea PO BID 08/22/19 [History] insulin detemir U-100 [Levemir U-100 Insulin] 23 units SUBCUT BID 08/22/19 [History] metoprolol tartrate 100 mg PO BID 08/22/19 [History] - Review of Systems Constitutional: See HPI, Other (DECREASED ALERTNESS ) Eyes: No Symptoms Reported ENT: No Symptoms Reported Respiratory: No Symptoms Reported Cardiovascular: No Symptoms Reported Gastrointestinal: No Symptoms Reported Genitourinary: No Symptoms Reported Musculoskeletal: No Symptoms Reported Skin: No Symptoms Reported Neurological: No Symptoms Reported - Physical Exam Vital Signs: Temperature 99.6 F Pulse Rate [Right Brachial] 100 Respiratory Rate 20 Blood Pressure [Left Arm] 135/64 Blood Pressure [Right Arm] 174/81 Blood Pressure 135/64 O2 Sat by Pulse Oximetry 97 Oriented: Unable to test Eyes: Normal Ear: Normal Nose: Normal Throat: Normal Respiratory: Diminished Throughout Cardiovascular: Normal : Normal Auscultation: Bowel Sounds: Normal Palpation: Normal Tenderness: Normal Skin: Normal Musculoskeletal: Normal Psychiatric: Normal Mood Description: Calm Affect: Normal Speech Pattern: Aphasic - Assessment/Plan (1) Hyperglycemia Status: Acute Plan: LEVEMIR 23 UNITS SC BID, HUMULIN R SLIDING SCALE, CONTINUE TO MONITOR (2) End stage chronic kidney disease Status: Acute Plan: NORMAL SALINE AT 75ML/HR, CONTINUE TO MONITOR (3) Acute UTI Status: Acute Plan: ROCEPHIN 1G IV DAILY, CONTINUE TO MONITOR - Allergies Allergies/Adverse Reactions: Allergies Allergy/AdvReac Type Severity Reaction Status Date / Time No Known Drug Allergies Allergy Verified 09/24/17 15:23
[2019-08-23] MEDS ORDERED: NORVASC TAB 2.5 MG ONE (20:16)
[2019-08-23] MEDS: SNACK - Diabetic Appropriate PO SCH (20:58)
[2019-08-23] MEDS: NORVASC TAB 2.5 MG PO SCH (20:58)
[2019-08-23] MEDS ORDERED: NS 1/2 1000 ML IV 1,000 ML IV ONE (22:06)
[2019-08-23] MEDS: NS 1/2 1000 ML IV 1,000 ML IV SCH (22:23)
[2019-08-24 05:15] LABS: BASOPHILS % (AUTO) 0.4 % (0.2-1.0); EOSINOPHILS # (AUTO) 0.2 x10^3/uL (0.0-0.2); EOSINOPHILS % (AUTO) 1.9 % (0.9-2.9); HEMATOCRIT 37.6 % (36.0-47.0); HEMOGLOBIN 12.2 g/dL (12.0-16.0); LYMPHOCYTES # (AUTO) 2.1 X10^3/uL (1.3-2.9); LYMPHOCYTES % (AUTO) 26.2 % (21.0-51.0); MEAN CORPUSCULAR HEMOGLOBIN 30.9 pg (27.0-34.0); MEAN CORPUSCULAR HGB CONC 32.6 g/dL (33.0-35.0); MEAN CORPUSCULAR VOLUME 94.9 fL (80.0-100.0); MEAN PLATELET VOLUME 9.5 fL (7.4-11.0); MONOCYTES # (AUTO) 0.6 x10^3/uL (0.3-0.8); MONOCYTES % (AUTO) 7.8 % (0.0-13.0); NEUTROPHILS # (AUTO) 5.1 x10^3/uL (2.2-4.8); NEUTROPHILS % (AUTO) 63.7 % (42.0-75.0); PLATELET COUNT 217 X10^3/uL (150.0-450.0); RED BLOOD COUNT 3.96 X10^6/uL (3.5-5.4); RED CELL DISTRIBUTION WIDTH 15.8 % (11.6-16.5); WHITE BLOOD COUNT 8.1 X10^3/uL (3.6-10.0)
[2019-08-24 05:23] LABS: ALANINE AMINOTRANSFERASE 36 Units/L (12-78); ALBUMIN 2.3 g/dL (3.4-5.0); ALKALINE PHOSPHATASE 114 Units/L (46-116); ASPARTATE AMINO TRANSFERASE 28 Units/L (15-37); BLOOD UREA NITROGEN 24 mg/dL (7-18); CALCIUM 9.7 mg/dL (8.5-10.1); CARBON DIOXIDE 27.3 mmol/L (21-32); CHLORIDE 114 mmol/L (98-107); COR CA(FOR HYPOALB) 11.1 mg/dL (8.5-10.1); COR NA(FOR HYPERGLY) 151 mmol/L (136-145); CREATININE 0.64 mg/dL (0.55-1.02); SODIUM 149 mmol/L (136-145); TOTAL PROTEIN 8.5 g/dL (6.4-8.2); eGFR NON BLACK RACES > 60 (>60)
[2019-08-24] MEDS ORDERED: K-RIDER 10 MEQ/NS 100 ML 10 MEQ/100 ML BAG IV PRN (07:40)
[2019-08-24] MEDS ORDERED: POTASSIUM CHL 40 MEQ/NS 0.45% 500 ML IV PRN (07:40)
[2019-08-24] MEDS ORDERED: MICRO K EXTEN CAP 10 MEQ PO PRN (07:40)
[2019-08-24] MEDS ORDERED: K-DUR TAB 20 MEQ PO PRN (07:40)
[2019-08-24] MEDS ORDERED: POTASSIUM CHLORIDE LIQ 20 MEQ UDC PO PRN (07:40)
[2019-08-24] MEDS ORDERED: POTASSIUM CHL 60 MEQ/NS 0.45% 500 ML IV PRN (07:40)
[2019-08-24] MEDS ORDERED: KLOR-CON PO PRN (07:40)
[2019-08-24] MEDS ORDERED: NORVASC TAB 2.5 MG ONE ×2 (08:14→21:20)
[2019-08-24] MEDS: NORVASC TAB 2.5 MG PO SCH ×2 (09:53→21:47)
[2019-08-24] MEDS: ROCEPHIN VIAL 1 GRAM 1 G in NS 100 ML IV + SPIKE MINIBAG* 100 ML IV SCH (09:55)
[2019-08-24] MEDS: LEVEMIR SC SCH ×2 (09:58→21:46)
[2019-08-24] MEDS ORDERED: NS 1/2 1000 ML IV 1,000 ML IV ONE (11:19)
[2019-08-24] MEDS: NS 1/2 1000 ML IV 1,000 ML IV SCH (11:35)
[2019-08-24] MEDS: SNACK - Diabetic Appropriate PO SCH (21:47)
[2019-08-25] MEDS ORDERED: NS 1/2 1000 ML IV 1,000 ML IV ONE ×2 (00:20→15:27)
[2019-08-25] MEDS: NS 1/2 1000 ML IV 1,000 ML IV SCH ×2 (00:43→15:31)
[2019-08-25 05:18] LABS: BASOPHILS % (AUTO) 0.4 % (0.2-1.0); EOSINOPHILS # (AUTO) 0.1 x10^3/uL (0.0-0.2); EOSINOPHILS % (AUTO) 1.6 % (0.9-2.9); HEMATOCRIT 39.7 % (36.0-47.0); HEMOGLOBIN 12.6 g/dL (12.0-16.0); LYMPHOCYTES # (AUTO) 2.1 X10^3/uL (1.3-2.9); LYMPHOCYTES % (AUTO) 24.3 % (21.0-51.0); MEAN CORPUSCULAR HEMOGLOBIN 30.1 pg (27.0-34.0); MEAN CORPUSCULAR HGB CONC 31.9 g/dL (33.0-35.0); MEAN CORPUSCULAR VOLUME 94.4 fL (80.0-100.0); MEAN PLATELET VOLUME 9.3 fL (7.4-11.0); MONOCYTES # (AUTO) 0.4 x10^3/uL (0.3-0.8); MONOCYTES % (AUTO) 4.7 % (0.0-13.0); PLATELET COUNT 186 X10^3/uL (150.0-450.0); RED CELL DISTRIBUTION WIDTH 15.6 % (11.6-16.5); WHITE BLOOD COUNT 8.7 X10^3/uL (3.6-10.0)
[2019-08-25 05:38] LABS: ALANINE AMINOTRANSFERASE 29 Units/L (12-78); ALBUMIN 2.2 g/dL (3.4-5.0); ALKALINE PHOSPHATASE 110 Units/L (46-116); ASPARTATE AMINO TRANSFERASE 27 Units/L (15-37); BLOOD UREA NITROGEN 21 mg/dL (7-18); CALCIUM 8.9 mg/dL (8.5-10.1); CARBON DIOXIDE 27.7 mmol/L (21-32); CHLORIDE 110 mmol/L (98-107); COR CA(FOR HYPOALB) 10.3 mg/dL (8.5-10.1); COR NA(FOR HYPERGLY) 144 mmol/L (136-145); SODIUM 144 mmol/L (136-145); TOTAL PROTEIN 7.8 g/dL (6.4-8.2); eGFR NON BLACK RACES > 60 (>60)
[2019-08-25] MEDS ORDERED: NORVASC TAB 2.5 MG ONE ×2 (08:54→21:23)
[2019-08-25] MEDS: LEVEMIR SC SCH ×2 (09:20→20:18)
[2019-08-25] MEDS: ROCEPHIN VIAL 1 GRAM 1 G in NS 100 ML IV + SPIKE MINIBAG* 100 ML IV SCH (09:20)
[2019-08-25] MEDS: NORVASC TAB 2.5 MG PO SCH ×2 (09:23→21:15)
[2019-08-25] MEDS ORDERED: POTASSIUM CHL 40 MEQ/NS 0.45% 500 ML IV PRN (14:47)
[2019-08-25] MEDS ORDERED: MICRO K EXTEN CAP 10 MEQ PO PRN (14:47)
[2019-08-25] MEDS ORDERED: POTASSIUM CHLORIDE LIQ 20 MEQ UDC PO PRN (14:47)
[2019-08-25] MEDS ORDERED: POTASSIUM CHL 60 MEQ/NS 0.45% 500 ML IV PRN (14:47)
[2019-08-25] MEDS ORDERED: K-RIDER 10 MEQ/NS 100 ML 10 MEQ/100 ML BAG IV PRN (14:47)
[2019-08-25] MEDS ORDERED: K-DUR TAB 20 MEQ PO PRN (14:47)
[2019-08-25] MEDS ORDERED: KLOR-CON PO PRN (14:47)
[2019-08-25] MEDS ORDERED: POTASSIUM CHLORIDE LIQ 20 MEQ UDC ONE (15:01)
[2019-08-25] MEDS ORDERED: NS 1000 ML 0 ML ONE (15:02)
[2019-08-25] MEDS: SNACK - Diabetic Appropriate PO SCH (20:30)
[2019-08-26] MEDS ORDERED: NS 1/2 1000 ML IV 1,000 ML IV ONE (02:01)
[2019-08-26] MEDS: NS 1/2 1000 ML IV 1,000 ML IV SCH (03:10)
[2019-08-26 05:13] LABS: BASOPHILS # (AUTO) 0.1 X10^3/uL (0.0-0.1); BASOPHILS % (AUTO) 0.9 % (0.2-1.0); EOSINOPHILS # (AUTO) 0.1 x10^3/uL (0.0-0.2); EOSINOPHILS % (AUTO) 1.8 % (0.9-2.9); HEMATOCRIT 37.3 % (36.0-47.0); HEMOGLOBIN 12.3 g/dL (12.0-16.0); LYMPHOCYTES # (AUTO) 2.8 X10^3/uL (1.3-2.9); LYMPHOCYTES % (AUTO) 37.8 % (21.0-51.0); MEAN CORPUSCULAR HEMOGLOBIN 30.9 pg (27.0-34.0); MEAN CORPUSCULAR HGB CONC 32.9 g/dL (33.0-35.0); MEAN CORPUSCULAR VOLUME 93.7 fL (80.0-100.0); MEAN PLATELET VOLUME 9.3 fL (7.4-11.0); MONOCYTES # (AUTO) 0.6 x10^3/uL (0.3-0.8); NEUTROPHILS # (AUTO) 3.8 x10^3/uL (2.2-4.8); NEUTROPHILS % (AUTO) 51.5 % (42.0-75.0); PLATELET COUNT 160 X10^3/uL (150.0-450.0); RED BLOOD COUNT 3.98 X10^6/uL (3.5-5.4); WHITE BLOOD COUNT 7.4 X10^3/uL (3.6-10.0)
[2019-08-26 05:33] LABS: ALANINE AMINOTRANSFERASE 25 Units/L (12-78); ALBUMIN 2.1 g/dL (3.4-5.0); ALKALINE PHOSPHATASE 103 Units/L (46-116); ASPARTATE AMINO TRANSFERASE 26 Units/L (15-37); BLOOD UREA NITROGEN 16 mg/dL (7-18); CALCIUM 8.4 mg/dL (8.5-10.1); CARBON DIOXIDE 25.6 mmol/L (21-32); CHLORIDE 108 mmol/L (98-107); COR CA(FOR HYPOALB) 9.9 mg/dL (8.5-10.1); COR NA(FOR HYPERGLY) 141 mmol/L (136-145); CREATININE 0.57 mg/dL (0.55-1.02); SODIUM 141 mmol/L (136-145); TOTAL PROTEIN 7.5 g/dL (6.4-8.2); eGFR NON BLACK RACES > 60 (>60)
[2019-08-26] MEDS ORDERED: NORVASC TAB 2.5 MG ONE (08:18)
[2019-08-26] MEDS ORDERED: NS 100 ML IV + SPIKE MINIBAG* 100 ML IV ONE (08:22)
[2019-08-26] MEDS ORDERED: LORTAB ELIX 7.5/325 MG (15 ML) GT PRN (08:24)
[2019-08-26] MEDS ORDERED: NYSTATIN SUSP PO SCH (09:00)
[2019-08-26] MEDS ORDERED: ARGININE GLUTAMINE CALCIUM HMB PO SCH (09:00)
[2019-08-26] MEDS ORDERED: REGLAN TAB 10 MG PO SCH (09:00)
[2019-08-26] MEDS ORDERED: PEPCID TAB 20 MG GT SCH (09:00)
[2019-08-26] MEDS ORDERED: HIPREX GT SCH (09:00)
[2019-08-26] MEDS ORDERED: TAB-A-VITE PO SCH (09:00)
[2019-08-26] MEDS ORDERED: HEMOCYTE-PLUS PO SCH (09:00)
[2019-08-26] MEDS ORDERED: REQUIP PO SCH (09:00)
[2019-08-26] MEDS: ROCEPHIN VIAL 1 GRAM 1 G in NS 100 ML IV + SPIKE MINIBAG* 100 ML IV SCH (09:13)
[2019-08-26] MEDS: NORVASC TAB 2.5 MG PO SCH (09:15)
--- NOTE | 2019-08-26 13:07 | PCM.PROG ---
Progress Note - Progress Note for Day of Date of Exam: 08/25/19 - Subjective Subjective: Mrs. Hoffman is an 84-year-old black female who is a resident of [facility]. She is a patient of Dr. Cervantes, who was a direct admit due to hyperglycemia and urinary tract infection. The patient has endstage renal disease, coronary artery disease, and has had a CVA. She is noted to have right sided paralysis. The patient has both PEG tube feedings and colostomy. The patient is on IV antibiotics for urinary tract infection at this time. Na improving to 144, K+ 3.3 this am - Past Medical Family Social History Past Med/Fam/Surg Hx: No changes since H&P Allergies: Allergies No Known Drug Allergies Allergy (Verified 09/24/17 15:23) - Review of Systems ROS: No change since H&P - Vital Signs and I&O's Vital Signs: Temperature 98.7 F Pulse Rate [Right Brachial] 99 Respiratory Rate 20 Blood Pressure [Left Arm] 145/71 Blood Pressure [Right Arm] 107/59 Blood Pressure 135/64 O2 Sat by Pulse Oximetry 100 Intake and Output: Intake & Output 08/24/19 08/25/19 08/26/19 08/27/19 12:59 11:59 11:59 11:59 Intake Total 2085 / 2085 Output Total 800 / 800 Balance 1285 / 1285 - Physical Exam Oriented: Unable to test Eyes: Normal Ear: Normal Nose: Normal Throat: Normal Respiratory: Diminished Cardiovascular: Normal : Normal Auscultation: Bowel Sounds: Normal Tenderness: Normal Skin: Normal, Other (peg tube and colostomy present) Musculoskeletal: Normal Psychiatric: Normal Mood Description: Calm Affect: Normal Speech Pattern: Aphasic - Laboratory and Diagnostics Result Diagrams: 08/26/19 05:00 08/26/19 05:00 Labs: 08/22/19 17:30 Urine,Clean Catch Urine Culture - Final Laboratory WBC 7.4 X10^3/uL (3.6-10.0) 08/26/19 05:00 RBC 3.98 X10^6/uL (3.5-5.4) 08/26/19 05:00 Hgb 12.3 g/dL (12.0-16.0) 08/26/19 05:00 Hct 37.3 % (36.0-47.0) 08/26/19 05:00 MCV 93.7 fL (80.0-100.0) 08/26/19 05:00 MCH 30.9 pg (27.0-34.0) 08/26/19 05:00 MCHC 32.9 g/dL (33.0-35.0) L 08/26/19 05:00 RDW 16.0 % (11.6-16.5) 08/26/19 05:00 Plt Count 160 X10^3/uL (150.0-450.0) 08/26/19 05:00 MPV 9.3 fL (7.4-11.0) 08/26/19 05:00 Neut % (Auto) 51.5 % (42.0-75.0) 08/26/19 05:00 Lymph % (Auto) 37.8 % (21.0-51.0) 08/26/19 05:00 [place] % (Auto) 8.0 % (0.0-13.0) 08/26/19 05:00 Eos % (Auto) 1.8 % (0.9-2.9) 08/26/19 05:00 Baso % (Auto) 0.9 % (0.2-1.0) 08/26/19 05:00 Neut # (Auto) 3.8 x10^3/uL (2.2-4.8) 08/26/19 05:00 Lymph # (Auto) 2.8 X10^3/uL (1.3-2.9) 08/26/19 05:00 [place] # (Auto) 0.6 x10^3/uL (0.3-0.8) 08/26/19 05:00 Eos # (Auto) 0.1 x10^3/uL (0.0-0.2) 08/26/19 05:00 Baso # (Auto) 0.1 X10^3/uL (0.0-0.1) 08/26/19 05:00 Absolute Nucleated RBC 0.1 /100WBC 08/26/19 05:00 Sodium 141 mmol/L (136-145) 08/26/19 05:00 Corrected Sodium 141 mmol/L (136-145) 08/26/19 05:00 Potassium 3.7 mmol/L (3.5-5.1) 08/26/19 05:00 Chloride 108 mmol/L (98-107) H 08/26/19 05:00 Carbon Dioxide 25.6 mmol/L (21-32) 08/26/19 05:00 BUN 16 mg/dL (7-18) 08/26/19 05:00 Creatinine 0.57 mg/dL (0.55-1.02) 08/26/19 05:00 Est GFR (MDRD) Af Amer > 60 (>60) 08/26/19 05:00 Est GFR (MDRD) Non-Af > 60 (>60) 08/26/19 05:00 Glucose 115 mg/dL (65-99) H 08/26/19 05:00 POC Glucose (mg/dL) 145 mg/dL (65-99) H 08/26/19 11:33 Calcium 8.4 mg/dL (8.5-10.1) L 08/26/19 05:00 Corrected Calcium 9.9 mg/dL (8.5-10.1) 08/26/19 05:00 Magnesium 2.1 mg/dL (1.7-2.9) 08/25/19 04:41 Total Bilirubin 0.30 mg/dL (0.2-1.0) 08/26/19 05:00 AST 26 Units/L (15-37) 08/26/19 05:00 ALT 25 Units/L (12-78) 08/26/19 05:00 Alkaline Phosphatase 103 Units/L (46-116) 08/26/19 05:00 Total Protein 7.5 g/dL (6.4-8.2) 08/26/19 05:00 Albumin 2.1 g/dL (3.4-5.0) L 08/26/19 05:00 Globulin 5.4 g/dL (2.5-4.5) H 08/26/19 05:00 Albumin/Globulin Ratio 0.4 Ratio (1.1-2.1) L 08/26/19 05:00 Specimen Type Catherized urine 08/22/19 17:30 Urine Color Yellow (YELLOW) 08/22/19 17:30 Urine Appearance Hazy (CLEAR) 08/22/19 17:30 Urine pH 8.0 (5.0 - 8.0) 08/22/19 17:30 Ur Specific [place] 1.020 (1.000-1.030) 08/22/19 17:30 Urine Protein Negative (NEGATIVE) 08/22/19 17:30 Urine Glucose (UA) 4+ (NEGATIVE) 08/22/19 17:30 Urine Ketones Negative (NEGATIVE) 08/22/19 17:30 Urine Occult Blood 3+ (NEGATIVE) 08/22/19 17:30 Urine Nitrite Negative (NEGATIVE) 08/22/19 17:30 Urine Bilirubin Negative (NEGATIVE) 08/22/19 17:30 Urine Urobilinogen Normal (NORMAL) 08/22/19 17:30 Ur Leukocyte Esterase 1+ (NEGATIVE) 08/22/19 17:30 Urine RBC 10-20 /HPF (0-3) A 08/22/19 17:30 Urine WBC 10-20 /HPF (0-5) A 08/22/19 17:30 Ur Squamous Epith Cells Few /HPF (NEGATIVE) 08/22/19 17:30 Amorphous Sediment 1+ /HPF (NEGATIVE) 08/22/19 17:30 Urine Bacteria 1+ /HPF (NEGATIVE) 08/22/19 17:30 Ur Culture Indicated? Yes/culture set up 08/22/19 17:30 - Plan (1) Acute UTI Status: Acute Plan: ROCEPHIN 1G IV DAILY, CONTINUE TO MONITOR. GENTLE IV HYDRATION, I &O. PEG TUBE FEEDINGS, COLOSTOMY CARE. BP MONITORING. REPEAT AM LABS (2) Altered mental status Status: Acute Qualifiers: Altered mental status type: transient alteration of awareness Qualified Code(s): R40.4 - Transient alteration of awareness (3) Hypernatremia Status: Acute (4) GERD (gastroesophageal reflux disease) Status: Chronic Qualifiers: Esophagitis presence: esophagitis presence not specified Qualified Code(s): K21.9 - Gastro-esophageal reflux disease without esophagitis (5) History of CVA (cerebrovascular accident) Status: Chronic (6) Hypertension Status: Chronic Qualifiers: Hypertension type: essential hypertension Qualified Code(s): I10 - Essential (primary) hypertension
[2019-08-26] MEDS ORDERED: APRESOLINE TAB 25 MG GT SCH (14:00)
[2019-08-26] MEDS ORDERED: ARTIFICIAL TEARS OP SCH (14:00)
[2019-08-26 14:30] VITALS: BP 143/70
== END 2019-08-26 14:00 | DRG 689 ==
LOC: ICU
PROVIDERS: ADMIT Internal Medicine; ATTEND Internal Medicine
DX: K21.9 Gastro-esophageal reflux disease without esophagitis; G81.91 Hemiplegia, unspecified affecting right dominant side; R94.31 Abnormal electrocardiogram [ECG] [EKG]; I12.0 Hypertensive chronic kidney disease with stage 5 chronic kidney disease or end stage renal disease; E11.65 Type 2 diabetes mellitus with hyperglycemia; E87.0 Hyperosmolality and hypernatremia; E78.2 Mixed hyperlipidemia; E86.0 Dehydration; E03.8 Other specified hypothyroidism; Z93.3 Colostomy status; Z86.73 Personal history of transient ischemic attack (TIA), and cerebral infarction without residual deficits; F41.8 Other specified anxiety disorders; Z93.1 Gastrostomy status; E11.621 Type 2 diabetes mellitus with foot ulcer; L97.518 Non-pressure chronic ulcer of other part of right foot with other specified severity; L89.159 Pressure ulcer of sacral region, unspecified stage; N18.6 End stage renal disease; I25.10 Atherosclerotic heart disease of native coronary artery without angina pectoris; N39.0 Urinary tract infection, site not specified
CPT/HCPCS: 36415; 71010; 71045; 80053; 81001; 82947; 83735; 84132; 85025; 87086; 93005; 97162; A4222; G0378; J0696; J1642; J1815; J7030; J7050

== ENCOUNTER 2020-07-17 09:35 | Inpatient (IN) ==
--- NOTE | 2020-07-17 09:57 | DR.AMS ---
HPI Time Seen Time Seen by Provider: 07/17/20 09:48 HPI Comment HPI Comment: PATIENT IS 85YR OLD FEMALE IN ER FROM THE [facility] FOR AMS AND ELEVATED GLUCOSE. PATIENT IS WEAK AND NOT COMMUNICATING. NO FEVER. CURRENTLY ON ANTIBIOTIC FOR UTI. PATIENT HAVE REDNESS RIGHT UPPER CHEST WALL WHERE INDWELLING PORT-A-CATH IS. SMALL DRAINAGE NOTED IN THE AREA. PATIENT HAVE HISTORY OF DM. Complaint Cheif Complaint Doctors Comments: AMS, GLUCOSE ELEVATED. COVID-19 Coronavirus risk:travel/contact w/high risk person: No Has patient experienced Coronavirus symptoms: No Reviewed Nurses Notes Reviewed: Yes Source History Provided: Usp Mode of Arrival Mode of Arrival: Stretcher Timing Came On: Suddenly Symptoms: Worsening Duration Duration: Constant Duration: Days Quality Quality: Decreased Alertness and Change in Behavior Severity Severity: Severe Context Recent: None History Of: CVA, Dementia and Diabetes Associated Signs and Symptoms Associated Signs and Symptoms: Change in Behavior, Confusion, Decreased LOC and Change in Memory PMH PMH Past Medical History: Anemia, Angina, Anxiety, Arthritis, Coronary Artery Disease, CVA, Dementia, Depression, Dyslipidemia, GERD, Hypertension and Hypothyroidism Past Surgical History: Yes Surgical History: Hysterectomy and Other Family History Family Medical History: Diabetes Mellitus, Cancer, ME, Coronary Artery Disease, Sudden Cardiac and Hypertension Social History Do you use any recreational Drugs:: No ROS Review of Systems Constitutional: See HPI, Weakness and Other (AMS.); negative Fever Eyes: No Symptoms Reported and See HPI ENTM: No Symptoms Reported and See HPI; negative Nose Discharge and Nose Con gestion Respiratoy: See HPI and Short of Breath (ON EXERTION); negative Moist Cough and Wheezing Cardiovascular: See HPI; negative Chest Pain, Edema and Palpitations Gastrointestinal/Abdominal: See HPI; negative Abdominal Pain, Diarrhea and Vomiting Genitourinary: See HPI; negative Hematuria Neurological: See HPI, Weakness and Other (AMS.) Musculoskeletal: See HPI Integumentary: No Symptoms Reported and See HPI Hematologic/Lymphatic: No Symptoms Reported and See HPI Endocrine: See HPI and Other Psychiatric: See HPI and Other (AMS.) All Other Systems: Reviewed and Negative (PER RAMOS NAVARRETE STAFF.) Unable to Obtain Due To: Altered mental status and Dementia PE Vitals Vital Signs: Temp Pulse Resp BP BP Pulse Ox 07/17/20 12:45 79 25 H 99 07/17/20 12:30 79 32 H 153/80 96 07/17/20 12:15 78 29 H 95 07/17/20 12:00 78 61 H 154/74 99 07/17/20 11:45 80 42 H 94 L 07/17/20 11:30 80 33 H 177/84 99 07/17/20 11:15 77 29 H 99 07/17/20 11:01 78 28 H 175/77 99 07/17/20 11:00 78 46 H 99 07/17/20 10:45 79 51 H 100 07/17/20 10:30 81 61 H 145/77 99 07/17/20 10:19 81 98 07/17/20 10:03 82 33 H 94 L 07/17/20 09:55 97.7 F 83 24 142/89 08/26/19 12:00 143/70 General Limitations: Altered Mental Status General Appearance: Lethargic Head Head Exam: Normal Inspection and Atraumatic Head Exam Physical: Other (none noted.) Eyes Eye exam: Normal Appearance and PERRL; negative Scleral Icterus and Conjunctival Injection Pupils: Regular, Round: Bilateral and Reactive: Bilateral ENT ENT Exam: Normal Exam, Normal Oropharynx, Normal External Ear Exam and TM's Normal Bilaterally External Ear Exam: Normal External Inspection; negative Auricular Hematoma and Auricular Trauma TM/Canal Exam: Bilateral: Normal Nose Exam: Normal Nose Exam Mouth Exam: Normal Inspection; negative Lip Swelling and Tongue Swelling Throat Exam: Normal Inspection; negative Tonsillar Erythema, Tonsillomegaly and Tonsillar Exudate Neck Neck Exam: Normal Inspection and Trachea Midline; negative Lymphadenopathy Chest Chest Inspection: Normal Inspection and Symmetric Chest Wall Rise; negative Tenderness Respiratory Respiratory Exam: Normal Lung Sounds Bilat and Respiratory Distress; negative Accessory Muscle Use and Chest Wall Tenderness Respiratory Exam: Bilateral: Rhonchi and Lower: Rhonchi Cardiovascular Cardiovascular Exam: Regular Rate, Normal Rhythm and Normal Heart Sounds; negati ve Systolic Murmur and Diastolic Murmur Abdominal Exam Abdominal Exam: Normal Inspection, Normal Bowel Sounds and Soft; negative Tenderness Extremities Extremities Exam: Normal Inspection and Normal Capillary Refill; negative Edema and Calf Tenderness Back Back Exam: Normal Inspection Neurological Neurological Exam: Alert and Oriented X3 Patient Oriented To: negative Person, Place and Time Speech: negative Fluid Speech Cranial Nerve Exam: Gag reflex (XI): Normal Upper Motor Neuron Exam: Babinski Sign: Normal Psychological Psychiatric Exam: Other (AMS.) Skin Skin Exam: Dry MDM Additional Information Obtained Additional Information Obtained From: Old Records Differential Diagnosis Metabolic: Dehydration, Hypercalcemia, Hypernatremia, Hypoglycemia and Hyponatremia Structural: CVA and Mass Lesion Infectious: Sepsis and UTI COURSE Treatment Treatment: SEE ORDERS. NS 1L 1OOCC/HR. VANCOMYCIN 1GM IVPB. REGULAR INSULIN PER PROTOCOL. Consultation Consultation Comments: DISCUSSED PATIENT WITH DR. FAIR, HE WILL ADMIT PATIENT. Education/Counseling Educated On: Diagnosis ROR Labs Reviewed Laboratory Results Reviewed?: Yes Result Diagrams: 07/19/20 03:58 07/19/20 03:58 Laboratory: 07/17/20 12:25 Blood Blood Culture - Final Methicillin Resis Staph Aureus 07/17/20 10:05 Blood Blood Culture - Final Methicillin Resis Staph Aureus 07/17/20 10:00 Blood Blood Culture - Final Methicillin Resis Staph Aureus 07/17/20 10:06 Urine,Clean Catch Urine Culture - Final 07/17/20 10:55 Chest Gram Stain - Final 07/17/20 10:55 Chest Wound Culture - Final Methicillin Resis Staph Aureus WBC 7.2 X10^3/uL (3.6-10.0) 07/17/20 10:00 RBC 3.36 X10^6/uL (3.5-5.4) L 07/17/20 10:00 Hgb 10.3 g/dL (12.0-16.0) L 07/17/20 10:00 Hct 32.9 % (36.0-47.0) L 07/17/20 10:00 MCV 98.0 fL (80.0-100.0) 07/17/20 10:00 MCH 30.7 pg (27.0-34.0) 07/17/20 10:00 MCHC 31.3 g/dL (33.0-35.0) L 07/17/20 10:00 RDW 20.1 % (11.6-16.5) H 07/17/20 10:00 Plt Count 151 X10^3/uL (150.0-450.0) 07/17/20 10:00 Plt Count Comment Adequate (ADEQUATE) 07/17/20 10:00 MPV 10.9 fL (7.4-11.0) 07/17/20 10:00 Neut % (Auto) 56.3 % (42.0-75.0) 07/17/20 10:00 Lymph % (Auto) 37.2 % (21.0-51.0) 07/17/20 10:00 Pike % (Auto) 4.3 % (0.0-13.0) 07/17/20 10:00 Eos % (Auto) 0.6 % (0.9-2.9) L 07/17/20 10:00 Baso % (Auto) 1.6 % (0.2-1.0) H 07/17/20 10:00 Neut # (Auto) 4.1 x10^3/uL (2.2-4.8) 07/17/20 10:00 Lymph # (Auto) 2.7 X10^3/uL (1.3-2.9) 07/17/20 10:00 Pike # (Auto) 0.3 x10^3/uL (0.3-0.8) 07/17/20 10:00 Eos # (Auto) 0.0 x10^3/uL (0.0-0.2) 07/17/20 10:00 Baso # (Auto) 0.1 X10^3/uL (0.0-0.1) 07/17/20 10:00 Absolute Nucleated RBC 2.8 /100WBC 07/17/20 10:00 Total Counted 100 07/17/20 10:00 Neutrophils % (Manual) 54 % (39-76) 07/17/20 10:00 Band Neutrophils % 9 % (0-10) 07/17/20 10:00 Lymphocytes % (Manual) 32 % (13-43) 07/17/20 10:00 Monocytes % (Manual) 4 % (4-9) 07/17/20 10:00 Eosinophils % (Manual) 1 % (0-6) 07/17/20 10:00 Plt Morphology Comment Normal (NORMAL) 07/17/20 10:00 RBC Morphology Abnormal (NORMAL) A 07/17/20 10:00 Anisocytosis 1+ A 07/17/20 10:00 PT 12.4 SECONDS (11.8-14.3) 07/17/20 10:00 INR Target Range - 07/17/20 10:00 INR 0.95 (0.8-1.3) 07/17/20 10:00 APTT 27.6 SECONDS (22.9-36.5) 07/17/20 10:00 PTT Comment - 07/17/20 10:00 Sodium 148 mmol/L (136-145) H 07/17/20 10:00 Corrected Sodium 157 mmol/L (136-145) H 07/17/20 10:00 Potassium 5.2 mmol/L (3.5-5.1) H 07/17/20 10:00 Chloride 112 mmol/L (98-107) H 07/17/20 10:00 Carbon Dioxide 28.6 mmol/L (21-32) 07/17/20 10:00 BUN 68 mg/dL (7-18) H 07/17/20 10:00 Creatinine 0.96 mg/dL (0.55-1.02) 07/17/20 10:00 Est GFR (MDRD) Af Amer > 60 (>60) 07/17/20 10:00 Est GFR (MDRD) Non-Af 59 (>60) 07/17/20 10:00 Glucose 474 mg/dL (65-99) H 07/17/20 10:00 Lactic Acid 0.7 mmol/L (0.4-2.0) 07/17/20 10:00 Calcium 9.8 mg/dL (8.5-10.1) 07/17/20 10:00 Corrected Calcium 11.7 mg/dL (8.5-10.1) H 07/17/20 10:00 Total Bilirubin 0.20 mg/dL (0.2-1.0) 07/17/20 10:00 AST 82 Units/L (15-37) H 07/17/20 10:00 ALT 31 Units/L (12-78) 07/17/20 10:00 Alkaline Phosphatase 161 Units/L (46-116) H 07/17/20 10:00 Creatine Kinase 83 Units/L (26-192) 07/17/20 10:00 CK-MB (CK-2) < 1.0 ng/mL (0-4.0) 07/17/20 10:00 CK/CKMB % Calc 1.2 % (<4) 07/17/20 10:00 Troponin I 0.05 ng/mL (0-1.5) 07/17/20 10:00 Total Protein 8.8 g/dL (6.4-8.2) H 07/17/20 10:00 Albumin 1.6 g/dL (3.4-5.0) L 07/17/20 10:00 Globulin 7.2 g/dL (2.5-4.5) H 07/17/20 10:00 Albumin/Globulin Ratio 0.2 Ratio (1.1-2.1) L 07/17/20 10:00 Specimen Type Catherized urine 07/17/20 10:06 Urine Color Yellow (YELLOW) 07/17/20 10:06 Urine Appearance Hazy (CLEAR) 07/17/20 10:06 Urine pH 7.0 (5.0 - 8.0) 07/17/20 10:06 Ur Specific [place] 1.010 (1.000-1.030) 07/17/20 10:06 Urine Protein 2+ (NEGATIVE) 07/17/20 10:06 Urine Glucose (UA) 4+ (NEGATIVE) 07/17/20 10:06 Urine Ketones Negative (NEGATIVE) 07/17/20 10:06 Urine Occult Blood 4+ (NEGATIVE) 07/17/20 10:06 Urine Nitrite Negative (NEGATIVE) 07/17/20 10:06 Urine Bilirubin Negative (NEGATIVE) 07/17/20 10:06 Urine Urobilinogen Normal (NORMAL) 07/17/20 10:06 Ur Leukocyte Esterase 3+ (NEGATIVE) 07/17/20 10:06 Urine RBC Cancelled 07/17/20 10:06 Urine WBC Cancelled 07/17/20 10:06 Ur Squamous Epith Cells Cancelled 07/17/20 10:06 Ur Transition Epith Cell Cancelled 07/17/20 10:06 Ur Renal Epithelial Cell Cancelled 07/17/20 10:06 Calcium Oxalate Crystal Cancelled 07/17/20 10:06 Cystine Crystals Cancelled 07/17/20 10:06 Uric Acid Crystals Cancelled 07/17/20 10:06 Triple Phos Crystals Cancelled 07/17/20 10:06 Tyrosine Crystals Cancelled 07/17/20 10:06 Other Crystals Cancelled 07/17/20 10:06 Amorphous Sediment Cancelled 07/17/20 10:06 Urine Bacteria Cancelled 07/17/20 10:06 Hyaline Casts Cancelled 07/17/20 10:06 Granular Casts Cancelled 07/17/20 10:06 Fine Granular Casts Cancelled 07/17/20 10:06 Coarse Granular Casts Cancelled 07/17/20 10:06 RBC Casts Cancelled 07/17/20 10:06 Other Casts Cancelled 07/17/20 10:06 Urine Mucus Cancelled 07/17/20 10:06 Urine Trichomonas Cancelled 07/17/20 10:06 Urine Yeast Cancelled 07/17/20 10:06 Urine Sperm Cancelled 07/17/20 10:06 Ur Culture Indicated? Cancelled 07/17/20 10:06 Acetone, Semi-Quant Negative (NEGATIVE) 07/17/20 10:00 XRAY XRAY Interpreted by: Radiologist (REPORTS NOTED AND DISCUSSED WITH ) and Self EKG Rate: 81 [place]: Normal Rhythm: NSR Block: None Hypertrophy: DEANNE ST: Nonsp Opioid Opioid Risk Tool Age (Kvng box if 16-45): No History of Preadolescent Sexual Abuse: No Total: 0 Total Score Risk Category: Low Risk Copyright: Danny GÓMEZ predicting aberrant behaviors Diagnosis Discharge Problem: Cellulitis of chest wall, Acute uremia, Acute hyperglycemia AMS (altered mental status) Qualifiers: Altered mental status type: transient alteration of awareness Qualified Code(s): R40.4 - Transient alteration of awareness Instructions Instructions: End-of-Life Care
[2020-07-17 10:24] LABS: BASOPHILS # (AUTO) 0.1 X10^3/uL (0.0-0.1); BASOPHILS % (AUTO) 1.6 % (0.2-1.0); EOSINOPHILS % (AUTO) 0.6 % (0.9-2.9); HEMATOCRIT 32.9 % (36.0-47.0); HEMOGLOBIN 10.3 g/dL (12.0-16.0); LYMPHOCYTES # (AUTO) 2.7 X10^3/uL (1.3-2.9); LYMPHOCYTES % (AUTO) 37.2 % (21.0-51.0); MEAN CORPUSCULAR HEMOGLOBIN 30.7 pg (27.0-34.0); MEAN CORPUSCULAR HGB CONC 31.3 g/dL (33.0-35.0); MEAN PLATELET VOLUME 10.9 fL (7.4-11.0); MONOCYTES # (AUTO) 0.3 x10^3/uL (0.3-0.8); MONOCYTES % (AUTO) 4.3 % (0.0-13.0); NEUTROPHILS # (AUTO) 4.1 x10^3/uL (2.2-4.8); NEUTROPHILS % (AUTO) 56.3 % (42.0-75.0); PLATELET COUNT 151 X10^3/uL (150.0-450.0); RED BLOOD COUNT 3.36 X10^6/uL (3.5-5.4); RED CELL DISTRIBUTION WIDTH 20.1 % (11.6-16.5); WHITE BLOOD COUNT 7.2 X10^3/uL (3.6-10.0)
--- NOTE | 2020-07-17 10:29 | RAD ---
HISTORYSOBSTUDYCHEST, 1 [id number]/2020TECHNIQUEAP view of the chestFINDINGSRight chest wall port with tip in good position. Cardiac silhouette is stably enlarged. Low lung volumes with bibasilar opacities similar to prior. No pleural effusion or pneumothorax. Soft tissue attenuation limits evaluation.IMPRESSIONCardiomegaly. Bibasilar opacities favored to be atelectasis or scar. Similar appearance to prior.Electronically signed by: Leonidas Magana (Jul 17, 2020 10:28:39)
--- NOTE | 2020-07-17 10:31 | CT ---
HISTORYAltered mental statusSTUDYCT head without contrastTechnique: Axial noncontrast images with coronal and sagittal reformats. Dose reduction procedures were used with mA/kv adjusted for body size.[id number]/2017 reportFINDINGSThe ventricles, cortical sulci, and other CSF spaces are enlarged consistent with generalized atrophy likely age related. There is marked decreased attenuation in the periventricular white matter suggestive of small vessel vascular disease. There is an old infarct in the left sub insular region. There is an old infarct in the left posterior basal ganglia and right anterior basal ganglia. There are no areas of abnormal attenuation to suggest recent CVA, hemorrhage, mass lesion, or extra-axial fluid collection. If acute CVA or extension of 1 of the patient's old CVAs is a strong clinical consideration MRI with diffusion imaging would be of further diagnostic value.IMPRESSIONNo definite acute intracranial abnormalityGeneralized atrophy likely age relatedSmall-vessel diseaseMultiple old lacunar infarcts as describedElectronically signed by: ANITHA WILSON (Jul 17, 2020 10:31:12)
[2020-07-17 10:34] LABS: LACTIC ACID 0.7 mmol/L (0.4-2.0)
[2020-07-17 10:35] LABS: BLOOD UREA NITROGEN 68 mg/dL (7-18); CALCIUM 9.8 mg/dL (8.5-10.1); CARBON DIOXIDE 28.6 mmol/L (21-32); CHLORIDE 112 mmol/L (98-107); COR NA(FOR HYPERGLY) 157 mmol/L (136-145); CREATININE 0.96 mg/dL (0.55-1.02); SODIUM 148 mmol/L (136-145); TROPONIN I 0.05 ng/mL (0-1.5); eGFR NON BLACK RACES 59 (>60)
[2020-07-17 10:39] LABS: ALBUMIN 1.6 g/dL (3.4-5.0); ALKALINE PHOSPHATASE 161 Units/L (46-116); CKMB % 1.2 % (<4); COR CA(FOR HYPOALB) 11.7 mg/dL (8.5-10.1); CREATINE KINASE 83 Units/L (26-192); CREATINE KINASE MB < 1.0 ng/mL (0-4.0); TOTAL PROTEIN 8.8 g/dL (6.4-8.2)
[2020-07-17] MEDS ORDERED: NS 1000 ML 1,000 ML ONE (10:41)
[2020-07-17 10:44] LABS: APPEARANCE,URINE HAZY (CLEAR); BILIRUBIN,URINE NEGATIVE (NEGATIVE); BLOOD/HEMOGLOBIN,URINE 4+ (NEGATIVE); COLOR,URINE YELLOW (YELLOW); GLUCOSE, URINE 4+ (NEGATIVE); KETONES,URINE NEGATIVE (NEGATIVE); LEUKOCYTE ESTERASE ,URINE 3+ (NEGATIVE); NITRITES,URINE NEGATIVE (NEGATIVE); PROTEIN,URINE 2+ (NEGATIVE); UROBILINOGEN,URINE NORMAL (NORMAL)
[2020-07-17 10:48] LABS: ANISOCYTOSIS 1+; BAND NEUTROPHILS % 9 % (0-10); PLATELET MORPHOLOGY COMMENT NORMAL (NORMAL)
[2020-07-17] MEDS: NS 1000 ML 1,000 ML IV SCH (11:08)
[2020-07-17 11:16] LABS: ALANINE AMINOTRANSFERASE 31 Units/L (12-78)
[2020-07-17 11:24] LABS: ASPARTATE AMINO TRANSFERASE 82 Units/L (15-37)
[2020-07-17] MEDS ORDERED: VANCOMYCIN HCL ONE (12:35)
[2020-07-17] MEDS ORDERED: NS 250 ML IV 250 ML IV ONE (12:36)
[2020-07-17] MEDS ORDERED: VANCOMYCIN IV *PREMIX 1 G/200 ML BAG 1 G/200 ML PIGGYBACK IV ONE (12:41)
[2020-07-17] MEDS ORDERED: HumuLIN R ONE (13:22)
[2020-07-17] MEDS: HumuLIN R SC PRN ×2 (13:33→17:30)
[2020-07-17] MEDS: ZOSYN VIAL 3.375 GRAMS 3.375 G in NS 100 ML IV + SPIKE MINIBAG* 100 ML IV SCH ×3 (14:08→23:38)
[2020-07-17] MEDS ORDERED: HumuLIN R SC PRN (15:16)
[2020-07-17] MEDS: APRESOLINE TAB 25 MG GT SCH ×2 (17:30→21:54)
[2020-07-17] MEDS: REGLAN TAB 10 MG PO SCH ×2 (17:30→22:33)
[2020-07-17] MEDS: TobraDEX OPHTH SUSP 1 DOSE OP SCH ×2 (17:30→22:33)
[2020-07-17] MEDS: ARTIFICIAL TEARS DROPS OP SCH ×2 (17:30→21:53)
[2020-07-17 17:46] LABS: CKMB % 0.9 % (<4); CREATINE KINASE 113 Units/L (26-192); CREATINE KINASE MB < 1.0 ng/mL (0-4.0); TROPONIN I 0.07 ng/mL (0-1.5)
[2020-07-17] MEDS: NYSTATIN SUSP PO SCH ×3 (17:58→21:46)
[2020-07-17] MEDS ORDERED: PHARMACY CONSULT LTC MEDICATIONS XX SCH (19:00)
[2020-07-17] MEDS ORDERED: NORVASC TAB 2.5 MG ONE (21:34)
[2020-07-17] MEDS: GLUCOTROL PEG SCH (21:44)
[2020-07-17] MEDS: LEVEMIR SC SCH (21:45)
[2020-07-17] MEDS: LOPRESSOR TAB 50 MG PEG SCH (21:45)
[2020-07-17] MEDS: NORVASC TAB 2.5 MG PEG SCH (21:46)
[2020-07-17] MEDS: ZINC SULFATE GT SCH (21:53)
[2020-07-17] MEDS: VITAMIN C PO SCH (21:54)
[2020-07-17] MEDS: REQUIP PO SCH (21:54)
[2020-07-17] MEDS: VANCOMYCIN HCL 750 MG in NS 250 ML IV 250 ML IV SCH (21:55)
[2020-07-17] MEDS: SNACK - Diabetic Appropriate PO SCH (22:01)
[2020-07-17 22:37] VITALS: BMI 28.6
[2020-07-17 23:48] LABS: CKMB % 1.1 % (<4); CREATINE KINASE 90 Units/L (26-192); CREATINE KINASE MB < 1.0 ng/mL (0-4.0); TROPONIN I 0.07 ng/mL (0-1.5)
[2020-07-18] MEDS: NS 1000 ML 1,000 ML IV SCH (02:09)
[2020-07-18] MEDS: REGLAN TAB 10 MG PO SCH ×4 (03:33→20:48)
[2020-07-18] MEDS: TobraDEX OPHTH SUSP 1 DOSE OP SCH ×4 (03:33→20:53)
[2020-07-18] MEDS: APRESOLINE TAB 25 MG GT SCH ×3 (05:04→23:58)
[2020-07-18] MEDS: ZOSYN VIAL 3.375 GRAMS 3.375 G in NS 100 ML IV + SPIKE MINIBAG* 100 ML IV SCH ×3 (05:05→23:59)
[2020-07-18] MEDS: ARTIFICIAL TEARS DROPS OP SCH ×3 (05:05→22:30)
[2020-07-18] MEDS: HumuLIN R SC PRN ×3 (05:37→17:58)
[2020-07-18 06:16] LABS: BASOPHILS # (AUTO) 0.2 X10^3/uL (0.0-0.1); BASOPHILS % (AUTO) 1.3 % (0.2-1.0); EOSINOPHILS # (AUTO) 0.1 x10^3/uL (0.0-0.2); EOSINOPHILS % (AUTO) 0.8 % (0.9-2.9); HEMATOCRIT 30.4 % (36.0-47.0); HEMOGLOBIN 9.2 g/dL (12.0-16.0); LYMPHOCYTES # (AUTO) 2.4 X10^3/uL (1.3-2.9); LYMPHOCYTES % (AUTO) 16.7 % (21.0-51.0); MEAN CORPUSCULAR HEMOGLOBIN 29.9 pg (27.0-34.0); MEAN CORPUSCULAR HGB CONC 30.3 g/dL (33.0-35.0); MEAN CORPUSCULAR VOLUME 98.5 fL (80.0-100.0); MEAN PLATELET VOLUME 10.8 fL (7.4-11.0); MONOCYTES # (AUTO) 0.6 x10^3/uL (0.3-0.8); NEUTROPHILS # (AUTO) 10.9 x10^3/uL (2.2-4.8); NEUTROPHILS % (AUTO) 77.2 % (42.0-75.0); PLATELET COUNT 134 X10^3/uL (150.0-450.0); RED BLOOD COUNT 3.08 X10^6/uL (3.5-5.4); RED CELL DISTRIBUTION WIDTH 20.6 % (11.6-16.5); WHITE BLOOD COUNT 14.1 X10^3/uL (3.6-10.0)
[2020-07-18 06:36] LABS: ALANINE AMINOTRANSFERASE 28 Units/L (12-78); ALBUMIN 1.5 g/dL (3.4-5.0); ALKALINE PHOSPHATASE 127 Units/L (46-116); ASPARTATE AMINO TRANSFERASE 66 Units/L (15-37); BLOOD UREA NITROGEN 48 mg/dL (7-18); CALCIUM 9.5 mg/dL (8.5-10.1); CARBON DIOXIDE 28.2 mmol/L (21-32); COR CA(FOR HYPOALB) 11.5 mg/dL (8.5-10.1); COR NA(FOR HYPERGLY) 158 mmol/L (136-145); CREATININE 0.99 mg/dL (0.55-1.02); MAGNESIUM 2.6 mg/dL (1.7-2.9); TOTAL PROTEIN 8.4 g/dL (6.4-8.2); eGFR NON BLACK RACES 57 (>60)
[2020-07-18 06:39] LABS: PLATELET MORPHOLOGY COMMENT NORMAL (NORMAL)
[2020-07-18 06:40] LABS: ANISOCYTOSIS 1+; CHLORIDE 116 mmol/L (98-107); SODIUM 153 mmol/L (136-145)
[2020-07-18] MEDS ORDERED: NORVASC TAB 2.5 MG ONE (08:14)
[2020-07-18] MEDS ORDERED: TYLENOL SUPP 650 MG ONE (08:14)
[2020-07-18] MEDS ORDERED: VANCOMYCIN HCL 750 MG VIAL ONE (08:15)
[2020-07-18] MEDS ORDERED: NS 250 ML IV 250 ML IV ONE (08:37)
[2020-07-18] MEDS ORDERED: COLLAGEN G-tube SCH (09:00)
[2020-07-18] MEDS: HEMOCYTE-PLUS PO SCH (09:37)
[2020-07-18] MEDS: GLUCOTROL PEG SCH ×2 (09:37→20:47)
[2020-07-18] MEDS: LOPRESSOR TAB 50 MG PEG SCH ×2 (09:38→23:58)
[2020-07-18] MEDS: LEVEMIR SC SCH ×2 (09:38→20:54)
[2020-07-18] MEDS: NORVASC TAB 2.5 MG PEG SCH ×2 (09:39→23:58)
[2020-07-18] MEDS: NYSTATIN SUSP PO SCH ×4 (09:39→20:53)
[2020-07-18] MEDS: VANCOMYCIN HCL 750 MG in NS 250 ML IV 250 ML IV SCH ×2 (09:40→21:15)
[2020-07-18] MEDS: REQUIP PO SCH ×2 (09:40→20:50)
[2020-07-18] MEDS: TAB-A-VITE PO SCH (09:40)
[2020-07-18] MEDS: ZINC SULFATE GT SCH ×2 (09:41→20:49)
[2020-07-18] MEDS: VITAMIN C PO SCH ×2 (09:41→20:49)
[2020-07-18] MEDS: TYLENOL SUPP 650 MG PR PRN (09:42)
[2020-07-18] MEDS: ARGININE GLUTAMINE CALCIUM HMB PO SCH ×2 (10:08→20:52)
--- NOTE | 2020-07-18 10:16 | DR.H&P ---
H&P - History & Physical for Day of: H&P Date: 07/17/20 - Chief Complaint Chief Complaint: FEVER, WEAKNESS - History of Present Illness History of Present Illness: PT IS 85 BF ER ADMISSION WITH POSSIBLE SEPSIS. PT HAS PMH OF COPD, COLON CA, HTN, DM, CAD, CHF, DEMENTIA. PT ADMITTED FOR TREATMENT OF ACUTE ILLNESS RO SEPSIS - Past Medical History Past Medical History: Angina, Coronary Artery Disease, Hypertension, Dyslipidemia, Dementia, Depression, Anxiety, Hypothyroidism, Anemia, CVA, GERD, Arthritis Additional Medical History: Constipation, Tinnitus, Spinal Cord Infarction, Restless Leg Syndrome, Peripheral Vascular Disease, Paraplegic, Right-sided paralysis, Gastrointestinal Ulcer, UTI's, Muscle Weakness, Osteoarthritis, Previous Blood Transfusion - Past Surgical History Surgical History: Hysterectomy, Other - Family History Family Medical History: Diabetes Mellitus, Cancer, ME, Coronary Artery Disease, Sudden Cardiac , Hypertension - Social History Does patient currently use any type of tobacco product: No Have you used tobacco products in the last 12 months: No Type of Tobacco Use: None Does any household member use tobacco: No Alcohol Use: None Drug Use: None - Medications Home Medications: No Known Drug Allergies Allergy (Verified 09/24/17 15:23) CONTINUE taking the following medications Collagen 2 cp G-TUBE DAILY 07/17/20 [History] Zinc 220 mg FEEDING TUBE BID 07/17/20 [History] [id number] HMB [Richard] 1 ea PO BID 07/17/20 [History] ascorbic acid (vitamin C) [Vitamin C] 500 mg PO BID 07/17/20 [History] glipizide 5 mg FEEDING TUBE BID 07/17/20 [History] insulin regular human [Novolin R Regular U-100 Insuln] 1 unit SUBCUT PRN PRN 07/17/20 [History] tobramycin-dexamethasone 2 drp OPHTHALMIC (EYE) Q6H 07/17/20 [History] - Review of Systems Constitutional: Weakness Eyes: No Symptoms Reported ENT: No Symptoms Reported Respiratory: Wheezing Cardiovascular: No Symptoms Reported, Edema Gastrointestinal: No Symptoms Reported Musculoskeletal: No Symptoms Reported Skin: Wound Neurological: Weakness - Physical Exam Vital Signs: Temperature 102.5 F Pulse Rate [Left Brachial] 80 Pulse Rate 96 Respiratory Rate 24 Blood Pressure [Left Arm] 125/55 Blood Pressure 167/86 O2 Sat by Pulse Oximetry 97 Oriented: Person Eyes: Normal Ear: Normal Nose: Normal Throat: Dry Respiratory: Diminished Throughout Cardiovascular: Normal : Normal Auscultation: Bowel Sounds: Normal Palpation: Normal Tenderness: Normal Skin: Wound, Other (COLOSTOMY) Musculoskeletal: Right, Left, Motor Deficit Psychiatric: Anxiety Speech Pattern: Delayed - Assessment/Plan (1) Altered mental status Qualifiers: Status: Acute Plan: ADMIT, BLOOD AND URINE CULTURE ON ADMISSION. BC FROM PORT SITE IN ADDITION, GENTLE IV HYDRATION. CE AND EKG, CONFIRM HOME MEDICATION, SUPPLEMENTAL O2. WOUND CARE, IV VANCOMYCIN, RESP THERAPY. AM LABS, CONTINUOUS TELEMETRY, BP CONTROL (2) Acute UTI Status: Acute (3) Bronchitis Status: Acute (4) Decubitus ulcer of sacral region, stage 4 Status: Acute (5) GERD (gastroesophageal reflux disease) Status: Chronic (6) History of CVA (cerebrovascular accident) Status: Chronic (7) Hypertension Qualifiers: Status: Chronic (8) Hypernatremia Status: Acute - Allergies Allergies/Adverse Reactions: Allergies Allergy/AdvReac Type Severity Reaction Status Date / Time No Known Drug Allergies Allergy Verified 09/24/17 15:23
[2020-07-18] MEDS: D5W 1000 ML IV 1,000 ML IV SCH (11:58)
[2020-07-18] MEDS ORDERED: OFIRMEV IV 1000 MG VIAL 1,000 MG/100 ML VIAL IV PRN (16:38)
[2020-07-18] MEDS ORDERED: OFIRMEV IV 1000 MG VIAL 1,000 MG/100 ML VIAL IV ONE (16:45)
--- NOTE | 2020-07-18 19:14 | RAD ---
CHEST, 1 VIEWHISTORY: sobStudy: Single view of the chest.Comparison:July 17, 2020Findings:The cardiomediastinal silhouette is normal. No change in the appearance of bilateral interstitial opacities. Osseous structures demonstrate no acute abnormality.IMPRESSION:1. No change from prior.Electronically signed by: KAUSHIK ZUÑIGA (Jul 18, 2020 19:14:09)
[2020-07-18] MEDS ORDERED: PHARMACY COMMENT IV NR (20:30)
[2020-07-18] MEDS: SNACK - Diabetic Appropriate PO SCH (20:47)
[2020-07-19 05:42] LABS: BASOPHILS % (AUTO) 0.4 % (0.2-1.0); EOSINOPHILS % (AUTO) 0.4 % (0.9-2.9); HEMATOCRIT 29.1 % (36.0-47.0); HEMOGLOBIN 8.9 g/dL (12.0-16.0); LYMPHOCYTES # (AUTO) 1.8 X10^3/uL (1.3-2.9); LYMPHOCYTES % (AUTO) 16.3 % (21.0-51.0); MEAN CORPUSCULAR HEMOGLOBIN 29.9 pg (27.0-34.0); MEAN CORPUSCULAR HGB CONC 30.4 g/dL (33.0-35.0); MEAN CORPUSCULAR VOLUME 98.4 fL (80.0-100.0); MEAN PLATELET VOLUME 10.8 fL (7.4-11.0); MONOCYTES # (AUTO) 0.6 x10^3/uL (0.3-0.8); MONOCYTES % (AUTO) 5.1 % (0.0-13.0); NEUTROPHILS # (AUTO) 8.6 x10^3/uL (2.2-4.8); NEUTROPHILS % (AUTO) 77.8 % (42.0-75.0); PLATELET COUNT 124 X10^3/uL (150.0-450.0); RED BLOOD COUNT 2.96 X10^6/uL (3.5-5.4); RED CELL DISTRIBUTION WIDTH 20.7 % (11.6-16.5)
[2020-07-19] MEDS: D5W 1000 ML IV 1,000 ML IV SCH ×2 (05:46→13:27)
[2020-07-19] MEDS: REGLAN TAB 10 MG PO SCH ×4 (05:46→22:00)
[2020-07-19] MEDS: TobraDEX OPHTH SUSP 1 DOSE OP SCH ×4 (05:46→21:49)
[2020-07-19] MEDS: TYLENOL SUPP 650 MG PR PRN (05:46)
[2020-07-19] MEDS: APRESOLINE TAB 25 MG GT SCH ×2 (05:47→13:27)
[2020-07-19] MEDS: ARTIFICIAL TEARS DROPS OP SCH ×3 (05:48→21:49)
[2020-07-19] MEDS: ZOSYN VIAL 3.375 GRAMS 3.375 G in NS 100 ML IV + SPIKE MINIBAG* 100 ML IV SCH ×2 (05:48→13:44)
[2020-07-19 05:59] LABS: ANISOCYTOSIS 1+; HYPOCHROMASIA SLIGHT; PLATELET MORPHOLOGY COMMENT NORMAL (NORMAL)
[2020-07-19 06:10] LABS: ALANINE AMINOTRANSFERASE 43 Units/L (12-78); ALBUMIN 1.5 g/dL (3.4-5.0); ALKALINE PHOSPHATASE 165 Units/L (46-116); ASPARTATE AMINO TRANSFERASE 53 Units/L (15-37); BLOOD UREA NITROGEN 48 mg/dL (7-18); CALCIUM 9.2 mg/dL (8.5-10.1); CARBON DIOXIDE 31.5 mmol/L (21-32); CHLORIDE 107 mmol/L (98-107); COR CA(FOR HYPOALB) 11.2 mg/dL (8.5-10.1); COR NA(FOR HYPERGLY) 153 mmol/L (136-145); CREATININE 1.03 mg/dL (0.55-1.02); SODIUM 144 mmol/L (136-145); TOTAL PROTEIN 8.9 g/dL (6.4-8.2); eGFR NON BLACK RACES 54 (>60)
[2020-07-19] MEDS: TAB-A-VITE PO SCH (09:48)
[2020-07-19] MEDS: HEMOCYTE-PLUS PO SCH (09:48)
[2020-07-19] MEDS: VITAMIN C PO SCH ×2 (09:48→21:50)
[2020-07-19] MEDS: GLUCOTROL PEG SCH (09:48)
[2020-07-19] MEDS: REQUIP PO SCH ×2 (09:48→21:50)
[2020-07-19] MEDS: LEVEMIR SC SCH (09:49)
[2020-07-19] MEDS: NORVASC TAB 2.5 MG PEG SCH (09:50)
[2020-07-19] MEDS: NYSTATIN SUSP PO SCH ×6 (09:50→21:48)
[2020-07-19] MEDS: LOPRESSOR TAB 50 MG PEG SCH (09:50)
[2020-07-19] MEDS: VANCOMYCIN HCL 750 MG in NS 250 ML IV 250 ML IV SCH (09:51)
[2020-07-19] MEDS: ZINC SULFATE GT SCH ×2 (09:51→21:50)
[2020-07-19] MEDS: ARGININE GLUTAMINE CALCIUM HMB PO SCH ×2 (09:52→23:56)
[2020-07-19] MEDS: HumuLIN R SC PRN (13:47)
[2020-07-19] MEDS: SNACK - Diabetic Appropriate PO SCH (21:48)
[2020-07-20] MEDS: NORVASC TAB 2.5 MG PEG SCH ×2 (00:01→08:17)
[2020-07-20] MEDS: LOPRESSOR TAB 50 MG PEG SCH ×2 (00:02→08:17)
[2020-07-20] MEDS: LEVEMIR SC SCH ×2 (00:02→08:16)
[2020-07-20] MEDS: GLUCOTROL PEG SCH ×2 (00:03→08:15)
[2020-07-20] MEDS: TobraDEX OPHTH SUSP 1 DOSE OP SCH ×3 (04:55→15:46)
[2020-07-20] MEDS: D5W 1000 ML IV 1,000 ML IV SCH ×2 (06:18→15:45)
[2020-07-20] MEDS: REGLAN TAB 10 MG PO SCH ×3 (06:19→15:46)
[2020-07-20] MEDS: ZOSYN VIAL 3.375 GRAMS 3.375 G in NS 100 ML IV + SPIKE MINIBAG* 100 ML IV SCH ×3 (06:19)
[2020-07-20] MEDS: ARTIFICIAL TEARS DROPS OP SCH ×2 (06:19→15:45)
[2020-07-20] MEDS: APRESOLINE TAB 25 MG GT SCH ×3 (06:20→14:11)
[2020-07-20] MEDS: ARGININE GLUTAMINE CALCIUM HMB PO SCH (08:14)
[2020-07-20] MEDS: HEMOCYTE-PLUS PO SCH (08:16)
[2020-07-20] MEDS: REQUIP PO SCH (08:17)
[2020-07-20] MEDS: NYSTATIN SUSP PO SCH ×3 (08:17→17:15)
[2020-07-20] MEDS: TAB-A-VITE PO SCH (08:17)
[2020-07-20] MEDS: VANCOMYCIN HCL 750 MG in NS 250 ML IV 250 ML IV SCH ×3 (08:18)
[2020-07-20] MEDS: ZINC SULFATE GT SCH (08:18)
[2020-07-20] MEDS: VITAMIN C PO SCH (08:18)
[2020-07-20] MEDS ORDERED: LOVENOX INJ 40 MG SYR SC ONE (10:08)
[2020-07-20] MEDS: TYLENOL SUPP 650 MG PR PRN (10:15)
[2020-07-20] MEDS ORDERED: LOVENOX INJ 40 MG SYR SC SCH (11:00)
[2020-07-20] MEDS ORDERED: VIBRAMYCIN PO SCH (14:00)
[2020-07-20] MEDS ORDERED: VIBRAMYCIN PO ONE (14:15)
[2020-07-20 16:38] VITALS: BP 103/56
--- NOTE | 2020-07-20 18:55 | PCM.PROG ---
Progress Note - Progress Note for Day of Date of Exam: 07/20/20 - Subjective Subjective: WAS ADMITTED ON 07/17 FOR TREATMENT OF RIGHT CHEST WALL CELLULITIS, BRONCHITIS, URINARY TRACT INFECTION, BACTEREMIA, POSSIBLE SEPSIS, AND ACUTE ON CHRONIC RENAL FAILURE. VANCOMYCIN WAS ORDERED, HOWEVER, PATIENT HAS NOT RECEIVED A DOSE SINCE MONDAY DUE TO LACK OF IV ACCESS. FAMILY RELUCTANT TO PLACEMENT OF PICC LINE OR CENTRAL LINE AT THIS TIME. THEY WISH TO DISCUSS WITH OTHER FAMILY MEMBERS BEFORE GIVING CONSENT. TODAY, SHE IS LYING IN BED WITH EYES CLOSED ON MORNING ROUNDS. PATIENT IS UNRESPONSIVE TO TACTILE VERBAL STIMULI. SHE IS NON-VERBAL AND IS BED BOUND. ON EXAMINATION, HEART IS REGULAR IN RATE AND RHYTHM. BILATERAL LUNGS ARE NOTED WITH SCATTERED RHONCHI, DIMINISHED. ABDOMEN IS ROUND, SOFT, AND NON-TENDER WITH NORMAL BOWEL SOUNDS NOTED IN ALL QUADRANTS. THERE IS A PEG TUBE AND COLOSTOMY PRESENT. A HIGGINS CATHETER IS NOTED TO BEDSIDE DRAINAGE. HER VITALS THIS MORNING ARE: 100.4-96-22-86%NC-117/56. STAFF REPORTS THAT HER SATURATIONS HAVE FALLEN TO 82-83% ON OXYGEN VIA NASAL CANNULA AT 4L/MIN. LABS WERE OBTAINED. ABNORMAL LAB VALUES INCLUDE THE FOLLOWING: WBC 11.0, RBC 2.96, HGB 8.9, HCT 29.1, PLT COUNT 124, BUN 48, CREATININE 1.03, GLUCOSE 460, AST 53, ALK PHOS 165, TOTAL PROTEIN 8.9, ALBUMIN 1.5, GLOBULIN 7.4. WOUND CULTURE OF CHEST AND BOTH SETS OF BLOOD CULTURES ARE POSITIVE FOR MRSA. CULTURE OF DRAINAGE FROM PEG TUBE IS PENDING. SHE IS CURRENTLY RECEIVING D5W AT 50 ML/HR, LOVENOX 40MG SC DAILY, HUMULIN R SLIDING SCALE, AND HER HOME MEDICATIONS. TODAY, WE WILL DISCONTINUE THE VANCOMYCIN DUE TO NO IV ACCESS. WE WILL START DOXYCYCLINE 100MG VIA GT BID. WE HAVE DISCUSSED WITH PATIENTS FAMILY THAT THE PORT A CATH WILL LIKELY NEED TO BE REMOVED WHEN INFECTION IS UNDER CONTROL AND SHE IS STABLE. OTHERWISE, WE PLAN TO FOLLOW UP WITH AM LABS AND CONT INUE TO MONITOR. - Past Medical Family Social History Past Med/Fam/Surg Hx: No changes since H&P Allergies: Allergies No Known Drug Allergies Allergy (Verified 09/24/17 15:23) - Review of Systems ROS: No change since H&P - Vital Signs and I&O's Vital Signs: Temperature 100.3 F Pulse Rate [Left Brachial] 101 Pulse Rate 96 Respiratory Rate 28 Blood Pressure [Left Arm] 103/56 Blood Pressure 167/86 O2 Sat by Pulse Oximetry 77 Intake and Output: Intake & Output 07/18/20 07/19/20 07/20/20 07/21/20 11:59 11:59 11:59 11:59 Intake Total 1949 / 1949 1522 / 1522 1200 / 1200 230 / 230 Output Total 1300 / 1300 2100 / 2100 1400 / 1400 400 / 400 Balance 649 / 649 -578 / -578 -200 / -200 -170 / -170 - Physical Exam Oriented: Unable to test Eyes: Normal Ear: Normal Nose: Normal Throat: Dry Respiratory: Generalized, Diminished, Rhonchi Cardiovascular: Normal : Normal Auscultation: Bowel Sounds: Normal Palpation: Normal Tenderness: Normal Skin: Red, Tender (CHEST WALL ), Wound, Other (COLOSTOMY) Musculoskeletal: Right, Left, Motor Deficit Psychiatric: Normal Mood Description: Flat Affect: Flat Speech Pattern: Aphasic - Laboratory and Diagnostics Result Diagrams: 07/19/20 03:58 07/19/20 03:58 Labs: 07/18/20 20:00 Peg Tube Wound Culture - Preliminary 07/17/20 12:25 Blood Blood Culture - Final Methicillin Resis Staph Aureus 07/17/20 10:05 Blood Blood Culture - Final Methicillin Resis Staph Aureus 07/17/20 10:00 Blood Blood Culture - Final Methicillin Resis Staph Aureus 07/17/20 10:06 Urine,Clean Catch Urine Culture - Final 07/17/20 10:55 Chest Gram Stain - Final 07/17/20 10:55 Chest Wound Culture - Final Methicillin Resis Staph Aureus Laboratory WBC 11.0 X10^3/uL (3.6-10.0) H 07/19/20 03:58 RBC 2.96 X10^6/uL (3.5-5.4) L 07/19/20 03:58 Hgb 8.9 g/dL (12.0-16.0) L 07/19/20 03:58 Hct 29.1 % (36.0-47.0) L 07/19/20 03:58 MCV 98.4 fL (80.0-100.0) 07/19/20 03:58 MCH 29.9 pg (27.0-34.0) 07/19/20 03:58 MCHC 30.4 g/dL (33.0-35.0) L 07/19/20 03:58 RDW 20.7 % (11.6-16.5) H 07/19/20 03:58 Plt Count 124 X10^3/uL (150.0-450.0) L 07/19/20 03:58 Plt Count Comment Decreased (ADEQUATE) A 07/19/20 03:58 MPV 10.8 fL (7.4-11.0) 07/19/20 03:58 Neut % (Auto) 77.8 % (42.0-75.0) H 07/19/20 03:58 Lymph % (Auto) 16.3 % (21.0-51.0) L 07/19/20 03:58 [place] % (Auto) 5.1 % (0.0-13.0) 07/19/20 03:58 Eos % (Auto) 0.4 % (0.9-2.9) L 07/19/20 03:58 Baso % (Auto) 0.4 % (0.2-1.0) 07/19/20 03:58 Neut # (Auto) 8.6 x10^3/uL (2.2-4.8) H 07/19/20 03:58 Lymph # (Auto) 1.8 X10^3/uL (1.3-2.9) 07/19/20 03:58 [place] # (Auto) 0.6 x10^3/uL (0.3-0.8) 07/19/20 03:58 Eos # (Auto) 0.0 x10^3/uL (0.0-0.2) 07/19/20 03:58 Baso # (Auto) 0.0 X10^3/uL (0.0-0.1) 07/19/20 03:58 Absolute Nucleated RBC 2.0 /100WBC 07/19/20 03:58 Total Counted 100 07/17/20 10:00 Neutrophils % (Manual) 54 % (39-76) 07/17/20 10:00 Band Neutrophils % 9 % (0-10) 07/17/20 10:00 Lymphocytes % (Manual) 32 % (13-43) 07/17/20 10:00 Monocytes % (Manual) 4 % (4-9) 07/17/20 10:00 Eosinophils % (Manual) 1 % (0-6) 07/17/20 10:00 Plt Morphology Comment Normal (NORMAL) 07/19/20 03:58 RBC Morphology Abnormal (NORMAL) A 07/19/20 03:58 Hypochromasia Slight A 07/19/20 03:58 Anisocytosis 1+ A 07/19/20 03:58 PT 12.4 SECONDS (11.8-14.3) 07/17/20 10:00 INR Target Range - 07/17/20 10:00 INR 0.95 (0.8-1.3) 07/17/20 10:00 APTT 27.6 SECONDS (22.9-36.5) 07/17/20 10:00 PTT Comment - 07/17/20 10:00 Sodium 144 mmol/L (136-145) 07/19/20 03:58 Corrected Sodium 153 mmol/L (136-145) H 07/19/20 03:58 Potassium 4.3 mmol/L (3.5-5.1) 07/19/20 03:58 Chloride 107 mmol/L (98-107) 07/19/20 03:58 Carbon Dioxide 31.5 mmol/L (21-32) 07/19/20 03:58 BUN 48 mg/dL (7-18) H 07/19/20 03:58 Creatinine 1.03 mg/dL (0.55-1.02) H 07/19/20 03:58 Est GFR (MDRD) Af Amer > 60 (>60) 07/19/20 03:58 Est GFR (MDRD) Non-Af 54 (>60) L 07/19/20 03:58 Glucose 460 mg/dL (65-99) H 07/19/20 03:58 POC Glucose (mg/dL) 303 mg/dL (65-99) H 07/19/20 11:39 Lactic Acid 0.7 mmol/L (0.4-2.0) 07/17/20 10:00 Calcium 9.2 mg/dL (8.5-10.1) 07/19/20 03:58 Corrected Calcium 11.2 mg/dL (8.5-10.1) H 07/19/20 03:58 Magnesium 2.6 mg/dL (1.7-2.9) 07/18/20 05:20 Total Bilirubin 0.30 mg/dL (0.2-1.0) 07/19/20 03:58 AST 53 Units/L (15-37) H 07/19/20 03:58 ALT 43 Units/L (12-78) 07/19/20 03:58 Alkaline Phosphatase 165 Units/L (46-116) H 07/19/20 03:58 Creatine Kinase 90 Units/L (26-192) 07/17/20 23:13 CK-MB (CK-2) < 1.0 ng/mL (0-4.0) 07/17/20 23:13 CK/CKMB % Calc 1.1 % (<4) 07/17/20 23:13 Troponin I 0.07 ng/mL (0-1.5) 07/17/20 23:13 Total Protein 8.9 g/dL (6.4-8.2) H 07/19/20 03:58 Albumin 1.5 g/dL (3.4-5.0) L 07/19/20 03:58 Globulin 7.4 g/dL (2.5-4.5) H 07/19/20 03:58 Albumin/Globulin Ratio 0.2 Ratio (1.1-2.1) L 07/19/20 03:58 Specimen Type Catherized urine 07/17/20 10:06 Urine Color Yellow (YELLOW) 07/17/20 10:06 Urine Appearance Hazy (CLEAR) 07/17/20 10:06 Urine pH 7.0 (5.0 - 8.0) 07/17/20 10:06 Ur Specific [place] 1.010 (1.000-1.030) 07/17/20 10:06 Urine Protein 2+ (NEGATIVE) 07/17/20 10:06 Urine Glucose (UA) 4+ (NEGATIVE) 07/17/20 10:06 Urine Ketones Negative (NEGATIVE) 07/17/20 10:06 Urine Occult Blood 4+ (NEGATIVE) 07/17/20 10:06 Urine Nitrite Negative (NEGATIVE) 07/17/20 10:06 Urine Bilirubin Negative (NEGATIVE) 07/17/20 10:06 Urine Urobilinogen Normal (NORMAL) 07/17/20 10:06 Ur Leukocyte Esterase 3+ (NEGATIVE) 07/17/20 10:06 Urine RBC Cancelled 07/17/20 10:06 Urine WBC Cancelled 07/17/20 10:06 Ur Squamous Epith Cells Cancelled 07/17/20 10:06 Ur Transition Epith Cell Cancelled 07/17/20 10:06 Ur Renal Epithelial Cell Cancelled 07/17/20 10:06 Calcium Oxalate Crystal Cancelled 07/17/20 10:06 Cystine Crystals Cancelled 07/17/20 10:06 Uric Acid Crystals Cancelled 07/17/20 10:06 Triple Phos Crystals Cancelled 07/17/20 10:06 Tyrosine Crystals Cancelled 07/17/20 10:06 Other Crystals Cancelled 07/17/20 10:06 Amorphous Sediment Cancelled 07/17/20 10:06 Urine Bacteria Cancelled 07/17/20 10:06 Hyaline Casts Cancelled 07/17/20 10:06 Granular Casts Cancelled 07/17/20 10:06 Fine Granular Casts Cancelled 07/17/20 10:06 Coarse Granular Casts Cancelled 07/17/20 10:06 RBC Casts Cancelled 07/17/20 10:06 Other Casts Cancelled 07/17/20 10:06 Urine Mucus Cancelled 07/17/20 10:06 Urine Trichomonas Cancelled 07/17/20 10:06 Urine Yeast Cancelled 07/17/20 10:06 Urine Sperm Cancelled 07/17/20 10:06 Ur Culture Indicated? Cancelled 07/17/20 10:06 Random Vancomycin 17.7 ug/mL 07/18/20 20:31 Acetone, Semi-Quant Negative (NEGATIVE) 07/17/20 10:00 - Plan (1) Cellulitis of chest wall Status: Acute Plan: IV HYDRATION, LOVENOX 40MG SC DAILY, DOXYCYCLINE 100MG GT BID, HUMULIN R SLIDING SCALE, WOUND CARE, CONTINUE TO MONITOR (2) Acute UTI Status: Acute (3) Bronchitis Status: Acute (4) Sepsis Status: Acute Qualifiers: Sepsis type: sepsis due to unspecified organism Sepsis acute organ dysfunction status: unspecified Qualified Code(s): A41.9 - Sepsis, unspecified organism (5) End stage chronic kidney disease Status: Chronic (6) Hyperglycemia Status: Acute (7) Diabetes Status: Chronic Qualifiers: Diabetes mellitus type: type 2 Diabetes mellitus buttermaker continuous churn insulin use: with [facility] use Diabetes mellitus complication status: with hyperglycemia Qualified Code(s): E11.65 - Type 2 diabetes mellitus with hyperglycemia; Z79.4 - parts counterman (current) use of insulin
== END 2020-07-20 21:45 | disposition expired | DRG 871 ==
LOC: ER 09:35 → MED/SURG 12:56
PROVIDERS: ADMIT Internal Medicine; ATTEND Internal Medicine
DX: R94.31 Abnormal electrocardiogram [ECG] [EKG]; I12.0 Hypertensive chronic kidney disease with stage 5 chronic kidney disease or end stage renal disease; I25.10 Atherosclerotic heart disease of native coronary artery without angina pectoris; I10 Essential (primary) hypertension; N18.6 End stage renal disease; L89.154 Pressure ulcer of sacral region, stage 4; N17.8 Other acute kidney failure; K94.22 Gastrostomy infection; L03.313 Cellulitis of chest wall; B96.5 Pseudomonas (aeruginosa) (mallei) (pseudomallei) as the cause of diseases classified elsewhere; R06.02 Shortness of breath; A41.02 Sepsis due to Methicillin resistant Staphylococcus aureus; J44.9 Chronic obstructive pulmonary disease, unspecified; E11.65 Type 2 diabetes mellitus with hyperglycemia; N39.0 Urinary tract infection, site not specified; K21.9 Gastro-esophageal reflux disease without esophagitis; J20.8 Acute bronchitis due to other specified organisms; E87.5 Hyperkalemia; E86.0 Dehydration; I46.9 Cardiac arrest, cause unspecified; R41.82 Altered mental status, unspecified; Z79.4 Long term (current) use of insulin